=== PATIENT | female | born 1945 | race Caucasian/White ===

== ENCOUNTER 2016-11-25 19:34 | Inpatient (IN) | payer MEDICARE ==
[~2016-11-25] VITALS: Ht 157.5 cm; Wt 77.2 kg
[~2016-11-25 19:34] MED LIST changes: -ALBUTEROL SULFATE 2.5 MG/0.5 ML INH NEB SOLN NEB ONE; -IPRATROPIUM 0.5MG/ALBUTEROL 2.5MG INH SOL UD 3ML (DUONEB)(J7620) NEB ONE; +cefTRIAXone SOD 1 GM in D5W MINI-BAG PLUS 50 ML IV SCH
--- NOTE | 2016-11-25 21:50 | ECGEPIP ---
Stationary ECG Study [facility] - ED Test Date: 2016-11-25 Pat Name: CORY CAMPBELL Department: Room: - Gender: F Hvac Specialist: RiveraB: 1945 Requested By: KELIN MCKINLEY Order Number: [id number] Reading MD: Arnie Charlton Measurements Intervals [place] Rate: 93 P: 80 [place]: 145 QRS: 50 QRSD: 81 T: 56 QT: 320 QTc: 398 Interpretive Statements SINUS RHYTHM POSSIBLE LAE SIMILAR TO PRIOR ON SAME DATE Electronically Signed On 11-25-2016 21:49:42 EST by Arnie Charlton
[2016-11-25 21:51] LABS: ABG BASE EXCESS 21.4 (-2.0-2.0); ABG HCO3 53.5 MEQ/L (22.0-26.0); ABG PARTIAL PRESSURE CO2 119.1 mmHg (35.0-45.0); ABG PARTIAL PRESSURE O2 54.3 mmHg (75.0-100.0); ABG STANDARD HCO3 45.5 MEQ/L (22.0-26.0); ABG TOTAL CO2 57.1 MEQ/L (23.0-31.0)
[2016-11-25] MEDS ORDERED: dexameTHASONE 20 MG/5 ML VIAL (J1100) IV ONE (22:00)
[2016-11-25 22:33] LABS: THYROXINE (T4) 8.2 UG/DL (4.5-12.0)
[2016-11-25] MEDS: IPRATROPIUM 0.5MG/ALBUTEROL 2.5MG INH SOL UD 3ML (DUONEB)(J7620) NEB PRN ×3 (22:33→22:48)
[2016-11-26] VITALS (18 sets, daily range): BP systolic 107–180; BP diastolic 51–77; O2SAT 96
[2016-11-26] MEDS ORDERED: amLODIPine 5 MG TAB PO ONE
[2016-11-26] MEDS ORDERED: hydrALAZINE INJ 20 MG/ML VIAL IV PRN
--- NOTE | 2016-11-26 00:37 | HPE ---
DATE OF ADMISSION: 11/25/2016 HISTORY AND PHYSICAL/CRITICAL CARE NOTE Critical care time was 1 hour. This excludes all procedures. 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 She was then sent to the emergency room. She was discharged home and then came back more short of breath. She has been feeling weak for some time. On her evaluation on her second presentation, an arterial blood gas was performed showing hypercapnic respiratory failure. On my arrival to the room, the patient has already been started on bilevel noninvasive therapy, I made adjustments accordingly. She is getting a first dose of steroids. No antibiotics have been administered. She is unable to provide me much history, and there is no one in the room to help with her history. She was able to tell me that she has albuterol nebs and that she does not take her other prescribed inhalers due to the cost of medication. I am unable to get any other history from her. Based on her chart, she has a past medical history of vitamin D deficiency, back pain, hypercholesterolemia and a hysterectomy for dysfunctional uterine bleeding. I am unable to obtain social history, but I hear there is a who presented to the emergency room (ER); however, he has left and is not available by phone at this point in time. FAMILY HISTORY: Unobtainable. REVIEW OF SYSTEMS: Unobtainable. ALLERGIES: Unobtainable. PHYSICAL EXAMINATION: Temperature is 99.3, pulse is 95, respiratory rate is 20, blood pressure is 170/70, oxygen saturation is 90% on bilevel 14 over 6, with 40% FiO2. General: The patient is awake, tolerating the mask. She shakes her head yes or no to some questions, other times shrugs. HEENT: Sclerae clear and anicteric. Mucous membranes are moist without lesions. Tongue is midline. Neck is supple. No tracheal deviation or mass. No elevated jugular venous pressure (JVP). Cardiac: Distant, S1, S2 without audible murmur, rub or gallop. No elevated JVP. No peripheral edema. Pulmonary: Decreased breath sounds throughout. There is an inspiratory and expiratory wheeze. No laryngeal stridor. Poor air entry bilaterally. No rhonchi. No dullness to percussion. Abdomen is soft, nontender, nondistended with normoactive bowel sounds. No palpable mass or discernible hepatosplenomegaly. Extremities: No cyanosis, clubbing or edema. Skin: No rashes, jaundice or bruising. No unilateral weakness, no tremor. No evidence of seizure activity. Musculoskeletal: Muscle tone is well developed. No evidence of fracture or joint effusion. Laboratory evaluation shows a white count of 11.1. Initial hemoglobin of 16.3 at 10 o'clock today, now on 11.4. Hematocrit initially 48.9, now 36.8. Platelet count of 163. Sodium is 143, potassium 4.2, chloride is 96, bicarbonate is 45, BUN is 14, creatinine is 1.03, glucose is 128, calcium is 9.1, total bilirubin is 0.2, AST is 18, ALT is 15, alkaline phosphatase is 98, ammonia is 22. CK is 87, troponin is 0.02, albumin is 3.1. TSH is 1.78. Chest x-ray shows blunting of the left costophrenic angle. Reported 1 centimeter nodule in the right upper lobe on the films at 13 49 hours. This will require further radiologic workup as an outpatient. Minimal cephalization. No evidence of pneumothorax. Arterial blood gas shows a pH of 7.27, pCO2 of 119, PaO2 of 54.3. Sodium is 143, potassium 4.2, chloride 96, bicarbonate 45, BUN of 14, creatinine of 1.03. IMPRESSION: 1. Acute hypercarbic respiratory failure. Will initiate steroids and antibiotics for chronic obstructive pulmonary disease exacerbation. There is some question of a left lower lobe infiltrate, although it is better. It is not very clear on the lateral film that there is any significant infiltrate and this may be chronic abnormalities. She does have leukocytosis and respiratory failure; therefore, antibiotics were administered. Will obtain sputum culture. Will continue bilevel noninvasive therapy until the patient is able to ventilate on her own. She did state that she would want everything done, including intubation, mechanical ventilation and life support if this were needed to save her life. I have started formoterol and budesonide along with albuterol nebs. She will need long-acting inhaled therapy as an outpatient. 2. Leukocytosis. Will obtain blood cultures and sputum cultures. I have started antibiotic therapy. There is no evidence of septic shock at this point in time. Blood pressure is actually high. Will continue to monitor for signs of sepsis. 3. Hypertension. I was hopeful that initiating bilevel therapy in alleviating her respiratory distress would bring down her blood pressure; however, she remained with a systolic blood pressure greater than 170. Therefore, I started Norvasc and as needed hydralazine. Will continue to monitor blood pressure and need for additional antihypertensive therapy. I cannot clearly obtain whether she is on antihypertensive therapy at home. 4. Right upper lobe nodule. Will require outpatient workup and followup. IMPRESSION The patient remains critically ill due to the severity of her respiratory failure. The severity of the hypercarbia requires intensive care unit (ICU)admission and close clinical monitoring. She is at risk for need for intubation.
[2016-11-26 02:19] LABS: ABG HCO3 44.5 MEQ/L (22.0-26.0); ABG PARTIAL PRESSURE O2 82.8 mmHg (75.0-100.0); ABG STANDARD HCO3 39.9 MEQ/L (22.0-26.0); ABG TOTAL CO2 46.9 MEQ/L (23.0-31.0); ABG pH (ARTERIAL) 7.375 UNITS (7.350-7.450)
[2016-11-26 02:20] LABS: ABG PARTIAL PRESSURE CO2 77.8 mmHg (35.0-45.0)
[2016-11-26] MEDS: cefTRIAXone SOD 1 GM in D5W MINI-BAG PLUS 50 ML IV SCH ×2 (02:47→23:18)
[2016-11-26] MEDS: methylPREDNISolone INJ 125 MG/2 ML VIAL (J2930) IV SCH ×3 (02:47→17:15)
[2016-11-26] MEDS: AZITHROMYCIN INJ 500 MG, VIAL MATE ADAPTER 1 EACH in D5W 250 ML IV SCH (03:45)
[2016-11-26 05:19] LABS: ALBUMIN 2.9 GM/DL (3.2-5.2); ALBUMIN/GLOBULIN RATIO 0.64 (1.00-1.93); BILIRUBIN,TOTAL 0.2 MG/DL (0.2-1.0); CALCIUM LEVEL 8.8 MG/DL (8.8-10.2); CREATININE FOR GFR 1.02 MG/DL (0.55-1.02); GLOMERULAR FILTRATION RATE 56.9 (>39); MEAN CORPUSCULAR HEMOGLOBIN 29.6 pg (27.0-33.0); MEAN CORPUSCULAR HGB CONC 31.2 g/dl (32.0-36.5); POTASSIUM SERUM 4.6 MEQ/L (3.5-5.1); RED CELL DISTRIBUTION WIDTH 14.1 % (11.5-14.5); TOTAL PROTEIN 7.4 GM/DL (6.4-8.2); WHITE BLOOD COUNT 10.9 K/mm3 (4.0-10.0)
[2016-11-26 05:22] LABS: ABG BASE EXCESS 12.3 (-2.0-2.0); ABG HCO3 40.8 MEQ/L (22.0-26.0); ABG STANDARD HCO3 36.1 MEQ/L (22.0-26.0); ABG TOTAL CO2 43.2 MEQ/L (23.0-31.0); ABG pH (ARTERIAL) 7.342 UNITS (7.350-7.450)
[2016-11-26] MEDS: IPRATROPIUM 0.5MG/ALBUTEROL 2.5MG INH SOL UD 3ML (DUONEB)(J7620) NEB SCH ×4 (08:00→20:00)
[2016-11-26] MEDS: FORMOTEROL FUMARATE 20 MCG/2 ML INHALATION SOLUTION (PERFOROMIST) INH SCH ×2 (08:09→19:18)
[2016-11-26] MEDS: BUDESONIDE 0.5 MG/2 ML INHALATION SUSPENSION INH SCH ×2 (08:09→19:18)
[2016-11-26] MEDS: PANTOPRAZOLE 40MG INJ (PROTONIX) (C9113) IV SCH (08:49)
[2016-11-26] MEDS: ENOXAPARIN 40 MG/0.4 ML SYRINGE (J1650) SC SCH (08:49)
--- NOTE | 2016-11-26 09:12 | REP ---
PORTABLE CHEST: AP portable view of the chest is performed. Increased interstitial markings in each lung base are unchanged. There is no change since the prior exam of 11/25/2016. The cardiomediastinal silhouette is unchanged. IMPRESSION: Stable exam. Signed by Rolando Aguiar MD 11/26/2016 08:05 P
--- NOTE | 2016-11-26 09:14 | REP ---
SINGLE VIEW CHEST, 11/25/2016, 10:21 P.M. COMPARISON: 11/25/2016, 1:48 p.m. Single frontal portable view of the chest is performed and compared to a prior study. Increased interstitial markings in the lung bases are unchanged. No new infiltrates are seen. The cardiomediastinal silhouette is unchanged. IMPRESSION: Stable exam. Signed by Rolando Aguiar MD 11/26/2016 08:05 P
[2016-11-26] MEDS ORDERED: GLUCOSE 4 GM CHEW TABLET PO PRN (10:15)
[2016-11-26] MEDS ORDERED: GLUCAGON FOR INJ 1 MG VIAL (J1610) SC PRN (10:15)
[2016-11-26] MEDS ORDERED: DEXTROSE 50% 50 ML SYRINGE IV PRN (10:15)
[2016-11-26] MEDS: HumaLOG INSULIN (NovoLOG) PER UNIT SC SCH ×3 (11:59→20:37)
[2016-11-26] MEDS: TOBRAMYCIN 0.3% OPHTH SOLN 5 ML OU SCH ×2 (15:44→20:38)
[2016-11-27] VITALS (10 sets, daily range): BP systolic 127–143; BP diastolic 62–70; O2SAT 92–93
[2016-11-27] MEDS: AZITHROMYCIN INJ 500 MG, VIAL MATE ADAPTER 1 EACH in D5W 250 ML IV SCH (00:28)
[2016-11-27] MEDS: methylPREDNISolone INJ 125 MG/2 ML VIAL (J2930) IV SCH ×3 (01:53→17:10)
[2016-11-27 05:04] LABS: ABG BASE EXCESS 13.2 (-2.0-2.0); ABG HCO3 39.6 MEQ/L (22.0-26.0); ABG PARTIAL PRESSURE O2 80.7 mmHg (75.0-100.0); ABG STANDARD HCO3 36.9 MEQ/L (22.0-26.0); ABG TOTAL CO2 41.4 MEQ/L (23.0-31.0); ABG pH (ARTERIAL) 7.437 UNITS (7.350-7.450)
[2016-11-27 05:06] LABS: MEAN CORPUSCULAR HEMOGLOBIN 29.7 pg (27.0-33.0); RED CELL DISTRIBUTION WIDTH 13.9 % (11.5-14.5); WHITE BLOOD COUNT 11.5 K/mm3 (4.0-10.0)
[2016-11-27 05:22] LABS: ALBUMIN 2.9 GM/DL (3.2-5.2); ALBUMIN/GLOBULIN RATIO 0.66 (1.00-1.93); BILIRUBIN,TOTAL 0.2 MG/DL (0.2-1.0); CALCIUM LEVEL 8.7 MG/DL (8.8-10.2); CREATININE FOR GFR 1.09 MG/DL (0.55-1.02); GLOMERULAR FILTRATION RATE 52.7 (>39); POTASSIUM SERUM 3.9 MEQ/L (3.5-5.1); TOTAL PROTEIN 7.3 GM/DL (6.4-8.2)
[2016-11-27] MEDS: HumaLOG INSULIN (NovoLOG) PER UNIT SC SCH ×4 (07:52→21:00)
[2016-11-27] MEDS: BUDESONIDE 0.5 MG/2 ML INHALATION SUSPENSION INH SCH ×2 (07:54→20:26)
[2016-11-27] MEDS: FORMOTEROL FUMARATE 20 MCG/2 ML INHALATION SOLUTION (PERFOROMIST) INH SCH ×2 (07:54→20:26)
[2016-11-27] MEDS: IPRATROPIUM 0.5MG/ALBUTEROL 2.5MG INH SOL UD 3ML (DUONEB)(J7620) NEB SCH ×3 (07:54→14:08)
--- NOTE | 2016-11-27 08:40 | REP ---
Portable chest x-ray: Single view. History: Respiratory failure. Comparison chest x-rays from November 26, 2016. Findings: EKG monitoring electrodes overlie the chest. The heart is not enlarged. Lung hunt are clear. Pulmonary vasculature is not increased. No significant bony abnormality. Impression: No active disease. Signed by Tony Mccoy MD 11/27/2016 12:24 P
[2016-11-27] MEDS: PANTOPRAZOLE 40MG INJ (PROTONIX) (C9113) IV SCH (09:12)
[2016-11-27] MEDS: ENOXAPARIN 40 MG/0.4 ML SYRINGE (J1650) SC SCH (09:13)
[2016-11-27] MEDS: TOBRAMYCIN 0.3% OPHTH SOLN 5 ML OU SCH ×3 (09:13→21:05)
[2016-11-27 09:31] LABS: ABG BASE EXCESS 14.8 (-2.0-2.0); ABG HCO3 42.8 MEQ/L (22.0-26.0); ABG PARTIAL PRESSURE O2 64.8 mmHg (75.0-100.0); ABG STANDARD HCO3 38.6 MEQ/L (22.0-26.0); ABG pH (ARTERIAL) 7.394 UNITS (7.350-7.450)
[2016-11-27 09:35] LABS: ABG PARTIAL PRESSURE CO2 71.6 mmHg (35.0-45.0)
[2016-11-27] MEDS ORDERED: IPRATROPIUM 0.5MG/ALBUTEROL 2.5MG INH SOL UD 3ML (DUONEB)(J7620) NEB PRN (14:15)
[2016-11-27] MEDS ORDERED: LEVALBUTEROL 1.25 MG/0.5 ML CONCENTRATE NEB INH PRN (15:15)
[2016-11-27] MEDS: LEVALBUTEROL 1.25 MG/0.5 ML CONCENTRATE NEB INH SCH ×3 (15:22→23:24)
[2016-11-27] MEDS: DOCUSATE SODIUM 100 MG CAP PO SCH (21:05)
[2016-11-27] MEDS: cefTRIAXone SOD 1 GM in D5W MINI-BAG PLUS 50 ML IV SCH (23:59)
[2016-11-28] VITALS (7 sets, daily range): BP systolic 133–180; BP diastolic 59–78; O2SAT 94
[2016-11-28] MEDS: AZITHROMYCIN INJ 500 MG, VIAL MATE ADAPTER 1 EACH in D5W 250 ML IV SCH (00:28)
[2016-11-28] MEDS: methylPREDNISolone INJ 125 MG/2 ML VIAL (J2930) IV SCH ×3 (02:03→17:53)
[2016-11-28] MEDS: LEVALBUTEROL 1.25 MG/0.5 ML CONCENTRATE NEB INH SCH ×6 (04:04→23:16)
[2016-11-28 05:15] LABS: MEAN CORPUSCULAR HEMOGLOBIN 29.4 pg (27.0-33.0); MEAN CORPUSCULAR HGB CONC 32.1 g/dl (32.0-36.5); MEAN CORPUSCULAR VOLUME 91.6 fl (80.0-96.0); RED CELL DISTRIBUTION WIDTH 13.8 % (11.5-14.5); WHITE BLOOD COUNT 12.3 K/mm3 (4.0-10.0)
[2016-11-28 05:34] LABS: ALBUMIN 2.9 GM/DL (3.2-5.2); ALBUMIN/GLOBULIN RATIO 0.69 (1.00-1.93); BILIRUBIN,TOTAL 0.1 MG/DL (0.2-1.0); CALCIUM LEVEL 8.6 MG/DL (8.8-10.2); CREATININE FOR GFR 1.17 MG/DL (0.55-1.02); GLOMERULAR FILTRATION RATE 48.5 (>39); POTASSIUM SERUM 3.9 MEQ/L (3.5-5.1); TOTAL PROTEIN 7.1 GM/DL (6.4-8.2)
[2016-11-28 06:13] LABS: ABG HCO3 40.9 MEQ/L (22.0-26.0); ABG STANDARD HCO3 37.7 MEQ/L (22.0-26.0); ABG TOTAL CO2 42.8 MEQ/L (23.0-31.0); ABG pH (ARTERIAL) 7.426 UNITS (7.350-7.450)
[2016-11-28 06:14] LABS: ABG PARTIAL PRESSURE CO2 63.6 mmHg (35.0-45.0)
[2016-11-28] MEDS: BUDESONIDE 0.5 MG/2 ML INHALATION SUSPENSION INH SCH ×2 (06:56→20:04)
[2016-11-28] MEDS: FORMOTEROL FUMARATE 20 MCG/2 ML INHALATION SOLUTION (PERFOROMIST) INH SCH ×2 (06:56→20:04)
[2016-11-28] MEDS: PANTOPRAZOLE 40MG TAB (PROTONIX) PO SCH (08:24)
[2016-11-28] MEDS: DOCUSATE SODIUM 100 MG CAP PO SCH ×2 (08:25→21:14)
[2016-11-28] MEDS: ENOXAPARIN 40 MG/0.4 ML SYRINGE (J1650) SC SCH (08:25)
[2016-11-28] MEDS: HumaLOG INSULIN (NovoLOG) PER UNIT SC SCH ×4 (08:25→21:00)
[2016-11-28] MEDS: TOBRAMYCIN 0.3% OPHTH SOLN 5 ML OU SCH ×3 (08:26→21:14)
--- NOTE | 2016-11-28 09:18 | REP ---
PORTABLE CHEST: AP portable view of the chest is performed. Comparison 11/27/2016. Lungs are unchanged in appearance with no acute infiltrate. Cardiac silhouette is mildly prominent. There is mild calcification of thoracic aorta. Mediastinal silhouette is unchanged. IMPRESSION: Stable exam. Signed by Rolando Aguiar MD 11/28/2016 04:40 P
--- NOTE | 2016-11-28 23:00 | IPN ---
DATE: 11/28/2016 Yesterday, patient complained of multiple episodes of tremors witnessed by the nurse at the bedside. She was awake, alert, and oriented and was conversing with the nurse during the hand tremors which lasted for a few minutes. The patient denied any chest pain, pressure or tightness, worsening shortness of breath, palpitation, lightheadedness. She was noted to have tachycardia. Her vital signs were stable. Another episode was early this morning and she currently denies any worsening shortness of breath, chest pain, pressure or tightness, lightheadedness, or dizziness this morning. PHYSICAL EXAMINATION: VITAL SIGNS: Temperature 97.4, pulse 88, respiratory rate 24, blood pressure 141/70, 93% on five liters nasal cannula. GENERAL: Patient is awake, alert, and oriented times three, answering questions appropriately. She has pursed lips, mild respiratory distress but able to complete full sentences. No conversational dyspnea. NECK: No jugular venous distention. HEENT: Dry mucous membranes. LUNGS: Diminished with coarse rhonchi. HEART: S1, S2, sinus rhythm. ABDOMEN: Soft, nontender, nondistended. Positive bowel sounds. EXTREMITIES: No clubbing, cyanosis, or peripheral edema. LABORATORY DATA: White count 12, hemoglobin 10, hematocrit 33, platelet count 185. Sodium 143, potassium 3.9, chloride 98, bicarbonate 40, BUN 34, creatinine 1.17, glucose of 197. MICROBIOLOGY: RSV panel negative. Sputum culture pending. Two sets of blood cultures 11/26/2016, pending. ASSESSMENT AND PLAN: This is a 71-year-old female with history of known chronic obstructive pulmonary disease (COPD), was at Dr. Nash's office when she had a fall and possible syncopal episode while she was checking out making her appointment. She was sent to the emergency room and was found to have acute hypercapnic and hypercarbic respiratory failure emergently requiring bilevel noninvasive therapy and managed by Dr. Mehran Ray. Overnight, from 11/25/2016 to 11/26/2016, the patient had significant improvement and repeat arterial blood gas showed a pH change from 7.27 on admission to 7.4 currently. Her CO2 level on admission was 119.1 and current CO2 level is 63. She is currently awake, alert, and oriented with complaints of occasional tremors, thought to be secondary to hypercarbia. Since admission, the patient had been treated for COPD exacerbation with IV Solu-Medrol, nebulizer treatments, supplemental oxygen, inhaled steroids, and long-acting beta-agonists. Antibiotics, both ceftriaxone and azithromycin, had been administered. Chest x-ray on 11/27/2016 shows no active disease. The patient is medically stable to transfer to a medical/surgical floor as there have been no other acute issues on telemetry and respiratory status is stable. CURRENT ISSUES: 1. Acute hypercarbic respiratory failure, requiring bilevel noninvasive therapy. The patient's arterial blood gas is significantly improved from admission of 7.2 and CO2 level of 110 to current pH of 7.4 and CO2 level of 63 which is most likely her baseline. The patient is currently being treated for COPD exacerbation with IV Solu-Medrol, nebulizer treatment, inhaled steroids, inhaled long-acting beta-agonist, scheduled short-acting beta-agonist, and supplemental oxygen. The patient is medically stable for transfer to medical/surgical floor. 2. COPD exacerbation, currently under the care of Dr. Nash. The patient had required bilevel positive airway pressure (BiPAP) therapy for acute hypercarbia and acute respiratory acidosis due to COPD exacerbation. Currently on tapering dose of IV Solu-Medrol, antibiotics, nebulizer treatments, inhaled steroids, and supplemental oxygen. 3. Tremors, most likely secondary to hypercarbia. Per Dr. Rocha, neurologist on-call on 11/27/2016, the patient's tremors are most likely related to her hypercarbia. Therefore, he recommends outpatient followup with him in the office to determine further differential once acute respiratory status is improved. He did recommend for completeness sake an EEG to rule out seizure activity which is very unlikely as the patient was awake, alert, oriented, and speaking with the nurse during the episodes of tremors. The patient has no rigidity on examination to suspect parkinsonian tremors. It does not appear to be intentional or essential tremors. 4. Obstructive sleep apnea. The patient has had a night study at home. She may use home continuous positive airway pressure (CPAP) at bedtime. 5. Deep vein thrombosis (DVT) prophylaxis with subcutaneous Lovenox.
[2016-11-29] MEDS: cefTRIAXone SOD 1 GM in D5W MINI-BAG PLUS 50 ML IV SCH (00:14)
[2016-11-29] MEDS: methylPREDNISolone INJ 125 MG/2 ML VIAL (J2930) IV SCH ×3 (01:57→17:55)
[2016-11-29] MEDS: LEVALBUTEROL 1.25 MG/0.5 ML CONCENTRATE NEB INH SCH ×6 (03:23→23:53)
[2016-11-29 06:00] VITALS: BP 145/80
[2016-11-29 06:12] LABS: ABG HCO3 39.1 MEQ/L (22.0-26.0); ABG PARTIAL PRESSURE O2 61.2 mmHg (75.0-100.0); ABG STANDARD HCO3 35.6 MEQ/L (22.0-26.0); ABG TOTAL CO2 41.1 MEQ/L (23.0-31.0); ABG pH (ARTERIAL) 7.408 UNITS (7.350-7.450)
[2016-11-29 06:14] LABS: ABG PARTIAL PRESSURE CO2 63.4 mmHg (35.0-45.0)
[2016-11-29 06:49] LABS: MEAN CORPUSCULAR HEMOGLOBIN 29.9 pg (27.0-33.0); MEAN CORPUSCULAR HGB CONC 32.4 g/dl (32.0-36.5); MEAN CORPUSCULAR VOLUME 92.2 fl (80.0-96.0); RED CELL DISTRIBUTION WIDTH 13.9 % (11.5-14.5); WHITE BLOOD COUNT 11.2 K/mm3 (4.0-10.0)
[2016-11-29 07:20] LABS: ALBUMIN 2.9 GM/DL (3.2-5.2); ALBUMIN/GLOBULIN RATIO 0.73 (1.00-1.93); BILIRUBIN,TOTAL 0.1 MG/DL (0.2-1.0); CALCIUM LEVEL 8.9 MG/DL (8.8-10.2); CREATININE FOR GFR 1.05 MG/DL (0.55-1.02); POTASSIUM SERUM 4.1 MEQ/L (3.5-5.1); TOTAL PROTEIN 6.9 GM/DL (6.4-8.2)
[2016-11-29] MEDS: BUDESONIDE 0.5 MG/2 ML INHALATION SUSPENSION INH SCH ×2 (08:11→20:19)
[2016-11-29] MEDS: FORMOTEROL FUMARATE 20 MCG/2 ML INHALATION SOLUTION (PERFOROMIST) INH SCH ×2 (08:11→20:19)
[2016-11-29] MEDS ORDERED: AZITHROMYCIN 250 MG TAB PO SCH (09:00)
[2016-11-29] MEDS: DOCUSATE SODIUM 100 MG CAP PO SCH ×2 (09:07→21:10)
[2016-11-29] MEDS: DICLOXACILLIN 250 MG CAP PO SCH ×3 (09:08→17:54)
[2016-11-29] MEDS: ENOXAPARIN 40 MG/0.4 ML SYRINGE (J1650) SC SCH (09:08)
[2016-11-29] MEDS: PANTOPRAZOLE 40MG TAB (PROTONIX) PO SCH (09:08)
[2016-11-29] MEDS: HumaLOG INSULIN (NovoLOG) PER UNIT SC SCH ×4 (09:08→21:10)
[2016-11-29] MEDS: TOBRAMYCIN 0.3% OPHTH SOLN 5 ML OU SCH ×3 (09:09→21:10)
[2016-11-29] MEDS: MOM 30ML SUSPENSION UDC PO PRN (12:19)
[2016-11-29] MEDS: SENNA 8.6 MG TAB (SENOKOT) PO SCH ×2 (12:19→21:10)
[2016-11-29 14:00] VITALS: BP 155/80
[2016-11-29 22:00] VITALS: BP 170/80
[2016-11-30] MEDS: DICLOXACILLIN 250 MG CAP PO SCH ×5 (00:50→23:11)
[2016-11-30] MEDS: methylPREDNISolone INJ 125 MG/2 ML VIAL (J2930) IV SCH ×2 (02:36→09:34)
[2016-11-30] MEDS: LEVALBUTEROL 1.25 MG/0.5 ML CONCENTRATE NEB INH SCH ×6 (02:53→23:17)
[2016-11-30 05:53] LABS: MEAN CORPUSCULAR HEMOGLOBIN 28.9 pg (27.0-33.0); MEAN CORPUSCULAR HGB CONC 31.6 g/dl (32.0-36.5); MEAN CORPUSCULAR VOLUME 91.5 fl (80.0-96.0); RED CELL DISTRIBUTION WIDTH 13.6 % (11.5-14.5); WHITE BLOOD COUNT 11.6 K/mm3 (4.0-10.0)
[2016-11-30 06:00] VITALS: BP 164/72
[2016-11-30 06:04] LABS: ALBUMIN/GLOBULIN RATIO 0.79 (1.00-1.93); BILIRUBIN,TOTAL 0.2 MG/DL (0.2-1.0); CALCIUM LEVEL 8.7 MG/DL (8.8-10.2); CREATININE FOR GFR 1.01 MG/DL (0.55-1.02); GLOMERULAR FILTRATION RATE 57.5 (>39); POTASSIUM SERUM 4.4 MEQ/L (3.5-5.1); TOTAL PROTEIN 6.8 GM/DL (6.4-8.2)
[2016-11-30] MEDS: BUDESONIDE 0.5 MG/2 ML INHALATION SUSPENSION INH SCH ×2 (08:05→20:32)
[2016-11-30] MEDS: FORMOTEROL FUMARATE 20 MCG/2 ML INHALATION SOLUTION (PERFOROMIST) INH SCH ×2 (08:05→20:32)
--- NOTE | 2016-11-30 08:27 | IPN ---
DATE: 11/29/2016 Patient seen and examined at the bedside. Chart has been reviewed. Patient stated she was having visual hallucinations last night when she was looking at the television. It felt like it was down on the ground. When she closes her eyes she sees her checkbook and her purse from home coming at her, lasting for a few minutes and disappearing. Patient denies any diplopia, visual blurring. She denies upper and lower extremity paraesthesias or weakness. No other complaints overnight. Temperature 97.3, pulse 86, respiratory rate 20, blood pressure 145/80, 92% on 3 liters nasal cannula. Generally, patient is awake, alert, oriented to person, place and time, answering questions appropriately. No respiratory distress. No pursed lips. Patient is able to speak in full sentences. No conversational dyspnea. Neck: No jugular venous distention. Dry mucous membranes. Lungs: Diminished breath sounds, coarse rhonchi bilaterally. Heart: S1, S2, sinus rhythm. Abdomen soft, nontender, nondistended. Positive bowel sounds. No hepatosplenomegaly. Extremities: No cyanosis, clubbing or peripheral edema. Neurologically awake, alert, oriented times three, answering questions appropriately. Patient has no pronator drift. No facial asymmetry. Speaks in full sentences. No slurring of speech. Motor function is 5/5 times four extremities. Gait was not tested. LABORATORY DATA: White count 11.2, hemoglobin 11, hematocrit 34, platelet count 210. Sodium 146, potassium 4.1, chloride 100, bicarbonate 40, BUN 33, creatinine 1.05, glucose of 181. Arterial blood gas: pH of 7.4, CO2 level is 63, O2 61. Sputum culture is Staphylococcus aureus, resistant to penicillin, sensitive to oxacillin. Chest x-ray: No acute disease, 11/28/2016, stable with no acute infiltrate. ASSESSMENT AND PLAN: This is a 71-year-old female with known history of chronic obstructive pulmonary disease (COPD), follows with Dr. Nash, [facility], when she had a fall and syncopal episode while she was checking out making her appointment. Patient was sent to the emergency room, was found to have acute hypercapnic and hypercarbic respiratory failure and emergently required bilevel noninvasive therapy, managed by Dr. Mehran Ray. Patient's admission blood gas with a pH of 7.27 and CO2 of 119.1. With bilevel positive airway pressure (BiPAP) therapy, patient improved to CO2 level of 62 and pH of 7.4, was transferred to hospitalist service. During her intensive care unit (ICU) stay, she complained of occasional tremors, similar to the one that she had while she was at Dr. Nsah's office thought to be secondary to significant hypercarbia. Since admission and transferred to medical-surgical floor, she has also complained of visual hallucinations. Denies any history of alcohol abuse in the past. Ammonia level is normal and arterial blood gas remains stable. Current chest x-ray showed no active disease. Patient had been on ceftriaxone and azithromycin, which were discontinued. She was started on dicloxacillin for findings of Staphylococcus aureus in her sputum culture. CURRENT ISSUES: 1. Acute hypercarbic respiratory failure. Required bilevel noninvasive therapy, currently stabilized, pH of 7.4, CO2 is 62, which is most likely her baseline. She is currently being treated for COPD with IV Solu-Medrol, nebulizer treatments, supplemental oxygen, short and long-acting beta-agonist and is currently, medically stable to remain on medical/surgical floor, start tapering the steroids in the morning. 2. COPD exacerbation. Under the care of Dr. Nash as outpatient requiring acute exacerbation treatment with IV Solu-Medrol, short and long-acting beta-agonist inhaled steroids, supplemental oxygen and antibiotics. Continue with the same and slow tapering of steroids as the patient is severely hypoxic. 3. Tremors. Most likely secondary to hypercarbia. Electroencephalogram (EEG) was ordered to rule out seizure activity, which is unlikely as the patient was speaking with the nurse during the entire episode. 4. Visual hallucinations. Most likely acute metabolic encephalopathy secondary to hypercarbia. Continue to monitor symptoms and neuro checks every 4 hours. Ammonia level and arterial blood gas appeared to be normal.
[2016-11-30 09:00] VITALS: BP 156/82
[2016-11-30] MEDS: SENNA 8.6 MG TAB (SENOKOT) PO SCH ×2 (09:35→21:35)
[2016-11-30] MEDS: DOCUSATE SODIUM 100 MG CAP PO SCH ×2 (09:35→21:35)
[2016-11-30] MEDS: HumaLOG INSULIN (NovoLOG) PER UNIT SC SCH ×4 (09:35→21:00)
[2016-11-30] MEDS: PANTOPRAZOLE 40MG TAB (PROTONIX) PO SCH (09:35)
[2016-11-30] MEDS: ENOXAPARIN 40 MG/0.4 ML SYRINGE (J1650) SC SCH (09:36)
[2016-11-30] MEDS: TOBRAMYCIN 0.3% OPHTH SOLN 5 ML OU SCH ×3 (09:36→21:36)
[2016-11-30 15:00] VITALS: BP 162/84
[2016-11-30] MEDS ORDERED: zolPIDEM TARTRATE 5 MG TAB PO PRN (16:00)
[2016-11-30 22:00] VITALS: BP 164/68
[2016-11-30] MEDS ORDERED: methylPREDNISolone INJ 40 MG/1 ML VIAL (J2920) IV SCH (22:00)
[2016-12-01] MEDS: LEVALBUTEROL 1.25 MG/0.5 ML CONCENTRATE NEB INH SCH ×6 (03:10→23:45)
[2016-12-01] MEDS: DICLOXACILLIN 250 MG CAP PO SCH ×4 (05:23→23:18)
[2016-12-01 06:00] VITALS: BP 158/70
[2016-12-01 06:23] LABS: MEAN CORPUSCULAR HEMOGLOBIN 29.3 pg (27.0-33.0); MEAN CORPUSCULAR HGB CONC 31.2 g/dl (32.0-36.5); MEAN CORPUSCULAR VOLUME 93.9 fl (80.0-96.0); RED CELL DISTRIBUTION WIDTH 13.9 % (11.5-14.5); WHITE BLOOD COUNT 12.1 K/mm3 (4.0-10.0)
[2016-12-01 06:49] LABS: ALBUMIN 3.2 GM/DL (3.2-5.2); ALBUMIN/GLOBULIN RATIO 0.82 (1.00-1.93); BILIRUBIN,TOTAL 0.3 MG/DL (0.2-1.0); CALCIUM LEVEL 8.7 MG/DL (8.8-10.2); CREATININE FOR GFR 1.06 MG/DL (0.55-1.02); GLOMERULAR FILTRATION RATE 54.4 (>39); POTASSIUM SERUM 4.3 MEQ/L (3.5-5.1); TOTAL PROTEIN 7.1 GM/DL (6.4-8.2)
[2016-12-01] MEDS: FORMOTEROL FUMARATE 20 MCG/2 ML INHALATION SOLUTION (PERFOROMIST) INH SCH ×2 (07:44→20:12)
[2016-12-01] MEDS: BUDESONIDE 0.5 MG/2 ML INHALATION SUSPENSION INH SCH ×2 (07:44→20:12)
[2016-12-01] MEDS: PANTOPRAZOLE 40MG TAB (PROTONIX) PO SCH (08:14)
[2016-12-01] MEDS: SENNA 8.6 MG TAB (SENOKOT) PO SCH ×2 (08:14→21:00)
[2016-12-01] MEDS: DOCUSATE SODIUM 100 MG CAP PO SCH ×2 (08:14→21:00)
[2016-12-01] MEDS: ENOXAPARIN 40 MG/0.4 ML SYRINGE (J1650) SC SCH (08:14)
[2016-12-01] MEDS: HumaLOG INSULIN (NovoLOG) PER UNIT SC SCH ×4 (08:15→20:57)
[2016-12-01] MEDS: TOBRAMYCIN 0.3% OPHTH SOLN 5 ML OU SCH ×3 (08:15→21:00)
[2016-12-01] MEDS ORDERED: predniSONE 20 MG TAB PO SCH (09:00)
[2016-12-01] MEDS: predniSONE 20 MG TAB PO SCH (12:14)
--- NOTE | 2016-12-01 12:53 | IPN ---
DATE: 11/30/2016 The patient had an unsettling night last night, unable to sleep due to persistent visual hallucinations. The patient stated that she was looking through papers with her sister at a house and when she closes her eyes she imagines it happening all over again. She currently states that when she looks down she feels like the television is on the ground. She denies any diplopia or blurred vision. No changes in visual acuity. The patient denies any chest pain, pressure. Still short of breath. Cough productive of some yellow sputum but it is very scant. No nausea or vomiting, dysuria, urgency, frequency. Still slightly weak when she ambulates and becomes hypoxic with saturations dropping to 88% on 3 liters nasal cannula with ambulation. Temperature 97.8, pulse 83, respiratory rate 20, blood pressure 164/72, 92% on 3 liters nasal cannula. GENERAL: The patient appears very anxious. No respiratory distress. No cyanosis. No clubbing. No jugular venous distention (JVD). Able to speak in full sentences. No use of respiratory accessory muscles. LUNGS: Diminished. Prolonged expiration. Fine expiratory wheezing. HEART: S1, S2. Sinus rhythm. No murmurs, rubs or gallops. ABDOMEN: Obese, soft, nontender, nondistended. EXTREMITIES: No pitting edema. 11/30/2016 CBC and metabolic panel have been reviewed. ASSESSMENT AND PLAN: This is a 71-year-old female with a history of chronic obstructive pulmonary disease (COPD), follows with Dr. Nash of [facility] when she had tremors and a syncopal episode while checking out and making her appointment. She was seen at the emergency room and was found to have hypercapnic hypercarbic respiratory failure. Emergently required bilevel noninvasive therapy, managed initially by Dr. Mehran Ray. Her pH on admission was 7.27 and CO2 level 119.1 with improvement of CO2 to 62 and pH of 7.4. She was then transferred to the hospitalist service and medical/surgical floor. During this admission, the patient has complained of visual hallucinations. Her checkbook and purse appearing when she closes her eyes. She appears very anxious. The patient was on ceftriaxone and azithromycin. Chest x-ray showed no active disease. Sputum culture shows Staphylococcus aureus, methicillin sensitive Staphylococcus aureus (MSSA), and she was started on dicloxacillin. CURRENT ISSUES: 1. Acute hypercarbic respiratory failure, resolved. Requiring bilevel positive airway pressure (BIPAP) therapy. Admission arterial blood gas showed pH of 7.2 and CO2 of 119.1. The patient currently has a pH of 7.4 and CO2 of 62, which is most likely her baseline carbon dioxide level. She is being treated for chronic obstructive pulmonary disease (COPD) exacerbation with IV Solu-Medrol, nebulizers, and supplemental oxygen, short and long-acting beta agonists and medically stable to remain on medical/surgical floor with tapering steroids. 2. COPD exacerbation. Currently on IV Solu-Medrol, which we are tapering down, short and long-acting beta agonists, inhaled steroids, supplemental oxygen, and antibiotics. Continue with the same. Oxygen titration to 88 to 92% saturation. Tremors are most likely secondary to hypercarbia. EEG to rule out seizure activity. Outpatient referral to neurology if persistent. 3. Visual hallucinations, most likely acute metabolic encephalopathy from acute hypercarbia and acute hypoxic episode. Continue to monitor. No definite neurologic disorder. No further evaluation required. The patient refused MRI of the brain. CT of the head on 11/25/2016 was unremarkable. DISPOSITION: Possible discharge home on Friday or Friday.
[2016-12-01 22:00] VITALS: BP 166/68
[2016-12-01] MEDS ORDERED: ASPIRIN 325 MG TAB PO PRN (23:15)
[2016-12-01] MEDS: ACETAMINOPHEN TAB 650MG DOSE (2X325MG) PO PRN (23:18)
[2016-12-02] MEDS: LEVALBUTEROL 1.25 MG/0.5 ML CONCENTRATE NEB INH SCH ×6 (04:02→23:29)
[2016-12-02] MEDS: DICLOXACILLIN 250 MG CAP PO SCH ×3 (05:40→18:32)
[2016-12-02 05:59] LABS: MEAN CORPUSCULAR HGB CONC 31.2 g/dl (32.0-36.5); MEAN CORPUSCULAR VOLUME 92.8 fl (80.0-96.0); RED CELL DISTRIBUTION WIDTH 13.7 % (11.5-14.5); WHITE BLOOD COUNT 10.4 K/mm3 (4.0-10.0)
[2016-12-02 06:00] VITALS: BP 170/52
[2016-12-02 06:22] LABS: ALBUMIN 2.7 GM/DL (3.2-5.2); ALBUMIN/GLOBULIN RATIO 0.79 (1.00-1.93); ALKALINE PHOSPHATASE 63 U/L (45-117); ALT/SGPT 17 U/L (12-78); ANION GAP 4 MEQ/L (8-16); AST/SGOT 14 U/L (15-37); BILIRUBIN,TOTAL 0.2 MG/DL (0.2-1.0); BLOOD UREA NITROGEN 21 MG/DL (7-18); CALCIUM LEVEL 8.2 MG/DL (8.8-10.2); CARBON DIOXIDE LEVEL 37 MEQ/L (21-32); CHLORIDE LEVEL 106 MEQ/L (98-107); CREATININE FOR GFR 0.88 MG/DL (0.55-1.02); GLOMERULAR FILTRATION RATE > 60.0 (>39); GLUCOSE, FASTING 102 MG/DL (83-110); POTASSIUM SERUM 4.1 MEQ/L (3.5-5.1); SODIUM LEVEL 147 MEQ/L (136-145); TOTAL PROTEIN 6.1 GM/DL (6.4-8.2)
[2016-12-02] MEDS: FORMOTEROL FUMARATE 20 MCG/2 ML INHALATION SOLUTION (PERFOROMIST) INH SCH ×2 (07:27→20:24)
[2016-12-02] MEDS: BUDESONIDE 0.5 MG/2 ML INHALATION SUSPENSION INH SCH ×2 (07:27→20:24)
[2016-12-02] MEDS ORDERED: amLODIPine 10 MG TAB PO ONE (07:45)
[2016-12-02] MEDS ORDERED: NS 0.45% 1,000 ML IV SCH (07:45)
[2016-12-02] MEDS ORDERED: LISINOPRIL 5 MG TAB PO ONE (07:45)
[2016-12-02] MEDS: HumaLOG INSULIN (NovoLOG) PER UNIT SC SCH ×4 (08:28→21:29)
[2016-12-02] MEDS: predniSONE 20 MG TAB PO SCH (08:29)
[2016-12-02] MEDS: SENNA 8.6 MG TAB (SENOKOT) PO SCH ×2 (08:29→21:00)
[2016-12-02] MEDS: PANTOPRAZOLE 40MG TAB (PROTONIX) PO SCH (08:29)
[2016-12-02] MEDS: DOCUSATE SODIUM 100 MG CAP PO SCH ×2 (08:29→21:45)
[2016-12-02] MEDS: ENOXAPARIN 40 MG/0.4 ML SYRINGE (J1650) SC SCH (08:30)
[2016-12-02] MEDS: TOBRAMYCIN 0.3% OPHTH SOLN 5 ML OU SCH ×3 (08:31→21:46)
[2016-12-02 09:02] LABS: ABG BASE EXCESS 6.2 (-2.0-2.0); ABG HCO3 34.6 MEQ/L (22.0-26.0); ABG PARTIAL PRESSURE O2 71.1 mmHg (75.0-100.0); ABG TOTAL CO2 36.7 MEQ/L (23.0-31.0)
[2016-12-02 09:06] LABS: ABG PARTIAL PRESSURE CO2 70.2 mmHg (35.0-45.0)
--- NOTE | 2016-12-02 10:46 | IPN ---
DATE: 12/01/2016 Patient continues to have visual hallucinations. When she closes her eyes she sees her checkbook and her purse and papers from when she was reviewing them with her sister. Appears a little bit more comfortable than a few days ago. Does not have any complaints of chest pain, pressure, or tightness. Still short of breath when she ambulates and desaturates to 88% with ambulation. Temperature 97.4, pulse 84, respiratory rate 20, blood pressure 164/68, 96% on 3 liters nasal cannula. Generally, she is awake, alert, oriented to person, place, and time, answers questions appropriately. No jugular venous distention or thyromegaly. Anicteric sclerae. No jaundice. Lungs are diminished with fine wheezing bilaterally, prolonged expiration, no pursing of lips or use of respiratory accessory muscles, able to complete full sentences with no difficulty. Heart S1, S2, sinus rhythm. Abdomen is soft, nontender, nondistended, positive bowel sounds. Extremities no pitting edema. White count 12, hemoglobin 12, hematocrit 39, platelet count 243, sodium 146, potassium 4.3, chloride 101, bicarbonate 42, BUN 26, creatinine 1.06, glucose 122. Microbiology: Staphylococcus aureus in the sputum culture, methicillin-resistant Staphylococcus aureus (MRSA) is pending. Respiratory panel is negative. Two sets of blood cultures are negative. ASSESSMENT AND PLAN: This is a 71-year-old female with history of chronic obstructive pulmonary disease (COPD) who follows with Dr. Nash, [facility], when she complained of tremors and a fall, syncopal episode, while checking out and making her followup appointment at Dr. Nash's office. Patient was brought to the emergency room and was found to have acute hypercarbic respiratory failure and emergently required bilevel noninvasive therapy managed by Dr. Rya. Patient's admission arterial blood gas was pH of 7.27, CO2 of 119.1. With bilevel positive airway pressure (BiPAP) therapy patient improved to 7.4 pH and CO2 of 62, and was transferred to hospitalist service. During her intensive care unit (ICU) stay she complained of occasional tremors witnessed by the nurse, she was awake and alert during the entire episode. At that time, this was thought to be secondary to elevated CO2 level. Once on the medical/surgical floor, patient complained of visual hallucinations of past events, no changes in vision, ammonia level was normal, arterial blood gas remained stable, and chest xray showed no active disease. Patient did receive ceftriaxone and azithromycin on admission, discontinued, as her sputum culture grew out Staphylococcus aureus and chest xray had no active disease, she was kept on dicloxacillin for Staphylococcus aureus in her sputum culture. CURRENT ISSUES: 1. Acute hypercarbic respiratory failure, resolved. Patient did require bilevel noninvasive therapy with admission pH of 7.2 and CO2 level of 119.1. Patient has since been transferred from intensive care unit (ICU) to medical/surgical. She was treated with intravenous (IV) ceftriaxone and azithromycin, Solu-Medrol, nebulizer treatments, short-acting and long-acting beta-agonists and inhaled steroids. She has since been switched to dicloxacillin for methicillin-sensitive Staphylococcus aureus (MSSA) in the sputum. 2. Acute chronic obstructive pulmonary disease (COPD) exacerbation. Patient is currently being treated with tapering doses of IV Solu-Medrol, short-acting and long-acting beta-agonist, inhaled steroids, supplemental oxygen, and dicloxacillin for Staphylococcus aureus in her sputum. She continues to be severely hypoxic. We have decreased patient's steroids due to complaints of hallucinations and possible steroid-induced psychosis. 3. Tremors, most likely secondary to hypercarbia. EEG was obtained to rule out seizures, which is unlikely as the patient was awake and alert, conversing with the nurse during the episode of tremors in the intensive care unit (ICU). Still awaiting the EEG reports. 4. Visual hallucinations, most likely secondary to acute metabolic encephalopathy. Continue to monitor for now. She continues to have no complaints of visual blurring, change in visual acuity, diplopia, or scotomas. Ammonia level and arterial blood gas have normalized. 5. Hypoxia, secondary to chronic obstructive pulmonary disease (COPD) exacerbation. Currently requiring 3 liters of nasal oxygen. 6. Hypernatremia and acute kidney injury due to respiratory distress and decreased oral intake. Will continue to monitor for now. Due to respiratory distress will attempt to encourage oral intake and refrain from intravenous fluid hydration. 7. Elevated white count, most likely secondary to steroids. No active infection aside from methicillin-sensitive Staphylococcus aureus (MSSA). Was being treated with dicloxacillin.
[2016-12-02 14:00] VITALS: BP 168/75
[2016-12-02] MEDS: MOM 30ML SUSPENSION UDC PO PRN (16:01)
[2016-12-02 21:09] LABS: ABG BASE EXCESS 5.6 (-2.0-2.0); ABG HCO3 34.5 MEQ/L (22.0-26.0); ABG PARTIAL PRESSURE O2 100.7 mmHg (75.0-100.0); ABG STANDARD HCO3 29.6 MEQ/L (22.0-26.0); ABG TOTAL CO2 36.8 MEQ/L (23.0-31.0); ABG pH (ARTERIAL) 7.282 UNITS (7.350-7.450)
[2016-12-02 21:10] LABS: ABG PARTIAL PRESSURE CO2 74.7 mmHg (35.0-45.0)
[2016-12-02 22:00] VITALS: BP 186/80
[2016-12-03] VITALS (10 sets, daily range): BP systolic 121–172; BP diastolic 56–76; O2SAT 93
[2016-12-03] MEDS: DICLOXACILLIN 250 MG CAP PO SCH ×5 (00:25→23:18)
[2016-12-03 00:36] LABS: ABG BASE EXCESS 9.9 (-2.0-2.0); ABG HCO3 38.1 MEQ/L (22.0-26.0); ABG PARTIAL PRESSURE O2 59.5 mmHg (75.0-100.0); ABG STANDARD HCO3 33.5 MEQ/L (22.0-26.0); ABG TOTAL CO2 40.3 MEQ/L (23.0-31.0); ABG pH (ARTERIAL) 7.341 UNITS (7.350-7.450)
[2016-12-03] MEDS: LEVALBUTEROL 1.25 MG/0.5 ML CONCENTRATE NEB INH SCH ×6 (03:30→23:13)
[2016-12-03 07:18] LABS: ANION GAP 1 MEQ/L (8-16); BLOOD UREA NITROGEN 16 MG/DL (7-18); CALCIUM LEVEL 8.2 MG/DL (8.8-10.2); CARBON DIOXIDE LEVEL 41 MEQ/L (21-32); CHLORIDE LEVEL 106 MEQ/L (98-107); CREATININE FOR GFR 0.94 MG/DL (0.55-1.02); GLOMERULAR FILTRATION RATE > 60.0 (>39); GLUCOSE, FASTING 138 MG/DL (83-110); POTASSIUM SERUM 4.8 MEQ/L (3.5-5.1); SODIUM LEVEL 148 MEQ/L (136-145)
[2016-12-03 07:27] LABS: BASO % 0.4 % (0.0-1.0); EOS # 0.1 K/mm3 (0.0-0.50); EOS % 1.2 % (0.0-3.0); LARGE UNSTAINED CELL # 0.1 K/mm3 (0.0-0.4); LARGE UNSTAINED CELL % 1.2 % (0.0-4.0); LYMPH # 1.6 K/mm3 (1.5-4.5); LYMPH % 15.7 % (24.0-44.0); MEAN CORPUSCULAR HEMOGLOBIN 28.7 pg (27.0-33.0); MEAN CORPUSCULAR VOLUME 95.7 fl (80.0-96.0); MONO # 0.5 K/mm3 (0.0-0.8); MONO % 4.6 % (0.0-5.0); NEUTROPHILS # 7.7 K/mm3 (1.8-7.7); NEUTROPHILS % 76.8 % (36.0-66.0); PLATELET COUNT, AUTOMATED 176 k/mm3 (150-450); RED CELL DISTRIBUTION WIDTH 13.9 % (11.5-14.5)
[2016-12-03] MEDS: FORMOTEROL FUMARATE 20 MCG/2 ML INHALATION SOLUTION (PERFOROMIST) INH SCH ×2 (07:46→19:48)
[2016-12-03] MEDS: BUDESONIDE 0.5 MG/2 ML INHALATION SUSPENSION INH SCH ×2 (07:46→19:48)
[2016-12-03] MEDS: PANTOPRAZOLE 40MG TAB (PROTONIX) PO SCH (08:15)
[2016-12-03] MEDS: predniSONE 20 MG TAB PO SCH (08:15)
[2016-12-03] MEDS: ENOXAPARIN 40 MG/0.4 ML SYRINGE (J1650) SC SCH (08:16)
[2016-12-03] MEDS: SENNA 8.6 MG TAB (SENOKOT) PO SCH ×2 (08:16→20:56)
[2016-12-03] MEDS: LISINOPRIL 5 MG TAB PO SCH (08:16)
[2016-12-03] MEDS: amLODIPine 10 MG TAB PO SCH (08:16)
[2016-12-03] MEDS: HumaLOG INSULIN (NovoLOG) PER UNIT SC SCH ×4 (08:16→20:48)
[2016-12-03] MEDS: TOBRAMYCIN 0.3% OPHTH SOLN 5 ML OU SCH ×3 (08:17→20:55)
[2016-12-03] MEDS: DOCUSATE SODIUM 100 MG CAP PO SCH ×2 (08:17→20:56)
--- NOTE | 2016-12-03 14:17 | IPN ---
DATE: 12/03/2016 Patient seen and examined. No acute events overnight. Reported improved respirations. Denies any fevers, chills, chest pain, pressure or discomfort. Overnight had one episode of dyspnea and was found to be hypercarbic with respiratory acidosis. Currently a repeat ABG shows improvement. VITAL SIGNS: Temperature 96, pulse 78, respirations 18, blood pressure 143/65, pulse oximetry 95% on nasal cannula at 2 liters. LABORATORIES: WBC 10, hemoglobin and hematocrit 10.3/34.4, platelets 176. Chemistries: Sodium 148, potassium 4.8, chloride 106, bicarb 41, BUN 16, creatinine 0.94. Respiratory panel negative. PHYSICAL EXAMINATION: GENERAL: Patient awake, alert and oriented times three. Answers questions appropriately. No acute distress. HEENT: Normocephalic. No jugular venous distention (JVD). Atraumatic. PULMONARY: Diminished breath sounds bilaterally. Fine wheeze bilaterally. Prolonged expiratory phase. No rhonchi. CARDIAC: Regular rate and rhythm. S1 and S2. ABDOMEN: Soft, obese, nontender. Positive bowel sounds. EXTREMITIES: No edema bilateral lower extremities. ASSESSMENT/PLAN: This is a 71-year-old female patient with a history of chronic obstructive pulmonary disease (COPD), follows with Dr. Nash of [facility]. The patient complains of tremors and fall with syncope episode while checking out at Dr. Nash's office. The patient was brought to the emergency room, found to have acute on chronic hypercarbic respiratory failure, requiring BiPAP initially managed by Dr. Ray. The patient's ABG improved on BiPAP. Later transferred to the hospitalist service during her ICU stay. The patient complains of occasional tremors witnessed by nursing. The patient was awake and alert during the entire episodes. The patient also reported visual hallucinations on the floor. Normal ammonia level. ABG remained stable. Chest x-ray shows no active disease. The patient did receive Rocephin and azithromycin on admission. Discontinued as her sputum grew Staphylococcus Aureus and chest x-ray shows no active disease. The patient antibiotics were switched to dicloxacillin for Staphylococcus Aureus in her sputum. PROBLEM LIST: 1. Acute hypercarbic respiratory failure. Resolved. Did require BiPAP initially. ABG is appreciated. The patient initially required ICU stay and was on Rocephin, azithromycin, and Solu-Medrol. Continue nebulized steroid treatments. Antibiotics switched to dicloxacillin for methicillin-susceptible Staphylococcus aureus (MSSA) coverage. Continue Pulmicort nebulizer treatment, formoterol, and Xopenex. Taper steroids as tolerated. Oxygen supplementation. 2. Acute on chronic COPD exacerbation. Continue nebulizer treatment. Taper steroids. Continue formoterol, budesonide oxygen supplementation. Continue antibiotic dicloxacillin for MSSA in the sputum. Patient underlying hypoxic that is chronic. Continue oxygen supplement. Physical therapy ambulate as tolerated. Acapella. 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 Taper steroids. Continue to monitor. Supportive care. 4. Tremors. Possibly secondary to steroids versus hypercarbia. EEG was obtained. Will continue to follow. 5. Chronic hypoxia. Oxygen supplementation. 6. Hypernatremia and acute kidney injury. Encouraged oral hydration. Kidney function has returned to baseline. Will continue to follow. 7. Leukocytosis. Possibly steroid induced. Cultures appreciated. Continue antibiotics as ordered. White count currently returned to normal. 8. Hypertension. Continue oral medications. 9. Obesity complicating care. 10. Diabetes. Insulin as per protocol. Followup fingersticks. 11. Dyslipidemia. Continue statin. 12. Deep vein thrombosis (DVT) prophylaxis. Lovenox subcu. DISPOSITION/PLANNING: Pending physical therapy, clinical improvement, tapered steroids. Likely discharge in the next 24-48 hours.
[2016-12-03 15:38] LABS: ABG BASE EXCESS 10.5 (-2.0-2.0); ABG HCO3 40.9 MEQ/L (22.0-26.0); ABG PARTIAL PRESSURE O2 59.8 mmHg (75.0-100.0); ABG STANDARD HCO3 34.1 MEQ/L (22.0-26.0); ABG TOTAL CO2 43.7 MEQ/L (23.0-31.0); ABG pH (ARTERIAL) 7.263 UNITS (7.350-7.450)
[2016-12-03 15:42] LABS: ABG PARTIAL PRESSURE CO2 92.6 mmHg (35.0-45.0)
[2016-12-03 18:17] LABS: ABG BASE EXCESS 6.1 (-2.0-2.0); ABG DEVICE BIPAP; ABG PARTIAL PRESSURE O2 76.1 mmHg (75.0-100.0); ABG TOTAL CO2 39.9 MEQ/L (23.0-31.0)
[2016-12-03 18:21] LABS: ABG PARTIAL PRESSURE CO2 94.9 mmHg (35.0-45.0); ABG pH (ARTERIAL) 7.209 UNITS (7.350-7.450)
--- NOTE | 2016-12-03 20:20 | IPN ---
DATE OF VISIT: 12/02/2016 The patient is seen and examined at the bedside. The chart has been reviewed. The patient continues to have visual hallucinations at this time. CO2 level will be checked, as well as arterial blood gas due to concerns of hypercarbia. She continues to have hypoxic failure requiring supplemental oxygen. She denies any chest pain, pressure or tightness, cough. VITAL SIGNS: Temperature 97.2, pulse 84, respiratory rate 19, blood pressure 170/52, 92% on 3 liters nasal cannula. GENERAL: The patient is awake, alert and oriented to person and place. She is answering questions appropriately but with visual hallucinations. She states that there is paper, a checkbook and purse coming at her. LUNGS: Diminished but clear to auscultation. No wheezing or rales. HEART: S1, S2, sinus rhythm. ABDOMEN: Soft, nontender, nondistended. EXTREMITIES: No pitting edema. LABORATORY DATA: White count 10, hemoglobin 11, hematocrit 35, platelet count 189. Sodium 147, potassium 4.1, chloride 106, bicarbonate 37, BUN 21, creatinine 0.8, glucose 102. Status sputum culture with Staphylococcus aureus. ASSESSMENT AND PLAN: This is a 71-year-old female with a history of chronic pulmonary obstructive disease (COPD) follows with Dr. Nash of [facility] presented to the emergency room after a syncopal episode complaining of tremors and a fall while making an outpatient followup appointment with Dr. Nash. The patient was found to have acute hypercarbic respiratory failure, emergently required bilevel, noninvasive therapy managed by Dr. Ray. The patient's admission arterial blood gas (ABG) was 7.27, CO2 119 with bilevel positive airway pressure (BiPAP) patient normalized 7.4, CO2 60 and she was transferred to the hospital service. During her intensive care unit (ICU) stay the patient complained of tremors witnessed by the nurse, awake and alert during the entire episode. At that time they were thought to be secondary to elevated CO2 level. Once the patient was transferred to the medical-surgical floor she complained of visual hallucinations of past events, no changes in vision, ammonia level is normal. ABG returned to 7.4 and CO2 level of 63, thought to be chronic issues. The patient had worsening hallucinations, repeat blood gases were requested. CURRENT ISSUES: 1. Acute hypercarbic respiratory failure. Repeat ABG will be obtained. The patient has been having hallucinations concerning for CO2 narcosis. The patient will be transferred to the ICU in case pH is less than 7.3 with CO2 level increasing from her baseline of mid 60s. She is currently on a tapering dose of prednisone, on short and long-acting beta agonists and inhaled steroids, supplemental oxygen for saturations greater less than 88%. 2. Acute chronic pulmonary obstructive disease (COPD) exacerbation. On intravenous (IV) Solu-Medrol, short acting and long acting beta agonists and inhaled steroids, supplemental oxygen. The patient grew out Staphylococcus aureus, methicillin sensitive Staphylococcus aureus (MSSA) in her sputum. Currently on dicloxacillin. She continues to be hypoxic requiring supplemental oxygen. 3. Acute hypoxia secondary to COPD exacerbation requiring oxygen at this time. Continue with close supportive care with treatment for COPD exacerbation, nebulizer treatments, antibiotics and oxygen. 4. Visual hallucinations. Most likely secondary to acute hypercarbia. Repeat arterial blood gas, transfer to intensive care unit (ICU) for BiPAP therapy. 5. Hypernatremia. Acute kidney injury. The patient has had decreased oral intake due to respiratory distress. Will continue to monitor for now, encourage oral intake and refrain from intravenous fluid hydration due to concerns of worsening hypoxia. 6. Elevated white count. This is most likely secondary to her steroids. No active infection aside form methicillin sensitive Staphylococcus aureus (MSSA) in the sputum with chest x-ray being negative for an infiltrate. Currently on dicloxacillin. DISPOSITION: May transfer to ICU for BiPAP if worsening arterial blood gas. MTDD
[2016-12-03 23:19] LABS: ABG HCO3 33.5 MEQ/L (22.0-26.0); ABG PARTIAL PRESSURE O2 77.3 mmHg (75.0-100.0); ABG STANDARD HCO3 27.1 MEQ/L (22.0-26.0); ABG TOTAL CO2 36.2 MEQ/L (23.0-31.0)
[2016-12-03 23:21] LABS: ABG PARTIAL PRESSURE CO2 88.5 mmHg (35.0-45.0); ABG pH (ARTERIAL) 7.196 UNITS (7.350-7.450)
[2016-12-04] VITALS (21 sets, daily range): BP systolic 116–152; BP diastolic 55–66; O2SAT 94–95
[2016-12-04 00:05] LABS: ABG BASE EXCESS 6.9 (-2.0-2.0); ABG HCO3 36.6 MEQ/L (22.0-26.0); ABG PARTIAL PRESSURE CO2 83.7 mmHg (35.0-45.0); ABG PARTIAL PRESSURE O2 80.5 mmHg (75.0-100.0); ABG STANDARD HCO3 30.7 MEQ/L (22.0-26.0); ABG TOTAL CO2 39.2 MEQ/L (23.0-31.0); ABG pH (ARTERIAL) 7.259 UNITS (7.350-7.450)
[2016-12-04] MEDS: LEVALBUTEROL 1.25 MG/0.5 ML CONCENTRATE NEB INH SCH ×5 (03:43→20:00)
[2016-12-04 05:21] LABS: BASO % 0.2 % (0.0-1.0); EOS # 0.1 K/mm3 (0.0-0.50); EOS % 1.1 % (0.0-3.0); LARGE UNSTAINED CELL # 0.1 K/mm3 (0.0-0.4); LARGE UNSTAINED CELL % 1.1 % (0.0-4.0); LYMPH # 1.8 K/mm3 (1.5-4.5); LYMPH % 13.5 % (24.0-44.0); MEAN CORPUSCULAR HEMOGLOBIN 28.5 pg (27.0-33.0); MEAN CORPUSCULAR HGB CONC 29.7 g/dl (32.0-36.5); MEAN CORPUSCULAR VOLUME 96.1 fl (80.0-96.0); MONO # 0.5 K/mm3 (0.0-0.8); NEUTROPHILS # 10.1 K/mm3 (1.8-7.7); NEUTROPHILS % 80.2 % (36.0-66.0); PLATELET COUNT, AUTOMATED 179 k/mm3 (150-450); RED CELL DISTRIBUTION WIDTH 13.9 % (11.5-14.5); WHITE BLOOD COUNT 12.6 K/mm3 (4.0-10.0)
[2016-12-04] MEDS: DICLOXACILLIN 250 MG CAP PO SCH ×3 (05:28→17:10)
[2016-12-04 05:42] LABS: ABG BASE EXCESS 9.3 (-2.0-2.0); ABG HCO3 37.7 MEQ/L (22.0-26.0); ABG PARTIAL PRESSURE O2 124.6 mmHg (75.0-100.0); ABG STANDARD HCO3 33.1 MEQ/L (22.0-26.0)
[2016-12-04 05:46] LABS: ABG PARTIAL PRESSURE CO2 74.9 mmHg (35.0-45.0)
[2016-12-04 06:00] LABS: ANION GAP 2 MEQ/L (8-16); BLOOD UREA NITROGEN 15 MG/DL (7-18); CALCIUM LEVEL 8.1 MG/DL (8.8-10.2); CARBON DIOXIDE LEVEL 41 MEQ/L (21-32); CHLORIDE LEVEL 103 MEQ/L (98-107); CREATININE FOR GFR 0.92 MG/DL (0.55-1.02); GLOMERULAR FILTRATION RATE > 60.0 (>39); GLUCOSE, FASTING 94 MG/DL (83-110); POTASSIUM SERUM 4.5 MEQ/L (3.5-5.1); SODIUM LEVEL 146 MEQ/L (136-145)
[2016-12-04] MEDS: HumaLOG INSULIN (NovoLOG) PER UNIT SC SCH ×4 (07:26→20:42)
[2016-12-04] MEDS: FORMOTEROL FUMARATE 20 MCG/2 ML INHALATION SOLUTION (PERFOROMIST) INH SCH ×2 (07:40→20:15)
[2016-12-04] MEDS: BUDESONIDE 0.5 MG/2 ML INHALATION SUSPENSION INH SCH ×2 (07:40→20:15)
[2016-12-04] MEDS: ENOXAPARIN 40 MG/0.4 ML SYRINGE (J1650) SC SCH (09:20)
[2016-12-04] MEDS: predniSONE 20 MG TAB PO SCH (09:21)
[2016-12-04] MEDS: PANTOPRAZOLE 40MG TAB (PROTONIX) PO SCH (09:21)
[2016-12-04] MEDS: amLODIPine 10 MG TAB PO SCH (09:21)
[2016-12-04] MEDS: SENNA 8.6 MG TAB (SENOKOT) PO SCH ×2 (09:21→21:00)
[2016-12-04] MEDS: LISINOPRIL 5 MG TAB PO SCH (09:21)
[2016-12-04] MEDS: DOCUSATE SODIUM 100 MG CAP PO SCH ×2 (09:21→21:00)
[2016-12-04] MEDS: TOBRAMYCIN 0.3% OPHTH SOLN 5 ML OU SCH ×3 (09:22→21:00)
--- NOTE | 2016-12-04 15:15 | CR ---
DATE OF CONSULTATION: 12/04/2016 CONSULTATION REQUESTED BY: Dr. Galvan REASON FOR CONSULTATION: Hypercarbic respiratory failure. HISTORY OF PRESENT ILLNESS: Ms. Bush is a 71-year-old female with multiple past medical history, including chronic obstructive pulmonary disease (COPD) who is following Dr. Nash of [facility], presented to emergency room (ER) on 11/25/2016 after a syncopal episode complaining of tremors and fall while followup with Dr. Nash as an outpatient. The patient was found to have hypercarbic respiratory failure, which required bilevel noninvasive therapy, which was managed by Dr. Ray. After the patient stabilized, she was transferred to medical-surgical floor. Yesterday, the patient started being lethargic and was reported to have visual hallucination of past events. However, no vision changes were noticed, and ammonia level was in normal range. Arterial blood gas (ABG) was performed, which indicated respiratory acidosis. Due to worsening of hallucinations and lethargy , repeated ABG was performed. The patient was transferred to intensive care unit (ICU) by the hospitalist team due to decreased pH and elevation of CO2 from her baseline. The patient continued on prednisone, as well as breathing treatment. Today, the patient was seen at the ICU. The patient is current smoker however she has cut down on the number of cigarettes that she smokes. The patient expressed that she is compliant with her medications. However, she does not take Advair because she cannot afford paying for this medication. The patient expressed that she is on 3 liter oxygen at home 24 hours a day. However, the patient is not on continuous positive airway pressure (CPAP) or bilevel at home. The patient had the sleep study done at [facility]. The patient expressed that she feels better today. However, she complained about being fatigued. PAST MEDICAL HISTORY: 1. Obstructive lung disease. 2. History of a bout of respiratory failure. 3. Emphysema. 4. Previous carpal tunnel. PAST SURGICAL HISTORY: Hysterectomy. CURRENT MEDICATIONS: - Norvasc 10 mg daily by mouth - lisinopril 5 mg by mouth daily - prednisone 40 mg daily by mouth - aspirin 325 mg every 6 hours as needed by mouth pain - acetaminophen 650 mg every 6 hours as needed by mouth pain and fever - milk of magnesia 30 mL daily as needed by mouth constipation - senna one tablet twice a day by mouth - dynapen 500 mg every 6 hours by mouth - Protonix 40 mg by mouth daily - Colace 100 mg by mouth twice a day - Xopenex 1.25 mg every 4 hours inhaled - Xopenex 1.25 mg every 2 hours as needed inhaled shortness of breath/wheezing - sliding scale - Lovenox 40 mg daily SC - formoterol fumarate 20 mcg twice a day inhaled - Pulmicort 0.5 mg twice a day inhaled ALLERGIES: HEPARIN. SOCIAL HISTORY: The patient lives with her partner. The patient expressed that she started smoking at age 16. The patient expressed that she smoked about one pack a day. However, the patient expressed that she has decreased number of smoking. The patient expressed that she had a history of alcoholism. However, she has not drank for the past 18 years. The patient denies illicit drug use. The patient has not traveled outside of [facility]. However, the patient has traveled to [place] and [place] many years ago. The patient has one son and one daughter, who are healthy. FAMILY HISTORY: The patient had four sisters and one brother; and one of her sisters has due to cancer. REVIEW OF SYSTEMS: GENERAL: The patient denies fever, chills, night sweats, weight loss, weight gain. HEENT: The patient denies acute vision or hearing changes. The patient denies headache, lightheadedness, or dizziness. The patient also denies sinusitis. NECK: The patient denies lumps, bumps, reduced range of motion of her neck. HEART: The patient denies palpitations, racing or skipping heartbeat. LUNGS: The patient denies dyspnea, coughing. ABDOMEN: The patient denies abdominal pain, nausea, vomiting, diarrhea, constipation, melena, hematochezia, hemoptysis. NEUROLOGIC: The patient denies history of transient ischemic attack (TIA), cerebrovascular accident (CVA), or seizure-type activities. PHYSICAL EXAMINATION: VITAL SIGNS: Temperature 98.6, pulse 82, respiratory rate 20, blood pressure 152/62, pulse oximetry 97% on 4 liter nasal cannula. GENERAL APPEARANCE: The patient was lying in bed in no acute distress. The patient was awake, alert, and oriented to time, place, and person. The patient is on bilevel at this time. HEENT: Normocephalic, atraumatic. Oral mucosa is moist. Airway is class 3. NECK: Soft, supple. No lymphadenopathy. No thyromegaly. CHEST: The patient has kyphosis with hyperresonance to percussion. LUNGS: Decreased breath sounds at the base of the lung. The patient has mild exhaled wheezing, and there is a borderline prolongation at the expiratory phase. HEART: Descended heart sound. Regular rate and rhythm. ABDOMEN: Obese. Positive bowel sounds in all quadrants. No organomegaly or mass was noticed. EXTREMITIES: The patient has trace of edema in both lower extremities. However , no cyanosis or clubbing was noticed. +2 pulses in both lower extremities. NEUROLOGICAL: Cranial nerves II-XII intact. No focal deficiencies. LABORATORY DATA: White blood cells 12.6, red blood cells 3.70, hemoglobin 10.5, hematocrit 35.5, MCV 96.1, MCH 28.5, MCHC 29.7, RDW 13.9, platelet count 179, neutrophil percentage 80.2, lymphocyte percentage 13.5, monocyte percentage 4, eosinophil percentage 1.1, basophil percentage 0.2, leukocyte percentage 1.1. Sodium 146, potassium 4.5, chloride 103, carbon dioxide 41, anion gap 2, BUN 15, creatinine 0.92, glomerular filtration rate more than 60, fasting glucose 94, calcium 8.1. Bicarbonate standard 86.6. ABG pH 7.394, ABG PCO2 71.6, ABG pO2 64.8, ABG HCO3 42.8, ABG total CO2 45, ABG O2 saturation 92.4, ABG base excess 14.8. ASSESSMENT AND PLAN: Acute on chronic hypercapnic respiratory failure: The patient has done a sleep study at [facility]. We have requested the result sent to us for more evaluation. If the sleep study is negative, the patient needs to have a sleep study at the day of discharge. The patient might need to have a split sleep study if apnea-hypopnea index (AHI) 5 or higher. At this point, we will continue the patient on the current medication, as well as noninvasive bilevel. My preceptor for this patient encounter was Dr. García. The preceptor was physically present in the building during the encounter and was fully available. As needed, all aspects of the patient interview, examination, medical decision making process, and medical care plan development were reviewed and approved by the preceptor. The preceptor is aware and concurs with the plan as stated in the body of this note and will attest to such by his/her cosignature. VERÓNICA
--- NOTE | 2016-12-04 18:19 | IPN ---
DATE: 12/04/2016 SUBJECTIVE: Patient seen and examined. Reported improved respiration. Denies any fevers or chills. Patient was on bilevel positive airway pressure (BiPAP) overnight. Denies any chest pain, pressure, or discomfort. The patient also reported mild lightheadedness. VITAL SIGNS: Temperature 97.8, pulse 77, respirations 23, blood pressure 133/59, pulse oximetry 93% on three liters nasal cannula. LABORATORY DATA: WBC 12.6, hemoglobin and hematocrit 10.5 over 35.5, platelets 179. ABG 7.32, 74.9, 124.6. Chemistry: Sodium 146, potassium 4.5, chloride 103, bicarbonate 41, BUN 15, creatinine 0.92. PHYSICAL EXAMINATION: GENERAL: Patient obese, alert and oriented times three, in no acute distress. HEENT: Normocephalic, atraumatic. PULMONARY: Diminished breath sounds bilaterally. Fine wheeze bilaterally. Prolonged expiratory phase. CARDIAC: Regular rate and rhythm. Normal S1, S2. ABDOMEN: Soft, obese, nontender. Positive bowel sounds. EXTREMITIES: No edema bilateral lower extremities. ASSESSMENT AND PLAN: This is a 71-year-old female patient with underlying medical history of chronic obstructive pulmonary disease (COPD), follows with Dr. Nash for pulmonology. The patient complains of tremors and fall with syncopal episode at Dr. Nash's office. The patient was brought to the emergency room and found to have acute on chronic hypercarbic respiratory failure requiring BiPAP initially managed by Dr. Ray. The patient's arterial blood gas (ABG) improved on BiPAP, later transferred to hospitalist service. During the intensive care unit (ICU) stay, the patient complains of occasional tremor witnessed by nursing staff. The patient was awake and alert during the entire episode. The patient also reported visual hallucinations on the floor that have resolved. Normal ammonia level. ABG has improved. Chest x-ray appreciated with no active disease. Received Rocephin and azithromycin on admission, later discontinued. Given sputum showed Staphylococcus aureus, and chest x-ray shows no active disease, the patient's antibiotics were switched to dicloxacillin for Staphylococcus aureus coverage in her sputum. PROBLEMS: 1. Acute hypercarbic respiratory failure. The patient's condition worsened yesterday requiring transfer to ICU for subsequent BiPAP. Pulmonology consulted. ABG repeat shows improvement. Continue Pulmicort, dicloxacillin, formoterol, prednisone, and Xopenex; taper as tolerated. Followup pulmonology recommendation. The patient might need outpatient BiPAP. 2. Antibiotics: Patient currently on dicloxacillin for methicillin-sensitive Staphylococcus aureus (MSSA) coverage, oxygen supplementation. 3. Acute on chronic obstructive pulmonary disease (COPD) exacerbation. Continue nebulizer treatment, prednisone. Continue budesonide formoterol, Xopenex, oxygen supplementation. Pulmonology consulted. Continue antibiotics as mentioned above, physical therapy, BiPAP as needed. 4. Psychosis, possibly due to steroid. Taper steroid. Continue to monitor. 5. Tremor possibly secondary to steroid versus hypercarbia. Electroencephalogram (EEG) was obtained. Will continue to follow. 6. Chronic hypoxia. Oxygen supplementation. 7. Hypernatremia in acute kidney injury (CHRIS). Continue oral hydration as tolerated. Monitor kidney function. Continue to follow. 8. Leukocytosis in the setting of patient on steroids. Continue antibiotics as ordered. Followup C-reactive protein. 9. Hypertension. Continue oral medications. 10. Obesity complicating care. 11. Diabetes. Insulin as per protocol. Followup fingersticks. 12. Dyslipidemia. Continue statin. 13. Deep venous thrombosis (DVT) prophylaxis. Lovenox subcutaneous. DISPOSITION PLANNING: Pending clinical improvement, physical therapy, final pulmonary recommendation. Possibly will need BiPAP as outpatient.
[2016-12-05] VITALS (16 sets, daily range): BP systolic 123–166; BP diastolic 60–72; O2SAT 94–96
[2016-12-05] MEDS: DICLOXACILLIN 250 MG CAP PO SCH ×4 (00:09→17:27)
[2016-12-05] MEDS: LEVALBUTEROL 1.25 MG/0.5 ML CONCENTRATE NEB INH SCH ×7 (00:18→23:17)
[2016-12-05 05:34] LABS: ANION GAP 3 MEQ/L (8-16); BLOOD UREA NITROGEN 12 MG/DL (7-18); CARBON DIOXIDE LEVEL 38 MEQ/L (21-32); CHLORIDE LEVEL 102 MEQ/L (98-107); CREATININE FOR GFR 0.76 MG/DL (0.55-1.02); GLOMERULAR FILTRATION RATE > 60.0 (>39); GLUCOSE, FASTING 92 MG/DL (83-110); SODIUM LEVEL 143 MEQ/L (136-145)
[2016-12-05 05:40] LABS: BASO % 0.3 % (0.0-1.0); EOS # 0.1 K/mm3 (0.0-0.50); EOS % 1.1 % (0.0-3.0); LARGE UNSTAINED CELL # 0.1 K/mm3 (0.0-0.4); LYMPH # 1.5 K/mm3 (1.5-4.5); LYMPH % 16.2 % (24.0-44.0); MEAN CORPUSCULAR HEMOGLOBIN 28.7 pg (27.0-33.0); MEAN CORPUSCULAR HGB CONC 30.7 g/dl (32.0-36.5); MEAN CORPUSCULAR VOLUME 93.5 fl (80.0-96.0); MONO # 0.5 K/mm3 (0.0-0.8); MONO % 4.8 % (0.0-5.0); NEUTROPHILS # 7.2 K/mm3 (1.8-7.7); NEUTROPHILS % 76.7 % (36.0-66.0); PLATELET COUNT, AUTOMATED 160 k/mm3 (150-450); WHITE BLOOD COUNT 9.4 K/mm3 (4.0-10.0)
[2016-12-05] MEDS: HumaLOG INSULIN (NovoLOG) PER UNIT SC SCH ×4 (07:30→20:39)
[2016-12-05] MEDS: BUDESONIDE 0.5 MG/2 ML INHALATION SUSPENSION INH SCH ×2 (07:32→19:42)
[2016-12-05] MEDS: FORMOTEROL FUMARATE 20 MCG/2 ML INHALATION SOLUTION (PERFOROMIST) INH SCH ×2 (07:32→19:42)
[2016-12-05] MEDS: SENNA 8.6 MG TAB (SENOKOT) PO SCH ×3 (09:00→20:39)
[2016-12-05] MEDS: TOBRAMYCIN 0.3% OPHTH SOLN 5 ML OU SCH ×3 (09:17→20:40)
[2016-12-05] MEDS: PANTOPRAZOLE 40MG TAB (PROTONIX) PO SCH (09:17)
[2016-12-05] MEDS: ENOXAPARIN 40 MG/0.4 ML SYRINGE (J1650) SC SCH (09:17)
[2016-12-05] MEDS: predniSONE 20 MG TAB PO SCH (09:17)
[2016-12-05] MEDS: amLODIPine 10 MG TAB PO SCH (09:18)
[2016-12-05] MEDS: DOCUSATE SODIUM 100 MG CAP PO SCH ×2 (09:18→20:39)
[2016-12-05] MEDS: LISINOPRIL 5 MG TAB PO SCH (09:19)
--- NOTE | 2016-12-05 14:05 | IPN ---
DATE: 12/05/2016 NOTE: Ms. Bush is a 71-year-old white female with acute on chronic respiratory failure, who has required noninvasive mechanical ventilation while in the intensive care unit (ICU). When this was discontinued and she was moved to the floor without nocturnal support, she rapidly decompensated and was back in the intensive care unit (ICU) in three days requiring noninvasive mechanical ventilation. She has a diagnosis of obstructive sleep apnea as an outpatient with an apnea-hypopnea index (AHI) of 5.0 on polysomnogram done 10/01/2013 in [facility]. It is felt that she will not be able to effectively discharged without going home on bilevel therapy given her baseline level of CO2 retention. Ms. Bush is a loud snorer with her significant other noting long silent pauses. She does not experience paroxysmal nocturnal dyspnea. No morning headaches. She is sleepy and tired during the day. She does not fall asleep unintentionally. She usually will take a planned nap for 1 to 1-1/2 hours most afternoons. She does not describe her sleep as restless; however, she can sweat no matter what the temperature is. Sleep latency is 5 minutes. She usually sleeps on a mattress with two pillows. On both weekday and weekday nights she goes to bed between 10:00 and 11:00 p.m. and awakens spontaneously between 6:00 and 7:00 a.m. She occasionally awakens at night, but usually she does not know why she awakens. It takes her 5 to 10 minutes to fall back to sleep. She does not feel well rested following a night sleep. No signs of symptoms strongly suggestive of restless leg syndrome, PLMD, narcolepsy or significant parasomnias. She has been told that she talks in her sleep. She had a sister who had sleep apnea. In regard to caffeine intake, she drinks two cups of coffee per day and 1-1/2 cans of soda during the day. EPWORTH score is 10. Neck circumference is 43 cm and weight is 173 pounds (78.8 kg with a height of 5 feet 2 inches). IMPRESSION AND PLAN: 1. Obstructive sleep apnea, mild in 2013. She has chronic respiratory failure and would clearly benefit from bilevel therapy. In fact, she does not appear to be able to be safely discharged from the hospital without that appliance. We will proceed with arranging for polysomnogram on the day of discharge.
[2016-12-05] MEDS ORDERED: SLF 3 ML SYR IV PRN (14:15)
--- NOTE | 2016-12-05 14:27 | IPN ---
DATE: 12/06/2015 SUBJECTIVE: Patient seen and examined. Reported improved respiration, but still requires bilevel positive airway pressure (BiPAP) overnight. Denies any chest pain, pressure, or discomfort, fevers or chills. VITAL SIGNS: Temperature 99.3, pulse 86, respirations 22, blood pressure 146/63, pulse oximetry 94% on 4 liters nasal cannula. LABORATORY DATA: WBC 9.4, hemoglobin and hematocrit 9.8 over 32, platelets 160. Chemistry: Sodium 143, potassium 4, chloride 102, bicarbonate 38, BUN 12, creatinine 0.76. C-reactive protein 1.08. PHYSICAL EXAMINATION: GENERAL: Patient obese, alert and oriented times three, in no acute distress. HEENT: Normocephalic, atraumatic. PULMONARY: Diminished breath sounds bilateral. Fine wheezes bilateral. Prolonged expiratory phase. CARDIAC: Regular rate and rhythm. Normal S1, S2. ABDOMEN: Soft, obese, nontender. Positive bowel sounds. EXTREMITIES: No edema bilateral lower extremities. ASSESSMENT AND PLAN: This is a 71-year-old female patient with underlying medical history of chronic obstructive pulmonary disease (COPD) who follows with Dr. Nash for pulmonology. The patient complains of tremors and fall with a syncopal episode in Dr. Nash's office. The patient was brought to the emergency room and found to be acute on chronic hypercarbic respiratory failure requiring BiPAP initially managed by Dr. Ray. Arterial blood gas (ABG) improved on BiPAP, later transferred to the hospitalist service. During the intensive care unit (ICU) stay, the patient reported occasional tremor witnessed by the nursing staff. Awake and alert during those episodes. The patient also reported visual hallucinations on the medical-surgical floor which have resolved with normal ammonia level and ABG improved. Initially received Rocephin and azithromycin on admission, later discontinued. Sputum showed methicillin-sensitive Staphylococcus aureus (MSSA). X-ray shows no active disease. The patient's antibiotics were switched to dicloxacillin for Staphylococcus aureus coverage. During the hospital stay, the patient developed again another episode of acute hypercarbia. Subsequently transferred to the intensive care unit (ICU) for further management. PROBLEMS: 1. Acute hypercarbic respiratory failure. This is the second ICU transfer during this hospital stay. The patient's case was discussed with Dr. García, pulmology. The patient likely will need sleep studies as soon as possible and get set up for BiPAP at home. The patient is switched to table top from wall monitoring in ICU overnight to see if patient can be potentially transferred to the floor. Will arrange for the patient to be discharged from the hospital directly to the sleep lab for next Friday given this is the earliest possible day that the patient can arrange to have BiPAP. In the meantime, the patient would not be safe to go home unless the patient has a BiPAP. Continue Pulmicort. Patient will complete a course of dicloxacillin. Continue formoterol, taper prednisone, and continue Xopenex. The patient on table top BiPAP. 2. The patient will complete dicloxacillin for treatment of methicillin-sensitive Staphylococcus aureus (MSSA) in the sputum. Oxygen supplementation. 3. Acute on chronic obstructive pulmonary disease (COPD) exacerbation. Taper steroids. Nebulizer treatment, budesonide, formoterol, Xopenex, oxygen supplementation. Pulmonology consulted. Patient will need BiPAP. Discharge straight to sleep lab, tentatively planned on Friday next week to get BiPAP machine. 4. 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 Taper steroid. Continue to monitor. 5. Tremor possibly secondary to steroid versus hypercarbia. Electroencephalogram (EEG) was obtained. Will continue to follow. 6. Chronic hypoxia. Oxygen supplementation. 7. Hypernatremia with acute kidney injury (CHRIS). Oral hydration. Continue to monitor. 8. Leukocytosis in the setting of steroids, currently resolved. Followup C-reactive protein appreciated. 9. Hypertension. Continue oral medication. 10. Obesity complicating care. 11. Type 2 diabetes. Insulin as per protocol. Followup fingersticks. 12. Dyslipidemia. Continue statin. 13. Deep venous thrombosis (DVT) prophylaxis. Lovenox subcutaneous. DISPOSITION: Pending clinical improvement, physical therapy. Likely discharge straight to sleep lab from the hospital on Friday next week, to get BiPAP at home. Patient will not be safe without arrangement for home BiPAP.
[2016-12-05] MEDS: SLF 3 ML SYR IV SCH (20:40)
[2016-12-06] VITALS: BP 153/67
[2016-12-06] MEDS: DICLOXACILLIN 250 MG CAP PO SCH ×5 (01:18→23:50)
[2016-12-06 03:31] VITALS: O2SAT 96
[2016-12-06] MEDS: LEVALBUTEROL 1.25 MG/0.5 ML CONCENTRATE NEB INH SCH ×6 (03:33→23:39)
[2016-12-06 04:00] VITALS: BP 149/66
[2016-12-06 05:25] LABS: BASO % 0.1 % (0.0-1.0); EOS # 0.1 K/mm3 (0.0-0.50); EOS % 1.1 % (0.0-3.0); LARGE UNSTAINED CELL # 0.1 K/mm3 (0.0-0.4); LARGE UNSTAINED CELL % 1.5 % (0.0-4.0); LYMPH # 1.5 K/mm3 (1.5-4.5); LYMPH % 15.7 % (24.0-44.0); MEAN CORPUSCULAR HGB CONC 30.8 g/dl (32.0-36.5); MEAN CORPUSCULAR VOLUME 94.1 fl (80.0-96.0); MONO # 0.4 K/mm3 (0.0-0.8); MONO % 4.7 % (0.0-5.0); NEUTROPHILS # 7.2 K/mm3 (1.8-7.7); NEUTROPHILS % 76.9 % (36.0-66.0); PLATELET COUNT, AUTOMATED 160 k/mm3 (150-450); RED CELL DISTRIBUTION WIDTH 13.8 % (11.5-14.5); WHITE BLOOD COUNT 9.3 K/mm3 (4.0-10.0)
[2016-12-06] MEDS: SLF 3 ML SYR IV SCH ×3 (05:30→20:43)
[2016-12-06 05:41] LABS: ANION GAP 7 MEQ/L (8-16); BLOOD UREA NITROGEN 10 MG/DL (7-18); CALCIUM LEVEL 8.4 MG/DL (8.8-10.2); CARBON DIOXIDE LEVEL 37 MEQ/L (21-32); CHLORIDE LEVEL 104 MEQ/L (98-107); CREATININE FOR GFR 0.74 MG/DL (0.55-1.02); GLOMERULAR FILTRATION RATE > 60.0 (>39); GLUCOSE, FASTING 98 MG/DL (83-110); POTASSIUM SERUM 4.1 MEQ/L (3.5-5.1); SODIUM LEVEL 148 MEQ/L (136-145)
--- NOTE | 2016-12-06 07:06 | EEG ---
DATE OF PROCEDURE: 11/28/2016 REFERRING PHYSICIAN: Dr. Mehran Ray DIAGNOSIS: Tremor. EEG NUMBER: [id number]. HISTORY: The patient is a 71-year-old woman who was admitted at [facility] due to hypercapnic respiratory failure and was started on BiPAP. She has tremor. This EEG was done to rule out epileptic potential. List of her current medications was not provided. TECHNICAL DESCRIPTION: This digital EEG was recorded by 21 scalp, ear and two EKG electrodes and was reviewed in bipolar and referential montages following reformatting in 10-20 international electrode placement system. INTERPRETATION: The patient was noted to be in awake state only during this EEG. Resting awake background rhythm consisted of 9 Hz alpha activity measuring 10-20 microvolts in amplitude which was symmetric. No sleep was achieved. Hyperventilation could not be performed. Photic stimulation remained unremarkable. EKG revealed normal sinus rhythm. No focal, lateralizing or epileptiform abnormalities were seen. No clinical or electrographic seizures were recorded. CONCLUSION: This EEG in awake state is within normal limits.
[2016-12-06] MEDS: HumaLOG INSULIN (NovoLOG) PER UNIT SC SCH ×4 (07:30→20:38)
[2016-12-06] MEDS: FORMOTEROL FUMARATE 20 MCG/2 ML INHALATION SOLUTION (PERFOROMIST) INH SCH ×2 (07:44→20:35)
[2016-12-06] MEDS: BUDESONIDE 0.5 MG/2 ML INHALATION SUSPENSION INH SCH ×2 (07:44→20:35)
[2016-12-06 08:00] VITALS: BP 149/69
[2016-12-06] MEDS: SENNA 8.6 MG TAB (SENOKOT) PO SCH ×2 (09:00→19:31)
[2016-12-06] MEDS: DOCUSATE SODIUM 100 MG CAP PO SCH ×2 (09:00→19:30)
[2016-12-06] MEDS: amLODIPine 10 MG TAB PO SCH (09:06)
[2016-12-06] MEDS: LISINOPRIL 5 MG TAB PO SCH (09:06)
[2016-12-06] MEDS: PANTOPRAZOLE 40MG TAB (PROTONIX) PO SCH (09:06)
[2016-12-06] MEDS: ENOXAPARIN 40 MG/0.4 ML SYRINGE (J1650) SC SCH (09:06)
[2016-12-06] MEDS: predniSONE 10 MG TAB PO SCH (09:06)
[2016-12-06] MEDS: TOBRAMYCIN 0.3% OPHTH SOLN 5 ML OU SCH ×3 (09:07→20:43)
--- NOTE | 2016-12-06 15:03 | IPN ---
DATE: 12/06/2016 The patient is seen and examined. Reported comfortable. In no acute distress. Tolerating tabletop BiPAP. Denies any chest pain, pressure or discomfort, fevers, or chills. VITAL SIGNS: Temperature 98.4, pulse 88, respirations 18, blood pressure 149/69, pulse oximetry 96% on 4 liters nasal cannula. LABORATORY DATA: WBC 9.3, hemoglobin and hematocrit 9.8/32, platelets 160. Chemistry: Sodium 148, potassium 4.1, chloride 104, bicarbonate 37, BUN 10, creatinine 0.74. PHYSICAL EXAMINATION: GENERAL: The patient is obese, alert and oriented times three, no acute distress. HEENT: Normocephalic, atraumatic. PULMONARY: Diminished breath sounds bilaterally. Fine wheezes. Bilateral prolonged expiratory phase. CARDIAC: Regular rate and rhythm. Normal S1, S2. ABDOMEN: Soft, obese, nontender. Positive bowel sounds. EXTREMITIES: No edema in bilateral lower extremities. ASSESSMENT AND PLAN: This is a 71-year-old female patient with underlying medical history of chronic obstructive pulmonary disease (COPD), who follows with Dr. Nash from pulmonology. The patient complains of tremors and fall with a syncopal episode at Dr. Nash's office, was brought to the emergency room and found to be in acute on chronic hypercarbic respiratory failure, requiring BiPAP. Initially, managed in intensive care unit (ICU) by Dr. Ray. ABG showed improvement. Subsequently transferred to the floor under hospitalist service. During the hospital stay, the patient developed recurrent acute hypercarbic respiratory failure and was placed back on BiPAP in the intensive care unit (ICU). Currently back on tabletop during the hospital course. The patient reported occasional tremor, witnessed by nursing staff. Awake and alert during those episodes. Reported visual hallucinations, which has resolved. Normal ammonia. ABG has improved. Initially received Rocephin and azithromycin, later discontinued and sputum shows methicillin sensitive Staphylococcus aureus (MSSA). X-ray shows no active disease. The patient's antibiotics switched to dicloxacillin, which the patient completed a course. 1. Acute on chronic hypercarbic respiratory failure. The patient currently is comfortable. No symptoms of hypercarbia on tabletop BiPAP intermittently in ICU. We will be transferring to a regular floor. Pulmonology, Dr. García, consulted. Arrangement fro sleep study at the day of discharge is for Friday by Dr. García. We will monitor the patient over the weekend. In the meantime, continue Pulmicort. Completed a course of dicloxacillin for MSSA infection. Continue formoterol and taper prednisone. Continue Xopenex. Oxygen supplementation. 2. Acute on chronic COPD exacerbation. Taper steroids. Nebulizer treatment. Budesonide, formoterol, Xopenex, oxygen supplementation, pulmonary consulted, BiPAP, discharge to sleep lab on Friday for a sleep study. Monitor over the weekend on tabletop BiPAP. 3. 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 Taper steroids. Continue to monitor. 4. Tremor, possibly secondary to steroid versus hypercarbia. EEG appreciated. Currently resolved. We will continue to follow. 5. Chronic hypoxia. Oxygen supplementation. 6. Hypernatremia with acute kidney injury. Oral hydration. Continue to monitor. 7. Leukocytosis in the setting of steroid, currently resolved. Continue to follow. C-reactive protein appreciated. Complete antibiotic course, as mentioned above. 8. Hypertension. Continue home medications. 9. Obesity complicating care. 10. Type 2 diabetes. Insulin as per protocol. Followup fingersticks. 11. Dyslipidemia. Continue statin. 12. Deep vein thrombosis (DVT) prophylaxis. Lovenox subcutaneously. DISPOSITION: Pending clinical improvement. Physical therapy (PT). Likely discharge on Friday to sleep lab for the patient to get BiPAP. The patient is not safe at home without BiPAP.
[2016-12-06 16:00] VITALS: BP 160/69
[2016-12-06 22:00] VITALS: BP 164/76
[2016-12-07] MEDS: LEVALBUTEROL 1.25 MG/0.5 ML CONCENTRATE NEB INH SCH ×6 (03:42→23:29)
[2016-12-07] MEDS: SLF 3 ML SYR IV SCH ×3 (05:55→22:16)
[2016-12-07] MEDS: DICLOXACILLIN 250 MG CAP PO SCH ×3 (05:55→16:48)
[2016-12-07 06:00] VITALS: BP 134/62
[2016-12-07 06:57] LABS: BASO % 0.1 % (0.0-1.0); EOS # 0.1 K/mm3 (0.0-0.50); EOS % 0.9 % (0.0-3.0); LARGE UNSTAINED CELL # 0.1 K/mm3 (0.0-0.4); LARGE UNSTAINED CELL % 1.2 % (0.0-4.0); LYMPH # 1.4 K/mm3 (1.5-4.5); LYMPH % 17.6 % (24.0-44.0); MEAN CORPUSCULAR HGB CONC 30.7 g/dl (32.0-36.5); MEAN CORPUSCULAR VOLUME 94.7 fl (80.0-96.0); MONO # 0.4 K/mm3 (0.0-0.8); MONO % 5.4 % (0.0-5.0); NEUTROPHILS # 5.9 K/mm3 (1.8-7.7); NEUTROPHILS % 74.7 % (36.0-66.0); PLATELET COUNT, AUTOMATED 164 k/mm3 (150-450); RED CELL DISTRIBUTION WIDTH 13.8 % (11.5-14.5); WHITE BLOOD COUNT 7.9 K/mm3 (4.0-10.0)
[2016-12-07 07:11] LABS: ANION GAP 4 MEQ/L (8-16); BLOOD UREA NITROGEN 8 MG/DL (7-18); CALCIUM LEVEL 8.6 MG/DL (8.8-10.2); CARBON DIOXIDE LEVEL 39 MEQ/L (21-32); CHLORIDE LEVEL 104 MEQ/L (98-107); GLOMERULAR FILTRATION RATE > 60.0 (>39); GLUCOSE, FASTING 108 MG/DL (83-110); POTASSIUM SERUM 3.9 MEQ/L (3.5-5.1); SODIUM LEVEL 147 MEQ/L (136-145)
[2016-12-07] MEDS: BUDESONIDE 0.5 MG/2 ML INHALATION SUSPENSION INH SCH ×2 (07:42→19:46)
[2016-12-07] MEDS: FORMOTEROL FUMARATE 20 MCG/2 ML INHALATION SOLUTION (PERFOROMIST) INH SCH ×2 (07:42→19:46)
[2016-12-07] MEDS: HumaLOG INSULIN (NovoLOG) PER UNIT SC SCH ×4 (08:12→21:00)
[2016-12-07] MEDS: amLODIPine 10 MG TAB PO SCH (08:13)
[2016-12-07] MEDS: SENNA 8.6 MG TAB (SENOKOT) PO SCH ×2 (08:13→21:00)
[2016-12-07] MEDS: PANTOPRAZOLE 40MG TAB (PROTONIX) PO SCH (08:13)
[2016-12-07] MEDS: predniSONE 10 MG TAB PO SCH (08:13)
[2016-12-07] MEDS: ENOXAPARIN 40 MG/0.4 ML SYRINGE (J1650) SC SCH (08:13)
[2016-12-07] MEDS: DOCUSATE SODIUM 100 MG CAP PO SCH ×2 (08:14→21:00)
[2016-12-07] MEDS: LISINOPRIL 5 MG TAB PO SCH (08:14)
[2016-12-07] MEDS: TOBRAMYCIN 0.3% OPHTH SOLN 5 ML OU SCH ×3 (09:00→22:15)
--- NOTE | 2016-12-07 12:51 | IPN ---
DATE: 12/07/2016 The patient is seen and examined. No acute events overnight. Feeling comfortable. Tolerating table top BiPAP. VITAL SIGNS: Temperature 99.1, pulse 81, respirations 20, blood pressure 134/63, pulse oximetry 96% on 3 liters nasal cannula. LABORATORY DATA: WBC 7.8, hemoglobin and hematocrit 10.3/33.5, platelets 164. Chemistry: Sodium 147, potassium 3.9, chloride 104, bicarbonate 39, BUN 8, creatinine 0.9. PHYSICAL EXAMINATION: GENERAL: The patient is obese, alert and oriented times three, no acute distress. HEENT: Normocephalic, atraumatic. PULMONARY: Diminished breath sounds bilateral at base. Fine wheezes. CARDIAC: Regular rate and rhythm. Normal S1, S2. ABDOMEN: Obese, soft, nontender. Positive bowel sounds. EXTREMITIES: No edema in bilateral lower extremities. ASSESSMENT AND PLAN: This is a 71-year-old female patient with underlying medical history of chronic obstructive pulmonary disease (COPD) who follows with Dr. Nash from pulmonology, who was at Dr. Nash's office when the patient complained of tremors and fall with a syncopal episode. She was brought to the emergency room and found to be in acute on chronic hypercarbic respiratory failure requiring BiPAP. Initially, managed in the intensive care unit (ICU) by Dr. Ray. After showing improvement, the patient was transferred back to the hospitalist floor. While there, it was witnessed that patient had some occasional tremor reported by the nursing staff. The patient was awake during those episodes. It was thought to be contributed to steroids versus hypercarbia and later resolved. The patient was transferred to a regular floor after weaning off the BiPAP, but while on regular floor, the patient developed episodes of visual hallucinations that have also resolved, and received antibiotics of Rocephin and azithromycin. Later switched to dicloxacillin and completed a course for methicillin sensitive Staphylococcus aureus (MSSA), but on the floor the patient developed recurrent hypercarbic respiratory failure and was transferred back to the intensive care unit and placed on BiPAP. Now back to table top and transferred to the floor. PROBLEMS: 1. Acute on chronic hypercarbic respiratory failure. The patient currently is comfortable. No symptoms of hypercarbia on tabletop BiPAP. Transferred to medical-surgical floor. Pulmonology consulted. Discussed with Dr. García. Tentative plan will be discharged on Friday straight to sleep lab to get set up for BiPAP. Continue formotoril, taper steroids, continue Xopenex, continue budesonide. Oxygen supplementation. 2. Acute COPD exacerbation. Taper steroids. Nebulizer treatment. Budesonide, formoterol, Xopenex, oxygen supplementation, and pulmonary consulted. On table top BiPAP. Needs to be discharged straight to sleep lab. Monitor over the weekend on tabletop BiPAP. 3. 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 Steroid taper. Continue to monitor. 4. Tremor, possibly secondary to steroid versus hypercarbia. Electroencephalogram (EEG) appreciated. Currently resolved. Will continue to follow. 5. Chronic hypoxia. Oxygen supplementation. 6. Hypernatremia with acute kidney injury (CHRIS). Oral hydration. Currently resolved. Continue to monitor. 7. Leukocytosis secondary to steroid, currently resolved. C-reactive protein appreciated. 8. Hypertension. Continue home medications. 9. Obesity complicating care. 10. Type 2 diabetes. Insulin as per protocol. Followup fingersticks. 11. Dyslipidemia. Continue statin. 12. Deep vein thrombosis (DVT) prophylaxis. Lovenox subcutaneously. DISPOSITION: Pending clinical improvement. Physical therapy (PT). Likely discharge on Friday to sleep lab to qualify for BiPAP. The patient not to be discharged before then.
[2016-12-07 14:00] VITALS: BP 175/74
[2016-12-07] MEDS ORDERED: LISINOPRIL 5 MG TAB PO ONE (16:30)
[2016-12-07 22:00] VITALS: BP 162/83
[2016-12-08] MEDS: DICLOXACILLIN 250 MG CAP PO SCH ×2 (00:42→06:24)
[2016-12-08] MEDS: LEVALBUTEROL 1.25 MG/0.5 ML CONCENTRATE NEB INH SCH ×6 (03:13→23:06)
[2016-12-08 06:00] VITALS: BP 149/78
[2016-12-08] MEDS: SLF 3 ML SYR IV SCH ×3 (06:25→20:35)
[2016-12-08 06:34] LABS: MEAN CORPUSCULAR HEMOGLOBIN 29.7 pg (27.0-33.0); MEAN CORPUSCULAR VOLUME 95.9 fl (80.0-96.0); WHITE BLOOD COUNT 7.4 K/mm3 (4.0-10.0)
[2016-12-08 06:40] LABS: ANION GAP 2 MEQ/L (8-16); BLOOD UREA NITROGEN 7 MG/DL (7-18); CALCIUM LEVEL 8.5 MG/DL (8.8-10.2); CARBON DIOXIDE LEVEL 40 MEQ/L (21-32); CHLORIDE LEVEL 104 MEQ/L (98-107); CREATININE FOR GFR 0.84 MG/DL (0.55-1.02); GLOMERULAR FILTRATION RATE > 60.0 (>39); GLUCOSE, FASTING 102 MG/DL (83-110); MAGNESIUM LEVEL 2.1 MG/DL (1.8-2.4); POTASSIUM SERUM 4.5 MEQ/L (3.5-5.1); SODIUM LEVEL 146 MEQ/L (136-145)
[2016-12-08] MEDS: FORMOTEROL FUMARATE 20 MCG/2 ML INHALATION SOLUTION (PERFOROMIST) INH SCH ×2 (07:46→20:57)
[2016-12-08] MEDS: BUDESONIDE 0.5 MG/2 ML INHALATION SUSPENSION INH SCH ×2 (07:46→20:57)
[2016-12-08] MEDS: HumaLOG INSULIN (NovoLOG) PER UNIT SC SCH ×4 (07:57→20:36)
[2016-12-08] MEDS: SENNA 8.6 MG TAB (SENOKOT) PO SCH ×2 (07:58→20:33)
[2016-12-08] MEDS: ENOXAPARIN 40 MG/0.4 ML SYRINGE (J1650) SC SCH (07:58)
[2016-12-08] MEDS: TOBRAMYCIN 0.3% OPHTH SOLN 5 ML OU SCH ×3 (07:58→20:35)
[2016-12-08] MEDS: PANTOPRAZOLE 40MG TAB (PROTONIX) PO SCH (07:58)
[2016-12-08] MEDS: predniSONE 10 MG TAB PO SCH (07:59)
[2016-12-08] MEDS: LISINOPRIL 10 MG TAB PO SCH (07:59)
[2016-12-08] MEDS: amLODIPine 10 MG TAB PO SCH (07:59)
[2016-12-08] MEDS: DOCUSATE SODIUM 100 MG CAP PO SCH ×2 (08:00→20:33)
--- NOTE | 2016-12-08 09:53 | IPN ---
DATE: 12/08/2016 The patient is seen and examined. No acute events overnight. Reported comfortable. Did ambulate yesterday. Continues physical therapy. Denies any chest pain, pressure, or discomfort. Reported respirations back to baseline. Tolerating BiPAP at night. VITAL SIGNS: Temperature 98.4, pulse 87, respirations 20, blood pressure 149/78, pulse oximetry 91% on nasal cannula. LABORATORY DATA: WBC 7.4, hemoglobin and hematocrit 10.1/32.6, platelets 159. Chemistry: Sodium 146, potassium 4.5, chloride 104, bicarbonate 40, BUN 7, creatinine 0.84. PHYSICAL EXAMINATION: GENERAL: Obese, alert and oriented times three, no acute distress. HEENT: Normocephalic, atraumatic. PULMONARY: Diminished breath sounds bilateral bases. Fine wheezes. CARDIAC: Regular rate and rhythm. Normal S1 and S2. ABDOMEN: Obese, soft, nontender. Positive bowel sounds. EXTREMITIES: No edema in bilateral lower extremities. ASSESSMENT AND PLAN: This is a 71-year-old female patient with underlying medical history of chronic obstructive pulmonary disease (COPD) who follows with Dr. Nash from pulmonology, who was in Dr. Nash's office when the patient complained of tremors and fall with a syncopal episode. She was brought to the emergency room and found to be in acute on chronic hypercarbic respiratory failure requiring BiPAP. Initially, managed in the intensive care unit (ICU) by Dr. Ray. After showing improvement, the patient was transferred back to the medical/surgical floor under the hospitalist service. While in the ICU, the patient was witnessed to have occasional tremors reported by nursing staff. She awake during the episodes and it was thought to be contributed to steroids versus hypercarbia. Later Resolved and improved. The patient was well on the regular floor. The patient was weaned off BiPAP, transferred to regular medical/surgical floor. While there, the patient developed episodes of visual hallucinations, which have also resolved. She received antibiotics for methicillin-susceptible Staphylococcus aureus (MSSA) in the sputum. Initially on Rocephin and azithromycin, later switched, and completed a course of dicloxacillin for MSSA in the sputum, but on the floor the patient developed recurrent hypercarbia with lethargy and was transferred back to ICU on BiPAP. Currently back on tabletop BiPAP and transferred to medical/surgical floor pending arrangements for sleep study. PROBLEMS: 1. Acute on chronic hypercarbic respiratory failure. The patient currently is comfortable. No symptoms of hypercarbia on tabletop BiPAP. Transferred to medical/surgical floor. Pulmonary has been consulted. Case discussed with Dr. García. Tentative plan discharge on Friday straight to sleep lab to get set up for BiPAP. Continue formoterol, taper steroids, continue Xopenex, budesonide and oxygen supplementation. 2. Acute COPD exacerbation. Taper steroids. Nebulizer treatment, budesonide, formoterol, Xopenex, oxygen supplementation. Pulmonary consulted on tabletop BiPAP at night. Need to discharge straight to sleep lab and monitor over the weekend. Continuous pulse oximetry. 3. 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 Steroid tapered. Currently back to baseline. Continue to monitor. 4. Tremor, possibly secondary to steroid versus hypercarbia. EEG appreciated. Currently resolved. Continue to monitor. 5. Hypoxia. Oxygen supplementation. 6. Hypernatremia likely with acute kidney injury (CHRIS). Oral hydration. Currently stable. Continue to follow. 7. Leukocytosis secondary to steroids. Currently resolved. C-reactive protein appreciated. 8. Hypertension. Continue current medications. 9. Obesity complicating care. 10. Type 2 diabetes. Insulin as per protocol. Follow fingersticks. 11. Dyslipidemia. Continue statin. 12. Deep vein thrombosis (DVT) prophylaxis. Lovenox subcutaneously. DISPOSITION: Pending physical therapy (PT), likely discharge on Friday if cleared by PT, straight to sleep lab for BiPAP set up.
[2016-12-08 14:00] VITALS: BP 177/74
[2016-12-08] MEDS: ACETAMINOPHEN TAB 650MG DOSE (2X325MG) PO PRN (20:35)
[2016-12-08 22:00] VITALS: BP 166/84
[2016-12-09] MEDS: LEVALBUTEROL 1.25 MG/0.5 ML CONCENTRATE NEB INH SCH ×6 (03:07→23:40)
[2016-12-09 06:00] VITALS: BP 156/77
[2016-12-09 07:02] LABS: MEAN CORPUSCULAR HEMOGLOBIN 29.7 pg (27.0-33.0); MEAN CORPUSCULAR HGB CONC 30.7 g/dl (32.0-36.5); MEAN CORPUSCULAR VOLUME 96.9 fl (80.0-96.0); RED CELL DISTRIBUTION WIDTH 14.1 % (11.5-14.5); WHITE BLOOD COUNT 7.6 K/mm3 (4.0-10.0)
[2016-12-09] MEDS: FORMOTEROL FUMARATE 20 MCG/2 ML INHALATION SOLUTION (PERFOROMIST) INH SCH ×2 (07:10→19:43)
[2016-12-09] MEDS: BUDESONIDE 0.5 MG/2 ML INHALATION SUSPENSION INH SCH ×2 (07:10→19:43)
[2016-12-09 07:12] LABS: ANION GAP 1 MEQ/L (8-16); BLOOD UREA NITROGEN 10 MG/DL (7-18); CALCIUM LEVEL 8.8 MG/DL (8.8-10.2); CARBON DIOXIDE LEVEL 41 MEQ/L (21-32); CHLORIDE LEVEL 105 MEQ/L (98-107); CREATININE FOR GFR 0.84 MG/DL (0.55-1.02); GLOMERULAR FILTRATION RATE > 60.0 (>39); GLUCOSE, FASTING 111 MG/DL (83-110); MAGNESIUM LEVEL 2.1 MG/DL (1.8-2.4); POTASSIUM SERUM 4.4 MEQ/L (3.5-5.1); SODIUM LEVEL 147 MEQ/L (136-145)
[2016-12-09] MEDS: MOM 30ML SUSPENSION UDC PO PRN (09:22)
[2016-12-09] MEDS: HumaLOG INSULIN (NovoLOG) PER UNIT SC SCH ×4 (09:22→20:42)
[2016-12-09] MEDS: LISINOPRIL 10 MG TAB PO SCH (09:23)
[2016-12-09] MEDS: amLODIPine 10 MG TAB PO SCH (09:23)
[2016-12-09] MEDS: SENNA 8.6 MG TAB (SENOKOT) PO SCH ×2 (09:23→20:41)
[2016-12-09] MEDS: DOCUSATE SODIUM 100 MG CAP PO SCH ×2 (09:23→20:41)
[2016-12-09] MEDS: predniSONE 20 MG TAB PO SCH (09:23)
[2016-12-09] MEDS: PANTOPRAZOLE 40MG TAB (PROTONIX) PO SCH (09:23)
[2016-12-09] MEDS: ENOXAPARIN 40 MG/0.4 ML SYRINGE (J1650) SC SCH (09:23)
[2016-12-09] MEDS: TOBRAMYCIN 0.3% OPHTH SOLN 5 ML OU SCH ×3 (09:24→20:42)
--- NOTE | 2016-12-09 10:17 | IPN ---
DATE OF SERVICE: 12/09/2016 Ms. Bush is feeling well today. She has no complaints of pain, chest pain. Is not particularly short of breath. Did tolerate her bilateral positive airway pressure (BiPAP) last night. Feels obviously much better than she has previously in her hospital stay. Temperature is 97.5, pulse 86, respiratory rate 20, blood pressure 157/77, 96% on 2 liters nasal cannula. Intake and output (I and O) notable for a positive fluid balance of 1050. She is awake, appropriately interactive, pleasantly conversant. Breathing is symmetrical. I-to-E ratio is 1:3. Speaking in complete sentences. No accessory muscle use. Heart is irregular rate and rhythm. Distal pulses at the radius are 2+. Capillary refill is less than 2 seconds. Abdomen is distended, doughy. She said she would like some help with a bowel movement. White cell count is 7.6, hemoglobin 10, BUN 10, creatinine 0.84. Sodium is 147. My assessment is as follows: This is a 71-year-old with chronic obstructive pulmonary disease (COPD) who was admitted with acute on chronic hypercapnic respiratory failure requiring BiPAP and seems to require BiPAP at night based on her hospital course. The plan will be as follows: 1. The patient has acute on chronic hypercapnic respiratory failure, which is now resolved to chronic. The plan will be to discharge Friday night directly to the sleep laboratory to have the sleep study and arrange for BiPAP. Currently, tapering steroids. 2. The patient has chronic obstructive pulmonary disease. was consulted during the stay. 3. The patient had steroid psychosis during the stay. 4. The patient had tremor during the stay. It was thought to be related to steroid versus hypercapnia. 5. The patient has continue hypernatremia. Encouraging oral hydration. 6. The patient has ongoing leukocytosis, though to be related to steroids.
[2016-12-09 14:00] VITALS: BP 134/82
[2016-12-09] MEDS ORDERED: SENN1TAB4 PO (17:35)
[2016-12-09] MEDS ORDERED: AMLO10TA2 PO (17:35)
[2016-12-09] MEDS ORDERED: PERF20NE2 INH (17:35)
[2016-12-09] MEDS ORDERED: COLA100C PO (17:35)
[2016-12-09] MEDS ORDERED: BUDE0.5S6 INH (17:35)
[2016-12-09] MEDS ORDERED: LISI10TA4 PO (17:35)
[2016-12-09] MEDS ORDERED: PRED10TA PO (17:35)
[2016-12-09] MEDS ORDERED: ASPI325T PO (17:35)
--- NOTE | 2016-12-09 18:30 | DSES ---
DATE OF ADMISSION: 11/25/2016 DATE OF DISCHARGE: Presumably 12/10/2016 Specialists involved in her care included Dr. Ray and Dr. García. There were no procedures performed during her stay. No complications during her stay. DISCHARGE DIAGNOSES: 1. Chronic obstructive pulmonary disease (COPD) exacerbation. 2. Acute hypercapnic respiratory failure. 3. Methicillin-sensitive Staphylococcus aureus (MSSA) bronchitis. 4. Steroid psychosis. 5. Tremor. 6. Chronic hypoxia. 7. Hypernatremia with acute kidney injury. 8. Leukocytosis. 9. Hypertension. 10. Obesity. 11. Type 2 diabetes. 12. Dyslipidemia. The following is a summary of her hospitalization: This is a 71-year-old who presented with fall and a syncopal event at the mental health tech's office. She was brought to the emergency department where she was found to have hypercapnic respiratory failure. She was admitted to the critical care service and was started on bilevel positive airway pressure (BiPAP). She had improvement and was transferred to the hospitalist service. She developed findings of steroid psychosis and went on again to develop hypercapnic respiratory failure. She was transferred back to the intensive care unit and was thought to have obstructive sleep apnea. She was thought to be in need of BiPAP upon discharge. She was transferred back to the medical floor with BiPAP and has been doing well since that point. We have been weaning steroids. She is off antibiotics and the plan is to discharge home with direct admission to the sleep lab to establish the need for BiPAP. Please see Dr. Sorto's note for condition at discharge. DISCHARGE INSTRUCTIONS: Followup with Dr. García at discharge. Followup with her primary care provider (PCP) which will need to be determined tomorrow within one week. Diet and activity as tolerated. MEDICATIONS AT THE TIME OF DISCHARGE: Include the following: - Norvasc 10 mg by mouth daily - aspirin 325 mg by mouth every six hours as needed for pain - budesonide 0.5 mg inhaled twice a day - Colace 100 mg by mouth twice a day - formoterol 20 mg inhaled twice a day - lisinopril 10 mg by mouth daily - prednisone tapering dose starting at 20 mg daily for four days, 10 mg daily for four days, and then 10 mg every other day for four doses - Senokot 8.6 mg by mouth twice a day - continue albuterol two puffs inhaled four times daily - continue atorvastatin 40 mg by mouth at bedtime - tobramycin eye drops as previously directed Recommending discontinue baclofen, discontinue quinapril, and discontinue torsemide.
[2016-12-09 20:00] VITALS: BP 190/76
[2016-12-09] MEDS: ACETAMINOPHEN TAB 650MG DOSE (2X325MG) PO PRN (20:41)
[2016-12-09 22:00] VITALS: BP 170/70
[2016-12-10 03:47] VITALS: O2SAT 93
[2016-12-10] MEDS: LEVALBUTEROL 1.25 MG/0.5 ML CONCENTRATE NEB INH SCH ×4 (03:47→15:41)
[2016-12-10 06:00] VITALS: BP 160/72
[2016-12-10 07:06] LABS: MEAN CORPUSCULAR HEMOGLOBIN 29.5 pg (27.0-33.0); MEAN CORPUSCULAR VOLUME 94.9 fl (80.0-96.0); RED CELL DISTRIBUTION WIDTH 14.3 % (11.5-14.5); WHITE BLOOD COUNT 7.4 K/mm3 (4.0-10.0)
[2016-12-10 07:18] LABS: ANION GAP 3 MEQ/L (8-16); BLOOD UREA NITROGEN 10 MG/DL (7-18); CALCIUM LEVEL 8.4 MG/DL (8.8-10.2); CARBON DIOXIDE LEVEL 41 MEQ/L (21-32); CHLORIDE LEVEL 101 MEQ/L (98-107); CREATININE FOR GFR 0.77 MG/DL (0.55-1.02); GLOMERULAR FILTRATION RATE > 60.0 (>39); GLUCOSE, FASTING 99 MG/DL (83-110); MAGNESIUM LEVEL 2.3 MG/DL (1.8-2.4); POTASSIUM SERUM 4.7 MEQ/L (3.5-5.1); SODIUM LEVEL 145 MEQ/L (136-145)
[2016-12-10] MEDS: HumaLOG INSULIN (NovoLOG) PER UNIT SC SCH ×3 (07:30→16:57)
[2016-12-10] MEDS: FORMOTEROL FUMARATE 20 MCG/2 ML INHALATION SOLUTION (PERFOROMIST) INH SCH ×2 (07:50→19:45)
[2016-12-10] MEDS: BUDESONIDE 0.5 MG/2 ML INHALATION SUSPENSION INH SCH ×2 (07:50→19:45)
[2016-12-10] MEDS: DOCUSATE SODIUM 100 MG CAP PO SCH (09:00)
[2016-12-10] MEDS: SENNA 8.6 MG TAB (SENOKOT) PO SCH (09:00)
[2016-12-10 09:16] VITALS: BP 160/72
[2016-12-10] MEDS: LISINOPRIL 10 MG TAB PO SCH (09:16)
[2016-12-10] MEDS: predniSONE 20 MG TAB PO SCH (09:16)
[2016-12-10] MEDS: PANTOPRAZOLE 40MG TAB (PROTONIX) PO SCH (09:16)
[2016-12-10] MEDS: amLODIPine 10 MG TAB PO SCH (09:16)
[2016-12-10] MEDS: TOBRAMYCIN 0.3% OPHTH SOLN 5 ML OU SCH ×2 (09:17→16:57)
[2016-12-10] MEDS: ENOXAPARIN 40 MG/0.4 ML SYRINGE (J1650) SC SCH (09:17)
--- NOTE | 2016-12-10 11:30 | IPNPDOC ---
Text Note Date of Service The patient was seen on 12/10/16. NOTE DISCHARGE ADDENDUM: Patient seen and examined at bedside. No acute overnight events reported. Patient has no new medical complaints today. General: NAD, lying comfortably in bed, elderly HEENT: NC/AT, EOMI, PERRL Lungs: CTA B/L Heart: +S1S2, RRR Abd: soft, NT, +BS Ext: no edema Disp: Discharge to sleep lab at 07:30PM today. No changes to discharge instructions or medications. For full details please refer to discharge summary 12/09/16. VS,Fishbone, I+O VS, Fishbone, I+O Laboratory Tests 12/10/16 06:34 Calcium Level 8.4 L, Red Blood Count 3.27 L, Mean Corpuscular Volume 94.9, Mean Corpuscular Hemoglobin 29.5, Mean Corpuscular Hemoglobin Concent 31.0 L, Red Cell Distribution Width 14.3 Vital Signs Date Time Temp Pulse Resp B/P Pulse Ox O2 Delivery O2 Flow Rate FiO2 12/10/16 09:16 160/72 12/10/16 09:16 82 12/10/16 06:00 98.1 24 90 High Flow Cannula 2.0 12/05/16 08:00 30 I&O- Last 24 Hours up to 6 AM 12/10/16 05:59 Intake Total 1920 ml Output Total 1550 ml Balance 370 ml EUGENIO BEDOYA MD Dec 10, 2016 11:30
[2016-12-10 14:00] VITALS: BP 161/73
== END 2016-12-10 20:20 | disposition home or self-care (01) | DRG 189 ==
LOC: EDBD 19:34 → M ED 21:01 → M ED INP 23:40 → M ICU 11-26 02:06 → M MSPAV 11-28 09:26 → M ICU 12-03 16:05 → M MS5PR 12-06 18:19
PROVIDERS: ADMIT Internal Medicine Pulmonary Disease; ATTEND Internal Medicine
DX: J96.02 Acute respiratory failure with hypercapnia (principal); G93.41 Metabolic encephalopathy; J44.1 Chronic obstructive pulmonary disease with (acute) exacerbation; E87.0 Hyperosmolality and hypernatremia; N17.9 Acute kidney failure, unspecified; R44.1 Visual hallucinations; E78.5 Hyperlipidemia, unspecified; E11.65 Type 2 diabetes mellitus with hyperglycemia; E66.9 Obesity, unspecified; I10 Essential (primary) hypertension; F29 Unspecified psychosis not due to a substance or known physiological condition; Z79.899 Other long term (current) drug therapy; Z79.82 Long term (current) use of aspirin; R91.8 Other nonspecific abnormal finding of lung field; G47.33 Obstructive sleep apnea (adult) (pediatric); R25.1 Tremor, unspecified; D72.829 Elevated white blood cell count, unspecified; J20.9 Acute bronchitis, unspecified; B95.61 Methicillin susceptible Staphylococcus aureus infection as the cause of diseases classified elsewhere

== ENCOUNTER → 2016-11-25 | Emergency (ER) | payer MEDICARE, OTHER ==
[~2016-11-25] VITALS: Ht 157.5 cm; Wt 74.8 kg
[~2016-11-25] MED LIST: ALBU17IN INH; ALBUTEROL SULFATE 2.5 MG/0.5 ML INH NEB SOLN NEB ONE; ATOR40TA PO; BACL-67 PO; IPRAT-ALBUT; IPRATROPIUM 0.5MG/ALBUTEROL 2.5MG INH SOL UD 3ML (DUONEB)(J7620) NEB ONE; QUIN20TA7 PO; TOBR3OPD OU; TORS20TA2 PO; VITA50003
[2016-11-25] MEDS: NS 1,000 ML IV SCH ×2 (13:22→13:25)
[2016-11-25 13:45] LABS: BASO % 0.1 % (0.0-1.0); EOS # 0.2 K/mm3 (0.0-0.50); EOS % 1.6 % (0.0-3.0); LARGE UNSTAINED CELL # 0.1 K/mm3 (0.0-0.4); LARGE UNSTAINED CELL % 1.2 % (0.0-4.0); LYMPH # 0.9 K/mm3 (1.5-4.5); LYMPH % 7.1 % (24.0-44.0); MEAN CORPUSCULAR HEMOGLOBIN 29.7 pg (27.0-33.0); MEAN CORPUSCULAR HGB CONC 31.1 g/dl (32.0-36.5); MEAN CORPUSCULAR VOLUME 95.6 fl (80.0-96.0); MONO # 0.5 K/mm3 (0.0-0.8); MONO % 4.7 % (0.0-5.0); NEUTROPHILS # 9.5 K/mm3 (1.8-7.7); NEUTROPHILS % 85.3 % (36.0-66.0); PLATELET COUNT, AUTOMATED 163 k/mm3 (150-450); WHITE BLOOD COUNT 11.1 K/mm3 (4.0-10.0)
--- NOTE | 2016-11-25 13:46 | REP ---
CT Head without contrast HISTORY: Altered mental status COMPARISON: None There is no intraparenchymal hemorrhage, acute infarct, mass or midline shift. The ventricular system is normal in appearance. There is no extra cerebral collection. There is no fracture. The visualized sinuses are clear. Soft tissue swelling is present over the right parietal bone. IMPRESSION: There is no intracranial lesion. Signed by Dionicio Zapien MD 11/25/2016 01:38 P
[2016-11-25 13:55] LABS: ALBUMIN 3.1 GM/DL (3.2-5.2); ALBUMIN/GLOBULIN RATIO 0.66 (1.00-1.93); ALKALINE PHOSPHATASE 98 U/L (45-117); ALT/SGPT 15 U/L (12-78); ANION GAP 2 MEQ/L (8-16); AST/SGOT 18 U/L (15-37); BILIRUBIN,DIRECT < 0.1 MG/DL (0.0-0.2); BILIRUBIN,TOTAL 0.2 MG/DL (0.2-1.0); BLOOD UREA NITROGEN 14 MG/DL (7-18); CALCIUM LEVEL 9.1 MG/DL (8.8-10.2); CARBON DIOXIDE LEVEL 45 MEQ/L (21-32); CHLORIDE LEVEL 96 MEQ/L (98-107); CREATININE FOR GFR 1.03 MG/DL (0.55-1.02); GLOMERULAR FILTRATION RATE 56.2 (>39); GLUCOSE, FASTING 128 MG/DL (83-110); POTASSIUM SERUM 4.2 MEQ/L (3.5-5.1); SODIUM LEVEL 143 MEQ/L (136-145); TOTAL PROTEIN 7.8 GM/DL (6.4-8.2)
--- NOTE | 2016-11-25 14:13 | REP ---
CHEST, TWO VIEWS: No comparison. Two views of the chest are performed. 1 cm nodular opacity is seen in the right upper lobe peripherally. There are acute or chronic interstitial densities in each lower lobe. No consolidation is seen. Heart is normal in size. There is mild calcification of thoracic aorta. There are mild degenerative changes of the spine. Compression deformity of T12 is unchanged since prior MRI in 2004. IMPRESSION: Acute versus chronic interstitial densities in the lower lobes. 1 cm nodular density in the right upper lobe. Recommend followup CT of the chest to evaluate. Signed by Rolando Aguiar MD 11/25/2016 04:18 P
[2016-11-25 15:01] LABS: METHADONE URINE NEGATIVE (NEGATIVE)
[2016-11-25 16:00] VITALS: BP 128/56
--- NOTE | 2016-11-25 20:54 | ECGEPIP ---
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
== END | disposition other institution (70) ==
LOC: M ED 13:26
DX: R55 Syncope and collapse (principal); I51.9 Heart disease, unspecified; J44.9 Chronic obstructive pulmonary disease, unspecified; E78.5 Hyperlipidemia, unspecified; G89.29 Other chronic pain; F17.200 Nicotine dependence, unspecified, uncomplicated; Z79.899 Other long term (current) drug therapy

== ENCOUNTER → 2016-12-10 | Outpatient (CLI) | payer MEDICARE ==
[~2016-12-10] MED LIST changes: +AMLO10TA2 PO; +ASPI325T PO; +BUDE0.5S6 INH; +COLA100C PO; +LISI10TA4 PO; +PERF20NE2 INH; +PRED10TA PO; +SENN1TAB4 PO; -cefTRIAXone SOD 1 GM in D5W MINI-BAG PLUS 50 ML IV SCH
--- NOTE | 2016-12-11 19:18 | SLEEPCENT ---
DATE OF PROCEDURE: 12/10/2016 ORDERED BY: Dr. Nash Nocturnal polysomnography was performed for the titration of pressure therapy in this patient with obstructive sleep apnea syndrome. Apnea-hypopnea index of 5. For testing the patient was fit with a ResMed Quattro full mask of small size. 4 cm of water pressure were applied to the circuit and the lights were extinguished. 7 hours and 19 minutes of data were reviewed. There were 400 minutes of sleep identified. Sleep latency was normal at 13. Rapid eye movement (REM) latency was short at 14 minutes. Sleep architecture improved with optimal pressure therpay. Overall sleep efficiency was 93.7%. Patient's EKG showed a sinus rhythm with an average heart rate of 75 beats per minute. EEG showed normal wave forms for wake and sleep. Respiratory events were fully palliated with CPAP pressure of +10. Hypoventilatory desaturation prompted the addition of supplemental oxygen. Saturations remained adequate with an oxygen flow rate of 3 liters per minute. Some limb activity but arousals from limb events were few. IMPRESSION: Obstructive sleep apnea syndrome (G47.33). RECOMMENDATIONS: Nightly use of pressure therapy 10 cm of water with 3 liters of oxygen bled through the system.
== END ==
LOC: M SLEEP 13:20
PROVIDERS: ATTEND Internal Medicine Pulmonary Disease
DX: G47.33 Obstructive sleep apnea (adult) (pediatric) (principal)

== ENCOUNTER 2017-06-23 08:00 | Inpatient (IN) | payer MEDICARE ==
[~2017-06-23] VITALS: Ht 152.4 cm; Wt 83.7 kg
[~2017-06-23 08:00] MED LIST changes: -ATOR40TA PO; +ATOR40TA75 PO; -BACL-67 PO; +BACL1TAB9 PO; -COLA100C PO; +COLA100C5 PO; -PRED10TA PO; +PRED10TA2 PO; +QUIN20TA17 PO; -QUIN20TA7 PO; +SENN18TA PO; -SENN1TAB4 PO; +VITA1CAP40; -VITA50003
[2017-06-23] MEDS: FORMOTEROL FUMARATE 20 MCG/2 ML INHALATION SOLUTION (PERFOROMIST) INH SCH ×2 (08:00→20:15)
[2017-06-23] MEDS ORDERED: BACL1TAB9 PO (08:14)
[2017-06-23] MEDS ORDERED: TORS20TA2 PO (08:14)
[2017-06-23] MEDS ORDERED: QUIN20TA17 PO (08:14)
[2017-06-23] MEDS ORDERED: GABA-279 PO (08:14)
[2017-06-23] MEDS ORDERED: methylPREDNISolone INJ 125 MG/2 ML VIAL (J2930) IV ONE (08:45)
[2017-06-23 08:53] LABS: BASO % 0.2 % (0.0-1.0); EOS # 0.1 10^3/uL (0.0-0.50); EOS % 1.5 % (0.0-3.0); IMMATURE GRANULOCYTE % 0.3 % (0-0); LYMPH # 1.1 10^3/uL (1.5-4.5); MEAN CORPUSCULAR HEMOGLOBIN 27.7 pg (27.0-33.0); MEAN CORPUSCULAR HGB CONC 29.3 g/dl (32.0-36.5); MEAN CORPUSCULAR VOLUME 94.3 fl (80.0-96.0); MONO # 0.5 10^3/uL (0.0-0.8); MONO % 5.7 % (0.0-5.0); NEUTROPHILS # 7.7 10^3/uL (1.8-7.7); NEUTROPHILS % 80.3 % (36.0-66.0); PLATELET COUNT, AUTOMATED 157 10^3/uL (150-450); RED CELL DISTRIBUTION WIDTH 14.9 % (11.5-14.5); WHITE BLOOD COUNT 9.5 10^3/uL (4.0-10.0)
[2017-06-23 08:56] LABS: ADD MANUAL DIFFER NO; DIFF SLIDE NUMBER 126
[2017-06-23] MEDS ORDERED: TORSEMIDE 20 MG TAB PO SCH (09:00)
[2017-06-23] MEDS: IPRATROPIUM 0.5MG/ALBUTEROL 2.5MG INH SOL UD 3ML (DUONEB)(J7620) NEB PRN ×3 (09:09→09:32)
[2017-06-23 09:11] LABS: ABG BASE EXCESS 4.6 (-2.0-2.0); ABG HCO3 33.6 MEQ/L (22.0-26.0); ABG PARTIAL PRESSURE O2 77.5 mmHg (75.0-100.0); ABG STANDARD HCO3 28.5 MEQ/L (22.0-26.0); ABG TOTAL CO2 35.9 MEQ/L (23.0-31.0)
[2017-06-23 09:18] LABS: ABG PARTIAL PRESSURE CO2 73.2 mmHg (35.0-45.0)
--- NOTE | 2017-06-23 09:30 | REP ---
Portable chest x-ray: Sitting AP view. History: Dyspnea and cough. Comparison chest x-ray: November 28, 2016. Findings: EKG monitoring electrodes overlie the chest along with oxygen delivery tubing. The lungs are symmetrically aerated. No infiltrate is seen. Pleural angles are sharp. Cardiomediastinal silhouette is unremarkable. There is a nodular density again noted projecting in the right apex. Pleural angles are sharp. There is dystrophic calcification in the periarticular soft tissues about the left shoulder. Impression: No acute abnormality. 1 cm nodular density projects in the right apex unchanged from the November 2016 study. This is indeterminate. Recommend chest CT or comparison with remote prior chest x-rays if these exist at an outside institution. Signed by Tony Mccoy MD 06/23/2017 03:02 P
[2017-06-23 10:07] LABS: CALCIUM LEVEL 9.1 MG/DL (8.8-10.2); CREATININE FOR GFR 1.11 MG/DL (0.55-1.02); GLOMERULAR FILTRATION RATE 51.4 (>39); POTASSIUM SERUM 4.1 MEQ/L (3.5-5.1)
[2017-06-23] MEDS ORDERED: ONDANSETRON 4MG/2ML VIAL (J2405) IV PRN (10:30)
[2017-06-23] MEDS ORDERED: BUDE0.5S6 INH (10:36)
[2017-06-23] MEDS ORDERED: TYLE500T78 PO (10:36)
[2017-06-23] MEDS ORDERED: DOC-8.6T3 PO (10:37)
[2017-06-23] MEDS ORDERED: SODIUM CHLORIDE 0.9% 1000 ML IV ONE (11:45)
--- NOTE | 2017-06-23 11:46 | HPEPDOC ---
General Date of Admission Jun 23, 2017 at 10:18 Primary Care Physician: Ade Sabillon DO [facility] Other Providers Insulator Tester: Dr. Nash Attending Physician: ANNMARIE BARRIOS MD Chief Complaint The patient is a 72-year-old female admitted with a reason for visit of Copd Exacerbation. Source: Patient, Family Exam Limitations: No limitations History of Present Illness Ms. Bush is a 72-year-old female who presents to the emergency department due to 3-4 days of worsening fatigue, malaise, weakness, and she notices that she is not breathing as well, and interestingly she also notices that she will breathe out some sort of smoke/vapor on occasion, which is an indication to her that she is not breathing well. This also happened the last time she was hospitalized. She is compliant with wearing her CPAP at night, however last night she states that this was insufficient to alleviate her symptoms, therefore this morning she decided it was time to go to the emergency department. Home Medications Scheduled Acetaminophen (Tylenol Extra Strength) 500 Mg Tab, 1,000 MG PO QHS, (Reported) Atorvastatin Calcium (Atorvastatin Calcium) 40 Mg Tab, 40 MG PO QHS, (Reported) Baclofen (Baclofen) 20 Mg Tab, 20 MG PO BID, (Reported) Budesonide (Budesonide) 0.5 Mg/2 Ml Neb, 0.5 MG INH BID, (Reported) Gabapentin (Gabapentin) 100 Mg Cap, 200 MG PO QHS, (Reported) Quinapril Hcl (Quinapril HCl) 20 Mg Tab, 20 MG PO DAILY, (Reported) Torsemide (Torsemide) 20 Mg Tab, 40 MG PO DAILY, (Reported) Scheduled PRN (Doc-Q-Lax 8.6-50 mg) 1 Tab Tab, 1 TAB PO DAILY PRN for CONSTIPATION, (Reported ) Albuterol Sulfate (Ventolin Hfa) 200 Puff/8 Gm Aers, 2 PUFFS INH Q4H PRN for SHORTNESS OF BREATH, (Reported) Allergies Coded Allergies: Gabapentin (Verified Allergy, Mild, WEAKNESS, 11/26/16) Metformin (Verified Allergy, Mild, 11/26/16) Pregabalin (Verified Allergy, Mild, SHAKY, 11/26/16) Flu Virus Vaccine (Unverified Allergy, Unknown, 11/26/16) TOLERATED VACCINE IN THE FALL OF 2015. ALLERGY IS UNVERIFIED Neomycin (Unverified Allergy, Unknown, 11/26/16) Thimerosal (Unverified Allergy, Unknown, 11/26/16) Heparin (Verified Adverse Reaction, Severe, THROMBOCYTOPENIA, 11/26/16) FROM [facility] RECORDS Past Medical History Medical History COPD on 3 L oxygen nasal cannula at home Hypertension Back pain with bulging disks Surgical History Remote Complete hysterectomy with appendectomy at the same time Family History Her mother of a myocardial infarction in her 70s Father had multiple "mini strokes" Sister had asthma, now in She has a son had a myocardial infarction in his early 50s Social History * Smoker: current smoker (she admits that she will sneak a cigarette on a daily basis, with an average of 5 cigarettes a week) Alcohol: Denies (she used to be an alcoholic but has not drank for 20+ years) Drugs: denies Recent Travel/Sick Contacts: Denies: Recent travel, Recent sick contacts Psychosocial History: No pertinent psych hx She lives at home with her , they have no pets. She has never been exposed to tuberculosis or asbestos. She has no recent travel history. Review of Symptoms Constitutional: Reports: Malaise, Weakness, Fatigue, Lethargy, Denies: Chills, Fever, Night Sweats, Weight Loss Eyes: Denies: Pain, Vision change ENT: Reports: Other Symptoms (she feels thirsty and has a dry mouth), Denies: Head Aches, Ear Pain, Dysphagia Skin: Denies: Rash, Lesions, Breakdown Pulmonary: Reports: Dyspnea, Denies: Cough, Pleuritic Chest Pain Cardiovascular: Denies: Chest Pain, Palpitations, Orthopnea, Paroxysmal Noc. Dyspnea, Lt Headedness Gastrointestinal: Denies: Nausea, Vomiting, Abdominal Pain, Diarrhea Genitourinary: Denies: Dysuria, Frequency, Incontinence, Retention Hematologic: Denies: Bruising, Bleeding Excessively Musculoskeletal: Reports: Back Pain Psych: Reports: Mood Normal, Denies: Depression, Memory Issues Physical Examination General Exam: Positive: Alert, Cooperative, Mild Distress Eye Exam: Positive: Conjunctiva & lids normal, EOMI, Negative: Sclera icteric ENT Exam: Positive: Atraumatic, Pharynx Normal, Negative: Mucous membr. moist/pink Neck Exam: Positive: Supple, Negative: JVD, thyromegaly Chest Exam: Positive: Diminished (significantly diminished throughout) Heart Exam: Positive: Rate Normal, Regular Rhythm, Other (distant heart sounds) , Negative: Murmurs, Rubs Telemetry: Positive: No significant arrhythmia, Sinus Abdomen Exam: Positive: Normal bowel sounds, Soft, Negative: Tenderness, Hepatospenomegaly Extremity Exam: Positive: Normal pulses, Negative: Clubbing, Cyanosis, Edema Skin Exam: Positive: Nl turgor and temperature, Negative: Breakdown, Lesion Neuro Exam: Positive: Normal Speech, Cranial Nerves 3-12 NL Psych Exam: Positive: Mental status NL, Mood NL, Oriented x 3 Vital Signs Vital Signs Date Time Temp Pulse Resp B/P (MAP) Pulse Ox O2 Delivery O2 Flow Rate FiO2 06/23/17 10:56 97.9 16 92 Nasal Cannula 3.0 06/23/17 10:30 84 Laboratory Data Labs 24H Laboratory Tests 2 06/23/17 08:35: Immature Granulocyte % (Auto) 0.3H, White Blood Count 9.5, Red Blood Count 4.59 , Hemoglobin 12.7, Hematocrit 43.3, Mean Corpuscular Volume 94.3, Mean Corpuscular Hemoglobin 27.7, Mean Corpuscular Hemoglobin Concent 29.3L, Red Cell Distribution Width 14.9H, Platelet Count 157, Neutrophils (%) (Auto) 80.3H , Lymphocytes (%) (Auto) 12.0L, Monocytes (%) (Auto) 5.7H, Eosinophils (%) (Auto ) 1.5, Basophils (%) (Auto) 0.2, Neutrophils # (Auto) 7.7, Lymphocytes # (Auto) 1.1L, Monocytes # (Auto) 0.5, Eosinophils # (Auto) 0.1, Basophils # (Auto) 0.0, Immature Granulocyte # (Auto) 0.0, Nucleated Red Blood Cells % (auto) 0.0, Lactic Acid Level 0.9 06/23/17 08:55: Blood Gas Bicarbonate Standard 28.5H, Arterial Blood pH 7.280L, Arterial Blood Partial Pressure CO2 73.2*H, Arterial Blood Partial Pressure O2 77.5, Arterial Blood Total CO2 35.9H, Arterial Blood HCO3 33.6H, Arterial Blood Base Excess 4.6H, Arterial Blood Oxygen Saturation 94.5L 06/23/17 09:14: Anion Gap 1L, Glomerular Filtration Rate 51.4, Blood Urea Nitrogen 18, Creatinine 1.11H, Sodium Level 142, Potassium Level 4.1, Chloride Level 98, Carbon Dioxide Level 43H, Calcium Level 9.1, JS-Rmb-U-Type Natriuretic Peptide 135H CBC/BMP Laboratory Tests 06/23/17 08:35 Red Blood Count 4.59, Mean Corpuscular Volume 94.3, Mean Corpuscular Hemoglobin 27.7, Mean Corpuscular Hemoglobin Concent 29.3 L, Red Cell Distribution Width 14.9 H, Neutrophils (%) (Auto) 80.3 H, Lymphocytes (%) (Auto) 12.0 L, Monocytes (%) (Auto) 5.7 H, Eosinophils (%) (Auto) 1.5, Basophils (%) (Auto) 0.2, Neutrophils # (Auto) 7.7, Lymphocytes # (Auto) 1.1 L, Monocytes # (Auto) 0.5, Eosinophils # (Auto) 0.1, Basophils # (Auto) 0.0 06/23/17 09:14 Calcium Level 9.1 Microbiology Microbiology 06/23/17 Blood Culture, Received Pending 06/23/17 Blood Culture, Received Pending Problems (1) COPD exacerbation Status: Acute (2) Acute respiratory failure with hypercapnia Status: Acute (3) Hypercarbia Status: Acute (4) Generalized weakness Status: Acute (5) Lung nodule seen on imaging study Status: Acute (6) Chronic obstructive pulmonary disease (COPD) Status: Chronic Plan / VTE VTE Prophylaxis Ordered?: Yes (Lovenox) Plan Plan The ED physician is already spoken with the lay up operator who did not feel that BiPAP was indicated at this time. We will continue with scheduled and PRN nebulizers and steroids. We will recheck another ABG in a few hours. As she does not have a leukocytosis or fever, I do not feel that antibiotics have a role at this point. We will titrate her oxygen to 88-92%, she is usually on 3 L nasal cannula at home, therefore we will maintain this at a minimum as her baseline. Otherwise, we will continue with her usual home dose of baclofen and gabapentin for her chronic low back pain. We will continue her quinapril for hypertension, as well as torsemide, however we will hold her daily dose of torsemide for today as she does appear to be slightly dehydrated. We will give one bolus of 500 mL normal saline, and then most likely resume torsemide tomorrow. GABRIELLA MENDOZA DO Jun 23, 2017 11:46
[2017-06-23 12:29] LABS: ABG BASE EXCESS 13.2 (-2.0-2.0); ABG HCO3 43.5 MEQ/L (22.0-26.0); ABG PARTIAL PRESSURE O2 55.6 mmHg (75.0-100.0); ABG STANDARD HCO3 36.8 MEQ/L (22.0-26.0); ABG TOTAL CO2 46.2 MEQ/L (23.0-31.0); ABG pH (ARTERIAL) 7.307 UNITS (7.350-7.450)
[2017-06-23] MEDS: BUDESONIDE 0.5 MG/2 ML INHALATION SUSPENSION INH SCH ×2 (12:56→20:15)
[2017-06-23 13:10] VITALS: BP 162/78
[2017-06-23] MEDS: BACLOFEN 10 MG TAB PO SCH ×2 (13:49→20:22)
[2017-06-23] MEDS: QUINAPRIL 20 MG TAB PO SCH (13:50)
[2017-06-23] MEDS: ENOXAPARIN 40 MG/0.4 ML SYRINGE (J1650) SC SCH (13:51)
[2017-06-23] MEDS: SENOKOT S TAB PO SCH ×2 (13:51→20:21)
[2017-06-23 14:00] VITALS: BP 172/73
[2017-06-23] MEDS: IPRATROPIUM 0.5MG/ALBUTEROL 2.5MG INH SOL UD 3ML (DUONEB)(J7620) NEB SCH ×2 (14:10→20:00)
[2017-06-23] MEDS: methylPREDNISolone INJ 40 MG/1 ML VIAL (J2920) IV SCH ×2 (16:00→20:21)
[2017-06-23 18:19] LABS: ABG BASE EXCESS 11.4 (-2.0-2.0); ABG HCO3 41.4 MEQ/L (22.0-26.0); ABG PARTIAL PRESSURE CO2 87.1 mmHg (35.0-45.0); ABG PARTIAL PRESSURE O2 71.6 mmHg (75.0-100.0); ABG TOTAL CO2 44.1 MEQ/L (23.0-31.0); ABG pH (ARTERIAL) 7.295 UNITS (7.350-7.450)
[2017-06-23] MEDS: ACETAMINOPHEN 500 MG TAB PO SCH (20:22)
[2017-06-23] MEDS: ATORVASTATIN 20 MG TAB PO SCH (20:22)
[2017-06-23] MEDS: GABAPENTIN 100 MG CAP PO SCH (20:22)
[2017-06-23 22:00] VITALS: BP 150/67
[2017-06-24] MEDS: IPRATROPIUM 0.5MG/ALBUTEROL 2.5MG INH SOL UD 3ML (DUONEB)(J7620) NEB SCH ×4 (01:06→19:10)
[2017-06-24] MEDS: methylPREDNISolone INJ 40 MG/1 ML VIAL (J2920) IV SCH ×4 (02:43→20:09)
[2017-06-24 06:00] VITALS: BP 159/71
[2017-06-24 06:34] LABS: ABG BASE EXCESS 10.6 (-2.0-2.0); ABG HCO3 40.6 MEQ/L (22.0-26.0); ABG STANDARD HCO3 34.2 MEQ/L (22.0-26.0); ABG TOTAL CO2 43.3 MEQ/L (23.0-31.0); ABG pH (ARTERIAL) 7.288 UNITS (7.350-7.450)
[2017-06-24 06:36] LABS: ABG PARTIAL PRESSURE CO2 86.8 mmHg (35.0-45.0)
[2017-06-24 06:58] LABS: BASO % 0.1 % (0.0-1.0); IMMATURE GRANULOCYTE % 0.9 % (0-0); LYMPH # 0.4 10^3/uL (1.5-4.5); LYMPH % 3.4 % (24.0-44.0); MEAN CORPUSCULAR HEMOGLOBIN 27.1 pg (27.0-33.0); MEAN CORPUSCULAR HGB CONC 28.8 g/dl (32.0-36.5); MONO # 0.2 10^3/uL (0.0-0.8); MONO % 1.5 % (0.0-5.0); NEUTROPHILS # 10.9 10^3/uL (1.8-7.7); NEUTROPHILS % 94.1 % (36.0-66.0); PLATELET COUNT, AUTOMATED 155 10^3/uL (150-450); RED CELL DISTRIBUTION WIDTH 14.2 % (11.5-14.5); WHITE BLOOD COUNT 11.6 10^3/uL (4.0-10.0)
[2017-06-24 07:17] LABS: CREATININE FOR GFR 1.14 MG/DL (0.55-1.02); GLOMERULAR FILTRATION RATE 49.9 (>39); POTASSIUM SERUM 4.4 MEQ/L (3.5-5.1)
[2017-06-24] MEDS: BUDESONIDE 0.5 MG/2 ML INHALATION SUSPENSION INH SCH ×2 (07:31→19:10)
[2017-06-24] MEDS: FORMOTEROL FUMARATE 20 MCG/2 ML INHALATION SOLUTION (PERFOROMIST) INH SCH ×2 (07:31→19:10)
[2017-06-24] MEDS ORDERED: NS 1,000 ML IV SCH (08:45)
--- NOTE | 2017-06-24 09:15 | ECGEPIP ---
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
[2017-06-24] MEDS: ENOXAPARIN 40 MG/0.4 ML SYRINGE (J1650) SC SCH (09:58)
[2017-06-24] MEDS: PANTOPRAZOLE 40MG TAB (PROTONIX) PO SCH (09:58)
[2017-06-24] MEDS: SENOKOT S TAB PO SCH ×2 (09:58→20:10)
[2017-06-24] MEDS: BACLOFEN 10 MG TAB PO SCH ×2 (09:58→20:10)
[2017-06-24] MEDS: QUINAPRIL 20 MG TAB PO SCH (10:01)
--- NOTE | 2017-06-24 10:11 | IPNPDOC ---
Subjective Date Seen The patient was seen on 06/24/17. Subjective Chief Complaint/HPI The patient is a 72-year-old female admitted with a reason for visit of Copd Exacerbation. Events since last encounter Mrs. Bush was resting comfortably in bed at the time of assessment. She reports feeling improved since the time of initial presentation. notes that she is still feeling slightly SOB and somewhat "unsteady/weak" due to the SOB, but that this has also gradually improved since admission. She notes that she has been up and walked to the bathroom without difficulty. She notes that the duo nebs have been helping her. She notes having some coughing episodes, however, notes that these only occur shortly after the duo nebs and no other time during the day.States she has the same cough at home with her breathing txs. Notes this is non productive and self limiting. She does mention feeling dehydrated, and she was drinking as much as she could yesterday without alleviation of her dry mouth and throat. She is currently on her home O2 regimen of 3L and states she is comfortable with this. Pt also reports she has not had a BM in 2-3 days, normally has one daily. notes she had been taking stool softeners at home prior to arrival to the ED. Denies CP, LE swelling, palpitations, fever or chills. Constitutional: Reports: Weakness (unsteadiness), Denies: Chills, Fever, Malaise ENT: Denies: Head Aches, Sinus Congestion, Post Nasal Drip, Sore Throat Pulmonary: Reports: Dyspnea (mild, improving), Cough (after duo neb, non productive) Cardiovascular: Denies: Chest Pain, Palpitations, Paroxysmal Noc. Dyspnea, Edema, Lt Headedness Gastrointestinal: Reports: Constipation (no BM in 2-3 days), Denies: Nausea, Vomiting, Abdominal Pain, Diarrhea Genitourinary: Denies: Dysuria Psych: Reports: Mood Normal Objective Physical Examination General Exam: Positive: Alert, Cooperative, No Acute Distress, Other (sitting up in bed comfortably, NC in place, no SOB with speech, O2 sat 88-89% during exam with speech, and back up to 90-92% at rest.) Eye Exam: Positive: Conjunctiva & lids normal, EOMI, Negative: Sclera icteric ENT Exam: Positive: Atraumatic, Mucous membr. moist/pink, Pharynx Normal Neck Exam: Positive: Supple, Negative: JVD Chest Exam: Positive: Diminished (significantly diminished throughout) Heart Exam: Positive: Rate Normal, Regular Rhythm, Normal S1, Normal S2, Negative: Gallops, Murmurs, Rubs Telemetry: Positive: No significant arrhythmia, Sinus Abdomen Exam: Positive: Normal bowel sounds, Soft, Negative: Tenderness, Hepatospenomegaly Extremity Exam: Positive: Normal pulses, Negative: Clubbing, Cyanosis, Edema Skin Exam: Positive: Nl turgor and temperature Neuro Exam: Positive: Normal Speech Psych Exam: Positive: Mental status NL, Mood NL, Oriented x 3 Assessment /Plan Problems (1) COPD exacerbation Status: Acute Problem Text: Patient clinically improving. On 3L NC which is her baseline at home. Repeat ABG with pH of 7.22 and elevated PCO2, which is unchanged from prior,and patient's ABG's from previous admissions have been consistent with this presentation. We will continue with scheduled and PRN nebulizers as well as Solumedrol 40mg IV q6 and continue to monitor her progress. She has remained afebrile and no leukocytosis at the time of admission prior to steroids, so will hold off on abx's at this point. (2) Acute respiratory failure with hypercapnia Status: Acute (3) Prerenal azotemia Status: Acute Problem Text: She is clinically and subjectively dry, and we will start her on gentle fluid rehydration with normal saline. (4) Generalized weakness Status: Acute Response to Treatment: Improving Problem Text: Improving per patient. Pt able to ambulate on her own, states that this is mainly due to the SOB, however, improving along with the respiratory status. (5) Hypercarbia Status: Chronic (6) Hypertension Status: Chronic Response to Treatment: Stable Problem Text: Will continue patient's Quinipril and hold Torsemide as patient is currently receiving fluids. (7) Chronic low back pain Status: Chronic Problem Text: Continue Gabapentin and Baclofen. (8) Constipation Status: Acute Response to Treatment: Stable, Improving Problem Text: Pt currently on Senna, will continue. (9) Lung nodule seen on imaging study Status: Acute Problem Text: plan for OP follow up of findings. (10) Chronic obstructive pulmonary disease (COPD) Status: Chronic Plan/VTE VTE Prophylaxis Ordered?: Yes (Lovenox) Plan IVF: Continue Diet: Continue Current Activity: Continue Current VS, I&O, 24H, Fishbone Vital Signs/I&O Vital Signs Date Time Temp Pulse Resp B/P (MAP) Pulse Ox O2 Delivery O2 Flow Rate FiO2 06/24/17 06:00 97.2 83 20 159/71 (100) 90 Nasal Cannula 3.0 Laboratory Data 24H LABS Laboratory Tests 2 06/23/17 08:55: Blood Gas Bicarbonate Standard 28.5H, Arterial Blood pH 7.280L, Arterial Blood Partial Pressure CO2 73.2*H, Arterial Blood Partial Pressure O2 77.5, Arterial Blood Total CO2 35.9H, Arterial Blood HCO3 33.6H, Arterial Blood Base Excess 4.6H, Arterial Blood Oxygen Saturation 94.5L 06/23/17 09:14: Anion Gap 1L, Glomerular Filtration Rate 51.4, Blood Urea Nitrogen 18, Creatinine 1.11H, Sodium Level 142, Potassium Level 4.1, Chloride Level 98, Carbon Dioxide Level 43H, Calcium Level 9.1, NZ-Btg-T-Type Natriuretic Peptide 135H 06/23/17 12:17: Blood Gas Bicarbonate Standard 36.8H, Arterial Blood pH 7.307L, Arterial Blood Partial Pressure CO2 89.0*H, Arterial Blood Partial Pressure O2 55.6L, Arterial Blood Total CO2 46.2H, Arterial Blood HCO3 43.5H, Arterial Blood Base Excess 13.2H, Arterial Blood Oxygen Saturation 89.2L 06/23/17 18:07: Blood Gas Bicarbonate Standard 35.0H, Arterial Blood pH 7.295L, Arterial Blood Partial Pressure CO2 87.1*H, Arterial Blood Partial Pressure O2 71.6L, Arterial Blood Total CO2 44.1H, Arterial Blood HCO3 41.4H, Arterial Blood Base Excess 11.4H, Arterial Blood Oxygen Saturation 94.0L 06/24/17 06:26: Blood Gas Bicarbonate Standard 34.2H, Arterial Blood pH 7.288L, Arterial Blood Partial Pressure CO2 86.8*H, Arterial Blood Partial Pressure O2 64.0L, Arterial Blood Total CO2 43.3H, Arterial Blood HCO3 40.6H, Arterial Blood Base Excess 10.6H, Arterial Blood Oxygen Saturation 91.7L 06/24/17 06:37: Immature Granulocyte % (Auto) 0.9H, White Blood Count 11.6H, Red Blood Count 4.32, Hemoglobin 11.7L, Hematocrit 40.6, Mean Corpuscular Volume 94.0, Mean Corpuscular Hemoglobin 27.1, Mean Corpuscular Hemoglobin Concent 28.8L, Red Cell Distribution Width 14.2, Platelet Count 155, Neutrophils (%) (Auto) 94.1H, Lymphocytes (%) (Auto) 3.4L, Monocytes (%) (Auto) 1.5, Eosinophils (%) (Auto) 0.0, Basophils (%) (Auto) 0.1, Neutrophils # (Auto) 10.9H, Lymphocytes # (Auto) 0.4L, Monocytes # (Auto) 0.2, Eosinophils # (Auto) 0.0, Basophils # (Auto) 0.0, Immature Granulocyte # (Auto) 0.1H, Nucleated Red Blood Cells % (auto) 0.0, Anion Gap 0L, Glomerular Filtration Rate 49.9, Blood Urea Nitrogen 23H, Creatinine 1.14H, Sodium Level 142, Potassium Level 4.4, Chloride Level 101, Carbon Dioxide Level 41H, Calcium Level 9.0 CBC/BMP Laboratory Tests 06/23/17 09:14 Calcium Level 9.1 06/24/17 06:37 Calcium Level 9.0, Red Blood Count 4.32, Mean Corpuscular Volume 94.0, Mean Corpuscular Hemoglobin 27.1, Mean Corpuscular Hemoglobin Concent 28.8 L, Red Cell Distribution Width 14.2, Neutrophils (%) (Auto) 94.1 H, Lymphocytes (%) ( Auto) 3.4 L, Monocytes (%) (Auto) 1.5, Eosinophils (%) (Auto) 0.0, Basophils (% ) (Auto) 0.1, Neutrophils # (Auto) 10.9 H, Lymphocytes # (Auto) 0.4 L, Monocytes # (Auto) 0.2, Eosinophils # (Auto) 0.0, Basophils # (Auto) 0.0 Microbiology Microbiology 06/23/17 Blood Culture, Received Pending 06/23/17 Blood Culture, Received Pending GABRIELLA MENDOZA DO Jun 24, 2017 08:59
[2017-06-24] MEDS: POLYVINYL ALCOHOL OPHTH SOLN 15 ML(LIQUITEARS) OU PRN (13:17)
[2017-06-24 14:00] VITALS: BP 136/56
[2017-06-24] MEDS: ATORVASTATIN 20 MG TAB PO SCH (20:09)
[2017-06-24] MEDS: GABAPENTIN 100 MG CAP PO SCH (20:10)
[2017-06-24] MEDS: ACETAMINOPHEN 500 MG TAB PO SCH (20:11)
[2017-06-24 22:00] VITALS: BP 131/61
[2017-06-25] MEDS: IPRATROPIUM 0.5MG/ALBUTEROL 2.5MG INH SOL UD 3ML (DUONEB)(J7620) NEB SCH ×4 (01:20→19:38)
[2017-06-25] MEDS: methylPREDNISolone INJ 40 MG/1 ML VIAL (J2920) IV SCH ×4 (02:57→20:32)
[2017-06-25 05:55] LABS: ABG BASE EXCESS 10.2 (-2.0-2.0); ABG HCO3 40.2 MEQ/L (22.0-26.0); ABG PARTIAL PRESSURE CO2 86.4 mmHg (35.0-45.0); ABG PARTIAL PRESSURE O2 60.6 mmHg (75.0-100.0); ABG STANDARD HCO3 33.8 MEQ/L (22.0-26.0); ABG TOTAL CO2 42.9 MEQ/L (23.0-31.0); ABG pH (ARTERIAL) 7.286 UNITS (7.350-7.450)
[2017-06-25 06:00] VITALS: BP 144/65
[2017-06-25 07:03] LABS: BASO % 0.1 % (0.0-1.0); LYMPH # 0.5 10^3/uL (1.5-4.5); LYMPH % 2.8 % (24.0-44.0); MEAN CORPUSCULAR HEMOGLOBIN 27.3 pg (27.0-33.0); MEAN CORPUSCULAR VOLUME 94.3 fl (80.0-96.0); MONO # 0.3 10^3/uL (0.0-0.8); MONO % 1.4 % (0.0-5.0); NEUTROPHILS # 16.5 10^3/uL (1.8-7.7); NEUTROPHILS % 94.7 % (36.0-66.0); PLATELET COUNT, AUTOMATED 152 10^3/uL (150-450); RED CELL DISTRIBUTION WIDTH 14.5 % (11.5-14.5); WHITE BLOOD COUNT 17.4 10^3/uL (4.0-10.0)
[2017-06-25 07:26] LABS: CALCIUM LEVEL 8.9 MG/DL (8.8-10.2); CREATININE FOR GFR 1.05 MG/DL (0.55-1.02); GLOMERULAR FILTRATION RATE 54.8 (>39); POTASSIUM SERUM 4.7 MEQ/L (3.5-5.1)
[2017-06-25] MEDS ORDERED: MIRALAX *UNIT DOSE* 17GM PACKET PO PRN (08:00)
[2017-06-25] MEDS: BUDESONIDE 0.5 MG/2 ML INHALATION SUSPENSION INH SCH ×2 (08:39→19:38)
[2017-06-25] MEDS: FORMOTEROL FUMARATE 20 MCG/2 ML INHALATION SOLUTION (PERFOROMIST) INH SCH ×2 (08:40→19:38)
[2017-06-25] MEDS: ENOXAPARIN 40 MG/0.4 ML SYRINGE (J1650) SC SCH (09:01)
[2017-06-25] MEDS: SENOKOT S TAB PO SCH ×2 (09:01→20:30)
[2017-06-25] MEDS: BACLOFEN 10 MG TAB PO SCH ×2 (09:01→20:31)
[2017-06-25] MEDS: PANTOPRAZOLE 40MG TAB (PROTONIX) PO SCH (09:02)
[2017-06-25] MEDS: QUINAPRIL 20 MG TAB PO SCH (09:02)
--- NOTE | 2017-06-25 11:37 | IPNPDOC ---
Subjective Date Seen The patient was seen on 06/25/17. Subjective Chief Complaint/HPI The patient is a 72-year-old female admitted with a reason for visit of Copd Exacerbation. Events since last encounter Pt reports feeling improved. States that she slept well last night and feels well rested. states that she is still feeling somewhat SOB and weak, but that this is gradually improving. She notes feeling comfortable on 3L O2 NC which is her baseline. of note, patient was bumped up to 6L O2 connected to her home CPAP machine after she was noted to desat at points throughout the night. Pt notes she did not have any increased SOB or cough overnight and she did not feel as though she needed more oxygen or further intervention, but did note her O2 sat was lower. Pt also notes she has not had a BM in 3-4 days and c/o feeling bloated. Reports she is passing gas. Denies nausea, vomiting, CP, abdominal pain and cough. Overall though, she is feeling much better and is hoping that she go home either later today or tomorrow. General: Denies: Chills, Night Sweats, Fatigue Constitutional: Reports: Weakness (mild, improving), Denies: Chills, Fever, Night Sweats ENT: Denies: Head Aches, Sinus Congestion, Post Nasal Drip Skin: Denies: Rash Pulmonary: Reports: Dyspnea (mild, improving), Denies: Cough, Pleuritic Chest Pain Cardiovascular: Denies: Chest Pain, Palpitations, Orthopnea, Paroxysmal Noc. Dyspnea, Edema, Lt Headedness Gastrointestinal: Reports: Constipation (no BM in 3-4 days), Denies: Nausea, Vomiting, Abdominal Pain Genitourinary: Denies: Dysuria, Frequency Neurological: Denies: Incoordination Psych: Reports: Mood Normal Objective Physical Examination General Exam: Positive: Alert, Cooperative, No Acute Distress, Other ( maintaining O2 sat at 94% during exam on 3L which is her baseline) Eye Exam: Positive: Conjunctiva & lids normal, Negative: Sclera icteric ENT Exam: Positive: Atraumatic, Mucous membr. moist/pink, Pharynx Normal Neck Exam: Positive: Supple, Negative: JVD Chest Exam: Positive: Diminished (diminished throughout, worse at the bases), Negative: Rales, Rhonchi, Wheezing Heart Exam: Positive: Rate Normal, Regular Rhythm, Normal S1, Normal S2, Negative: Gallops, Murmurs, Rubs Telemetry: Positive: No significant arrhythmia, Sinus Abdomen Exam: Positive: Normal bowel sounds, Soft, Other (non distended), Negative: Tenderness, Hepatospenomegaly Extremity Exam: Positive: Normal pulses, Negative: Clubbing, Cyanosis, Edema Skin Exam: Positive: Nl turgor and temperature Neuro Exam: Positive: Normal Speech Psych Exam: Positive: Mental status NL, Mood NL, Oriented x 3 Assessment /Plan Problems (1) COPD exacerbation Status: Acute Problem Text: Patient clinically improving. On 3L NC which is her baseline at home. Pt required 6L of O2 with her CPAP machine overnight after she was noted to desat. She denies change in sxs. Repeat ABG this AM unchanged from prior with hypercarbia and pH in 7.2 range. Patient's ABG's from previous admissions have been consistent with this presentation. We will continue with scheduled and PRN nebulizers as well as Solumedrol 40mg IV q6 and continue to monitor her progress. She has remained afebrile and no leukocytosis at the time of admission prior to steroids, so will hold off on abx's at this point. (2) Acute respiratory failure with hypercapnia Status: Acute (3) Prerenal azotemia Status: Acute Response to Treatment: Improving Problem Text: Pt now with moist mucous membranes and taking PO. Gentle fluid resuscitation given yesterday. Creatinine improved. Will continue to encourage PO intake. (4) Generalized weakness Status: Acute Response to Treatment: Improving Problem Text: Improving per patient. Pt able to ambulate on her own, states that this is mainly due to the SOB, however, improving along with the respiratory status. (5) Hypercarbia Status: Chronic (6) Hypertension Status: Chronic Response to Treatment: Stable Problem Text: Will continue patient's Quinipril and hold Torsemide as patient was fluid resuscitated and was initially dehydrated with pre-renal azotemia per labs. BP stable. (7) Chronic low back pain Status: Chronic Problem Text: Continue Gabapentin and Baclofen. (8) Constipation Status: Acute Response to Treatment: Stable, Improving Problem Text: Pt has had Senna with no BMs, will add Miralax. (9) Lung nodule seen on imaging study Status: Acute Problem Text: plan for OP follow up of findings. (10) Chronic obstructive pulmonary disease (COPD) Status: Chronic Plan/VTE VTE Prophylaxis Ordered?: Yes (Lovenox) Plan IVF: Continue Diet: Continue Current Activity: Continue Current VS, I&O, 24H, Fishbone Vital Signs/I&O Vital Signs Date Time Temp Pulse Resp B/P (MAP) Pulse Ox O2 Delivery O2 Flow Rate FiO2 06/25/17 06:00 96.6 72 20 144/65 (91) 91 Nasal Cannula 3.0 Laboratory Data 24H LABS Laboratory Tests 2 06/25/17 05:36: Blood Gas Bicarbonate Standard 33.8H, Arterial Blood pH 7.286L, Arterial Blood Partial Pressure CO2 86.4*H, Arterial Blood Partial Pressure O2 60.6L, Arterial Blood Total CO2 42.9H, Arterial Blood HCO3 40.2H, Arterial Blood Base Excess 10.2H, Arterial Blood Oxygen Saturation 90.7L 06/25/17 06:30: Immature Granulocyte % (Auto) 1.0H, White Blood Count 17.4H, Red Blood Count 4.39, Hemoglobin 12.0, Hematocrit 41.4, Mean Corpuscular Volume 94.3, Mean Corpuscular Hemoglobin 27.3, Mean Corpuscular Hemoglobin Concent 29.0L, Red Cell Distribution Width 14.5, Platelet Count 152, Neutrophils (%) (Auto) 94.7H, Lymphocytes (%) (Auto) 2.8L, Monocytes (%) (Auto) 1.4, Eosinophils (%) (Auto) 0.0, Basophils (%) (Auto) 0.1, Neutrophils # (Auto) 16.5H, Lymphocytes # (Auto) 0.5L, Monocytes # (Auto) 0.3, Eosinophils # (Auto) 0.0, Basophils # (Auto) 0.0, Immature Granulocyte # (Auto) 0.2H, Nucleated Red Blood Cells % (auto) 0.0, Anion Gap 3L, Glomerular Filtration Rate 54.8, Blood Urea Nitrogen 27H, Creatinine 1.05H, Sodium Level 142, Potassium Level 4.7, Chloride Level 102, Carbon Dioxide Level 37H, Calcium Level 8.9 CBC/BMP Laboratory Tests 06/25/17 06:30 Red Blood Count 4.39, Mean Corpuscular Volume 94.3, Mean Corpuscular Hemoglobin 27.3, Mean Corpuscular Hemoglobin Concent 29.0 L, Red Cell Distribution Width 14.5, Neutrophils (%) (Auto) 94.7 H, Lymphocytes (%) (Auto) 2.8 L, Monocytes (% ) (Auto) 1.4, Eosinophils (%) (Auto) 0.0, Basophils (%) (Auto) 0.1, Neutrophils # (Auto) 16.5 H, Lymphocytes # (Auto) 0.5 L, Monocytes # (Auto) 0.3, Eosinophils # (Auto) 0.0, Basophils # (Auto) 0.0, Calcium Level 8.9 Microbiology Microbiology 06/23/17 Blood Culture - Preliminary, Resulted No growth after 24 hours . All specim... 06/23/17 Blood Culture - Preliminary, Resulted No growth after 24 hours . All specim... GABRIELLA MENDOZA DO Jun 25, 2017 08:16
[2017-06-25 14:00] VITALS: BP 165/71
[2017-06-25] MEDS: ATORVASTATIN 20 MG TAB PO SCH (20:30)
[2017-06-25] MEDS: GABAPENTIN 100 MG CAP PO SCH (20:31)
[2017-06-25] MEDS: ACETAMINOPHEN 500 MG TAB PO SCH (20:32)
[2017-06-25] MEDS ORDERED: QUINAPRIL 20 MG TAB PO ONE (21:15)
[2017-06-25 21:26] VITALS: BP 175/72
[2017-06-25 22:00] VITALS: BP 167/75
[2017-06-25] MEDS: POLYVINYL ALCOHOL OPHTH SOLN 15 ML(LIQUITEARS) OU PRN (22:24)
[2017-06-25 23:05] VITALS: BP 154/78
[2017-06-26] MEDS: IPRATROPIUM 0.5MG/ALBUTEROL 2.5MG INH SOL UD 3ML (DUONEB)(J7620) NEB SCH ×2 (00:55→07:52)
[2017-06-26] MEDS: methylPREDNISolone INJ 40 MG/1 ML VIAL (J2920) IV SCH (03:01)
[2017-06-26 06:00] VITALS: BP 144/70
[2017-06-26] MEDS: BUDESONIDE 0.5 MG/2 ML INHALATION SUSPENSION INH SCH (06:31)
[2017-06-26] MEDS: FORMOTEROL FUMARATE 20 MCG/2 ML INHALATION SOLUTION (PERFOROMIST) INH SCH (06:31)
[2017-06-26 06:33] VITALS: O2SAT 92
[2017-06-26 07:13] LABS: BASO % 0.1 % (0.0-1.0); IMMATURE GRANULOCYTE % 1.1 % (0-0); LYMPH # 0.4 10^3/uL (1.5-4.5); LYMPH % 2.8 % (24.0-44.0); MEAN CORPUSCULAR HEMOGLOBIN 27.4 pg (27.0-33.0); MEAN CORPUSCULAR VOLUME 94.3 fl (80.0-96.0); MONO # 0.2 10^3/uL (0.0-0.8); MONO % 1.6 % (0.0-5.0); NEUTROPHILS # 13.3 10^3/uL (1.8-7.7); NEUTROPHILS % 94.4 % (36.0-66.0); PLATELET COUNT, AUTOMATED 147 10^3/uL (150-450); RED CELL DISTRIBUTION WIDTH 14.4 % (11.5-14.5)
[2017-06-26 07:19] LABS: ANION GAP 4 MEQ/L (8-16); BLOOD UREA NITROGEN 32 MG/DL (7-18); CALCIUM LEVEL 8.3 MG/DL (8.8-10.2); CARBON DIOXIDE LEVEL 35 MEQ/L (21-32); CHLORIDE LEVEL 105 MEQ/L (98-107); CREATININE FOR GFR 0.91 MG/DL (0.55-1.02); GLOMERULAR FILTRATION RATE > 60.0 (>39); GLUCOSE, FASTING 181 MG/DL (83-110); POTASSIUM SERUM 4.8 MEQ/L (3.5-5.1); SODIUM LEVEL 144 MEQ/L (136-145)
[2017-06-26 08:20] LABS: ABG BASE EXCESS 9.3 (-2.0-2.0); ABG HCO3 37.8 MEQ/L (22.0-26.0); ABG TOTAL CO2 39.9 MEQ/L (23.0-31.0); ABG pH (ARTERIAL) 7.343 UNITS (7.350-7.450)
[2017-06-26 08:37] LABS: ABG PARTIAL PRESSURE CO2 71.1 mmHg (35.0-45.0)
[2017-06-26 08:58] VITALS: BP 167/64
[2017-06-26] MEDS ORDERED: predniSONE 50 MG TAB PO SCH (09:00)
[2017-06-26] MEDS: ENOXAPARIN 40 MG/0.4 ML SYRINGE (J1650) SC SCH (09:16)
[2017-06-26] MEDS: PANTOPRAZOLE 40MG TAB (PROTONIX) PO SCH (09:17)
[2017-06-26] MEDS: BACLOFEN 10 MG TAB PO SCH (09:18)
[2017-06-26] MEDS: QUINAPRIL 20 MG TAB PO SCH (09:23)
[2017-06-26] MEDS: SENOKOT S TAB PO SCH (09:23)
[2017-06-26] MEDS ORDERED: PRED50TA PO ×2 (10:41→11:51)
[2017-06-26] MEDS ORDERED: PRED10TA2 PO (11:51)
--- NOTE | 2017-06-26 11:58 | DS.PDOC ---
Discharge Summary General Date of Admission Jun 23, 2017 at 10:18 Date of Discharge 06/26/2017 Discharge Summary PRIMARY CARE PHYSICIAN: Dr. Sabillon ATTENDING AT TIME OF DISCHARGE: Dr. Kymberly Villarreal DISCHARGE DIAGNOS(E)S: 1. Acute exacerbation of COPD 2. Acute respiratory failure with hypoxia and hypercarbia 3. Shortness of breath with generalized weakness 4. Incidental lung nodule, chronic 5. Hypertension 6. Prerenal azotemia 7. Chronic low back pain 8. Constipation HPI & HOSPITAL COURSE: Mr. Laura is a 72-year-old female who presented to the emergency department with worsening shortness of breath that was not improved when using her inhalers. She was determined to have an acute exacerbation of COPD for which she was treated with steroids and nebulizers. She was also found to have a small degree of prerenal azotemia, therefore gentle fluid rehydration was administered and her torsemide was held. This is now resolved, her breathing has improved. She did have an ABG almost every day of her inpatient stay and she consistently remained with a pH of approximately 7.3 and a and PCO2 of the mid 80s, which is her baseline, she was never treated with noninvasive positive pressure ventilation during this hospitalization. She did however bring in her own CPAP to be used at night, and she desaturated on a few occasions during the night, therefore it is likely that she will need to have her CPAP readjusted, she will need to follow up with her artillery or naval gunfire observer as an outpatient for this. Otherwise, her breathing has improved, she has been able to walk on the floor adequately, and she does appear to be stable for discharge at this time. PHYSICAL EXAMINATION ON DISCHARGE: GENERAL: Awake, alert, oriented 3. She is in no acute distress at this time. CARDIOVASCULAR EXAMINATION: Heart sounds are distant although it appears that she has regular rate and rhythm, with no rubs, gallops, or murmur. RESPIRATORY EXAMINATION: Diminished breath sounds throughout, although she does have some air movement in the superior lung hunt, some wheezing in the mid lung hunt which is improved from prior, and that she continues to have diminished lung sounds at the bases. Prolonged expiratory phase. ABDOMINAL EXAMINATION: Soft, nontender, nondistended. Bowel sounds present. EXTREMITIES: No clubbing or edema noted. 2+ pulses in the radial bilaterally. DISPOSITION: Home DISCHARGE INSTRUCTIONS: Follow-up with her primary care provider Dr. Sabillon within 7-10 days. Also recommend that she follow-up with her artillery or naval gunfire observer Dr. Nash within 3 weeks for reevaluation, and possible adjustment of her CPAP.. If symptoms return, or if you experience worsening of your symptoms, please call your doctor or return to the emergency department. DISCHARGE MEDICATIONS: No changes on her home medications, she'll be sent home on a tapering dose of steroids. 50 mg for 2 days, 40 mg for 3 days, 30 mg for 3 days, 20 mg for 3 days , 10 mg for 3 days, and then by this time she will have seen her primary care physician and/or artillery or naval gunfire observer to determine if continuing steroids for longer is necessary. ITEMS THAT NEED OUTPATIENT FOLLOWUP: Perhaps a repeat evaluation of CPAP settings, as she did have some desaturations at night even with appropriate use. My preceptor for this patient encounter was physically present in the building during the encounter and was fully available. As needed, all aspects of the patient interview, examination, medical decision making process, and medical care plan development were reviewed and approved by the preceptor. Preceptor is aware and concurs with the plan as stated in the body of this note and will attest to such by his/her cosignature. Vital Signs/I&Os Vital Signs Date Time Temp Pulse Resp B/P (MAP) Pulse Ox O2 Delivery O2 Flow Rate FiO2 06/26/17 09:35 Nasal Cannula 4.0 06/26/17 09:00 80 20 93 06/26/17 08:58 96.6 167/64 (98) I&O- Last 24 Hours up to 6 AM 06/27/17 06:00 Intake Total 680 ml Output Total 0 ml Balance 680 ml Laboratory Data Labs 24H Laboratory Tests 2 06/26/17 06:17: Anion Gap 4L, Glomerular Filtration Rate > 60.0, Blood Urea Nitrogen 32H, Creatinine 0.91, Sodium Level 144, Potassium Level 4.8, Chloride Level 105, Carbon Dioxide Level 35H, Calcium Level 8.3L 06/26/17 06:24: Immature Granulocyte % (Auto) 1.1H, White Blood Count 14.0H, Red Blood Count 4.42, Hemoglobin 12.1, Hematocrit 41.7, Mean Corpuscular Volume 94.3, Mean Corpuscular Hemoglobin 27.4, Mean Corpuscular Hemoglobin Concent 29.0L, Red Cell Distribution Width 14.4, Platelet Count 147L, Neutrophils (%) (Auto) 94.4H , Lymphocytes (%) (Auto) 2.8L, Monocytes (%) (Auto) 1.6, Eosinophils (%) (Auto) 0.0, Basophils (%) (Auto) 0.1, Neutrophils # (Auto) 13.3H, Lymphocytes # (Auto) 0.4L, Monocytes # (Auto) 0.2, Eosinophils # (Auto) 0.0, Basophils # (Auto) 0.0, Immature Granulocyte # (Auto) 0.2H, Nucleated Red Blood Cells % (auto) 0.0 06/26/17 07:54: Blood Gas Bicarbonate Standard 33.0H, Arterial Blood pH 7.343L, Arterial Blood Partial Pressure CO2 71.1*H, Arterial Blood Partial Pressure O2 66.0L, Arterial Blood Total CO2 39.9H, Arterial Blood HCO3 37.8H, Arterial Blood Base Excess 9.3H, Arterial Blood Oxygen Saturation 93.3L CBC/BMP Laboratory Tests 06/26/17 06:17 Calcium Level 8.3 L 06/26/17 06:24 Red Blood Count 4.42, Mean Corpuscular Volume 94.3, Mean Corpuscular Hemoglobin 27.4, Mean Corpuscular Hemoglobin Concent 29.0 L, Red Cell Distribution Width 14.4, Neutrophils (%) (Auto) 94.4 H, Lymphocytes (%) (Auto) 2.8 L, Monocytes (% ) (Auto) 1.6, Eosinophils (%) (Auto) 0.0, Basophils (%) (Auto) 0.1, Neutrophils # (Auto) 13.3 H, Lymphocytes # (Auto) 0.4 L, Monocytes # (Auto) 0.2, Eosinophils # (Auto) 0.0, Basophils # (Auto) 0.0 Microbiology Microbiology 06/23/17 Blood Culture - Preliminary, Resulted No Growth after 72 hours. All specime... 06/23/17 Blood Culture - Preliminary, Resulted No Growth after 72 hours. All specime... Discharge Medications Scheduled Acetaminophen (Tylenol Extra Strength) 500 Mg Tab, 1,000 MG PO QHS, (Reported) Atorvastatin Calcium (Atorvastatin Calcium) 40 Mg Tab, 40 MG PO QHS, (Reported) Baclofen (Baclofen) 20 Mg Tab, 20 MG PO BID, (Reported) Budesonide (Budesonide) 0.5 Mg/2 Ml Neb, 0.5 MG INH BID, (Reported) Gabapentin (Gabapentin) 100 Mg Cap, 200 MG PO QHS, (Reported) Prednisone (Prednisone) 50 Mg Tab, 50 MG PO DAILY Prednisone (Prednisone) 10 Mg Tab, 10 MG PO TAPER Take 4 tabs daily x 3 days, then 3 tabs daily x 3 days, then 2 tabs daily x 3 days, then 1 tab daily x 3 days and stop Quinapril Hcl (Quinapril HCl) 20 Mg Tab, 20 MG PO DAILY, (Reported) Torsemide (Torsemide) 20 Mg Tab, 40 MG PO DAILY, (Reported) Scheduled PRN (Doc-Q-Lax 8.6-50 mg) 1 Tab Tab, 1 TAB PO DAILY PRN for CONSTIPATION, (Reported ) Albuterol Sulfate (Ventolin Hfa) 200 Puff/8 Gm Aers, 2 PUFFS INH Q4H PRN for SHORTNESS OF BREATH, (Reported) Allergies Coded Allergies: Gabapentin (Verified Allergy, Mild, WEAKNESS, 11/26/16) Metformin (Verified Allergy, Mild, 11/26/16) Pregabalin (Verified Allergy, Mild, SHAKY, 11/26/16) Flu Virus Vaccine (Unverified Allergy, Unknown, 11/26/16) TOLERATED VACCINE IN THE FALL OF 2015. ALLERGY IS UNVERIFIED Neomycin (Unverified Allergy, Unknown, 11/26/16) Thimerosal (Unverified Allergy, Unknown, 11/26/16) Heparin (Verified Adverse Reaction, Severe, THROMBOCYTOPENIA, 11/26/16) FROM [facility] GABRIELLA MENDOZA DO Jun 26, 2017 11:58
[2017-07-23] MEDS ORDERED: GABA-279 PO (06:49)
== END 2017-06-26 11:25 | disposition home or self-care (01) | DRG 189 ==
LOC: M ED 08:00 → M ED INP 10:18 → M MSPAV 13:04
PROVIDERS: ADMIT Internal Medicine Nephrology; ATTEND Internal Medicine Nephrology
DX: J96.02 Acute respiratory failure with hypercapnia (principal); J44.1 Chronic obstructive pulmonary disease with (acute) exacerbation; J96.01 Acute respiratory failure with hypoxia; I10 Essential (primary) hypertension; K59.00 Constipation, unspecified; M54.5 Low back pain; R91.1 Solitary pulmonary nodule; Z79.899 Other long term (current) drug therapy; Z88.8 Allergy status to other drugs, medicaments and biological substances; Z88.7 Allergy status to serum and vaccine; F17.210 Nicotine dependence, cigarettes, uncomplicated

== ENCOUNTER → 2017-10-12 | Outpatient (CLI) | payer MEDICARE | LOC: M SLEEP 20:00 | DX: G47.33 Obstructive sleep apnea (adult) (pediatric) (principal) | CPT/HCPCS: 95811 ==

== ENCOUNTER 2018-01-10 08:51 | Inpatient (IN) | payer OTHER, MEDICARE ==
[2018-01-10 10:21] LABS: ABG BASE EXCESS 9.6 (-2.0-2.0); ABG HCO3 35.8 MEQ/L (22.0-26.0); ABG O2 SATURATION 98.8 % (95.0-99.0); ABG PARTIAL PRESSURE CO2 56.2 mmHg (35.0-45.0); ABG PARTIAL PRESSURE O2 130.6 mmHg (75.0-100.0); ABG STANDARD HCO3 33.4 MEQ/L (22.0-26.0); ABG TOTAL CO2 37.5 MEQ/L (23.0-31.0); ABG pH (ARTERIAL) 7.422 UNITS (7.350-7.450)
[2018-01-10 10:32] LABS: BASO % 0.3 % (0.0-1.0); EOS % 0.1 % (0.0-3.0); HEMATOCRIT 37.3 % (36.0-47.0); HEMOGLOBIN 11.8 g/dl (12.0-15.5); IMMATURE GRANULOCYTE % 2.9 % (0-3.0); LYMPH # 1.8 10^3/uL (1.5-4.5); LYMPH % 14.3 % (24.0-44.0); MEAN CORPUSCULAR HEMOGLOBIN 28.4 pg (27.0-33.0); MEAN CORPUSCULAR HGB CONC 31.6 g/dl (32.0-36.5); MEAN CORPUSCULAR VOLUME 89.9 fl (80.0-96.0); MONO # 0.7 10^3/uL (0.0-0.8); MONO % 5.5 % (0.0-5.0); NEUTROPHILS # 9.8 10^3/uL (1.8-7.7); NEUTROPHILS % 76.9 % (36.0-66.0); PLATELET COUNT, AUTOMATED 227 10^3/uL (150-450); RED BLOOD COUNT 4.15 10^6/uL (4.00-5.40); RED CELL DISTRIBUTION WIDTH 15.8 % (11.5-14.5); WHITE BLOOD COUNT 12.7 10^3/uL (4.0-10.0)
[2018-01-10 10:34] LABS: BEDSIDE GLUCOSE 302 MG/DL (83-110)
[2018-01-10 10:53] LABS: AMMONIA 32 uMOL/L (<32)
[2018-01-10 10:59] LABS: ALBUMIN 3.6 GM/DL (3.2-5.2); ALBUMIN/GLOBULIN RATIO 1.06 (1.00-1.93); ALKALINE PHOSPHATASE 165 U/L (45-117); ALT/SGPT 54 U/L (12-78); ANION GAP 8 MEQ/L (8-16); AST/SGOT 16 U/L (7-37); BILIRUBIN,DIRECT 0.1 MG/DL (0.0-0.2); BILIRUBIN,TOTAL 0.3 MG/DL (0.2-1.0); BLOOD UREA NITROGEN 26 MG/DL (7-18); CALCIUM LEVEL 9.8 MG/DL (8.8-10.2); CARBON DIOXIDE LEVEL 36 MEQ/L (21-32); CHLORIDE LEVEL 98 MEQ/L (98-107); CPK CREATINE PHOSPHOKINASE 123 U/L (26-192); CREATININE FOR GFR 1.28 MG/DL (0.55-1.30); GLOMERULAR FILTRATION RATE 43.6 (>39); GLUCOSE, FASTING 315 MG/DL (70-100); POTASSIUM SERUM 3.6 MEQ/L (3.5-5.1); SODIUM LEVEL 142 MEQ/L (136-145); TROPONIN I < 0.02 NG/ML (< 0.10)
[2018-01-10 11:05] LABS: CK-MB VALUE MASS 4.5 NG/ML (<3.6); MB/CK RELATIVE INDEX 3.65 (< OR =4)
[2018-01-10 11:20] LABS: LACTIC ACID SEPSIS PROTOCOL 2.5 MMOL/L (0.4-2.0)
[2018-01-10] MEDS: NS 1,000 ML IV ×2 (11:29→14:00)
[2018-01-10 11:35] LABS: KETONE, URINE AUTO RFX NEGATIVE (NEGATIVE); LEUKOCYTE ESTERASE UR AUTO RFX NEGATIVE (NEGATIVE); NITRITE, URINE AUTO RFX NEGATIVE (NEGATIVE); RBC, URINE AUTO RFX 4 /HPF (0-3); SPECIFIC GRAVITY UR AUTO RFX 1.003 (1.002-1.035); SQUAM EPITHELIAL CELL UR AURFX 1 /HPF (0-6); WBC, URINE AUTO RFX 7 /HPF (0-3)
[2018-01-10] MEDS ORDERED: GLUCAGON FOR INJ 1 MG VIAL (J1610) SC (12:00)
[2018-01-10] MEDS ORDERED: GLUCOSE 4 GM CHEW TABLET PO (12:00)
[2018-01-10] MEDS ORDERED: DOCUSATE SODIUM 100 MG CAP PO (12:00)
[2018-01-10] MEDS ORDERED: ONDANSETRON 4 MG TAB (S0181) PO (12:00)
[2018-01-10] MEDS ORDERED: DEXTROSE 50% 50 ML SYRINGE IV (12:00)
[2018-01-10] MEDS: HumaLOG INSULIN (NovoLOG) PER UNIT SC ×3 (12:00→20:01)
[2018-01-10] MEDS: IPRATROPIUM 0.5MG/ALBUTEROL 2.5MG INH SOL UD 3ML (DUONEB)(J7620) NEB ×2 (14:00→19:58)
[2018-01-10 14:28] LABS: ESTIMATED AVERAGE GLUCOSE 280 MG/DL (60-110); HEMOGLOBIN A1c 11.4 %
[2018-01-10 16:44] LABS: AMPHETAMINES LEVEL URINE NEGATIVE (NEGATIVE); BARBITURATES URINE NEGATIVE (NEGATIVE); BENZODIAZEPINES URINE NEGATIVE (NEGATIVE); CANNABINOIDS URINE NEGATIVE (NEGATIVE); COCAINE METABOLITE URINE NEGATIVE (NEGATIVE); METHADONE URINE NEGATIVE (NEGATIVE); OPIATES URINE NEGATIVE (NEGATIVE); PHENCYCLIDINE URINE NEGATIVE (NEGATIVE)
[2018-01-10] MEDS: BUDESONIDE 0.5 MG/2 ML INHALATION SUSPENSION INH (19:58)
[2018-01-10] MEDS: ATORVASTATIN 20 MG TAB PO (20:01)
[2018-01-10] MEDS: ACETAMINOPHEN 500 MG TAB PO (20:04)
[2018-01-10 20:19] LABS: BEDSIDE GLUCOSE 352 MG/DL (83-110)
[2018-01-10] MEDS ORDERED: CALCIUM GLUCONATE 1,000 MG in NS 100 ML IV (21:15)
[2018-01-10 22:02] LABS: BEDSIDE GLUCOSE 206 MG/DL (83-110)
[2018-01-11] MEDS: IPRATROPIUM 0.5MG/ALBUTEROL 2.5MG INH SOL UD 3ML (DUONEB)(J7620) NEB ×4 (01:42→20:03)
[2018-01-11] MEDS: NS 1,000 ML IV (06:27)
[2018-01-11] MEDS: HumaLOG INSULIN (NovoLOG) PER UNIT SC ×4 (07:30→20:28)
[2018-01-11 08:07] LABS: BEDSIDE GLUCOSE 183 MG/DL (83-110)
[2018-01-11] MEDS: predniSONE 20 MG TAB PO (08:24)
[2018-01-11] MEDS: LISINOPRIL 10 MG TAB PO (08:24)
[2018-01-11] MEDS: LEVEMIR (INSULIN DETEMIR) 1 UNITS/0.01ML SC (08:25)
[2018-01-11] MEDS: BUDESONIDE 0.5 MG/2 ML INHALATION SUSPENSION INH ×2 (08:30→20:03)
[2018-01-11 08:40] LABS: BASO % 0.3 % (0.0-1.0); EOS # 0.1 10^3/uL (0.0-0.50); EOS % 0.5 % (0.0-3.0); HEMATOCRIT 36.2 % (36.0-47.0); HEMOGLOBIN 11.1 g/dl (12.0-15.5); IMMATURE GRANULOCYTE % 2.1 % (0-3.0); LYMPH # 2.4 10^3/uL (1.5-4.5); LYMPH % 24.3 % (24.0-44.0); MEAN CORPUSCULAR HEMOGLOBIN 28.9 pg (27.0-33.0); MEAN CORPUSCULAR HGB CONC 30.7 g/dl (32.0-36.5); MEAN CORPUSCULAR VOLUME 94.3 fl (80.0-96.0); MONO # 0.4 10^3/uL (0.0-0.8); MONO % 4.4 % (0.0-5.0); NEUTROPHILS # 6.6 10^3/uL (1.8-7.7); NEUTROPHILS % 68.4 % (36.0-66.0); PLATELET COUNT, AUTOMATED 171 10^3/uL (150-450); RED BLOOD COUNT 3.84 10^6/uL (4.00-5.40); RED CELL DISTRIBUTION WIDTH 16.1 % (11.5-14.5); WHITE BLOOD COUNT 9.7 10^3/uL (4.0-10.0)
[2018-01-11 09:32] LABS: ALT/SGPT 48 U/L (12-78); ANION GAP 5 MEQ/L (8-16); AST/SGOT 30 U/L (7-37); BLOOD UREA NITROGEN 20 MG/DL (7-18); CALCIUM LEVEL 8.5 MG/DL (8.8-10.2); CARBON DIOXIDE LEVEL 35 MEQ/L (21-32); CHLORIDE LEVEL 105 MEQ/L (98-107); CREATININE FOR GFR 1.09 MG/DL (0.55-1.30); GLOMERULAR FILTRATION RATE 52.5 (>39); GLUCOSE, FASTING 202 MG/DL (70-100); POTASSIUM SERUM 3.6 MEQ/L (3.5-5.1); SODIUM LEVEL 145 MEQ/L (136-145)
[2018-01-11 09:33] LABS: ALBUMIN 3.1 GM/DL (3.2-5.2); ALBUMIN/GLOBULIN RATIO 0.94 (1.00-1.93); ALKALINE PHOSPHATASE 88 U/L (45-117); BILIRUBIN,TOTAL 0.4 MG/DL (0.2-1.0); TOTAL PROTEIN 6.4 GM/DL (6.4-8.2)
[2018-01-11 09:36] LABS: MAGNESIUM LEVEL 2.2 MG/DL (1.8-2.4)
[2018-01-11 12:14] LABS: BEDSIDE GLUCOSE 277 MG/DL (83-110)
[2018-01-11] MEDS: ALPRAZolam 0.5 MG TAB PO (13:00)
[2018-01-11 17:27] LABS: BEDSIDE GLUCOSE 265 MG/DL (83-110)
[2018-01-11 20:32] LABS: BEDSIDE GLUCOSE 178 MG/DL (83-110)
[2018-01-11] MEDS: ATORVASTATIN 20 MG TAB PO (20:49)
[2018-01-11] MEDS: ACETAMINOPHEN 500 MG TAB PO (20:50)
[2018-01-12] MEDS: IPRATROPIUM 0.5MG/ALBUTEROL 2.5MG INH SOL UD 3ML (DUONEB)(J7620) NEB ×4 (02:00→20:00)
[2018-01-12] MEDS: predniSONE 10 MG TAB PO (07:53)
[2018-01-12] MEDS: LISINOPRIL 10 MG TAB PO (07:53)
[2018-01-12] MEDS: HumaLOG INSULIN (NovoLOG) PER UNIT SC ×4 (07:57→21:00)
[2018-01-12] MEDS: LEVEMIR (INSULIN DETEMIR) 1 UNITS/0.01ML SC ×2 (07:57→09:23)
[2018-01-12 08:06] LABS: BEDSIDE GLUCOSE 162 MG/DL (83-110)
[2018-01-12] MEDS: BUDESONIDE 0.5 MG/2 ML INHALATION SUSPENSION INH ×2 (08:30→20:00)
[2018-01-12 08:48] LABS: BASO # 0.1 10^3/uL (0.0-0.2); BASO % 0.4 % (0.0-1.0); EOS # 0.1 10^3/uL (0.0-0.50); EOS % 0.5 % (0.0-3.0); HEMATOCRIT 35.2 % (36.0-47.0); HEMOGLOBIN 10.8 g/dl (12.0-15.5); IMMATURE GRANULOCYTE % 3.9 % (0-3.0); LYMPH # 2.5 10^3/uL (1.5-4.5); LYMPH % 21.5 % (24.0-44.0); MEAN CORPUSCULAR HEMOGLOBIN 29.2 pg (27.0-33.0); MEAN CORPUSCULAR HGB CONC 30.7 g/dl (32.0-36.5); MEAN CORPUSCULAR VOLUME 95.1 fl (80.0-96.0); MONO # 0.5 10^3/uL (0.0-0.8); MONO % 4.7 % (0.0-5.0); NEUTROPHILS # 7.9 10^3/uL (1.8-7.7); PLATELET COUNT, AUTOMATED 170 10^3/uL (150-450); WHITE BLOOD COUNT 11.4 10^3/uL (4.0-10.0)
[2018-01-12 09:19] LABS: ALBUMIN/GLOBULIN RATIO 1.03 (1.00-1.93); ALKALINE PHOSPHATASE 90 U/L (45-117); ALT/SGPT 55 U/L (12-78); ANION GAP 5 MEQ/L (8-16); AST/SGOT 35 U/L (7-37); BILIRUBIN,TOTAL 0.4 MG/DL (0.2-1.0); BLOOD UREA NITROGEN 15 MG/DL (7-18); CARBON DIOXIDE LEVEL 35 MEQ/L (21-32); CHLORIDE LEVEL 106 MEQ/L (98-107); CREATININE FOR GFR 0.86 MG/DL (0.55-1.30); GLOMERULAR FILTRATION RATE > 60.0 (>39); GLUCOSE, FASTING 196 MG/DL (70-100); MAGNESIUM LEVEL 2.2 MG/DL (1.8-2.4); POTASSIUM SERUM 3.5 MEQ/L (3.5-5.1); SODIUM LEVEL 146 MEQ/L (136-145); TOTAL PROTEIN 5.9 GM/DL (6.4-8.2)
[2018-01-12 13:43] LABS: BEDSIDE GLUCOSE 270 MG/DL (83-110)
[2018-01-12 17:33] LABS: BEDSIDE GLUCOSE 188 MG/DL (83-110)
[2018-01-12] MEDS: TORSEMIDE 20 MG TAB PO (17:33)
[2018-01-12] MEDS: ACETAMINOPHEN 500 MG TAB PO (17:42)
[2018-01-12] MEDS ORDERED: SLF 3 ML SYR IV (19:00)
[2018-01-12] MEDS: SLF 3 ML SYR IV (21:44)
[2018-01-12] MEDS: ATORVASTATIN 20 MG TAB PO (21:44)
[2018-01-12 22:05] LABS: BEDSIDE GLUCOSE 122 MG/DL (83-110)
[2018-01-13] MEDS: IPRATROPIUM 0.5MG/ALBUTEROL 2.5MG INH SOL UD 3ML (DUONEB)(J7620) NEB ×3 (02:00→07:27)
[2018-01-13] MEDS: SLF 3 ML SYR IV (04:06)
[2018-01-13 05:37] LABS: BASO % 0.4 % (0.0-1.0); EOS # 0.1 10^3/uL (0.0-0.50); EOS % 0.5 % (0.0-3.0); HEMATOCRIT 34.7 % (36.0-47.0); HEMOGLOBIN 10.8 g/dl (12.0-15.5); LYMPH # 2.2 10^3/uL (1.5-4.5); LYMPH % 23.7 % (24.0-44.0); MEAN CORPUSCULAR HGB CONC 31.1 g/dl (32.0-36.5); MONO # 0.5 10^3/uL (0.0-0.8); MONO % 5.2 % (0.0-5.0); NEUTROPHILS # 6.3 10^3/uL (1.8-7.7); NEUTROPHILS % 67.2 % (36.0-66.0); PLATELET COUNT, AUTOMATED 162 10^3/uL (150-450); RED BLOOD COUNT 3.73 10^6/uL (4.00-5.40); RED CELL DISTRIBUTION WIDTH 15.9 % (11.5-14.5); WHITE BLOOD COUNT 9.4 10^3/uL (4.0-10.0)
[2018-01-13 05:51] LABS: ALBUMIN 2.8 GM/DL (3.2-5.2); ALKALINE PHOSPHATASE 77 U/L (45-117); ALT/SGPT 49 U/L (12-78); ANION GAP 6 MEQ/L (8-16); AST/SGOT 27 U/L (7-37); BILIRUBIN,TOTAL 0.5 MG/DL (0.2-1.0); BLOOD UREA NITROGEN 15 MG/DL (7-18); CALCIUM LEVEL 9.2 MG/DL (8.8-10.2); CARBON DIOXIDE LEVEL 38 MEQ/L (21-32); CHLORIDE LEVEL 104 MEQ/L (98-107); CREATININE FOR GFR 0.85 MG/DL (0.55-1.30); GLOMERULAR FILTRATION RATE > 60.0 (>39); GLUCOSE, FASTING 116 MG/DL (70-100); MAGNESIUM LEVEL 1.9 MG/DL (1.8-2.4); POTASSIUM SERUM 3.3 MEQ/L (3.5-5.1); SODIUM LEVEL 148 MEQ/L (136-145); TOTAL PROTEIN 5.9 GM/DL (6.4-8.2)
[2018-01-13] MEDS: BUDESONIDE 0.5 MG/2 ML INHALATION SUSPENSION INH (07:27)
[2018-01-13] MEDS: HumaLOG INSULIN (NovoLOG) PER UNIT SC (08:04)
[2018-01-13] MEDS: predniSONE 10 MG TAB PO (09:15)
[2018-01-13] MEDS: TORSEMIDE 20 MG TAB PO (09:15)
[2018-01-13] MEDS: POTASSIUM CHLORIDE 10 MEQ SR TABLET PO (09:16)
[2018-01-13] MEDS: LISINOPRIL 10 MG TAB PO (09:17)
[2018-01-13] MEDS: LEVEMIR (INSULIN DETEMIR) 1 UNITS/0.01ML SC (09:18)
== END 2018-01-13 12:40 | disposition home or self-care (01) | DRG 948 ==
LOC: M PCU 01-11 06:15 → M ED 08:51 → M ED INP 11:53 → M ICU 16:37
DX: R53.1 Weakness (principal); I13.0 Hypertensive heart and chronic kidney disease with heart failure and stage 1 through stage 4 chronic kidney disease, or unspecified chronic kidney disease; R44.0 Auditory hallucinations; I50.32 Chronic diastolic (congestive) heart failure; B97.81 Human metapneumovirus as the cause of diseases classified elsewhere; J44.9 Chronic obstructive pulmonary disease, unspecified; G47.33 Obstructive sleep apnea (adult) (pediatric); E78.5 Hyperlipidemia, unspecified; Z79.899 Other long term (current) drug therapy; Z88.8 Allergy status to other drugs, medicaments and biological substances; E11.9 Type 2 diabetes mellitus without complications; N18.3 Chronic kidney disease, stage 3 (moderate); D72.829 Elevated white blood cell count, unspecified; R40.0 Somnolence; M43.02 Spondylolysis, cervical region; R26.89 Other abnormalities of gait and mobility

== ENCOUNTER 2018-02-05 00:18 | Inpatient (IN) | payer OTHER ==
[2018-02-05] MEDS: IPRATROPIUM 0.5MG/ALBUTEROL 2.5MG INH SOL UD 3ML (DUONEB)(J7620) NEB ×7 (01:10→20:22)
[2018-02-05 01:12] LABS: BASO % 0.3 % (0.0-1.0); EOS # 0.1 10^3/uL (0.0-0.50); HEMATOCRIT 30.8 % (36.0-47.0); HEMOGLOBIN 9.4 g/dl (12.0-15.5); IMMATURE GRANULOCYTE % 2.9 % (0-3.0); LYMPH # 1.4 10^3/uL (1.5-4.5); LYMPH % 14.6 % (24.0-44.0); MEAN CORPUSCULAR HEMOGLOBIN 29.9 pg (27.0-33.0); MEAN CORPUSCULAR HGB CONC 30.5 g/dl (32.0-36.5); MEAN CORPUSCULAR VOLUME 98.1 fl (80.0-96.0); MONO # 0.7 10^3/uL (0.0-0.8); MONO % 7.1 % (0.0-5.0); NEUTROPHILS # 7.1 10^3/uL (1.8-7.7); NEUTROPHILS % 74.1 % (36.0-66.0); PLATELET COUNT, AUTOMATED 203 10^3/uL (150-450); RED BLOOD COUNT 3.14 10^6/uL (4.00-5.40); RED CELL DISTRIBUTION WIDTH 18.6 % (11.5-14.5); WHITE BLOOD COUNT 9.6 10^3/uL (4.0-10.0)
[2018-02-05] MEDS: methylPREDNISolone INJ 125 MG/2 ML VIAL (J2930) IV ×3 (01:14→17:46)
[2018-02-05 01:15] LABS: ABG BASE EXCESS 13.4 (-2.0-2.0); ABG HCO3 42.2 MEQ/L (22.0-26.0); ABG O2 SATURATION 97.7 % (95.0-99.0); ABG PARTIAL PRESSURE O2 111.8 mmHg (75.0-100.0); ABG STANDARD HCO3 37.1 MEQ/L (22.0-26.0); ABG TOTAL CO2 44.8 MEQ/L (23.0-31.0); ABG pH (ARTERIAL) 7.322 UNITS (7.350-7.450)
[2018-02-05 01:18] LABS: ABG PARTIAL PRESSURE CO2 83.5 mmHg (35.0-45.0)
[2018-02-05 01:38] LABS: LACTIC ACID SEPSIS PROTOCOL 1.3 MMOL/L (0.4-2.0)
[2018-02-05 01:38] LABS: ANION GAP 3 MEQ/L (8-16); BLOOD UREA NITROGEN 32 MG/DL (7-18); CALCIUM LEVEL 9.3 MG/DL (8.8-10.2); CARBON DIOXIDE LEVEL 40 MEQ/L (21-32); CHLORIDE LEVEL 100 MEQ/L (98-107); CK-MB VALUE MASS 1.4 NG/ML (<3.6); CPK CREATINE PHOSPHOKINASE 36 U/L (26-192); CREATININE FOR GFR 1.53 MG/DL (0.55-1.30); GLOMERULAR FILTRATION RATE 35.5 (>39); GLUCOSE, FASTING 129 MG/DL (70-100); MB/CK RELATIVE INDEX 3.88 (< OR =4); NT-PRO BNP 414 PG/ML (<125); POTASSIUM SERUM 3.3 MEQ/L (3.5-5.1); SODIUM LEVEL 143 MEQ/L (136-145); THYROXINE (T4) 8.6 UG/DL (4.5-12.0); TROPONIN I < 0.02 NG/ML (< 0.10)
[2018-02-05 03:10] LABS: ABG BASE EXCESS 10.3 (-2.0-2.0); ABG HCO3 39.3 MEQ/L (22.0-26.0); ABG O2 SATURATION 94.4 % (95.0-99.0); ABG PARTIAL PRESSURE O2 84.2 mmHg (75.0-100.0); ABG STANDARD HCO3 33.9 MEQ/L (22.0-26.0); ABG TOTAL CO2 41.8 MEQ/L (23.0-31.0); ABG pH (ARTERIAL) 7.289 UNITS (7.350-7.450)
[2018-02-05 03:11] LABS: ABG PARTIAL PRESSURE CO2 83.7 mmHg (35.0-45.0)
[2018-02-05 04:08] LABS: ABG BASE EXCESS 11.1 (-2.0-2.0); ABG HCO3 40.7 MEQ/L (22.0-26.0); ABG O2 SATURATION 94.4 % (95.0-99.0); ABG PARTIAL PRESSURE O2 83.5 mmHg (75.0-100.0); ABG STANDARD HCO3 34.7 MEQ/L (22.0-26.0); ABG TOTAL CO2 43.4 MEQ/L (23.0-31.0); ABG pH (ARTERIAL) 7.272 UNITS (7.350-7.450)
[2018-02-05 04:11] LABS: ABG PARTIAL PRESSURE CO2 90.2 mmHg (35.0-45.0)
[2018-02-05 04:21] LABS: MAGNESIUM LEVEL 1.9 MG/DL (1.8-2.4)
[2018-02-05 04:21] LABS: FERRITIN 186 NG/ML (8-252); IRON (FE) 60 UG/DL (50-170); PERCENT SATURATION 17.8 % (13.2-45.0); TOTAL IRON BINDING CAPACITY 337 UG/DL (250-450)
[2018-02-05] MEDS ORDERED: GLUCOSE 4 GM CHEW TABLET PO (04:30)
[2018-02-05] MEDS ORDERED: GLUCAGON FOR INJ 1 MG VIAL (J1610) SC (04:30)
[2018-02-05] MEDS ORDERED: DEXTROSE 50% 50 ML SYRINGE IV (04:30)
[2018-02-05] MEDS ORDERED: ONDANSETRON 4MG/2ML VIAL (J2405) IV (04:45)
[2018-02-05] MEDS ORDERED: BISACODYL 5 MG TAB PO (04:45)
[2018-02-05] MEDS ORDERED: BISACODYL 10 MG SUPP PR (04:45)
[2018-02-05] MEDS: hydrALAZINE INJ 20 MG/ML VIAL IV ×3 (06:00→21:28)
[2018-02-05] MEDS: NS 500 ML IV (06:12)
[2018-02-05] MEDS: KCL 40MEQ in NS 1000ML 1,000 ML IV (06:14)
[2018-02-05] MEDS: POTASSIUM CHLORIDE 10 MEQ SR TABLET PO (06:15)
[2018-02-05] MEDS: BISACODYL 5 MG TAB PO (06:16)
[2018-02-05] MEDS: SIMETHICONE 80 MG CHEW TAB PO ×4 (06:16→21:26)
[2018-02-05] MEDS: HumaLOG INSULIN (NovoLOG) PER UNIT SC ×4 (06:40→23:42)
[2018-02-05 07:00] LABS: BEDSIDE GLUCOSE 324 MG/DL (83-110)
[2018-02-05 07:54] LABS: ABG BASE EXCESS 7.3 (-2.0-2.0); ABG HCO3 33.1 MEQ/L (22.0-26.0); ABG O2 SATURATION 97.1 % (95.0-99.0); ABG PARTIAL PRESSURE CO2 53.2 mmHg (35.0-45.0); ABG PARTIAL PRESSURE O2 92.6 mmHg (75.0-100.0); ABG STANDARD HCO3 31.2 MEQ/L (22.0-26.0); ABG TOTAL CO2 34.8 MEQ/L (23.0-31.0); ABG pH (ARTERIAL) 7.412 UNITS (7.350-7.450)
[2018-02-05 08:46] LABS: OSMOLALITY SERUM 307 MOSM/KG (280-301)
[2018-02-05 09:08] LABS: BASO % 0.3 % (0.0-1.0); EOS % 0.2 % (0.0-3.0); HEMATOCRIT 30.5 % (36.0-47.0); HEMOGLOBIN 9.2 g/dl (12.0-15.5); IMMATURE GRANULOCYTE % 4.5 % (0-3.0); LYMPH # 0.6 10^3/uL (1.5-4.5); LYMPH % 6.4 % (24.0-44.0); MEAN CORPUSCULAR HEMOGLOBIN 29.8 pg (27.0-33.0); MEAN CORPUSCULAR HGB CONC 30.2 g/dl (32.0-36.5); MEAN CORPUSCULAR VOLUME 98.7 fl (80.0-96.0); MONO # 0.2 10^3/uL (0.0-0.8); MONO % 1.7 % (0.0-5.0); NEUTROPHILS % 86.9 % (36.0-66.0); PLATELET COUNT, AUTOMATED 191 10^3/uL (150-450); RED BLOOD COUNT 3.09 10^6/uL (4.00-5.40); RED CELL DISTRIBUTION WIDTH 18.6 % (11.5-14.5); WHITE BLOOD COUNT 9.3 10^3/uL (4.0-10.0)
[2018-02-05] MEDS: ENOXAPARIN 40 MG/0.4 ML SYRINGE (J1650) SC (09:27)
[2018-02-05] MEDS: SENOKOT S TAB PO ×2 (09:28→21:26)
[2018-02-05] MEDS: PANTOPRAZOLE 40MG INJ (PROTONIX) (C9113) IV (09:28)
[2018-02-05 09:39] LABS: ALBUMIN 2.7 GM/DL (3.2-5.2); ALBUMIN/GLOBULIN RATIO 0.77 (1.00-1.93); ALKALINE PHOSPHATASE 109 U/L (45-117); ALT/SGPT 30 U/L (12-78); ANION GAP 6 MEQ/L (8-16); AST/SGOT 14 U/L (7-37); BILIRUBIN,DIRECT < 0.1 MG/DL (0.0-0.2); BILIRUBIN,TOTAL 0.3 MG/DL (0.2-1.0); BLOOD UREA NITROGEN 33 MG/DL (7-18); CALCIUM LEVEL 8.5 MG/DL (8.8-10.2); CARBON DIOXIDE LEVEL 35 MEQ/L (21-32); CHLORIDE LEVEL 102 MEQ/L (98-107); CPK CREATINE PHOSPHOKINASE 30 U/L (26-192); CREATININE FOR GFR 1.53 MG/DL (0.55-1.30); GLOMERULAR FILTRATION RATE 35.5 (>39); GLUCOSE, FASTING 303 MG/DL (70-100); POTASSIUM SERUM 4.5 MEQ/L (3.5-5.1); SODIUM LEVEL 143 MEQ/L (136-145); TOTAL PROTEIN 6.2 GM/DL (6.4-8.2); TROPONIN I < 0.02 NG/ML (< 0.10)
[2018-02-05 09:40] LABS: CK-MB VALUE MASS 1.4 NG/ML (<3.6); MB/CK RELATIVE INDEX 4.66 (< OR =4)
[2018-02-05 09:49] LABS: FOLATE 9.4 NG/ML (>5.4); VITAMIN B12 LEVEL 252 PG/ML (247-911)
[2018-02-05 12:06] LABS: BEDSIDE GLUCOSE 259 MG/DL (83-110)
[2018-02-05 17:42] LABS: BEDSIDE GLUCOSE 221 MG/DL (83-110)
[2018-02-05] MEDS: ATORVASTATIN 20 MG TAB PO (21:26)
[2018-02-05] MEDS: ACETAMINOPHEN TAB 650MG DOSE (2X325MG) PO (21:28)
[2018-02-05 23:52] LABS: BEDSIDE GLUCOSE 181 MG/DL (83-110)
[2018-02-06] MEDS: methylPREDNISolone INJ 125 MG/2 ML VIAL (J2930) IV ×2 (00:55→08:29)
[2018-02-06] MEDS: IPRATROPIUM 0.5MG/ALBUTEROL 2.5MG INH SOL UD 3ML (DUONEB)(J7620) NEB ×4 (02:30→19:03)
[2018-02-06 04:59] LABS: BASO % 0.3 % (0.0-1.0); HEMATOCRIT 33.2 % (36.0-47.0); HEMOGLOBIN 9.8 g/dl (12.0-15.5); IMMATURE GRANULOCYTE % 2.4 % (0-3.0); LYMPH # 0.5 10^3/uL (1.5-4.5); LYMPH % 4.6 % (24.0-44.0); MEAN CORPUSCULAR HEMOGLOBIN 29.7 pg (27.0-33.0); MEAN CORPUSCULAR HGB CONC 29.5 g/dl (32.0-36.5); MEAN CORPUSCULAR VOLUME 100.6 fl (80.0-96.0); MONO # 0.3 10^3/uL (0.0-0.8); MONO % 2.6 % (0.0-5.0); NEUTROPHILS # 10.6 10^3/uL (1.8-7.7); NEUTROPHILS % 90.1 % (36.0-66.0); PLATELET COUNT, AUTOMATED 251 10^3/uL (150-450); RED CELL DISTRIBUTION WIDTH 18.8 % (11.5-14.5); WHITE BLOOD COUNT 11.7 10^3/uL (4.0-10.0)
[2018-02-06 05:28] LABS: ANION GAP 3 MEQ/L (8-16); BLOOD UREA NITROGEN 30 MG/DL (7-18); CALCIUM LEVEL 9.1 MG/DL (8.8-10.2); CARBON DIOXIDE LEVEL 35 MEQ/L (21-32); CHLORIDE LEVEL 105 MEQ/L (98-107); CREATININE FOR GFR 1.18 MG/DL (0.55-1.30); GLOMERULAR FILTRATION RATE 47.9 (>39); GLUCOSE, FASTING 176 MG/DL (70-100); MAGNESIUM LEVEL 2.4 MG/DL (1.8-2.4); SODIUM LEVEL 143 MEQ/L (136-145)
[2018-02-06 05:30] LABS: POTASSIUM SERUM 5.5 MEQ/L (3.5-5.1)
[2018-02-06] MEDS: HumaLOG INSULIN (NovoLOG) PER UNIT SC ×4 (05:54→20:40)
[2018-02-06] MEDS: hydrALAZINE INJ 20 MG/ML VIAL IV (05:58)
[2018-02-06] MEDS: PANTOPRAZOLE 40MG INJ (PROTONIX) (C9113) IV (08:29)
[2018-02-06] MEDS: SENOKOT S TAB PO ×2 (08:30→20:22)
[2018-02-06] MEDS: SIMETHICONE 80 MG CHEW TAB PO ×3 (08:30→20:22)
[2018-02-06] MEDS: ENOXAPARIN 40 MG/0.4 ML SYRINGE (J1650) SC (08:30)
[2018-02-06] MEDS: ACETAMINOPHEN TAB 650MG DOSE (2X325MG) PO ×2 (12:19→20:22)
[2018-02-06] MEDS: predniSONE 20 MG TAB PO ×2 (12:19→20:21)
[2018-02-06 12:22] LABS: BEDSIDE GLUCOSE 291 MG/DL (83-110)
[2018-02-06 14:27] LABS: POTASSIUM SERUM 4.9 MEQ/L (3.5-5.1)
[2018-02-06 16:41] LABS: BEDSIDE GLUCOSE 278 MG/DL (83-110)
[2018-02-06] MEDS: ATORVASTATIN 20 MG TAB PO (20:22)
[2018-02-06] MEDS: ALPRAZolam 0.25 MG TAB PO (20:22)
[2018-02-06 20:48] LABS: BEDSIDE GLUCOSE 236 MG/DL (83-110)
[2018-02-07] MEDS: IPRATROPIUM 0.5MG/ALBUTEROL 2.5MG INH SOL UD 3ML (DUONEB)(J7620) NEB ×4 (01:47→19:38)
[2018-02-07 04:18] LABS: BASO % 0.2 % (0.0-1.0); HEMATOCRIT 29.5 % (36.0-47.0); HEMOGLOBIN 8.8 g/dl (12.0-15.5); IMMATURE GRANULOCYTE % 2.9 % (0-3.0); LYMPH # 0.4 10^3/uL (1.5-4.5); LYMPH % 4.7 % (24.0-44.0); MEAN CORPUSCULAR HEMOGLOBIN 29.5 pg (27.0-33.0); MEAN CORPUSCULAR HGB CONC 29.8 g/dl (32.0-36.5); MONO # 0.4 10^3/uL (0.0-0.8); MONO % 4.2 % (0.0-5.0); PLATELET COUNT, AUTOMATED 226 10^3/uL (150-450); RED BLOOD COUNT 2.98 10^6/uL (4.00-5.40); RED CELL DISTRIBUTION WIDTH 18.9 % (11.5-14.5); WHITE BLOOD COUNT 9.1 10^3/uL (4.0-10.0)
[2018-02-07 04:39] LABS: ANION GAP 3 MEQ/L (8-16); BLOOD UREA NITROGEN 30 MG/DL (7-18); CALCIUM LEVEL 8.5 MG/DL (8.8-10.2); CARBON DIOXIDE LEVEL 35 MEQ/L (21-32); CHLORIDE LEVEL 106 MEQ/L (98-107); CREATININE FOR GFR 1.09 MG/DL (0.55-1.30); GLOMERULAR FILTRATION RATE 52.5 (>39); GLUCOSE, FASTING 250 MG/DL (70-100); MAGNESIUM LEVEL 2.6 MG/DL (1.8-2.4); NT-PRO BNP 1547 PG/ML (<125); POTASSIUM SERUM 4.8 MEQ/L (3.5-5.1); SODIUM LEVEL 144 MEQ/L (136-145)
[2018-02-07] MEDS: BUDESONIDE 0.5 MG/2 ML INHALATION SUSPENSION INH ×2 (08:00→19:37)
[2018-02-07] MEDS: FORMOTEROL FUMARATE 20 MCG/2 ML INHALATION SOLUTION (PERFOROMIST) INH ×2 (08:00→19:37)
[2018-02-07] MEDS: SENOKOT S TAB PO ×2 (08:47→20:01)
[2018-02-07] MEDS: PANTOPRAZOLE 40MG INJ (PROTONIX) (C9113) IV (08:47)
[2018-02-07] MEDS: HumaLOG INSULIN (NovoLOG) PER UNIT SC ×4 (08:48→20:26)
[2018-02-07] MEDS: ENOXAPARIN 40 MG/0.4 ML SYRINGE (J1650) SC (08:48)
[2018-02-07] MEDS: predniSONE 20 MG TAB PO ×2 (08:48→20:26)
[2018-02-07] MEDS: SIMETHICONE 80 MG CHEW TAB PO ×3 (08:48→20:27)
[2018-02-07] MEDS: TORSEMIDE 20 MG TAB PO ×2 (08:48→20:27)
[2018-02-07 12:03] LABS: BEDSIDE GLUCOSE 220 MG/DL (83-110)
[2018-02-07 16:59] LABS: BEDSIDE GLUCOSE 167 MG/DL (83-110)
[2018-02-07] MEDS: ALPRAZolam 0.25 MG TAB PO (18:57)
[2018-02-07] MEDS: ATORVASTATIN 20 MG TAB PO (20:26)
[2018-02-07] MEDS: ACETAMINOPHEN TAB 650MG DOSE (2X325MG) PO (20:29)
[2018-02-07 20:35] LABS: BEDSIDE GLUCOSE 199 MG/DL (83-110)
[2018-02-08] MEDS: IPRATROPIUM 0.5MG/ALBUTEROL 2.5MG INH SOL UD 3ML (DUONEB)(J7620) NEB ×4 (04:58→20:00)
[2018-02-08 06:07] LABS: BASO % 0.4 % (0.0-1.0); HEMATOCRIT 31.7 % (36.0-47.0); HEMOGLOBIN 9.4 g/dl (12.0-15.5); IMMATURE GRANULOCYTE % 3.2 % (0-3.0); LYMPH # 0.9 10^3/uL (1.5-4.5); LYMPH % 10.6 % (24.0-44.0); MEAN CORPUSCULAR HEMOGLOBIN 29.3 pg (27.0-33.0); MEAN CORPUSCULAR HGB CONC 29.7 g/dl (32.0-36.5); MEAN CORPUSCULAR VOLUME 98.8 fl (80.0-96.0); MONO # 0.4 10^3/uL (0.0-0.8); MONO % 5.4 % (0.0-5.0); NEUTROPHILS # 6.6 10^3/uL (1.8-7.7); NEUTROPHILS % 80.4 % (36.0-66.0); PLATELET COUNT, AUTOMATED 255 10^3/uL (150-450); RED BLOOD COUNT 3.21 10^6/uL (4.00-5.40); RED CELL DISTRIBUTION WIDTH 18.4 % (11.5-14.5); WHITE BLOOD COUNT 8.2 10^3/uL (4.0-10.0)
[2018-02-08 06:24] LABS: ANION GAP 3 MEQ/L (8-16); BLOOD UREA NITROGEN 25 MG/DL (7-18); CALCIUM LEVEL 8.7 MG/DL (8.8-10.2); CARBON DIOXIDE LEVEL 40 MEQ/L (21-32); CHLORIDE LEVEL 102 MEQ/L (98-107); CREATININE FOR GFR 1.13 MG/DL (0.55-1.30); GLOMERULAR FILTRATION RATE 50.4 (>39); GLUCOSE, FASTING 174 MG/DL (70-100); MAGNESIUM LEVEL 2.6 MG/DL (1.8-2.4); POTASSIUM SERUM 4.5 MEQ/L (3.5-5.1); SODIUM LEVEL 145 MEQ/L (136-145)
[2018-02-08] MEDS: FORMOTEROL FUMARATE 20 MCG/2 ML INHALATION SOLUTION (PERFOROMIST) INH ×2 (07:39→21:24)
[2018-02-08] MEDS: BUDESONIDE 0.5 MG/2 ML INHALATION SUSPENSION INH ×2 (07:39→21:24)
[2018-02-08] MEDS: ALPRAZolam 0.25 MG TAB PO (08:20)
[2018-02-08] MEDS: predniSONE 20 MG TAB PO ×2 (08:20→21:56)
[2018-02-08] MEDS: TORSEMIDE 20 MG TAB PO ×2 (08:20→21:56)
[2018-02-08] MEDS: ENOXAPARIN 40 MG/0.4 ML SYRINGE (J1650) SC (08:21)
[2018-02-08] MEDS: SIMETHICONE 80 MG CHEW TAB PO ×3 (08:21→21:56)
[2018-02-08] MEDS: SENOKOT S TAB PO ×2 (08:21→21:56)
[2018-02-08] MEDS: HumaLOG INSULIN (NovoLOG) PER UNIT SC ×4 (08:22→21:00)
[2018-02-08 21:18] LABS: BEDSIDE GLUCOSE 119 MG/DL (83-110)
[2018-02-08] MEDS: ACETAMINOPHEN TAB 650MG DOSE (2X325MG) PO (21:55)
[2018-02-08] MEDS: ATORVASTATIN 20 MG TAB PO (21:56)
[2018-02-09] MEDS: IPRATROPIUM 0.5MG/ALBUTEROL 2.5MG INH SOL UD 3ML (DUONEB)(J7620) NEB ×4 (01:51→20:00)
[2018-02-09 06:14] LABS: BASO % 0.4 % (0.0-1.0); EOS % 0.1 % (0.0-3.0); HEMATOCRIT 34.1 % (36.0-47.0); HEMOGLOBIN 10.3 g/dl (12.0-15.5); IMMATURE GRANULOCYTE % 4.2 % (0-3.0); LYMPH # 0.7 10^3/uL (1.5-4.5); LYMPH % 8.7 % (24.0-44.0); MEAN CORPUSCULAR HEMOGLOBIN 29.5 pg (27.0-33.0); MEAN CORPUSCULAR HGB CONC 30.2 g/dl (32.0-36.5); MEAN CORPUSCULAR VOLUME 97.7 fl (80.0-96.0); MONO # 0.3 10^3/uL (0.0-0.8); MONO % 4.3 % (0.0-5.0); NEUTROPHILS # 6.5 10^3/uL (1.8-7.7); NEUTROPHILS % 82.3 % (36.0-66.0); PLATELET COUNT, AUTOMATED 250 10^3/uL (150-450); RED BLOOD COUNT 3.49 10^6/uL (4.00-5.40); RED CELL DISTRIBUTION WIDTH 18.3 % (11.5-14.5); WHITE BLOOD COUNT 7.9 10^3/uL (4.0-10.0)
[2018-02-09 06:29] LABS: ANION GAP 4 MEQ/L (8-16); BLOOD UREA NITROGEN 25 MG/DL (7-18); CALCIUM LEVEL 9.1 MG/DL (8.8-10.2); CARBON DIOXIDE LEVEL 40 MEQ/L (21-32); CHLORIDE LEVEL 98 MEQ/L (98-107); GLUCOSE, FASTING 191 MG/DL (70-100); MAGNESIUM LEVEL 2.6 MG/DL (1.8-2.4); NT-PRO BNP 908 PG/ML (<125); POTASSIUM SERUM 4.4 MEQ/L (3.5-5.1); SODIUM LEVEL 142 MEQ/L (136-145)
[2018-02-09 07:05] LABS: BEDSIDE GLUCOSE 143 MG/DL (83-110)
[2018-02-09 07:05] LABS: BEDSIDE GLUCOSE 148 MG/DL (83-110)
[2018-02-09] MEDS: FORMOTEROL FUMARATE 20 MCG/2 ML INHALATION SOLUTION (PERFOROMIST) INH ×2 (07:18→20:44)
[2018-02-09] MEDS: BUDESONIDE 0.5 MG/2 ML INHALATION SUSPENSION INH ×2 (07:18→20:44)
[2018-02-09] MEDS: HumaLOG INSULIN (NovoLOG) PER UNIT SC ×4 (08:41→22:13)
[2018-02-09] MEDS: ENOXAPARIN 40 MG/0.4 ML SYRINGE (J1650) SC (08:42)
[2018-02-09] MEDS: SIMETHICONE 80 MG CHEW TAB PO ×3 (08:43→21:33)
[2018-02-09] MEDS: SENOKOT S TAB PO ×2 (08:43→21:34)
[2018-02-09] MEDS: predniSONE 20 MG TAB PO ×2 (08:43→21:33)
[2018-02-09] MEDS: TORSEMIDE 20 MG TAB PO ×2 (08:43→21:33)
[2018-02-09 12:07] LABS: BEDSIDE GLUCOSE 166 MG/DL (83-110)
[2018-02-09 17:31] LABS: BEDSIDE GLUCOSE 211 MG/DL (83-110)
[2018-02-09] MEDS: ATORVASTATIN 20 MG TAB PO (21:33)
[2018-02-09] MEDS: ACETAMINOPHEN TAB 650MG DOSE (2X325MG) PO (21:34)
[2018-02-09 23:25] LABS: BEDSIDE GLUCOSE 105 MG/DL (83-110)
[2018-02-10] MEDS: IPRATROPIUM 0.5MG/ALBUTEROL 2.5MG INH SOL UD 3ML (DUONEB)(J7620) NEB ×2 (01:55→08:00)
[2018-02-10 06:26] LABS: MAGNESIUM LEVEL 2.3 MG/DL (1.8-2.4)
[2018-02-10 06:38] LABS: BEDSIDE GLUCOSE 171 MG/DL (83-110)
[2018-02-10] MEDS: FORMOTEROL FUMARATE 20 MCG/2 ML INHALATION SOLUTION (PERFOROMIST) INH (07:38)
[2018-02-10] MEDS: BUDESONIDE 0.5 MG/2 ML INHALATION SUSPENSION INH (07:38)
[2018-02-10] MEDS: TORSEMIDE 20 MG TAB PO (08:19)
[2018-02-10] MEDS: ALPRAZolam 0.25 MG TAB PO (08:19)
[2018-02-10] MEDS: predniSONE 20 MG TAB PO (08:19)
[2018-02-10] MEDS: SIMETHICONE 80 MG CHEW TAB PO (08:20)
[2018-02-10] MEDS: ENOXAPARIN 40 MG/0.4 ML SYRINGE (J1650) SC (08:21)
[2018-02-10] MEDS: HumaLOG INSULIN (NovoLOG) PER UNIT SC (08:21)
[2018-02-10] MEDS: SENOKOT S TAB PO (08:21)
[2018-02-10 08:52] LABS: HEMATOCRIT 35.9 % (36.0-47.0); HEMOGLOBIN 11.1 g/dl (12.0-15.5); MEAN CORPUSCULAR HEMOGLOBIN 29.8 pg (27.0-33.0); MEAN CORPUSCULAR HGB CONC 30.9 g/dl (32.0-36.5); MEAN CORPUSCULAR VOLUME 96.5 fl (80.0-96.0); PLATELET COUNT, AUTOMATED 291 10^3/uL (150-450); RED BLOOD COUNT 3.72 10^6/uL (4.00-5.40); WHITE BLOOD COUNT 8.9 10^3/uL (4.0-10.0)
[2018-02-10 09:08] LABS: ANION GAP 7 MEQ/L (8-16); BLOOD UREA NITROGEN 21 MG/DL (7-18); CALCIUM LEVEL 8.9 MG/DL (8.8-10.2); CARBON DIOXIDE LEVEL 40 MEQ/L (21-32); CHLORIDE LEVEL 97 MEQ/L (98-107); CREATININE FOR GFR 1.06 MG/DL (0.55-1.30); GLOMERULAR FILTRATION RATE 54.2 (>39); GLUCOSE, FASTING 141 MG/DL (70-100); POTASSIUM SERUM 3.9 MEQ/L (3.5-5.1); SODIUM LEVEL 144 MEQ/L (136-145)
== END 2018-02-10 11:59 | disposition home or self-care (01) | DRG 189 ==
LOC: M MSPAV 02-07 21:52 → M ED 00:18 → M ED INP 04:57 → M ICU 05:37
DX: J96.21 Acute and chronic respiratory failure with hypoxia (principal); I50.32 Chronic diastolic (congestive) heart failure; J44.1 Chronic obstructive pulmonary disease with (acute) exacerbation; N17.9 Acute kidney failure, unspecified; I13.0 Hypertensive heart and chronic kidney disease with heart failure and stage 1 through stage 4 chronic kidney disease, or unspecified chronic kidney disease; J96.22 Acute and chronic respiratory failure with hypercapnia; E11.9 Type 2 diabetes mellitus without complications; G47.33 Obstructive sleep apnea (adult) (pediatric); M54.30 Sciatica, unspecified side; E78.5 Hyperlipidemia, unspecified; Z79.899 Other long term (current) drug therapy; Z88.8 Allergy status to other drugs, medicaments and biological substances; E66.01 Morbid (severe) obesity due to excess calories; Z87.891 Personal history of nicotine dependence; E87.6 Hypokalemia; I27.81 Cor pulmonale (chronic); N18.9 Chronic kidney disease, unspecified

== ENCOUNTER 2018-03-12 02:11 | Inpatient (IN) | payer OTHER ==
[2018-03-12 02:59] LABS: BASO % 0.3 % (0.0-1.0); EOS # 0.1 10^3/uL (0.0-0.50); EOS % 1.2 % (0.0-3.0); HEMATOCRIT 35.9 % (36.0-47.0); HEMOGLOBIN 10.7 g/dl (12.0-15.5); IMMATURE GRANULOCYTE % 1.7 % (0-3.0); LYMPH # 1.1 10^3/uL (1.5-4.5); LYMPH % 16.6 % (24.0-44.0); MEAN CORPUSCULAR HEMOGLOBIN 29.8 pg (27.0-33.0); MEAN CORPUSCULAR HGB CONC 29.8 g/dl (32.0-36.5); MONO # 0.5 10^3/uL (0.0-0.8); MONO % 7.2 % (0.0-5.0); NEUTROPHILS # 4.7 10^3/uL (1.8-7.7); PLATELET COUNT, AUTOMATED 207 10^3/uL (150-450); RED BLOOD COUNT 3.59 10^6/uL (4.00-5.40); RED CELL DISTRIBUTION WIDTH 16.3 % (11.5-14.5); WHITE BLOOD COUNT 6.4 10^3/uL (4.0-10.0)
[2018-03-12] MEDS: dexameTHASONE 20 MG/5 ML VIAL (J1100) IV (03:01)
[2018-03-12] MEDS: ALBUTEROL SULFATE 2.5 MG/0.5 ML INH NEB SOLN NEB (03:12)
[2018-03-12 03:41] LABS: ANION GAP 7 MEQ/L (8-16); BLOOD UREA NITROGEN 13 MG/DL (7-18); CARBON DIOXIDE LEVEL 39 MEQ/L (21-32); CHLORIDE LEVEL 102 MEQ/L (98-107); CREATININE FOR GFR 1.09 MG/DL (0.55-1.30); GLOMERULAR FILTRATION RATE 52.4 (>39); GLUCOSE, FASTING 155 MG/DL (70-100); NT-PRO BNP 299 PG/ML (<125); POTASSIUM SERUM 3.5 MEQ/L (3.5-5.1); SODIUM LEVEL 148 MEQ/L (136-145)
[2018-03-12 04:17] LABS: ABG BASE EXCESS 10.2 (-2.0-2.0); ABG HCO3 40.4 MEQ/L (22.0-26.0); ABG PARTIAL PRESSURE O2 88.4 mmHg (75.0-100.0); ABG TOTAL CO2 43.3 MEQ/L (23.0-31.0)
[2018-03-12 04:19] LABS: ABG PARTIAL PRESSURE CO2 94.3 mmHg (35.0-45.0)
[2018-03-12] MEDS ORDERED: ISOVUE-370 76% 100ML VIAL (Q9967) As Ordered (04:31)
[2018-03-12] MEDS ORDERED: ALPRAZolam 0.25 MG TAB PO (06:00)
[2018-03-12] MEDS ORDERED: BACLOFEN 10 MG TAB PO (06:00)
[2018-03-12] MEDS ORDERED: DOCUSATE SODIUM 100 MG CAP PO (06:00)
[2018-03-12] MEDS ORDERED: ALBUTEROL 90 MCG/ACT 8GM HFA INHALER INH (06:00)
[2018-03-12 06:14] LABS: ABG BASE EXCESS 9.7 (-2.0-2.0); ABG HCO3 39.1 MEQ/L (22.0-26.0); ABG O2 SATURATION 96.2 % (95.0-99.0); ABG PARTIAL PRESSURE O2 83.9 mmHg (75.0-100.0); ABG STANDARD HCO3 33.4 MEQ/L (22.0-26.0); ABG TOTAL CO2 41.8 MEQ/L (23.0-31.0); ABG pH (ARTERIAL) 7.273 UNITS (7.350-7.450)
[2018-03-12 06:17] LABS: ABG PARTIAL PRESSURE CO2 86.5 mmHg (35.0-45.0)
[2018-03-12] MEDS: IPRATROPIUM 0.02% SOLN 0.5MG/2.5 ML NEB NEB (08:00)
[2018-03-12] MEDS: FORMOTEROL FUMARATE 20 MCG/2 ML INHALATION SOLUTION (PERFOROMIST) INH ×2 (08:00→19:35)
[2018-03-12] MEDS: methylPREDNISolone INJ 125 MG/2 ML VIAL (J2930) IV ×3 (08:01→23:28)
[2018-03-12] MEDS: GLIMEPIRIDE 1 MG TABLET PO (08:13)
[2018-03-12] MEDS: IPRATROPIUM 0.5MG/ALBUTEROL 2.5MG INH SOL UD 3ML (DUONEB)(J7620) NEB ×5 (08:37→23:08)
[2018-03-12] MEDS: BUDESONIDE 0.5 MG/2 ML INHALATION SUSPENSION INH ×2 (08:37→19:35)
[2018-03-12] MEDS: FUROSEMIDE 40 MG/4 ML VIAL (J1940) IV (08:52)
[2018-03-12] MEDS ORDERED: GLIMEPIRIDE 1 MG TABLET PO (09:00)
[2018-03-12 10:15] LABS: ABG BASE EXCESS 10.8 (-2.0-2.0); ABG HCO3 39.2 MEQ/L (22.0-26.0); ABG O2 SATURATION 98.7 % (95.0-99.0); ABG PARTIAL PRESSURE O2 119.9 mmHg (75.0-100.0); ABG STANDARD HCO3 34.6 MEQ/L (22.0-26.0); ABG TOTAL CO2 41.5 MEQ/L (23.0-31.0); ABG pH (ARTERIAL) 7.335 UNITS (7.350-7.450)
[2018-03-12] MEDS ORDERED: DEXTROSE 50% 50 ML SYRINGE IV (10:15)
[2018-03-12] MEDS ORDERED: GLUCOSE 4 GM CHEW TABLET PO (10:15)
[2018-03-12] MEDS ORDERED: GLUCAGON FOR INJ 1 MG VIAL (J1610) SC (10:15)
[2018-03-12 10:19] LABS: ABG PARTIAL PRESSURE CO2 75.1 mmHg (35.0-45.0)
[2018-03-12 12:08] LABS: BEDSIDE GLUCOSE 301 MG/DL (83-110)
[2018-03-12] MEDS: HumaLOG INSULIN (NovoLOG) PER UNIT SC ×3 (12:09→23:28)
[2018-03-12] MEDS: PANTOPRAZOLE 40MG TAB (PROTONIX) PO (12:09)
[2018-03-12] MEDS: ENOXAPARIN 40 MG/0.4 ML SYRINGE (J1650) SC (12:09)
[2018-03-12 17:20] LABS: BEDSIDE GLUCOSE 297 MG/DL (83-110)
[2018-03-12 17:49] LABS: ABG BASE EXCESS 9.2 (-2.0-2.0); ABG HCO3 35.7 MEQ/L (22.0-26.0); ABG O2 SATURATION 96.1 % (95.0-99.0); ABG PARTIAL PRESSURE CO2 59.3 mmHg (35.0-45.0); ABG PARTIAL PRESSURE O2 78.8 mmHg (75.0-100.0); ABG TOTAL CO2 37.6 MEQ/L (23.0-31.0); ABG pH (ARTERIAL) 7.398 UNITS (7.350-7.450)
[2018-03-12] MEDS: GABAPENTIN 300 MG CAP PO (20:01)
[2018-03-12] MEDS: ACETAMINOPHEN 500 MG TAB PO (21:08)
[2018-03-12 23:24] LABS: BEDSIDE GLUCOSE 272 MG/DL (83-110)
[2018-03-13] MEDS: IPRATROPIUM 0.5MG/ALBUTEROL 2.5MG INH SOL UD 3ML (DUONEB)(J7620) NEB ×6 (03:16→23:30)
[2018-03-13 05:11] LABS: HEMATOCRIT 32.9 % (36.0-47.0); MEAN CORPUSCULAR HEMOGLOBIN 29.7 pg (27.0-33.0); MEAN CORPUSCULAR HGB CONC 30.4 g/dl (32.0-36.5); MEAN CORPUSCULAR VOLUME 97.6 fl (80.0-96.0); PLATELET COUNT, AUTOMATED 221 10^3/uL (150-450); RED BLOOD COUNT 3.37 10^6/uL (4.00-5.40); RED CELL DISTRIBUTION WIDTH 15.9 % (11.5-14.5); WHITE BLOOD COUNT 7.7 10^3/uL (4.0-10.0)
[2018-03-13 05:31] LABS: ANION GAP 6 MEQ/L (8-16); BLOOD UREA NITROGEN 21 MG/DL (7-18); CALCIUM LEVEL 8.5 MG/DL (8.8-10.2); CARBON DIOXIDE LEVEL 37 MEQ/L (21-32); CHLORIDE LEVEL 98 MEQ/L (98-107); CREATININE FOR GFR 1.06 MG/DL (0.55-1.30); GLOMERULAR FILTRATION RATE 54.1 (>39); GLUCOSE, FASTING 249 MG/DL (70-100); POTASSIUM SERUM 4.3 MEQ/L (3.5-5.1); SODIUM LEVEL 141 MEQ/L (136-145)
[2018-03-13 06:06] LABS: ABG BASE EXCESS 7.5 (-2.0-2.0); ABG HCO3 35.4 MEQ/L (22.0-26.0); ABG PARTIAL PRESSURE O2 90.1 mmHg (75.0-100.0); ABG STANDARD HCO3 31.3 MEQ/L (22.0-26.0); ABG TOTAL CO2 37.6 MEQ/L (23.0-31.0); ABG pH (ARTERIAL) 7.326 UNITS (7.350-7.450)
[2018-03-13 06:08] LABS: ABG PARTIAL PRESSURE CO2 69.4 mmHg (35.0-45.0)
[2018-03-13] MEDS: BUDESONIDE 0.5 MG/2 ML INHALATION SUSPENSION INH ×2 (07:09→19:40)
[2018-03-13] MEDS: FORMOTEROL FUMARATE 20 MCG/2 ML INHALATION SOLUTION (PERFOROMIST) INH ×2 (07:09→19:40)
[2018-03-13 07:35] LABS: BEDSIDE GLUCOSE 258 MG/DL (83-110)
[2018-03-13] MEDS: HumaLOG INSULIN (NovoLOG) PER UNIT SC ×4 (07:40→21:00)
[2018-03-13] MEDS: ENOXAPARIN 40 MG/0.4 ML SYRINGE (J1650) SC (08:31)
[2018-03-13] MEDS: PANTOPRAZOLE 40MG TAB (PROTONIX) PO (08:31)
[2018-03-13] MEDS: methylPREDNISolone INJ 125 MG/2 ML VIAL (J2930) IV ×2 (08:32→15:54)
[2018-03-13] MEDS: LEVEMIR (INSULIN DETEMIR) 1 UNITS/0.01ML SC (08:32)
[2018-03-13] MEDS: FUROSEMIDE 40 MG/4 ML VIAL (J1940) IV (09:28)
[2018-03-13] MEDS ORDERED: amLODIPine 5 MG TAB PO (09:30)
[2018-03-13 12:11] LABS: BEDSIDE GLUCOSE 330 MG/DL (83-110)
[2018-03-13] MEDS: OFLOXACIN 0.3 % (OCUFLOX) OPTH SOL 5ML OU ×2 (16:52→21:04)
[2018-03-13 17:11] LABS: BEDSIDE GLUCOSE 210 MG/DL (83-110)
[2018-03-13 21:01] LABS: BEDSIDE GLUCOSE 180 MG/DL (83-110)
[2018-03-13] MEDS: GABAPENTIN 300 MG CAP PO (21:04)
[2018-03-14] MEDS: methylPREDNISolone INJ 125 MG/2 ML VIAL (J2930) IV ×2 (00:32→08:14)
[2018-03-14] MEDS: IPRATROPIUM 0.5MG/ALBUTEROL 2.5MG INH SOL UD 3ML (DUONEB)(J7620) NEB ×6 (03:45→23:32)
[2018-03-14 04:28] LABS: ANION GAP 5 MEQ/L (8-16); BLOOD UREA NITROGEN 27 MG/DL (7-18); CALCIUM LEVEL 8.5 MG/DL (8.8-10.2); CARBON DIOXIDE LEVEL 39 MEQ/L (21-32); CHLORIDE LEVEL 97 MEQ/L (98-107); GLOMERULAR FILTRATION RATE 57.9 (>39); GLUCOSE, FASTING 229 MG/DL (70-100); POTASSIUM SERUM 4.8 MEQ/L (3.5-5.1); SODIUM LEVEL 141 MEQ/L (136-145)
[2018-03-14 05:49] LABS: ABG BASE EXCESS 10.1 (-2.0-2.0); ABG HCO3 36.2 MEQ/L (22.0-26.0); ABG O2 SATURATION 95.7 % (95.0-99.0); ABG PARTIAL PRESSURE CO2 56.9 mmHg (35.0-45.0); ABG PARTIAL PRESSURE O2 75.8 mmHg (75.0-100.0); ABG STANDARD HCO3 33.8 MEQ/L (22.0-26.0); ABG pH (ARTERIAL) 7.422 UNITS (7.350-7.450)
[2018-03-14] MEDS: BUDESONIDE 0.5 MG/2 ML INHALATION SUSPENSION INH ×2 (07:09→19:37)
[2018-03-14] MEDS: FORMOTEROL FUMARATE 20 MCG/2 ML INHALATION SOLUTION (PERFOROMIST) INH ×2 (07:09→19:37)
[2018-03-14] MEDS: FUROSEMIDE 40 MG/4 ML VIAL (J1940) IV (08:14)
[2018-03-14] MEDS: HumaLOG INSULIN (NovoLOG) PER UNIT SC ×4 (08:14→20:21)
[2018-03-14] MEDS: ENOXAPARIN 40 MG/0.4 ML SYRINGE (J1650) SC (08:15)
[2018-03-14] MEDS: PANTOPRAZOLE 40MG TAB (PROTONIX) PO (08:15)
[2018-03-14] MEDS: OFLOXACIN 0.3 % (OCUFLOX) OPTH SOL 5ML OU ×4 (08:15→20:20)
[2018-03-14] MEDS: LEVEMIR (INSULIN DETEMIR) 1 UNITS/0.01ML SC (08:15)
[2018-03-14 11:55] LABS: BEDSIDE GLUCOSE 268 MG/DL (83-110)
[2018-03-14] MEDS: methylPREDNISolone INJ 40 MG/1 ML VIAL (J2920) IV ×2 (17:08→23:02)
[2018-03-14 17:18] LABS: BEDSIDE GLUCOSE 257 MG/DL (83-110)
[2018-03-14] MEDS: ACETAMINOPHEN 500 MG TAB PO (17:28)
[2018-03-14] MEDS: GABAPENTIN 300 MG CAP PO (20:20)
[2018-03-14 20:22] LABS: BEDSIDE GLUCOSE 263 MG/DL (83-110)
[2018-03-15] MEDS: IPRATROPIUM 0.5MG/ALBUTEROL 2.5MG INH SOL UD 3ML (DUONEB)(J7620) NEB ×2 (04:17→07:17)
[2018-03-15 04:57] LABS: BASO % 0.1 % (0.0-1.0); HEMATOCRIT 32.9 % (36.0-47.0); HEMOGLOBIN 10.1 g/dl (12.0-15.5); LYMPH # 0.4 10^3/uL (1.5-4.5); LYMPH % 5.1 % (24.0-44.0); MEAN CORPUSCULAR HEMOGLOBIN 28.8 pg (27.0-33.0); MEAN CORPUSCULAR HGB CONC 30.7 g/dl (32.0-36.5); MEAN CORPUSCULAR VOLUME 93.7 fl (80.0-96.0); MONO # 0.2 10^3/uL (0.0-0.8); MONO % 2.1 % (0.0-5.0); NEUTROPHILS # 7.6 10^3/uL (1.8-7.7); NEUTROPHILS % 90.7 % (36.0-66.0); PLATELET COUNT, AUTOMATED 224 10^3/uL (150-450); RED BLOOD COUNT 3.51 10^6/uL (4.00-5.40); RED CELL DISTRIBUTION WIDTH 15.7 % (11.5-14.5); WHITE BLOOD COUNT 8.4 10^3/uL (4.0-10.0)
[2018-03-15 05:15] LABS: ANION GAP 5 MEQ/L (8-16); BLOOD UREA NITROGEN 32 MG/DL (7-18); CALCIUM LEVEL 8.6 MG/DL (8.8-10.2); CARBON DIOXIDE LEVEL 38 MEQ/L (21-32); CHLORIDE LEVEL 96 MEQ/L (98-107); CREATININE FOR GFR 1.08 MG/DL (0.55-1.30); GLOMERULAR FILTRATION RATE 52.9 (>39); GLUCOSE, FASTING 238 MG/DL (70-100); POTASSIUM SERUM 3.9 MEQ/L (3.5-5.1); SODIUM LEVEL 139 MEQ/L (136-145)
[2018-03-15 06:07] LABS: ABG BASE EXCESS 5.5 (-2.0-2.0); ABG HCO3 31.2 MEQ/L (22.0-26.0); ABG O2 SATURATION 96.3 % (95.0-99.0); ABG PARTIAL PRESSURE CO2 50.8 mmHg (35.0-45.0); ABG PARTIAL PRESSURE O2 79.8 mmHg (75.0-100.0); ABG STANDARD HCO3 29.4 MEQ/L (22.0-26.0); ABG TOTAL CO2 32.7 MEQ/L (23.0-31.0); ABG pH (ARTERIAL) 7.406 UNITS (7.350-7.450)
[2018-03-15] MEDS: FORMOTEROL FUMARATE 20 MCG/2 ML INHALATION SOLUTION (PERFOROMIST) INH ×2 (07:16→19:40)
[2018-03-15] MEDS: BUDESONIDE 0.5 MG/2 ML INHALATION SUSPENSION INH ×2 (07:17→19:40)
[2018-03-15] MEDS: HumaLOG INSULIN (NovoLOG) PER UNIT SC ×4 (07:59→20:52)
[2018-03-15] MEDS: methylPREDNISolone INJ 40 MG/1 ML VIAL (J2920) IV ×2 (07:59→20:19)
[2018-03-15] MEDS: PANTOPRAZOLE 40MG TAB (PROTONIX) PO (07:59)
[2018-03-15] MEDS: FUROSEMIDE 40 MG/4 ML VIAL (J1940) IV (08:01)
[2018-03-15] MEDS: OFLOXACIN 0.3 % (OCUFLOX) OPTH SOL 5ML OU ×4 (08:03→20:18)
[2018-03-15] MEDS: ENOXAPARIN 40 MG/0.4 ML SYRINGE (J1650) SC (08:03)
[2018-03-15] MEDS: LEVEMIR (INSULIN DETEMIR) 1 UNITS/0.01ML SC (08:03)
[2018-03-15 11:31] LABS: BEDSIDE GLUCOSE 229 MG/DL (83-110)
[2018-03-15] MEDS: ALBUTEROL SULFATE 2.5 MG/0.5 ML INH NEB SOLN NEB ×2 (13:09→22:42)
[2018-03-15 17:05] LABS: BEDSIDE GLUCOSE 203 MG/DL (83-110)
[2018-03-15] MEDS: GABAPENTIN 300 MG CAP PO (20:19)
[2018-03-15 20:54] LABS: BEDSIDE GLUCOSE 160 MG/DL (83-110)
[2018-03-15] MEDS: ACETAMINOPHEN 500 MG TAB PO (22:59)
[2018-03-16 04:28] LABS: BASO % 0.2 % (0.0-1.0); HEMATOCRIT 34.6 % (36.0-47.0); HEMOGLOBIN 10.8 g/dl (12.0-15.5); IMMATURE GRANULOCYTE % 2.3 % (0-3.0); LYMPH # 0.4 10^3/uL (1.5-4.5); LYMPH % 4.2 % (24.0-44.0); MEAN CORPUSCULAR HEMOGLOBIN 29.1 pg (27.0-33.0); MEAN CORPUSCULAR HGB CONC 31.2 g/dl (32.0-36.5); MEAN CORPUSCULAR VOLUME 93.3 fl (80.0-96.0); MONO # 0.3 10^3/uL (0.0-0.8); NEUTROPHILS # 8.2 10^3/uL (1.8-7.7); NEUTROPHILS % 90.3 % (36.0-66.0); PLATELET COUNT, AUTOMATED 230 10^3/uL (150-450); RED BLOOD COUNT 3.71 10^6/uL (4.00-5.40); RED CELL DISTRIBUTION WIDTH 15.3 % (11.5-14.5); WHITE BLOOD COUNT 9.1 10^3/uL (4.0-10.0)
[2018-03-16 04:53] LABS: ANION GAP 6 MEQ/L (8-16); BLOOD UREA NITROGEN 36 MG/DL (7-18); CALCIUM LEVEL 8.4 MG/DL (8.8-10.2); CARBON DIOXIDE LEVEL 38 MEQ/L (21-32); CHLORIDE LEVEL 97 MEQ/L (98-107); CREATININE FOR GFR 1.05 MG/DL (0.55-1.30); GLOMERULAR FILTRATION RATE 54.7 (>39); GLUCOSE, FASTING 219 MG/DL (70-100); POTASSIUM SERUM 3.7 MEQ/L (3.5-5.1); SODIUM LEVEL 141 MEQ/L (136-145)
[2018-03-16] MEDS: BUDESONIDE 0.5 MG/2 ML INHALATION SUSPENSION INH ×2 (08:00→19:47)
[2018-03-16] MEDS: FORMOTEROL FUMARATE 20 MCG/2 ML INHALATION SOLUTION (PERFOROMIST) INH ×2 (08:00→19:47)
[2018-03-16] MEDS: methylPREDNISolone INJ 40 MG/1 ML VIAL (J2920) IV (08:00)
[2018-03-16] MEDS: HumaLOG INSULIN (NovoLOG) PER UNIT SC ×4 (08:15→20:08)
[2018-03-16] MEDS: FUROSEMIDE 40 MG/4 ML VIAL (J1940) IV (08:30)
[2018-03-16] MEDS: LEVEMIR (INSULIN DETEMIR) 1 UNITS/0.01ML SC (08:30)
[2018-03-16] MEDS: PANTOPRAZOLE 40MG TAB (PROTONIX) PO (08:30)
[2018-03-16] MEDS: ENOXAPARIN 40 MG/0.4 ML SYRINGE (J1650) SC (08:30)
[2018-03-16] MEDS: OFLOXACIN 0.3 % (OCUFLOX) OPTH SOL 5ML OU ×5 (09:00→22:00)
[2018-03-16 12:03] LABS: BEDSIDE GLUCOSE 173 MG/DL (83-110)
[2018-03-16] MEDS: predniSONE 20 MG TAB PO (16:00)
[2018-03-16 17:31] LABS: BEDSIDE GLUCOSE 168 MG/DL (83-110)
[2018-03-16] MEDS ORDERED: MOM 30ML SUSPENSION UDC PO (18:30)
[2018-03-16] MEDS ORDERED: SLF 3 ML SYR IV (19:15)
[2018-03-16] MEDS: DOCUSATE SODIUM 100 MG CAP PO (20:03)
[2018-03-16] MEDS: GABAPENTIN 300 MG CAP PO (20:03)
[2018-03-16] MEDS: ACETAMINOPHEN 500 MG TAB PO (20:04)
[2018-03-16 20:44] LABS: BEDSIDE GLUCOSE 175 MG/DL (83-110)
[2018-03-16] MEDS: SLF 3 ML SYR IV (22:00)
[2018-03-17 04:40] LABS: BASO % 0.3 % (0.0-1.0); EOS % 0.1 % (0.0-3.0); HEMATOCRIT 37.8 % (36.0-47.0); HEMOGLOBIN 11.8 g/dl (12.0-15.5); IMMATURE GRANULOCYTE % 3.5 % (0-3.0); LYMPH # 1.1 10^3/uL (1.5-4.5); LYMPH % 9.1 % (24.0-44.0); MEAN CORPUSCULAR HEMOGLOBIN 29.4 pg (27.0-33.0); MEAN CORPUSCULAR HGB CONC 31.2 g/dl (32.0-36.5); MONO # 0.7 10^3/uL (0.0-0.8); NEUTROPHILS # 9.7 10^3/uL (1.8-7.7); PLATELET COUNT, AUTOMATED 275 10^3/uL (150-450); RED BLOOD COUNT 4.02 10^6/uL (4.00-5.40); RED CELL DISTRIBUTION WIDTH 14.7 % (11.5-14.5)
[2018-03-17 04:59] LABS: ANION GAP 7 MEQ/L (8-16); BLOOD UREA NITROGEN 35 MG/DL (7-18); CALCIUM LEVEL 8.6 MG/DL (8.8-10.2); CARBON DIOXIDE LEVEL 39 MEQ/L (21-32); CHLORIDE LEVEL 96 MEQ/L (98-107); CREATININE FOR GFR 1.13 MG/DL (0.55-1.30); GLOMERULAR FILTRATION RATE 50.2 (>39); GLUCOSE, FASTING 125 MG/DL (70-100); POTASSIUM SERUM 3.4 MEQ/L (3.5-5.1); SODIUM LEVEL 142 MEQ/L (136-145)
[2018-03-17] MEDS: SLF 3 ML SYR IV ×3 (06:00→20:15)
[2018-03-17] MEDS: LEVEMIR (INSULIN DETEMIR) 1 UNITS/0.01ML SC (07:49)
[2018-03-17] MEDS: HumaLOG INSULIN (NovoLOG) PER UNIT SC ×4 (07:49→20:14)
[2018-03-17] MEDS: PANTOPRAZOLE 40MG TAB (PROTONIX) PO (07:50)
[2018-03-17] MEDS: DOCUSATE SODIUM 100 MG CAP PO ×2 (07:51→19:55)
[2018-03-17] MEDS: predniSONE 20 MG TAB PO (07:51)
[2018-03-17] MEDS: ENOXAPARIN 40 MG/0.4 ML SYRINGE (J1650) SC (07:52)
[2018-03-17] MEDS: OFLOXACIN 0.3 % (OCUFLOX) OPTH SOL 5ML OU ×4 (07:52→20:14)
[2018-03-17] MEDS: FUROSEMIDE 40 MG/4 ML VIAL (J1940) IV (07:52)
[2018-03-17] MEDS: BUDESONIDE 0.5 MG/2 ML INHALATION SUSPENSION INH ×2 (08:01→19:27)
[2018-03-17] MEDS: FORMOTEROL FUMARATE 20 MCG/2 ML INHALATION SOLUTION (PERFOROMIST) INH ×2 (08:01→19:27)
[2018-03-17] MEDS: POTASSIUM CHLORIDE 10 MEQ SR TABLET PO (09:22)
[2018-03-17] MEDS: ISOSORBIDE MON. (IMDUR) 30 MG XR TAB PO (10:16)
[2018-03-17 11:23] LABS: BEDSIDE GLUCOSE 110 MG/DL (83-110)
[2018-03-17 17:05] LABS: BEDSIDE GLUCOSE 127 MG/DL (83-110)
[2018-03-17 20:09] LABS: BEDSIDE GLUCOSE 84 MG/DL (83-110)
[2018-03-17] MEDS: ACETAMINOPHEN 500 MG TAB PO (20:14)
[2018-03-17] MEDS: GABAPENTIN 300 MG CAP PO (20:14)
[2018-03-18] MEDS: SLF 3 ML SYR IV (05:16)
[2018-03-18 06:39] LABS: BASO # 0.1 10^3/uL (0.0-0.2); BASO % 0.9 % (0.0-1.0); EOS % 0.5 % (0.0-3.0); HEMATOCRIT 35.9 % (36.0-47.0); HEMOGLOBIN 11.1 g/dl (12.0-15.5); IMMATURE GRANULOCYTE % 3.9 % (0-3.0); LYMPH # 1.5 10^3/uL (1.5-4.5); LYMPH % 19.3 % (24.0-44.0); MEAN CORPUSCULAR HEMOGLOBIN 29.1 pg (27.0-33.0); MEAN CORPUSCULAR HGB CONC 30.9 g/dl (32.0-36.5); MEAN CORPUSCULAR VOLUME 94.2 fl (80.0-96.0); MONO # 0.6 10^3/uL (0.0-0.8); MONO % 6.9 % (0.0-5.0); NEUTROPHILS # 5.4 10^3/uL (1.8-7.7); NEUTROPHILS % 68.5 % (36.0-66.0); PLATELET COUNT, AUTOMATED 202 10^3/uL (150-450); RED BLOOD COUNT 3.81 10^6/uL (4.00-5.40); WHITE BLOOD COUNT 7.9 10^3/uL (4.0-10.0)
[2018-03-18 07:01] LABS: ANION GAP 5 MEQ/L (8-16); BLOOD UREA NITROGEN 28 MG/DL (7-18); CALCIUM LEVEL 8.5 MG/DL (8.8-10.2); CARBON DIOXIDE LEVEL 39 MEQ/L (21-32); CHLORIDE LEVEL 99 MEQ/L (98-107); CREATININE FOR GFR 0.97 MG/DL (0.55-1.30); GLOMERULAR FILTRATION RATE 59.9 (>39); GLUCOSE, FASTING 81 MG/DL (70-100); POTASSIUM SERUM 3.3 MEQ/L (3.5-5.1); SODIUM LEVEL 143 MEQ/L (136-145)
[2018-03-18] MEDS: HumaLOG INSULIN (NovoLOG) PER UNIT SC ×2 (07:30→12:00)
[2018-03-18] MEDS: LEVEMIR (INSULIN DETEMIR) 1 UNITS/0.01ML SC (08:19)
[2018-03-18] MEDS: predniSONE 20 MG TAB PO (08:20)
[2018-03-18] MEDS: DOCUSATE SODIUM 100 MG CAP PO (08:20)
[2018-03-18] MEDS: ISOSORBIDE MON. (IMDUR) 60 MG XR TAB PO (08:20)
[2018-03-18] MEDS: ENOXAPARIN 40 MG/0.4 ML SYRINGE (J1650) SC (08:20)
[2018-03-18] MEDS: PANTOPRAZOLE 40MG TAB (PROTONIX) PO (08:20)
[2018-03-18] MEDS: FUROSEMIDE 40 MG/4 ML VIAL (J1940) IV (08:21)
[2018-03-18] MEDS: POTASSIUM CHLORIDE 10 MEQ SR TABLET PO (08:21)
[2018-03-18] MEDS: OFLOXACIN 0.3 % (OCUFLOX) OPTH SOL 5ML OU (08:23)
[2018-03-18 12:07] LABS: BEDSIDE GLUCOSE 159 MG/DL (83-110)
[2018-03-18] MEDS: FORMOTEROL FUMARATE 20 MCG/2 ML INHALATION SOLUTION (PERFOROMIST) INH (13:13)
[2018-03-18] MEDS: BUDESONIDE 0.5 MG/2 ML INHALATION SUSPENSION INH (13:13)
[2018-03-19] MEDS ORDERED: ISOSORBIDE MON. (IMDUR) 60 MG XR TAB PO (09:00)
== END 2018-03-18 13:30 | disposition home health service (06) | DRG 189 ==
LOC: M MS5PR 03-17 20:49 → M ED 02:11 → M ED INP 06:00 → M ICU 09:47
DX: J96.21 Acute and chronic respiratory failure with hypoxia (principal); I50.31 Acute diastolic (congestive) heart failure; J44.1 Chronic obstructive pulmonary disease with (acute) exacerbation; E87.0 Hyperosmolality and hypernatremia; I13.0 Hypertensive heart and chronic kidney disease with heart failure and stage 1 through stage 4 chronic kidney disease, or unspecified chronic kidney disease; G47.33 Obstructive sleep apnea (adult) (pediatric); E78.5 Hyperlipidemia, unspecified; Z79.899 Other long term (current) drug therapy; Z79.01 Long term (current) use of anticoagulants; E66.01 Morbid (severe) obesity due to excess calories; E11.9 Type 2 diabetes mellitus without complications; N18.3 Chronic kidney disease, stage 3 (moderate)

== ENCOUNTER 2018-04-03 16:33 | Inpatient (IN) | payer OTHER ==
[2018-04-03] MEDS: IPRATROPIUM 0.5MG/ALBUTEROL 2.5MG INH SOL UD 3ML (DUONEB)(J7620) NEB ×4 (17:37→23:19)
[2018-04-03] MEDS: ALBUTEROL SULFATE 2.5 MG/0.5 ML INH NEB SOLN INH ×2 (17:37→18:41)
[2018-04-03 17:38] LABS: ABG BASE EXCESS 7.1 (-2.0-2.0); ABG HCO3 35.1 MEQ/L (22.0-26.0); ABG O2 SATURATION 96.7 % (95.0-99.0); ABG PARTIAL PRESSURE CO2 68.8 mmHg (35.0-45.0); ABG PARTIAL PRESSURE O2 91.6 mmHg (75.0-100.0); ABG STANDARD HCO3 30.9 MEQ/L (22.0-26.0); ABG TOTAL CO2 37.2 MEQ/L (23.0-31.0); ABG pH (ARTERIAL) 7.326 UNITS (7.350-7.450)
[2018-04-03 18:02] LABS: BASO % 0.4 % (0.0-1.0); EOS % 0.1 % (0.0-3.0); HEMOGLOBIN 11.2 g/dl (12.0-15.5); IMMATURE GRANULOCYTE % 3.3 % (0-3.0); LYMPH # 0.5 10^3/uL (1.5-4.5); LYMPH % 4.4 % (24.0-44.0); MEAN CORPUSCULAR HEMOGLOBIN 29.3 pg (27.0-33.0); MEAN CORPUSCULAR HGB CONC 29.5 g/dl (32.0-36.5); MEAN CORPUSCULAR VOLUME 99.5 fl (80.0-96.0); MONO # 0.2 10^3/uL (0.0-0.8); MONO % 1.7 % (0.0-5.0); NEUTROPHILS # 9.4 10^3/uL (1.8-7.7); NEUTROPHILS % 90.1 % (36.0-66.0); PLATELET COUNT, AUTOMATED 189 10^3/uL (150-450); RED BLOOD COUNT 3.82 10^6/uL (4.00-5.40); RED CELL DISTRIBUTION WIDTH 15.4 % (11.5-14.5); WHITE BLOOD COUNT 10.5 10^3/uL (4.0-10.0)
[2018-04-03] MEDS: methylPREDNISolone INJ 125 MG/2 ML VIAL (J2930) IV (18:07)
[2018-04-03 18:29] LABS: ALBUMIN 3.1 GM/DL (3.2-5.2); ALBUMIN/GLOBULIN RATIO 0.78 (1.00-1.93); ALKALINE PHOSPHATASE 114 U/L (45-117); ALT/SGPT 37 U/L (12-78); ANION GAP 5 MEQ/L (8-16); AST/SGOT 13 U/L (7-37); BILIRUBIN,DIRECT < 0.1 MG/DL (0.0-0.2); BILIRUBIN,TOTAL 0.1 MG/DL (0.2-1.0); BLOOD UREA NITROGEN 22 MG/DL (7-18); CALCIUM LEVEL 8.8 MG/DL (8.8-10.2); CARBON DIOXIDE LEVEL 38 MEQ/L (21-32); CHLORIDE LEVEL 104 MEQ/L (98-107); CPK CREATINE PHOSPHOKINASE 40 U/L (26-192); CREATININE FOR GFR 1.24 MG/DL (0.55-1.30); GLOMERULAR FILTRATION RATE 45.1 (>39); GLUCOSE, FASTING 281 MG/DL (70-100); POTASSIUM SERUM 3.8 MEQ/L (3.5-5.1); SODIUM LEVEL 147 MEQ/L (136-145); THYROXINE (T4) 8.5 UG/DL (4.5-12.0); TOTAL PROTEIN 7.1 GM/DL (6.4-8.2); TROPONIN I < 0.02 NG/ML (< 0.10)
[2018-04-03 18:33] LABS: PROTHROMBIN TIME 12.2 SECONDS (12.1-14.4)
[2018-04-03 18:36] LABS: CK-MB VALUE MASS 2.3 NG/ML (<3.6); MB/CK RELATIVE INDEX 5.75 (< OR =4); NT-PRO BNP 170 PG/ML (<125); THYROID STIMULATING HORMONE 0.357 uIU/ML (0.358-3.740)
[2018-04-03] MEDS: NS 500 ML IV (18:50)
[2018-04-03] MEDS ORDERED: GLUCAGON FOR INJ 1 MG VIAL (J1610) SC (19:45)
[2018-04-03] MEDS ORDERED: DEXTROSE 50% 50 ML SYRINGE IV (19:45)
[2018-04-03] MEDS ORDERED: GLUCOSE 4 GM CHEW TABLET PO (19:45)
[2018-04-03] MEDS ORDERED: NS 0.45% 250 ML IV (20:00)
[2018-04-03] MEDS: SYMBICORT 80/4.5MCG INHALER 6GM INH (22:56)
[2018-04-03] MEDS: DOCUSATE SODIUM 100 MG CAP PO (23:23)
[2018-04-03] MEDS: ALPRAZolam 0.25 MG TAB PO (23:24)
[2018-04-03] MEDS: BACLOFEN 10 MG TAB PO (23:24)
[2018-04-03] MEDS: ACETAMINOPHEN TAB 650MG DOSE (2X325MG) PO (23:24)
[2018-04-03] MEDS: GABAPENTIN 300 MG CAP PO (23:24)
[2018-04-03] MEDS: AZITHROMYCIN 250 MG TAB PO (23:24)
[2018-04-03] MEDS: NS 0.45% 500 ML IV (23:25)
[2018-04-04] MEDS ORDERED: IPRATROPIUM 0.5MG/ALBUTEROL 2.5MG INH SOL UD 3ML (DUONEB)(J7620) NEB (01:00)
[2018-04-04] MEDS: methylPREDNISolone INJ 40 MG/1 ML VIAL (J2920) IV (05:23)
[2018-04-04] MEDS: IPRATROPIUM 0.5MG/ALBUTEROL 2.5MG INH SOL UD 3ML (DUONEB)(J7620) NEB ×2 (05:49→07:29)
[2018-04-04 06:44] LABS: HEMATOCRIT 36.6 % (36.0-47.0); HEMOGLOBIN 10.7 g/dl (12.0-15.5); MEAN CORPUSCULAR HEMOGLOBIN 28.8 pg (27.0-33.0); MEAN CORPUSCULAR HGB CONC 29.2 g/dl (32.0-36.5); MEAN CORPUSCULAR VOLUME 98.7 fl (80.0-96.0); PLATELET COUNT, AUTOMATED 196 10^3/uL (150-450); RED BLOOD COUNT 3.71 10^6/uL (4.00-5.40); RED CELL DISTRIBUTION WIDTH 15.5 % (11.5-14.5); WHITE BLOOD COUNT 12.4 10^3/uL (4.0-10.0)
[2018-04-04 07:05] LABS: ANION GAP 5 MEQ/L (8-16); BLOOD UREA NITROGEN 17 MG/DL (7-18); CALCIUM LEVEL 8.5 MG/DL (8.8-10.2); CARBON DIOXIDE LEVEL 35 MEQ/L (21-32); CHLORIDE LEVEL 107 MEQ/L (98-107); CREATININE FOR GFR 1.11 MG/DL (0.55-1.30); GLOMERULAR FILTRATION RATE 51.3 (>39); GLUCOSE, FASTING 278 MG/DL (70-100); POTASSIUM SERUM 4.3 MEQ/L (3.5-5.1); SODIUM LEVEL 147 MEQ/L (136-145)
[2018-04-04] MEDS: SYMBICORT 80/4.5MCG INHALER 6GM INH ×2 (07:27→21:13)
[2018-04-04] MEDS: LEVALBUTEROL 1.25 MG/0.5 ML CONCENTRATE NEB NEB (08:56)
[2018-04-04] MEDS: methylPREDNISolone INJ 125 MG/2 ML VIAL (J2930) IV ×3 (08:57→20:49)
[2018-04-04] MEDS: BACLOFEN 10 MG TAB PO ×2 (08:58→20:49)
[2018-04-04] MEDS: ENOXAPARIN 40 MG/0.4 ML SYRINGE (J1650) SC (08:58)
[2018-04-04] MEDS: HumaLOG INSULIN (NovoLOG) PER UNIT SC ×3 (08:58→17:10)
[2018-04-04] MEDS: ALPRAZolam 0.25 MG TAB PO ×2 (08:58→20:49)
[2018-04-04] MEDS: ATORVASTATIN 20 MG TAB PO (08:58)
[2018-04-04] MEDS ORDERED: TORSEMIDE 20 MG TAB PO (09:00)
[2018-04-04] MEDS: FUROSEMIDE 40 MG/4 ML VIAL (J1940) IV (09:09)
[2018-04-04] MEDS: LEVALBUTEROL 1.25 MG/0.5 ML CONCENTRATE NEB INH ×4 (11:12→21:14)
[2018-04-04 12:34] LABS: BEDSIDE GLUCOSE 314 MG/DL (83-110)
[2018-04-04 16:39] LABS: BEDSIDE GLUCOSE 340 MG/DL (83-110)
[2018-04-04] MEDS: AZITHROMYCIN 250 MG TAB PO (20:49)
[2018-04-04] MEDS: GABAPENTIN 300 MG CAP PO (20:49)
[2018-04-04] MEDS: DOCUSATE SODIUM 100 MG CAP PO (20:49)
[2018-04-05] MEDS: methylPREDNISolone INJ 125 MG/2 ML VIAL (J2930) IV ×4 (03:55→20:58)
[2018-04-05 06:49] LABS: HEMATOCRIT 38.3 % (36.0-47.0); HEMOGLOBIN 11.1 g/dl (12.0-15.5); MEAN CORPUSCULAR HEMOGLOBIN 28.8 pg (27.0-33.0); MEAN CORPUSCULAR VOLUME 99.5 fl (80.0-96.0); PLATELET COUNT, AUTOMATED 210 10^3/uL (150-450); RED BLOOD COUNT 3.85 10^6/uL (4.00-5.40); RED CELL DISTRIBUTION WIDTH 15.8 % (11.5-14.5); WHITE BLOOD COUNT 15.3 10^3/uL (4.0-10.0)
[2018-04-05 07:05] LABS: ANION GAP 5 MEQ/L (8-16); BLOOD UREA NITROGEN 29 MG/DL (7-18); CALCIUM LEVEL 9.2 MG/DL (8.8-10.2); CARBON DIOXIDE LEVEL 36 MEQ/L (21-32); CHLORIDE LEVEL 105 MEQ/L (98-107); CREATININE FOR GFR 1.22 MG/DL (0.55-1.30); GLUCOSE, FASTING 250 MG/DL (70-100); POTASSIUM SERUM 4.4 MEQ/L (3.5-5.1); SODIUM LEVEL 146 MEQ/L (136-145)
[2018-04-05] MEDS: SYMBICORT 80/4.5MCG INHALER 6GM INH ×2 (07:19→21:27)
[2018-04-05] MEDS: LEVALBUTEROL 1.25 MG/0.5 ML CONCENTRATE NEB INH ×6 (07:20→23:35)
[2018-04-05] MEDS: ATORVASTATIN 20 MG TAB PO (07:37)
[2018-04-05] MEDS: BACLOFEN 10 MG TAB PO ×2 (07:38→20:59)
[2018-04-05] MEDS: ACETAMINOPHEN TAB 650MG DOSE (2X325MG) PO ×2 (07:38→21:02)
[2018-04-05] MEDS: ALPRAZolam 0.25 MG TAB PO ×2 (07:38→21:02)
[2018-04-05] MEDS: ENOXAPARIN 40 MG/0.4 ML SYRINGE (J1650) SC (07:39)
[2018-04-05] MEDS: HumaLOG INSULIN (NovoLOG) PER UNIT SC ×3 (07:45→17:58)
[2018-04-05 11:38] LABS: BEDSIDE GLUCOSE 348 MG/DL (83-110)
[2018-04-05 17:12] LABS: BEDSIDE GLUCOSE 311 MG/DL (83-110)
[2018-04-05] MEDS ORDERED: MOM 30ML SUSPENSION UDC PO (18:00)
[2018-04-05 20:58] LABS: BEDSIDE GLUCOSE 319 MG/DL (83-110)
[2018-04-05] MEDS: GABAPENTIN 300 MG CAP PO (20:58)
[2018-04-05] MEDS: AZITHROMYCIN 250 MG TAB PO (20:59)
[2018-04-05] MEDS: SENNA 8.6 MG TAB (SENOKOT) PO (20:59)
[2018-04-05] MEDS: DOCUSATE SODIUM 100 MG CAP PO (21:00)
[2018-04-06] MEDS: methylPREDNISolone INJ 125 MG/2 ML VIAL (J2930) IV ×2 (03:37→09:19)
[2018-04-06] MEDS: LEVALBUTEROL 1.25 MG/0.5 ML CONCENTRATE NEB INH ×5 (04:09→21:30)
[2018-04-06 07:42] LABS: HEMOGLOBIN 10.9 g/dl (12.0-15.5); MEAN CORPUSCULAR HEMOGLOBIN 29.2 pg (27.0-33.0); MEAN CORPUSCULAR HGB CONC 29.5 g/dl (32.0-36.5); MEAN CORPUSCULAR VOLUME 99.2 fl (80.0-96.0); PLATELET COUNT, AUTOMATED 181 10^3/uL (150-450); RED BLOOD COUNT 3.73 10^6/uL (4.00-5.40); RED CELL DISTRIBUTION WIDTH 15.8 % (11.5-14.5); WHITE BLOOD COUNT 15.4 10^3/uL (4.0-10.0)
[2018-04-06] MEDS: SYMBICORT 80/4.5MCG INHALER 6GM INH ×3 (07:50→20:00)
[2018-04-06 08:11] LABS: ANION GAP 1 MEQ/L (8-16); BLOOD UREA NITROGEN 37 MG/DL (7-18); CALCIUM LEVEL 9.1 MG/DL (8.8-10.2); CARBON DIOXIDE LEVEL 39 MEQ/L (21-32); CHLORIDE LEVEL 106 MEQ/L (98-107); CREATININE FOR GFR 1.14 MG/DL (0.55-1.30); GLOMERULAR FILTRATION RATE 49.7 (>39); GLUCOSE, FASTING 266 MG/DL (70-100); SODIUM LEVEL 146 MEQ/L (136-145)
[2018-04-06 08:14] LABS: POTASSIUM SERUM 5.5 MEQ/L (3.5-5.1)
[2018-04-06] MEDS: HumaLOG INSULIN (NovoLOG) PER UNIT SC ×3 (09:16→17:06)
[2018-04-06] MEDS: SENNA 8.6 MG TAB (SENOKOT) PO ×2 (09:17→20:20)
[2018-04-06] MEDS: BACLOFEN 10 MG TAB PO ×2 (09:17→20:19)
[2018-04-06] MEDS: ATORVASTATIN 20 MG TAB PO (09:17)
[2018-04-06] MEDS: ENOXAPARIN 40 MG/0.4 ML SYRINGE (J1650) SC (09:18)
[2018-04-06] MEDS: ACETAMINOPHEN TAB 650MG DOSE (2X325MG) PO ×2 (10:28→20:20)
[2018-04-06 11:58] LABS: BEDSIDE GLUCOSE 294 MG/DL (83-110)
[2018-04-06] MEDS: predniSONE 20 MG TAB PO (12:16)
[2018-04-06 16:34] LABS: BEDSIDE GLUCOSE 305 MG/DL (83-110)
[2018-04-06] MEDS: SOD POLYSTYRENE SULFONATE SUSP 15 GM/60 ML UD PO (19:16)
[2018-04-06] MEDS: CALCIUM GLUCONATE 1,000 MG in D5W MINI-BAG PLUS 100 ML IV (19:16)
[2018-04-06] MEDS: DOCUSATE SODIUM 100 MG CAP PO (20:19)
[2018-04-06] MEDS: AZITHROMYCIN 250 MG TAB PO (20:20)
[2018-04-06] MEDS: ALPRAZolam 0.25 MG TAB PO (20:21)
[2018-04-06] MEDS: GABAPENTIN 300 MG CAP PO (20:21)
[2018-04-06 20:32] LABS: BEDSIDE GLUCOSE 354 MG/DL (83-110)
[2018-04-07] MEDS: LEVALBUTEROL 1.25 MG/0.5 ML CONCENTRATE NEB INH ×6 (03:53→21:28)
[2018-04-07 07:03] LABS: HEMATOCRIT 36.7 % (36.0-47.0); HEMOGLOBIN 10.9 g/dl (12.0-15.5); MEAN CORPUSCULAR HEMOGLOBIN 29.3 pg (27.0-33.0); MEAN CORPUSCULAR HGB CONC 29.7 g/dl (32.0-36.5); MEAN CORPUSCULAR VOLUME 98.7 fl (80.0-96.0); PLATELET COUNT, AUTOMATED 157 10^3/uL (150-450); RED BLOOD COUNT 3.72 10^6/uL (4.00-5.40); RED CELL DISTRIBUTION WIDTH 15.6 % (11.5-14.5); WHITE BLOOD COUNT 12.5 10^3/uL (4.0-10.0)
[2018-04-07 07:26] LABS: ANION GAP 2 MEQ/L (8-16); BLOOD UREA NITROGEN 34 MG/DL (7-18); CALCIUM LEVEL 9.4 MG/DL (8.8-10.2); CARBON DIOXIDE LEVEL 42 MEQ/L (21-32); CHLORIDE LEVEL 106 MEQ/L (98-107); CREATININE FOR GFR 0.97 MG/DL (0.55-1.30); GLOMERULAR FILTRATION RATE 59.9 (>39); GLUCOSE, FASTING 129 MG/DL (70-100); POTASSIUM SERUM 4.6 MEQ/L (3.5-5.1); SODIUM LEVEL 150 MEQ/L (136-145)
[2018-04-07] MEDS: SYMBICORT 80/4.5MCG INHALER 6GM INH ×2 (07:42→21:42)
[2018-04-07] MEDS: HumaLOG INSULIN (NovoLOG) PER UNIT SC ×4 (08:39→23:36)
[2018-04-07] MEDS: ENOXAPARIN 40 MG/0.4 ML SYRINGE (J1650) SC (08:39)
[2018-04-07] MEDS: SENNA 8.6 MG TAB (SENOKOT) PO ×2 (08:40→21:00)
[2018-04-07] MEDS: BACLOFEN 10 MG TAB PO ×2 (08:40→21:25)
[2018-04-07] MEDS: ATORVASTATIN 20 MG TAB PO (08:40)
[2018-04-07] MEDS: predniSONE 20 MG TAB PO (08:40)
[2018-04-07] MEDS: ACETAMINOPHEN TAB 650MG DOSE (2X325MG) PO (08:51)
[2018-04-07 11:34] LABS: BEDSIDE GLUCOSE 174 MG/DL (83-110)
[2018-04-07 12:04] LABS: OSMOLALITY URINE 704 MOSM/KG (500-800)
[2018-04-07 14:25] LABS: ANION GAP 3 MEQ/L (8-16); BLOOD UREA NITROGEN 31 MG/DL (7-18); CALCIUM LEVEL 8.8 MG/DL (8.8-10.2); CARBON DIOXIDE LEVEL 39 MEQ/L (21-32); CHLORIDE LEVEL 102 MEQ/L (98-107); CREATININE FOR GFR 1.16 MG/DL (0.55-1.30); GLOMERULAR FILTRATION RATE 48.8 (>39); GLUCOSE, FASTING 306 MG/DL (70-100); POTASSIUM SERUM 4.5 MEQ/L (3.5-5.1); SODIUM LEVEL 144 MEQ/L (136-145)
[2018-04-07 16:48] LABS: BEDSIDE GLUCOSE 354 MG/DL (83-110)
[2018-04-07 20:38] LABS: BEDSIDE GLUCOSE 288 MG/DL (83-110)
[2018-04-07] MEDS: DOCUSATE SODIUM 100 MG CAP PO (21:00)
[2018-04-07] MEDS: AZITHROMYCIN 250 MG TAB PO (21:24)
[2018-04-07] MEDS: GABAPENTIN 300 MG CAP PO (21:25)
[2018-04-08] MEDS: LEVALBUTEROL 1.25 MG/0.5 ML CONCENTRATE NEB INH ×6 (04:00→21:13)
[2018-04-08 07:01] LABS: HEMATOCRIT 39.5 % (36.0-47.0); HEMOGLOBIN 11.4 g/dl (12.0-15.5); MEAN CORPUSCULAR HEMOGLOBIN 28.8 pg (27.0-33.0); MEAN CORPUSCULAR HGB CONC 28.9 g/dl (32.0-36.5); MEAN CORPUSCULAR VOLUME 99.7 fl (80.0-96.0); PLATELET COUNT, AUTOMATED 155 10^3/uL (150-450); RED BLOOD COUNT 3.96 10^6/uL (4.00-5.40); RED CELL DISTRIBUTION WIDTH 15.8 % (11.5-14.5); WHITE BLOOD COUNT 11.6 10^3/uL (4.0-10.0)
[2018-04-08 07:08] LABS: ANION GAP 0 MEQ/L (8-16); BLOOD UREA NITROGEN 24 MG/DL (7-18); CALCIUM LEVEL 9.1 MG/DL (8.8-10.2); CARBON DIOXIDE LEVEL 45 MEQ/L (21-32); CHLORIDE LEVEL 105 MEQ/L (98-107); CREATININE FOR GFR 0.97 MG/DL (0.55-1.30); GLOMERULAR FILTRATION RATE 59.9 (>39); GLUCOSE, FASTING 97 MG/DL (70-100); SODIUM LEVEL 150 MEQ/L (136-145)
[2018-04-08] MEDS: HumaLOG INSULIN (NovoLOG) PER UNIT SC ×5 (07:30→21:00)
[2018-04-08] MEDS: SYMBICORT 80/4.5MCG INHALER 6GM INH ×2 (08:22→21:13)
[2018-04-08] MEDS: ENOXAPARIN 40 MG/0.4 ML SYRINGE (J1650) SC (08:37)
[2018-04-08] MEDS: D5W 1,000 ML IV ×2 (08:43→15:45)
[2018-04-08] MEDS: BACLOFEN 10 MG TAB PO ×2 (08:44→21:04)
[2018-04-08] MEDS: TORSEMIDE 20 MG TAB PO (08:44)
[2018-04-08] MEDS: SENNA 8.6 MG TAB (SENOKOT) PO ×2 (08:44→21:00)
[2018-04-08] MEDS: ATORVASTATIN 20 MG TAB PO (08:44)
[2018-04-08] MEDS: predniSONE 10 MG TAB PO (08:45)
[2018-04-08] MEDS: ACETAMINOPHEN TAB 650MG DOSE (2X325MG) PO ×2 (08:48→18:19)
[2018-04-08 12:05] LABS: BEDSIDE GLUCOSE 278 MG/DL (83-110)
[2018-04-08 14:54] LABS: ANION GAP 5 MEQ/L (8-16); BLOOD UREA NITROGEN 26 MG/DL (7-18); CALCIUM LEVEL 8.4 MG/DL (8.8-10.2); CARBON DIOXIDE LEVEL 42 MEQ/L (21-32); CHLORIDE LEVEL 95 MEQ/L (98-107); CREATININE FOR GFR 1.15 MG/DL (0.55-1.30); GLOMERULAR FILTRATION RATE 49.2 (>39); POTASSIUM SERUM 4.5 MEQ/L (3.5-5.1); SODIUM LEVEL 142 MEQ/L (136-145)
[2018-04-08 15:24] LABS: GLUCOSE, FASTING 444 MG/DL (70-100)
[2018-04-08 18:17] LABS: BEDSIDE GLUCOSE 315 MG/DL (83-110)
[2018-04-08 20:45] LABS: BEDSIDE GLUCOSE 246 MG/DL (83-110)
[2018-04-08] MEDS: DOCUSATE SODIUM 100 MG CAP PO (21:00)
[2018-04-08] MEDS: AZITHROMYCIN 250 MG TAB PO (21:03)
[2018-04-08] MEDS: GABAPENTIN 300 MG CAP PO (21:04)
[2018-04-08 23:20] LABS: BEDSIDE GLUCOSE 154 MG/DL (83-110)
[2018-04-09] MEDS: LEVALBUTEROL 1.25 MG/0.5 ML CONCENTRATE NEB INH ×3 (03:25→07:56)
[2018-04-09 06:48] LABS: HEMATOCRIT 36.2 % (36.0-47.0); HEMOGLOBIN 10.9 g/dl (12.0-15.5); MEAN CORPUSCULAR HEMOGLOBIN 29.4 pg (27.0-33.0); MEAN CORPUSCULAR HGB CONC 30.1 g/dl (32.0-36.5); MEAN CORPUSCULAR VOLUME 97.6 fl (80.0-96.0); PLATELET COUNT, AUTOMATED 129 10^3/uL (150-450); RED BLOOD COUNT 3.71 10^6/uL (4.00-5.40); RED CELL DISTRIBUTION WIDTH 15.8 % (11.5-14.5); WHITE BLOOD COUNT 9.7 10^3/uL (4.0-10.0)
[2018-04-09 07:07] LABS: BLOOD UREA NITROGEN 19 MG/DL (7-18); CALCIUM LEVEL 8.6 MG/DL (8.8-10.2); CHLORIDE LEVEL 98 MEQ/L (98-107); CREATININE FOR GFR 0.81 MG/DL (0.55-1.30); GLOMERULAR FILTRATION RATE > 60.0 (>39); GLUCOSE, FASTING 114 MG/DL (70-100); POTASSIUM SERUM 3.7 MEQ/L (3.5-5.1); SODIUM LEVEL 146 MEQ/L (136-145)
[2018-04-09 07:08] LABS: ESTIMATED AVERAGE GLUCOSE 186 MG/DL (60-110); HEMOGLOBIN A1c 8.1 %
[2018-04-09 07:23] LABS: CARBON DIOXIDE LEVEL 50 MEQ/L (21-32)
[2018-04-09] MEDS: SYMBICORT 80/4.5MCG INHALER 6GM INH (07:56)
[2018-04-09] MEDS: predniSONE 10 MG TAB PO (08:52)
[2018-04-09] MEDS: ATORVASTATIN 20 MG TAB PO (08:52)
[2018-04-09] MEDS: BACLOFEN 10 MG TAB PO (08:52)
[2018-04-09] MEDS: HumaLOG INSULIN (NovoLOG) PER UNIT SC (08:53)
[2018-04-09] MEDS: ENOXAPARIN 40 MG/0.4 ML SYRINGE (J1650) SC (08:53)
[2018-04-09] MEDS: TORSEMIDE 20 MG TAB PO (08:53)
[2018-04-09] MEDS: SENNA 8.6 MG TAB (SENOKOT) PO (08:54)
== END 2018-04-09 11:35 | disposition home or self-care (01) | DRG 190 ==
LOC: M ED 16:33 → M ED INP 19:48 → M MS5PR 22:40
DX: J44.1 Chronic obstructive pulmonary disease with (acute) exacerbation (principal); J96.22 Acute and chronic respiratory failure with hypercapnia; I50.30 Unspecified diastolic (congestive) heart failure; E87.0 Hyperosmolality and hypernatremia; I50.810 Right heart failure, unspecified; G47.33 Obstructive sleep apnea (adult) (pediatric); T38.0X5A Adverse effect of glucocorticoids and synthetic analogues, initial encounter; E11.65 Type 2 diabetes mellitus with hyperglycemia; I27.20 Pulmonary hypertension, unspecified; E78.5 Hyperlipidemia, unspecified; N18.2 Chronic kidney disease, stage 2 (mild); Z90.710 Acquired absence of both cervix and uterus; Z79.52 Long term (current) use of systemic steroids; Z79.899 Other long term (current) drug therapy; Z88.8 Allergy status to other drugs, medicaments and biological substances; Z87.891 Personal history of nicotine dependence; Z99.81 Dependence on supplemental oxygen

== ENCOUNTER 2018-04-12 08:10 | Inpatient (IN) | payer OTHER ==
[2018-04-12] MEDS: methylPREDNISolone INJ 125 MG/2 ML VIAL (J2930) IV (09:00)
[2018-04-12] MEDS ORDERED: ATORVASTATIN 20 MG TAB PO (09:00)
[2018-04-12] MEDS: IPRATROPIUM 0.5MG/ALBUTEROL 2.5MG INH SOL UD 3ML (DUONEB)(J7620) NEB ×6 (09:11→23:16)
[2018-04-12 09:15] LABS: ABG BASE EXCESS 11.3 (-2.0-2.0); ABG O2 SATURATION 95.9 % (95.0-99.0); ABG PARTIAL PRESSURE O2 86.1 mmHg (75.0-100.0); ABG TOTAL CO2 42.4 MEQ/L (23.0-31.0)
[2018-04-12 09:17] LABS: BASO # 0.1 10^3/uL (0.0-0.2); BASO % 0.6 % (0.0-1.0); EOS # 0.1 10^3/uL (0.0-0.50); EOS % 0.6 % (0.0-3.0); HEMATOCRIT 37.6 % (36.0-47.0); HEMOGLOBIN 10.9 g/dl (12.0-15.5); LYMPH # 1.9 10^3/uL (1.5-4.5); LYMPH % 15.1 % (24.0-44.0); MEAN CORPUSCULAR HEMOGLOBIN 29.1 pg (27.0-33.0); MEAN CORPUSCULAR VOLUME 100.3 fl (80.0-96.0); MONO # 0.9 10^3/uL (0.0-0.8); MONO % 7.2 % (0.0-5.0); NEUTROPHILS % 72.5 % (36.0-66.0); PLATELET COUNT, AUTOMATED 149 10^3/uL (150-450); RED BLOOD COUNT 3.75 10^6/uL (4.00-5.40); RED CELL DISTRIBUTION WIDTH 16.2 % (11.5-14.5); WHITE BLOOD COUNT 12.4 10^3/uL (4.0-10.0)
[2018-04-12 09:24] LABS: ABG PARTIAL PRESSURE CO2 77.6 mmHg (35.0-45.0)
[2018-04-12 09:27] LABS: PROTHROMBIN TIME 11.1 SECONDS (12.1-14.4)
[2018-04-12 09:28] LABS: PARTIAL THROMBOPLASTIN TIME 32.8 SECONDS (25.4-37.6)
[2018-04-12 09:40] LABS: ALBUMIN 2.9 GM/DL (3.2-5.2); ALBUMIN/GLOBULIN RATIO 0.88 (1.00-1.93); ALT/SGPT 48 U/L (12-78); ANION GAP 3 MEQ/L (8-16); AST/SGOT 13 U/L (7-37); BILIRUBIN,DIRECT < 0.1 MG/DL (0.0-0.2); BILIRUBIN,TOTAL 0.2 MG/DL (0.2-1.0); BLOOD UREA NITROGEN 18 MG/DL (7-18); CALCIUM LEVEL 8.2 MG/DL (8.8-10.2); CARBON DIOXIDE LEVEL 41 MEQ/L (21-32); CHLORIDE LEVEL 103 MEQ/L (98-107); CPK CREATINE PHOSPHOKINASE 30 U/L (26-192); CREATININE FOR GFR 0.97 MG/DL (0.55-1.30); GLOMERULAR FILTRATION RATE 59.9 (>39); GLUCOSE, FASTING 75 MG/DL (70-100); MAGNESIUM LEVEL 2.3 MG/DL (1.8-2.4); PHOSPHORUS LEVEL 2.8 MG/DL (2.5-4.9); POTASSIUM SERUM 3.7 MEQ/L (3.5-5.1); SODIUM LEVEL 147 MEQ/L (136-145); TOTAL PROTEIN 6.2 GM/DL (6.4-8.2); TROPONIN I < 0.02 NG/ML (< 0.10)
[2018-04-12 09:45] LABS: ALKALINE PHOSPHATASE 85 U/L (45-117); CK-MB VALUE MASS 2.1 NG/ML (<3.6); FREE T4 1.04 NG/DL (0.76-1.46); NT-PRO BNP 204 PG/ML (<125)
[2018-04-12] MEDS ORDERED: ONDANSETRON 4MG/2ML VIAL (J2405) IV (12:45)
[2018-04-12] MEDS ORDERED: BISACODYL 5 MG TAB PO (12:45)
[2018-04-12] MEDS ORDERED: ALBUTEROL SULFATE 2.5 MG/0.5 ML INH NEB SOLN NEB (13:00)
[2018-04-12] MEDS ORDERED: GLUCOSE 4 GM CHEW TABLET PO (13:30)
[2018-04-12] MEDS ORDERED: GLUCAGON FOR INJ 1 MG VIAL (J1610) SC (13:30)
[2018-04-12] MEDS ORDERED: DEXTROSE 50% 50 ML SYRINGE IV (13:30)
[2018-04-12] MEDS: MIRALAX *UNIT DOSE* 17GM PACKET PO (15:08)
[2018-04-12] MEDS: FUROSEMIDE 40 MG/4 ML VIAL (J1940) IV (15:08)
[2018-04-12] MEDS: SITagliptin 50 MG TAB (JANUVIA) PO (16:06)
[2018-04-12] MEDS: GABAPENTIN 300 MG CAP PO ×2 (16:06→20:22)
[2018-04-12 17:00] LABS: BEDSIDE GLUCOSE 446 MG/DL (83-110)
[2018-04-12] MEDS: PANTOPRAZOLE 40MG INJ (PROTONIX) (C9113) IV (17:25)
[2018-04-12] MEDS: HumaLOG INSULIN (NovoLOG) PER UNIT SC ×2 (17:25→20:32)
[2018-04-12] MEDS: methylPREDNISolone INJ 40 MG/1 ML VIAL (J2920) IV (17:25)
[2018-04-12 17:32] LABS: ABG BASE EXCESS 7.8 (-2.0-2.0); ABG HCO3 35.1 MEQ/L (22.0-26.0); ABG O2 SATURATION 97.6 % (95.0-99.0); ABG PARTIAL PRESSURE O2 95.9 mmHg (75.0-100.0); ABG STANDARD HCO3 31.6 MEQ/L (22.0-26.0); ABG pH (ARTERIAL) 7.365 UNITS (7.350-7.450)
[2018-04-12 17:37] LABS: ABG PARTIAL PRESSURE CO2 62.8 mmHg (35.0-45.0)
[2018-04-12] MEDS: BUDESONIDE 0.5 MG/2 ML INHALATION SUSPENSION INH (19:48)
[2018-04-12] MEDS: FORMOTEROL FUMARATE 20 MCG/2 ML INHALATION SOLUTION (PERFOROMIST) INH (19:48)
[2018-04-12 20:14] LABS: BEDSIDE GLUCOSE 313 MG/DL (83-110)
[2018-04-12] MEDS: SENOKOT S TAB PO (20:22)
[2018-04-12] MEDS: BACLOFEN 10 MG TAB PO (20:22)
[2018-04-12] MEDS: ENOXAPARIN 40 MG/0.4 ML SYRINGE (J1650) SC (20:22)
[2018-04-12] MEDS: ACETAMINOPHEN TAB 650MG DOSE (2X325MG) PO (20:23)
[2018-04-12] MEDS: LEVEMIR (INSULIN DETEMIR) 1 UNITS/0.01ML SC (20:34)
[2018-04-12] MEDS: ALPRAZolam 0.25 MG TAB PO (20:43)
[2018-04-13] MEDS: methylPREDNISolone INJ 40 MG/1 ML VIAL (J2920) IV ×2 (00:13→08:35)
[2018-04-13] MEDS: IPRATROPIUM 0.5MG/ALBUTEROL 2.5MG INH SOL UD 3ML (DUONEB)(J7620) NEB ×6 (03:43→22:37)
[2018-04-13 05:24] LABS: ABG BASE EXCESS 11.6 (-2.0-2.0); ABG HCO3 41.1 MEQ/L (22.0-26.0); ABG O2 SATURATION 90.5 % (95.0-99.0); ABG PARTIAL PRESSURE O2 59.6 mmHg (75.0-100.0); ABG STANDARD HCO3 35.2 MEQ/L (22.0-26.0); ABG TOTAL CO2 43.7 MEQ/L (23.0-31.0); ABG pH (ARTERIAL) 7.301 UNITS (7.350-7.450)
[2018-04-13 05:25] LABS: ABG PARTIAL PRESSURE CO2 85.3 mmHg (35.0-45.0)
[2018-04-13 05:55] LABS: HEMATOCRIT 34.9 % (36.0-47.0); HEMOGLOBIN 10.5 g/dl (12.0-15.5); MEAN CORPUSCULAR HEMOGLOBIN 29.3 pg (27.0-33.0); MEAN CORPUSCULAR HGB CONC 30.1 g/dl (32.0-36.5); MEAN CORPUSCULAR VOLUME 97.5 fl (80.0-96.0); PLATELET COUNT, AUTOMATED 148 10^3/uL (150-450); RED BLOOD COUNT 3.58 10^6/uL (4.00-5.40); RED CELL DISTRIBUTION WIDTH 15.9 % (11.5-14.5); WHITE BLOOD COUNT 8.6 10^3/uL (4.0-10.0)
[2018-04-13 05:56] LABS: ADD MANUAL DIFFER YES; DIFF SLIDE NUMBER 70; POS COUNT POS FLAG; POSITIVE MORPH POS FLAG
[2018-04-13 06:14] LABS: ANION GAP 3 MEQ/L (8-16); BLOOD UREA NITROGEN 16 MG/DL (7-18); CALCIUM LEVEL 8.1 MG/DL (8.8-10.2); CARBON DIOXIDE LEVEL 39 MEQ/L (21-32); CHLORIDE LEVEL 100 MEQ/L (98-107); CREATININE FOR GFR 0.87 MG/DL (0.55-1.30); GLOMERULAR FILTRATION RATE > 60.0 (>39); GLUCOSE, FASTING 199 MG/DL (70-100); POTASSIUM SERUM 4.4 MEQ/L (3.5-5.1); SODIUM LEVEL 142 MEQ/L (136-145)
[2018-04-13] MEDS: BUDESONIDE 0.5 MG/2 ML INHALATION SUSPENSION INH ×2 (07:02→19:30)
[2018-04-13 07:26] LABS: ANISOCYTOSIS 1+; BANDS 4 % (< 11); LYMPHOCYTES 4 % (16-52); MONOCYTES 3 % (0-8); MYELOCYTES 2 % (0-0); NEUTROPHILS 87 % (35-75); PLATELET ESTIMATE NORMAL (NORMAL)
[2018-04-13 08:26] LABS: BEDSIDE GLUCOSE 202 MG/DL (83-110)
[2018-04-13] MEDS: SITagliptin 50 MG TAB (JANUVIA) PO (08:33)
[2018-04-13] MEDS: GABAPENTIN 300 MG CAP PO ×3 (08:33→21:20)
[2018-04-13] MEDS: MIRALAX *UNIT DOSE* 17GM PACKET PO (08:34)
[2018-04-13] MEDS: SENOKOT S TAB PO ×2 (08:34→21:20)
[2018-04-13] MEDS: FUROSEMIDE 40 MG/4 ML VIAL (J1940) IV (08:34)
[2018-04-13] MEDS: BACLOFEN 10 MG TAB PO ×2 (08:34→21:20)
[2018-04-13] MEDS: ATORVASTATIN 20 MG TAB PO (08:34)
[2018-04-13] MEDS: PREVNAR 13 VACCINE SYRINGE (CPT CODE:90670) IM (08:35)
[2018-04-13] MEDS: HumaLOG INSULIN (NovoLOG) PER UNIT SC ×5 (08:35→21:21)
[2018-04-13 10:18] LABS: ABG BASE EXCESS 8.4 (-2.0-2.0); ABG HCO3 34.5 MEQ/L (22.0-26.0); ABG O2 SATURATION 97.4 % (95.0-99.0); ABG PARTIAL PRESSURE CO2 55.3 mmHg (35.0-45.0); ABG PARTIAL PRESSURE O2 88.6 mmHg (75.0-100.0); ABG STANDARD HCO3 32.2 MEQ/L (22.0-26.0); ABG TOTAL CO2 36.2 MEQ/L (23.0-31.0); ABG pH (ARTERIAL) 7.413 UNITS (7.350-7.450)
[2018-04-13] MEDS: FORMOTEROL FUMARATE 20 MCG/2 ML INHALATION SOLUTION (PERFOROMIST) INH ×2 (11:05→19:30)
[2018-04-13 12:21] LABS: BEDSIDE GLUCOSE 188 MG/DL (83-110)
[2018-04-13 17:39] LABS: BEDSIDE GLUCOSE 223 MG/DL (83-110)
[2018-04-13] MEDS: PANTOPRAZOLE 40MG INJ (PROTONIX) (C9113) IV (17:57)
[2018-04-13 21:15] LABS: BEDSIDE GLUCOSE 236 MG/DL (83-110)
[2018-04-13] MEDS: ENOXAPARIN 40 MG/0.4 ML SYRINGE (J1650) SC (21:20)
[2018-04-13] MEDS: LEVEMIR (INSULIN DETEMIR) 1 UNITS/0.01ML SC (21:21)
[2018-04-13] MEDS: ACETAMINOPHEN TAB 650MG DOSE (2X325MG) PO (21:22)
[2018-04-13] MEDS: ALPRAZolam 0.25 MG TAB PO (21:24)
[2018-04-14] MEDS: IPRATROPIUM 0.5MG/ALBUTEROL 2.5MG INH SOL UD 3ML (DUONEB)(J7620) NEB ×5 (03:36→23:33)
[2018-04-14 05:05] LABS: BASO % 0.2 % (0.0-1.0); HEMATOCRIT 32.4 % (36.0-47.0); HEMOGLOBIN 9.9 g/dl (12.0-15.5); IMMATURE GRANULOCYTE % 2.1 % (0-3.0); LYMPH # 1.5 10^3/uL (1.5-4.5); MEAN CORPUSCULAR HEMOGLOBIN 29.6 pg (27.0-33.0); MEAN CORPUSCULAR HGB CONC 30.6 g/dl (32.0-36.5); MEAN CORPUSCULAR VOLUME 96.7 fl (80.0-96.0); MONO # 0.7 10^3/uL (0.0-0.8); MONO % 6.8 % (0.0-5.0); NEUTROPHILS # 8.1 10^3/uL (1.8-7.7); NEUTROPHILS % 76.9 % (36.0-66.0); PLATELET COUNT, AUTOMATED 170 10^3/uL (150-450); RED BLOOD COUNT 3.35 10^6/uL (4.00-5.40); RED CELL DISTRIBUTION WIDTH 16.4 % (11.5-14.5); WHITE BLOOD COUNT 10.6 10^3/uL (4.0-10.0)
[2018-04-14 05:20] LABS: ANION GAP 2 MEQ/L (8-16); BLOOD UREA NITROGEN 22 MG/DL (7-18); CALCIUM LEVEL 8.3 MG/DL (8.8-10.2); CARBON DIOXIDE LEVEL 41 MEQ/L (21-32); CHLORIDE LEVEL 100 MEQ/L (98-107); CREATININE FOR GFR 0.96 MG/DL (0.55-1.30); GLOMERULAR FILTRATION RATE > 60.0 (>39); GLUCOSE, FASTING 178 MG/DL (70-100); POTASSIUM SERUM 4.3 MEQ/L (3.5-5.1); SODIUM LEVEL 143 MEQ/L (136-145)
[2018-04-14 06:41] LABS: ABG BASE EXCESS 12.4 (-2.0-2.0); ABG HCO3 40.5 MEQ/L (22.0-26.0); ABG O2 SATURATION 98.2 % (95.0-99.0); ABG PARTIAL PRESSURE O2 109.5 mmHg (75.0-100.0); ABG STANDARD HCO3 36.2 MEQ/L (22.0-26.0); ABG TOTAL CO2 42.7 MEQ/L (23.0-31.0)
[2018-04-14 06:43] LABS: ABG PARTIAL PRESSURE CO2 73.3 mmHg (35.0-45.0)
[2018-04-14] MEDS: BUDESONIDE 0.5 MG/2 ML INHALATION SUSPENSION INH ×2 (07:31→19:47)
[2018-04-14] MEDS: FORMOTEROL FUMARATE 20 MCG/2 ML INHALATION SOLUTION (PERFOROMIST) INH ×2 (07:31→19:47)
[2018-04-14 07:38] LABS: BEDSIDE GLUCOSE 119 MG/DL (83-110)
[2018-04-14] MEDS: HumaLOG INSULIN (NovoLOG) PER UNIT SC ×4 (07:59→21:00)
[2018-04-14] MEDS: MIRALAX *UNIT DOSE* 17GM PACKET PO (08:00)
[2018-04-14] MEDS: predniSONE 10 MG TAB PO (08:01)
[2018-04-14] MEDS: GABAPENTIN 300 MG CAP PO ×3 (08:01→22:13)
[2018-04-14] MEDS: BACLOFEN 10 MG TAB PO ×2 (08:01→22:13)
[2018-04-14] MEDS: SENOKOT S TAB PO ×2 (08:01→22:13)
[2018-04-14] MEDS: FUROSEMIDE 40 MG/4 ML VIAL (J1940) IV (08:01)
[2018-04-14] MEDS: ATORVASTATIN 20 MG TAB PO (08:02)
[2018-04-14] MEDS: SITagliptin 50 MG TAB (JANUVIA) PO (08:02)
[2018-04-14] MEDS: ACETAMINOPHEN TAB 650MG DOSE (2X325MG) PO (08:08)
[2018-04-14] MEDS ORDERED: POLYVINYL ALCOHOL OPHTH SOLN 15 ML(LIQUITEARS) OU (09:30)
[2018-04-14] MEDS: TIOTROPIUM INHALER/CAPSULE (SPIRIVA) INH (12:29)
[2018-04-14 12:31] LABS: BEDSIDE GLUCOSE 185 MG/DL (83-110)
[2018-04-14 17:31] LABS: BEDSIDE GLUCOSE 343 MG/DL (83-110)
[2018-04-14] MEDS: PANTOPRAZOLE 40MG INJ (PROTONIX) (C9113) IV (17:55)
[2018-04-14 20:37] LABS: BEDSIDE GLUCOSE 249 MG/DL (83-110)
[2018-04-14] MEDS: OFLOXACIN 0.3 % (OCUFLOX) OPTH SOL 5ML OU (21:00)
[2018-04-14] MEDS: LEVEMIR (INSULIN DETEMIR) 1 UNITS/0.01ML SC (22:14)
[2018-04-14] MEDS: ENOXAPARIN 40 MG/0.4 ML SYRINGE (J1650) SC (22:14)
[2018-04-15] MEDS: IPRATROPIUM 0.5MG/ALBUTEROL 2.5MG INH SOL UD 3ML (DUONEB)(J7620) NEB ×2 (03:43→07:03)
[2018-04-15 07:01] LABS: BASO # 0.1 10^3/uL (0.0-0.2); BASO % 0.5 % (0.0-1.0); EOS % 0.1 % (0.0-3.0); HEMATOCRIT 38.5 % (36.0-47.0); HEMOGLOBIN 11.3 g/dl (12.0-15.5); IMMATURE GRANULOCYTE % 3.6 % (0-3.0); LYMPH # 1.3 10^3/uL (1.5-4.5); LYMPH % 11.7 % (24.0-44.0); MEAN CORPUSCULAR HEMOGLOBIN 29.3 pg (27.0-33.0); MEAN CORPUSCULAR HGB CONC 29.4 g/dl (32.0-36.5); MEAN CORPUSCULAR VOLUME 99.7 fl (80.0-96.0); MONO # 0.6 10^3/uL (0.0-0.8); MONO % 5.7 % (0.0-5.0); NEUTROPHILS # 8.5 10^3/uL (1.8-7.7); NEUTROPHILS % 78.4 % (36.0-66.0); PLATELET COUNT, AUTOMATED 189 10^3/uL (150-450); RED BLOOD COUNT 3.86 10^6/uL (4.00-5.40); RED CELL DISTRIBUTION WIDTH 16.5 % (11.5-14.5); WHITE BLOOD COUNT 10.8 10^3/uL (4.0-10.0)
[2018-04-15] MEDS: FORMOTEROL FUMARATE 20 MCG/2 ML INHALATION SOLUTION (PERFOROMIST) INH (07:02)
[2018-04-15] MEDS: BUDESONIDE 0.5 MG/2 ML INHALATION SUSPENSION INH (07:02)
[2018-04-15] MEDS: TIOTROPIUM INHALER/CAPSULE (SPIRIVA) INH (07:03)
[2018-04-15 07:23] LABS: ANION GAP 2 MEQ/L (8-16); BLOOD UREA NITROGEN 22 MG/DL (7-18); CALCIUM LEVEL 8.8 MG/DL (8.8-10.2); CARBON DIOXIDE LEVEL 42 MEQ/L (21-32); CHLORIDE LEVEL 100 MEQ/L (98-107); CREATININE FOR GFR 0.91 MG/DL (0.55-1.30); GLOMERULAR FILTRATION RATE > 60.0 (>39); GLUCOSE, FASTING 94 MG/DL (70-100); POTASSIUM SERUM 4.2 MEQ/L (3.5-5.1); SODIUM LEVEL 144 MEQ/L (136-145)
[2018-04-15] MEDS: HumaLOG INSULIN (NovoLOG) PER UNIT SC (07:47)
[2018-04-15] MEDS: SENOKOT S TAB PO (09:01)
[2018-04-15] MEDS: SITagliptin 50 MG TAB (JANUVIA) PO (09:01)
[2018-04-15] MEDS: predniSONE 20 MG TAB PO (09:01)
[2018-04-15] MEDS: ATORVASTATIN 20 MG TAB PO (09:01)
[2018-04-15] MEDS: MIRALAX *UNIT DOSE* 17GM PACKET PO ×2 (09:01→09:04)
[2018-04-15] MEDS: GABAPENTIN 300 MG CAP PO (09:01)
[2018-04-15] MEDS: BACLOFEN 10 MG TAB PO (09:01)
[2018-04-15] MEDS: FUROSEMIDE 40 MG/4 ML VIAL (J1940) IV (09:02)
[2018-04-15] MEDS: OFLOXACIN 0.3 % (OCUFLOX) OPTH SOL 5ML OU (09:02)
[2018-04-15] MEDS: PREVNAR 13 VACCINE SYRINGE (CPT CODE:90670) IM (10:35)
[2018-04-19] MEDS ORDERED: predniSONE 10 MG TAB PO (09:00)
== END 2018-04-15 10:43 | disposition home health service (06) | DRG 189 ==
LOC: M ICU 04-13 06:25 → M ED 08:10 → M MSPAV 04-14 17:16 → M ED INP 12:44 → M MSPAV 14:23
DX: J96.21 Acute and chronic respiratory failure with hypoxia (principal); I50.32 Chronic diastolic (congestive) heart failure; I13.0 Hypertensive heart and chronic kidney disease with heart failure and stage 1 through stage 4 chronic kidney disease, or unspecified chronic kidney disease; R91.1 Solitary pulmonary nodule; E11.65 Type 2 diabetes mellitus with hyperglycemia; J44.9 Chronic obstructive pulmonary disease, unspecified; I27.20 Pulmonary hypertension, unspecified; F41.9 Anxiety disorder, unspecified; G47.33 Obstructive sleep apnea (adult) (pediatric); Z79.899 Other long term (current) drug therapy; I27.81 Cor pulmonale (chronic); N18.3 Chronic kidney disease, stage 3 (moderate); J96.22 Acute and chronic respiratory failure with hypercapnia; E78.5 Hyperlipidemia, unspecified; Z88.8 Allergy status to other drugs, medicaments and biological substances; Z87.891 Personal history of nicotine dependence; K59.00 Constipation, unspecified; M43.02 Spondylolysis, cervical region; E11.40 Type 2 diabetes mellitus with diabetic neuropathy, unspecified

== ENCOUNTER 2018-04-19 01:48 | Inpatient (IN) | payer OTHER ==
[2018-04-19] MEDS: FUROSEMIDE 100 MG/10 ML VIAL (J1940) IV (03:00)
[2018-04-19] MEDS: dexameTHASONE 20 MG/5 ML VIAL (J1100) IV (03:00)
[2018-04-19] MEDS: NITROGLYCERIN 2% OINT 1 GM *U/D* PKT TOP (03:00)
[2018-04-19] MEDS: IPRATROPIUM 0.5MG/ALBUTEROL 2.5MG INH SOL UD 3ML (DUONEB)(J7620) NEB ×4 (03:09→20:00)
[2018-04-19 03:20] LABS: ANION GAP 6 MEQ/L (8-16); BLOOD UREA NITROGEN 17 MG/DL (7-18); CALCIUM LEVEL 8.6 MG/DL (8.8-10.2); CARBON DIOXIDE LEVEL 42 MEQ/L (21-32); CHLORIDE LEVEL 102 MEQ/L (98-107); CREATININE FOR GFR 1.12 MG/DL (0.55-1.30); GLOMERULAR FILTRATION RATE 50.8 (>39); GLUCOSE, FASTING 134 MG/DL (70-100); NT-PRO BNP 199 PG/ML (<125); POTASSIUM SERUM 3.7 MEQ/L (3.5-5.1); SODIUM LEVEL 150 MEQ/L (136-145)
[2018-04-19 03:23] LABS: BASO % 0.2 % (0.0-1.0); EOS % 0.3 % (0.0-3.0); HEMATOCRIT 37.2 % (36.0-47.0); HEMOGLOBIN 10.9 g/dl (12.0-15.5); IMMATURE GRANULOCYTE % 2.5 % (0-3.0); LYMPH # 1.9 10^3/uL (1.5-4.5); LYMPH % 13.4 % (24.0-44.0); MEAN CORPUSCULAR HEMOGLOBIN 29.6 pg (27.0-33.0); MEAN CORPUSCULAR HGB CONC 29.3 g/dl (32.0-36.5); MEAN CORPUSCULAR VOLUME 101.1 fl (80.0-96.0); MONO # 0.8 10^3/uL (0.0-0.8); MONO % 5.5 % (0.0-5.0); NEUTROPHILS # 11.1 10^3/uL (1.8-7.7); NEUTROPHILS % 78.1 % (36.0-66.0); PLATELET COUNT, AUTOMATED 220 10^3/uL (150-450); RED BLOOD COUNT 3.68 10^6/uL (4.00-5.40); RED CELL DISTRIBUTION WIDTH 16.2 % (11.5-14.5); WHITE BLOOD COUNT 14.2 10^3/uL (4.0-10.0)
[2018-04-19 03:29] LABS: ABG BASE EXCESS 12.4 (-2.0-2.0); ABG HCO3 41.3 MEQ/L (22.0-26.0); ABG PARTIAL PRESSURE O2 108.1 mmHg (75.0-100.0); ABG STANDARD HCO3 36.2 MEQ/L (22.0-26.0); ABG TOTAL CO2 43.8 MEQ/L (23.0-31.0); ABG pH (ARTERIAL) 7.328 UNITS (7.350-7.450)
[2018-04-19 03:30] LABS: ABG PARTIAL PRESSURE CO2 80.6 mmHg (35.0-45.0)
[2018-04-19] MEDS ORDERED: DEXTROSE 50% 50 ML SYRINGE IV (05:30)
[2018-04-19] MEDS ORDERED: GLUCAGON FOR INJ 1 MG VIAL (J1610) SC (05:30)
[2018-04-19] MEDS ORDERED: GLUCOSE 4 GM CHEW TABLET PO (05:30)
[2018-04-19] MEDS: HumaLOG INSULIN (NovoLOG) PER UNIT SC ×4 (07:30→21:00)
[2018-04-19] MEDS: SITagliptin 50 MG TAB (JANUVIA) PO (08:00)
[2018-04-19] MEDS: FORMOTEROL FUMARATE 20 MCG/2 ML INHALATION SOLUTION (PERFOROMIST) INH ×2 (08:36→20:07)
[2018-04-19 08:54] LABS: BEDSIDE GLUCOSE 258 MG/DL (83-110)
[2018-04-19 12:01] LABS: ABG BASE EXCESS 15.4 (-2.0-2.0); ABG O2 SATURATION 97.6 % (95.0-99.0); ABG PARTIAL PRESSURE O2 99.7 mmHg (75.0-100.0); ABG STANDARD HCO3 39.2 MEQ/L (22.0-26.0); ABG TOTAL CO2 47.8 MEQ/L (23.0-31.0); ABG pH (ARTERIAL) 7.321 UNITS (7.350-7.450)
[2018-04-19 12:02] LABS: ABG PARTIAL PRESSURE CO2 89.2 mmHg (35.0-45.0)
[2018-04-19] MEDS: BUDESONIDE 0.5 MG/2 ML INHALATION SUSPENSION INH ×2 (13:00→20:07)
[2018-04-19] MEDS: GLYCOPYRROLATE INJ 0.2 MG/ML 2 ML VIAL NEB ×2 (13:01→20:07)
[2018-04-19 13:02] LABS: BEDSIDE GLUCOSE 314 MG/DL (83-110)
[2018-04-19] MEDS: BACLOFEN 10 MG TAB PO ×2 (13:11→21:32)
[2018-04-19] MEDS: ATORVASTATIN 20 MG TAB PO (13:11)
[2018-04-19] MEDS: SENOKOT S TAB PO (13:11)
[2018-04-19] MEDS: TORSEMIDE 20 MG TAB PO ×2 (13:12→21:31)
[2018-04-19] MEDS: ACETAMINOPHEN 500 MG TAB PO ×2 (13:12→21:32)
[2018-04-19 16:29] LABS: BEDSIDE GLUCOSE 235 MG/DL (83-110)
[2018-04-19 21:17] LABS: BEDSIDE GLUCOSE 107 MG/DL (83-110)
[2018-04-19] MEDS: DOCUSATE SODIUM 100 MG CAP PO (21:31)
[2018-04-19] MEDS: GABAPENTIN 300 MG CAP PO (21:32)
[2018-04-20] MEDS: IPRATROPIUM 0.5MG/ALBUTEROL 2.5MG INH SOL UD 3ML (DUONEB)(J7620) NEB ×4 (01:07→19:31)
[2018-04-20 04:34] LABS: HEMATOCRIT 35.5 % (36.0-47.0); HEMOGLOBIN 10.4 g/dl (12.0-15.5); MEAN CORPUSCULAR HEMOGLOBIN 29.3 pg (27.0-33.0); MEAN CORPUSCULAR HGB CONC 29.3 g/dl (32.0-36.5); PLATELET COUNT, AUTOMATED 187 10^3/uL (150-450); RED BLOOD COUNT 3.55 10^6/uL (4.00-5.40); RED CELL DISTRIBUTION WIDTH 15.9 % (11.5-14.5); WHITE BLOOD COUNT 11.5 10^3/uL (4.0-10.0)
[2018-04-20 04:49] LABS: ANION GAP 0 MEQ/L (8-16); BLOOD UREA NITROGEN 21 MG/DL (7-18); CALCIUM LEVEL 8.8 MG/DL (8.8-10.2); CARBON DIOXIDE LEVEL 45 MEQ/L (21-32); CHLORIDE LEVEL 101 MEQ/L (98-107); CREATININE FOR GFR 1.06 MG/DL (0.55-1.30); GLOMERULAR FILTRATION RATE 54.1 (>39); GLUCOSE, FASTING 123 MG/DL (70-100); SODIUM LEVEL 146 MEQ/L (136-145)
[2018-04-20 05:41] LABS: ABG BASE EXCESS 17.9 (-2.0-2.0); ABG HCO3 45.1 MEQ/L (22.0-26.0); ABG PARTIAL PRESSURE O2 86.9 mmHg (75.0-100.0); ABG STANDARD HCO3 41.9 MEQ/L (22.0-26.0); ABG TOTAL CO2 47.2 MEQ/L (23.0-31.0); ABG pH (ARTERIAL) 7.438 UNITS (7.350-7.450)
[2018-04-20 05:46] LABS: ABG PARTIAL PRESSURE CO2 68.3 mmHg (35.0-45.0)
[2018-04-20] MEDS: FORMOTEROL FUMARATE 20 MCG/2 ML INHALATION SOLUTION (PERFOROMIST) INH ×2 (08:15→19:30)
[2018-04-20] MEDS: BUDESONIDE 0.5 MG/2 ML INHALATION SUSPENSION INH ×2 (08:16→19:30)
[2018-04-20] MEDS: BACLOFEN 10 MG TAB PO ×2 (08:24→20:53)
[2018-04-20] MEDS: SITagliptin 50 MG TAB (JANUVIA) PO (08:24)
[2018-04-20] MEDS: HumaLOG INSULIN (NovoLOG) PER UNIT SC ×4 (08:24→20:54)
[2018-04-20] MEDS: ACETAMINOPHEN 500 MG TAB PO ×2 (08:26→20:54)
[2018-04-20] MEDS: TORSEMIDE 20 MG TAB PO ×2 (08:26→20:53)
[2018-04-20] MEDS: SENOKOT S TAB PO (08:27)
[2018-04-20] MEDS: ATORVASTATIN 20 MG TAB PO (08:27)
[2018-04-20] MEDS ORDERED: TORSEMIDE 20 MG TAB PO (09:00)
[2018-04-20] MEDS: GLYCOPYRROLATE INJ 0.2 MG/ML 2 ML VIAL NEB ×2 (10:39→19:31)
[2018-04-20] MEDS ORDERED: MAGNESIUM CITRATE 300 ML BTL PO (11:00)
[2018-04-20 12:28] LABS: BEDSIDE GLUCOSE 152 MG/DL (83-110)
[2018-04-20 17:03] LABS: BEDSIDE GLUCOSE 138 MG/DL (83-110)
[2018-04-20 20:49] LABS: BEDSIDE GLUCOSE 205 MG/DL (83-110)
[2018-04-20] MEDS: GABAPENTIN 300 MG CAP PO (20:53)
[2018-04-20] MEDS: ALPRAZolam 0.25 MG TAB PO (20:53)
[2018-04-20] MEDS: DOCUSATE SODIUM 100 MG CAP PO (20:54)
[2018-04-21] MEDS: IPRATROPIUM 0.5MG/ALBUTEROL 2.5MG INH SOL UD 3ML (DUONEB)(J7620) NEB ×3 (01:15→19:59)
[2018-04-21 05:05] LABS: HEMATOCRIT 32.9 % (36.0-47.0); HEMOGLOBIN 9.8 g/dl (12.0-15.5); MEAN CORPUSCULAR HEMOGLOBIN 29.2 pg (27.0-33.0); MEAN CORPUSCULAR HGB CONC 29.8 g/dl (32.0-36.5); MEAN CORPUSCULAR VOLUME 97.9 fl (80.0-96.0); PLATELET COUNT, AUTOMATED 147 10^3/uL (150-450); RED BLOOD COUNT 3.36 10^6/uL (4.00-5.40); RED CELL DISTRIBUTION WIDTH 16.7 % (11.5-14.5); WHITE BLOOD COUNT 8.9 10^3/uL (4.0-10.0)
[2018-04-21 05:19] LABS: ANION GAP 4 MEQ/L (8-16); BLOOD UREA NITROGEN 23 MG/DL (7-18); CALCIUM LEVEL 8.1 MG/DL (8.8-10.2); CARBON DIOXIDE LEVEL 44 MEQ/L (21-32); CHLORIDE LEVEL 98 MEQ/L (98-107); CREATININE FOR GFR 0.95 MG/DL (0.55-1.30); GLOMERULAR FILTRATION RATE > 60.0 (>39); GLUCOSE, FASTING 168 MG/DL (70-100); POTASSIUM SERUM 3.2 MEQ/L (3.5-5.1); SODIUM LEVEL 146 MEQ/L (136-145)
[2018-04-21] MEDS: GLYCOPYRROLATE INJ 0.2 MG/ML 2 ML VIAL NEB ×2 (07:56→20:56)
[2018-04-21] MEDS: FORMOTEROL FUMARATE 20 MCG/2 ML INHALATION SOLUTION (PERFOROMIST) INH ×2 (07:56→19:59)
[2018-04-21] MEDS: BUDESONIDE 0.5 MG/2 ML INHALATION SUSPENSION INH ×2 (07:57→19:59)
[2018-04-21 08:00] LABS: ABG BASE EXCESS 18.6 (-2.0-2.0); ABG HCO3 46.6 MEQ/L (22.0-26.0); ABG PARTIAL PRESSURE O2 81.6 mmHg (75.0-100.0); ABG STANDARD HCO3 42.6 MEQ/L (22.0-26.0); ABG TOTAL CO2 48.9 MEQ/L (23.0-31.0); ABG pH (ARTERIAL) 7.402 UNITS (7.350-7.450)
[2018-04-21 08:01] LABS: ABG PARTIAL PRESSURE CO2 76.6 mmHg (35.0-45.0)
[2018-04-21] MEDS: SITagliptin 50 MG TAB (JANUVIA) PO (08:51)
[2018-04-21] MEDS: BACLOFEN 10 MG TAB PO ×2 (08:52→20:20)
[2018-04-21] MEDS: POTASSIUM CHLORIDE 10 MEQ SR TABLET PO (08:52)
[2018-04-21] MEDS: ATORVASTATIN 20 MG TAB PO (08:52)
[2018-04-21] MEDS: SENOKOT S TAB PO (08:53)
[2018-04-21] MEDS: ACETAMINOPHEN 500 MG TAB PO ×2 (08:53→20:20)
[2018-04-21] MEDS: TORSEMIDE 20 MG TAB PO ×2 (08:54→20:21)
[2018-04-21] MEDS: HumaLOG INSULIN (NovoLOG) PER UNIT SC ×4 (08:54→20:32)
[2018-04-21 12:11] LABS: BEDSIDE GLUCOSE 174 MG/DL (83-110)
[2018-04-21 17:54] LABS: BEDSIDE GLUCOSE 233 MG/DL (83-110)
[2018-04-21] MEDS: DOCUSATE SODIUM 100 MG CAP PO (20:20)
[2018-04-21] MEDS: ALPRAZolam 0.25 MG TAB PO (20:21)
[2018-04-21] MEDS: GABAPENTIN 300 MG CAP PO (20:21)
[2018-04-21 20:25] LABS: BEDSIDE GLUCOSE 155 MG/DL (83-110)
[2018-04-22 05:00] LABS: HEMOGLOBIN 9.7 g/dl (12.0-15.5); MEAN CORPUSCULAR HEMOGLOBIN 29.2 pg (27.0-33.0); MEAN CORPUSCULAR HGB CONC 29.4 g/dl (32.0-36.5); MEAN CORPUSCULAR VOLUME 99.4 fl (80.0-96.0); PLATELET COUNT, AUTOMATED 140 10^3/uL (150-450); RED BLOOD COUNT 3.32 10^6/uL (4.00-5.40); RED CELL DISTRIBUTION WIDTH 16.8 % (11.5-14.5); WHITE BLOOD COUNT 7.9 10^3/uL (4.0-10.0)
[2018-04-22 05:16] LABS: BLOOD UREA NITROGEN 16 MG/DL (7-18); CALCIUM LEVEL 8.3 MG/DL (8.8-10.2); CHLORIDE LEVEL 97 MEQ/L (98-107); CREATININE FOR GFR 0.91 MG/DL (0.55-1.30); GLOMERULAR FILTRATION RATE > 60.0 (>39); GLUCOSE, FASTING 174 MG/DL (70-100); POTASSIUM SERUM 3.5 MEQ/L (3.5-5.1); SODIUM LEVEL 145 MEQ/L (136-145)
[2018-04-22 05:40] LABS: ANION GAP 2 MEQ/L (8-16); CARBON DIOXIDE LEVEL 46 MEQ/L (21-32)
[2018-04-22] MEDS: HumaLOG INSULIN (NovoLOG) PER UNIT SC ×4 (07:16→21:00)
[2018-04-22] MEDS: FORMOTEROL FUMARATE 20 MCG/2 ML INHALATION SOLUTION (PERFOROMIST) INH ×2 (07:41→19:43)
[2018-04-22] MEDS: BUDESONIDE 0.5 MG/2 ML INHALATION SUSPENSION INH ×2 (07:41→19:43)
[2018-04-22] MEDS: GLYCOPYRROLATE INJ 0.2 MG/ML 2 ML VIAL NEB ×2 (07:42→19:43)
[2018-04-22] MEDS: IPRATROPIUM 0.5MG/ALBUTEROL 2.5MG INH SOL UD 3ML (DUONEB)(J7620) NEB ×2 (07:45→19:44)
[2018-04-22] MEDS: SITagliptin 50 MG TAB (JANUVIA) PO (08:11)
[2018-04-22] MEDS: BACLOFEN 10 MG TAB PO ×2 (09:08→20:21)
[2018-04-22] MEDS: TORSEMIDE 20 MG TAB PO ×2 (09:08→20:21)
[2018-04-22] MEDS: ACETAMINOPHEN 500 MG TAB PO ×2 (09:09→20:21)
[2018-04-22] MEDS: ATORVASTATIN 20 MG TAB PO (09:09)
[2018-04-22] MEDS: SENOKOT S TAB PO (09:09)
[2018-04-22 11:56] LABS: BEDSIDE GLUCOSE 177 MG/DL (83-110)
[2018-04-22] MEDS ORDERED: SLF 3 ML SYR IV (16:00)
[2018-04-22 17:11] LABS: BEDSIDE GLUCOSE 175 MG/DL (83-110)
[2018-04-22 20:10] LABS: BEDSIDE GLUCOSE 202 MG/DL (83-110)
[2018-04-22] MEDS: ALPRAZolam 0.25 MG TAB PO (20:20)
[2018-04-22] MEDS: DOCUSATE SODIUM 100 MG CAP PO (20:21)
[2018-04-22] MEDS: GABAPENTIN 300 MG CAP PO (20:21)
[2018-04-22] MEDS: SLF 3 ML SYR IV (22:00)
[2018-04-23 05:10] LABS: HEMATOCRIT 34.6 % (36.0-47.0); HEMOGLOBIN 10.3 g/dl (12.0-15.5); MEAN CORPUSCULAR HEMOGLOBIN 28.9 pg (27.0-33.0); MEAN CORPUSCULAR HGB CONC 29.8 g/dl (32.0-36.5); MEAN CORPUSCULAR VOLUME 97.2 fl (80.0-96.0); PLATELET COUNT, AUTOMATED 141 10^3/uL (150-450); RED BLOOD COUNT 3.56 10^6/uL (4.00-5.40); RED CELL DISTRIBUTION WIDTH 17.1 % (11.5-14.5); WHITE BLOOD COUNT 9.7 10^3/uL (4.0-10.0)
[2018-04-23 05:27] LABS: ANION GAP 4 MEQ/L (8-16); BLOOD UREA NITROGEN 12 MG/DL (7-18); CALCIUM LEVEL 8.4 MG/DL (8.8-10.2); CARBON DIOXIDE LEVEL 42 MEQ/L (21-32); CHLORIDE LEVEL 97 MEQ/L (98-107); CREATININE FOR GFR 0.76 MG/DL (0.55-1.30); GLOMERULAR FILTRATION RATE > 60.0 (>39); GLUCOSE, FASTING 168 MG/DL (70-100); POTASSIUM SERUM 3.4 MEQ/L (3.5-5.1); SODIUM LEVEL 143 MEQ/L (136-145)
[2018-04-23] MEDS: SLF 3 ML SYR IV ×3 (05:49→21:13)
[2018-04-23] MEDS: GLYCOPYRROLATE INJ 0.2 MG/ML 2 ML VIAL NEB ×2 (07:10→19:42)
[2018-04-23] MEDS: FORMOTEROL FUMARATE 20 MCG/2 ML INHALATION SOLUTION (PERFOROMIST) INH ×2 (07:10→19:42)
[2018-04-23] MEDS: BUDESONIDE 0.5 MG/2 ML INHALATION SUSPENSION INH ×2 (07:10→19:42)
[2018-04-23] MEDS: IPRATROPIUM 0.5MG/ALBUTEROL 2.5MG INH SOL UD 3ML (DUONEB)(J7620) NEB ×3 (07:12→22:16)
[2018-04-23 08:07] LABS: ABG HCO3 43.7 MEQ/L (22.0-26.0); ABG O2 SATURATION 95.4 % (95.0-99.0); ABG STANDARD HCO3 38.9 MEQ/L (22.0-26.0); ABG TOTAL CO2 46.1 MEQ/L (23.0-31.0); ABG pH (ARTERIAL) 7.365 UNITS (7.350-7.450)
[2018-04-23 08:12] LABS: ABG PARTIAL PRESSURE CO2 78.3 mmHg (35.0-45.0)
[2018-04-23] MEDS: SENOKOT S TAB PO (08:15)
[2018-04-23] MEDS: HumaLOG INSULIN (NovoLOG) PER UNIT SC ×4 (08:15→21:00)
[2018-04-23] MEDS: BACLOFEN 10 MG TAB PO ×2 (08:16→21:13)
[2018-04-23] MEDS: SITagliptin 50 MG TAB (JANUVIA) PO (08:16)
[2018-04-23] MEDS: ATORVASTATIN 20 MG TAB PO (08:16)
[2018-04-23] MEDS: TORSEMIDE 20 MG TAB PO ×2 (08:16→21:12)
[2018-04-23] MEDS: ACETAMINOPHEN 500 MG TAB PO ×2 (08:16→21:12)
[2018-04-23] MEDS: POTASSIUM CHLORIDE 10 MEQ SR TABLET PO ×2 (08:17→21:13)
[2018-04-23 11:56] LABS: BEDSIDE GLUCOSE 208 MG/DL (83-110)
[2018-04-23 16:40] LABS: BEDSIDE GLUCOSE 178 MG/DL (83-110)
[2018-04-23 20:41] LABS: BEDSIDE GLUCOSE 168 MG/DL (83-110)
[2018-04-23] MEDS: DOCUSATE SODIUM 100 MG CAP PO (21:12)
[2018-04-23] MEDS: GABAPENTIN 300 MG CAP PO (21:13)
[2018-04-24 05:42] LABS: BEDSIDE GLUCOSE 168 MG/DL (83-110)
[2018-04-24] MEDS: SLF 3 ML SYR IV ×3 (06:00→20:14)
[2018-04-24] MEDS: GLYCOPYRROLATE INJ 0.2 MG/ML 2 ML VIAL NEB ×2 (07:08→19:53)
[2018-04-24] MEDS: FORMOTEROL FUMARATE 20 MCG/2 ML INHALATION SOLUTION (PERFOROMIST) INH ×2 (07:08→19:43)
[2018-04-24] MEDS: IPRATROPIUM 0.5MG/ALBUTEROL 2.5MG INH SOL UD 3ML (DUONEB)(J7620) NEB ×2 (07:08→19:43)
[2018-04-24] MEDS: BUDESONIDE 0.5 MG/2 ML INHALATION SUSPENSION INH ×2 (07:08→19:43)
[2018-04-24 07:13] LABS: HEMATOCRIT 33.7 % (36.0-47.0); HEMOGLOBIN 10.1 g/dl (12.0-15.5); MEAN CORPUSCULAR HEMOGLOBIN 29.4 pg (27.0-33.0); MEAN CORPUSCULAR VOLUME 98.3 fl (80.0-96.0); PLATELET COUNT, AUTOMATED 160 10^3/uL (150-450); RED BLOOD COUNT 3.43 10^6/uL (4.00-5.40); WHITE BLOOD COUNT 10.1 10^3/uL (4.0-10.0)
[2018-04-24 07:26] LABS: ANION GAP 2 MEQ/L (8-16); BLOOD UREA NITROGEN 14 MG/DL (7-18); CALCIUM LEVEL 9.3 MG/DL (8.8-10.2); CARBON DIOXIDE LEVEL 43 MEQ/L (21-32); CHLORIDE LEVEL 98 MEQ/L (98-107); CREATININE FOR GFR 0.91 MG/DL (0.55-1.30); GLOMERULAR FILTRATION RATE > 60.0 (>39); GLUCOSE, FASTING 183 MG/DL (70-100); POTASSIUM SERUM 4.2 MEQ/L (3.5-5.1); SODIUM LEVEL 143 MEQ/L (136-145)
[2018-04-24] MEDS: HumaLOG INSULIN (NovoLOG) PER UNIT SC ×4 (08:10→21:00)
[2018-04-24] MEDS: POTASSIUM CHLORIDE 10 MEQ SR TABLET PO ×2 (08:10→20:15)
[2018-04-24] MEDS: ATORVASTATIN 20 MG TAB PO (08:10)
[2018-04-24] MEDS: BACLOFEN 10 MG TAB PO ×2 (08:10→20:15)
[2018-04-24] MEDS: ACETAMINOPHEN 500 MG TAB PO ×2 (08:11→20:16)
[2018-04-24] MEDS: SENOKOT S TAB PO (08:12)
[2018-04-24] MEDS: SITagliptin 50 MG TAB (JANUVIA) PO (08:12)
[2018-04-24] MEDS: TORSEMIDE 20 MG TAB PO ×2 (08:12→20:16)
[2018-04-24 11:44] LABS: BEDSIDE GLUCOSE 203 MG/DL (83-110)
[2018-04-24 17:12] LABS: BEDSIDE GLUCOSE 192 MG/DL (83-110)
[2018-04-24] MEDS: DOCUSATE SODIUM 100 MG CAP PO (20:15)
[2018-04-24] MEDS: GABAPENTIN 300 MG CAP PO (20:15)
[2018-04-24 20:24] LABS: BEDSIDE GLUCOSE 239 MG/DL (83-110)
[2018-04-25] MEDS: SLF 3 ML SYR IV ×3 (04:40→21:23)
[2018-04-25 06:36] LABS: HEMATOCRIT 31.5 % (36.0-47.0); HEMOGLOBIN 9.5 g/dl (12.0-15.5); MEAN CORPUSCULAR HGB CONC 30.2 g/dl (32.0-36.5); PLATELET COUNT, AUTOMATED 167 10^3/uL (150-450); RED BLOOD COUNT 3.28 10^6/uL (4.00-5.40); RED CELL DISTRIBUTION WIDTH 16.6 % (11.5-14.5); WHITE BLOOD COUNT 8.2 10^3/uL (4.0-10.0)
[2018-04-25 06:56] LABS: ANION GAP 3 MEQ/L (8-16); BLOOD UREA NITROGEN 20 MG/DL (7-18); CARBON DIOXIDE LEVEL 39 MEQ/L (21-32); CHLORIDE LEVEL 100 MEQ/L (98-107); CREATININE FOR GFR 0.92 MG/DL (0.55-1.30); GLOMERULAR FILTRATION RATE > 60.0 (>39); GLUCOSE, FASTING 205 MG/DL (70-100); POTASSIUM SERUM 4.2 MEQ/L (3.5-5.1); SODIUM LEVEL 142 MEQ/L (136-145)
[2018-04-25] MEDS: GLYCOPYRROLATE INJ 0.2 MG/ML 2 ML VIAL NEB ×2 (07:08→19:46)
[2018-04-25] MEDS: IPRATROPIUM 0.5MG/ALBUTEROL 2.5MG INH SOL UD 3ML (DUONEB)(J7620) NEB ×2 (07:08→19:49)
[2018-04-25] MEDS: BUDESONIDE 0.5 MG/2 ML INHALATION SUSPENSION INH ×2 (07:08→19:46)
[2018-04-25] MEDS: FORMOTEROL FUMARATE 20 MCG/2 ML INHALATION SOLUTION (PERFOROMIST) INH ×2 (07:08→19:46)
[2018-04-25] MEDS: HumaLOG INSULIN (NovoLOG) PER UNIT SC ×4 (07:58→21:25)
[2018-04-25] MEDS: SITagliptin 50 MG TAB (JANUVIA) PO (07:58)
[2018-04-25] MEDS: TORSEMIDE 20 MG TAB PO ×2 (07:59→21:23)
[2018-04-25] MEDS: SENOKOT S TAB PO (07:59)
[2018-04-25] MEDS: BACLOFEN 10 MG TAB PO ×2 (07:59→21:23)
[2018-04-25] MEDS: ATORVASTATIN 20 MG TAB PO (08:00)
[2018-04-25] MEDS: POTASSIUM CHLORIDE 10 MEQ SR TABLET PO ×2 (08:00→21:24)
[2018-04-25] MEDS: ACETAMINOPHEN 500 MG TAB PO ×2 (08:01→21:24)
[2018-04-25 11:34] LABS: BEDSIDE GLUCOSE 185 MG/DL (83-110)
[2018-04-25 20:31] LABS: BEDSIDE GLUCOSE 204 MG/DL (83-110)
[2018-04-25 20:55] LABS: BEDSIDE GLUCOSE 266 MG/DL (83-110)
[2018-04-25] MEDS: DOCUSATE SODIUM 100 MG CAP PO (21:00)
[2018-04-25] MEDS: GABAPENTIN 300 MG CAP PO (21:23)
[2018-04-26] MEDS: SLF 3 ML SYR IV ×3 (05:43→22:06)
[2018-04-26 07:00] LABS: HEMATOCRIT 34.3 % (36.0-47.0); HEMOGLOBIN 10.1 g/dl (12.0-15.5); MEAN CORPUSCULAR HGB CONC 29.4 g/dl (32.0-36.5); MEAN CORPUSCULAR VOLUME 98.6 fl (80.0-96.0); PLATELET COUNT, AUTOMATED 187 10^3/uL (150-450); RED BLOOD COUNT 3.48 10^6/uL (4.00-5.40); RED CELL DISTRIBUTION WIDTH 16.8 % (11.5-14.5); WHITE BLOOD COUNT 7.4 10^3/uL (4.0-10.0)
[2018-04-26 07:19] LABS: ANION GAP 2 MEQ/L (8-16); BLOOD UREA NITROGEN 18 MG/DL (7-18); CALCIUM LEVEL 9.1 MG/DL (8.8-10.2); CARBON DIOXIDE LEVEL 43 MEQ/L (21-32); CHLORIDE LEVEL 98 MEQ/L (98-107); CREATININE FOR GFR 0.91 MG/DL (0.55-1.30); GLOMERULAR FILTRATION RATE > 60.0 (>39); GLUCOSE, FASTING 185 MG/DL (70-100); POTASSIUM SERUM 4.3 MEQ/L (3.5-5.1); SODIUM LEVEL 143 MEQ/L (136-145)
[2018-04-26] MEDS: BUDESONIDE 0.5 MG/2 ML INHALATION SUSPENSION INH ×2 (07:28→21:02)
[2018-04-26] MEDS: FORMOTEROL FUMARATE 20 MCG/2 ML INHALATION SOLUTION (PERFOROMIST) INH ×2 (07:28→21:02)
[2018-04-26] MEDS: GLYCOPYRROLATE INJ 0.2 MG/ML 2 ML VIAL NEB ×2 (07:46→21:03)
[2018-04-26] MEDS: IPRATROPIUM 0.5MG/ALBUTEROL 2.5MG INH SOL UD 3ML (DUONEB)(J7620) NEB ×2 (07:46→21:02)
[2018-04-26] MEDS: ACETAMINOPHEN 500 MG TAB PO ×2 (07:57→22:09)
[2018-04-26] MEDS: SENOKOT S TAB PO (07:58)
[2018-04-26] MEDS: ATORVASTATIN 20 MG TAB PO (07:58)
[2018-04-26] MEDS: SITagliptin 50 MG TAB (JANUVIA) PO (07:59)
[2018-04-26] MEDS: POTASSIUM CHLORIDE 10 MEQ SR TABLET PO ×2 (07:59→22:07)
[2018-04-26] MEDS: TORSEMIDE 20 MG TAB PO ×2 (08:00→22:06)
[2018-04-26] MEDS: BACLOFEN 10 MG TAB PO ×2 (08:00→22:07)
[2018-04-26] MEDS: HumaLOG INSULIN (NovoLOG) PER UNIT SC ×4 (08:01→22:09)
[2018-04-26 11:39] LABS: BEDSIDE GLUCOSE 260 MG/DL (83-110)
[2018-04-26 17:01] LABS: BEDSIDE GLUCOSE 208 MG/DL (83-110)
[2018-04-26 20:34] LABS: BEDSIDE GLUCOSE 177 MG/DL (83-110)
[2018-04-26] MEDS: DOCUSATE SODIUM 100 MG CAP PO (22:06)
[2018-04-26] MEDS: GABAPENTIN 300 MG CAP PO (22:07)
[2018-04-27] MEDS: SLF 3 ML SYR IV ×3 (06:00→20:57)
[2018-04-27] MEDS: BUDESONIDE 0.5 MG/2 ML INHALATION SUSPENSION INH ×2 (07:20→19:55)
[2018-04-27] MEDS: FORMOTEROL FUMARATE 20 MCG/2 ML INHALATION SOLUTION (PERFOROMIST) INH ×2 (07:20→19:55)
[2018-04-27] MEDS: GLYCOPYRROLATE INJ 0.2 MG/ML 2 ML VIAL NEB ×2 (07:21→19:55)
[2018-04-27] MEDS: IPRATROPIUM 0.5MG/ALBUTEROL 2.5MG INH SOL UD 3ML (DUONEB)(J7620) NEB ×2 (07:22→20:00)
[2018-04-27 08:54] LABS: BEDSIDE GLUCOSE 226 MG/DL (83-110)
[2018-04-27] MEDS: ACETAMINOPHEN 500 MG TAB PO ×2 (09:51→20:54)
[2018-04-27] MEDS: POTASSIUM CHLORIDE 10 MEQ SR TABLET PO ×2 (09:52→20:55)
[2018-04-27] MEDS: SENOKOT S TAB PO (09:52)
[2018-04-27] MEDS: BACLOFEN 10 MG TAB PO ×2 (09:52→20:52)
[2018-04-27] MEDS: ATORVASTATIN 20 MG TAB PO (09:52)
[2018-04-27] MEDS: SITagliptin 50 MG TAB (JANUVIA) PO (09:53)
[2018-04-27] MEDS: BISACODYL 5 MG TAB PO (09:53)
[2018-04-27] MEDS: TORSEMIDE 20 MG TAB PO ×2 (09:53→20:55)
[2018-04-27] MEDS: HumaLOG INSULIN (NovoLOG) PER UNIT SC ×4 (09:54→20:56)
[2018-04-27 11:52] LABS: BEDSIDE GLUCOSE 308 MG/DL (83-110)
[2018-04-27 16:36] LABS: BEDSIDE GLUCOSE 199 MG/DL (83-110)
[2018-04-27] MEDS: DOCUSATE SODIUM 100 MG CAP PO (20:52)
[2018-04-27] MEDS: GABAPENTIN 300 MG CAP PO (20:55)
[2018-04-27] MEDS: LEVEMIR (INSULIN DETEMIR) 1 UNITS/0.01ML SC (20:57)
[2018-04-27 22:22] LABS: BEDSIDE GLUCOSE 227 MG/DL (83-110)
[2018-04-28] MEDS: BUDESONIDE 0.5 MG/2 ML INHALATION SUSPENSION INH (07:30)
[2018-04-28] MEDS: GLYCOPYRROLATE INJ 0.2 MG/ML 2 ML VIAL NEB (07:30)
[2018-04-28] MEDS: FORMOTEROL FUMARATE 20 MCG/2 ML INHALATION SOLUTION (PERFOROMIST) INH (07:30)
[2018-04-28] MEDS: IPRATROPIUM 0.5MG/ALBUTEROL 2.5MG INH SOL UD 3ML (DUONEB)(J7620) NEB (08:00)
[2018-04-28 08:03] LABS: BEDSIDE GLUCOSE 171 MG/DL (83-110)
[2018-04-28] MEDS: TORSEMIDE 20 MG TAB PO (08:25)
[2018-04-28] MEDS: BISACODYL 5 MG TAB PO (08:26)
[2018-04-28] MEDS: ACETAMINOPHEN 500 MG TAB PO (08:26)
[2018-04-28] MEDS: ATORVASTATIN 20 MG TAB PO (08:27)
[2018-04-28] MEDS: SENOKOT S TAB PO (08:27)
[2018-04-28] MEDS: SITagliptin 50 MG TAB (JANUVIA) PO (08:27)
[2018-04-28] MEDS: POTASSIUM CHLORIDE 10 MEQ SR TABLET PO (08:27)
[2018-04-28] MEDS: BACLOFEN 10 MG TAB PO (08:27)
[2018-04-28] MEDS: HumaLOG INSULIN (NovoLOG) PER UNIT SC (08:28)
== END 2018-04-28 11:30 | disposition home or self-care (01) | DRG 189 ==
LOC: M MS5PR 04-23 16:10 → M ED 01:48 → M ED INP 04:23 → M ICU 09:23
DX: J96.22 Acute and chronic respiratory failure with hypercapnia (principal); I50.33 Acute on chronic diastolic (congestive) heart failure; J96.21 Acute and chronic respiratory failure with hypoxia; J44.9 Chronic obstructive pulmonary disease, unspecified; N18.3 Chronic kidney disease, stage 3 (moderate); K59.00 Constipation, unspecified; R91.1 Solitary pulmonary nodule; I27.20 Pulmonary hypertension, unspecified; G47.33 Obstructive sleep apnea (adult) (pediatric); F41.9 Anxiety disorder, unspecified; E78.5 Hyperlipidemia, unspecified; E11.40 Type 2 diabetes mellitus with diabetic neuropathy, unspecified; M54.2 Cervicalgia; M54.5 Low back pain; M71.22 Synovial cyst of popliteal space [Baker], left knee; Z79.899 Other long term (current) drug therapy; K64.8 Other hemorrhoids; Z79.52 Long term (current) use of systemic steroids; Z88.8 Allergy status to other drugs, medicaments and biological substances; E66.01 Morbid (severe) obesity due to excess calories

== ENCOUNTER 2018-04-29 16:38 | Inpatient (IN) | payer OTHER ==
[2018-04-29] MEDS: ALBUTEROL SULFATE 2.5 MG/0.5 ML INH NEB SOLN INH (18:07)
[2018-04-29] MEDS: IPRATROPIUM 0.5MG/ALBUTEROL 2.5MG INH SOL UD 3ML (DUONEB)(J7620) NEB ×2 (18:08→23:56)
[2018-04-29 18:15] LABS: ABG BASE EXCESS 5.1 (-2.0-2.0); ABG TOTAL CO2 35.1 MEQ/L (23.0-31.0); ABG pH (ARTERIAL) 7.299 UNITS (7.350-7.450)
[2018-04-29 18:21] LABS: ABG PARTIAL PRESSURE CO2 68.8 mmHg (35.0-45.0)
[2018-04-29 18:47] LABS: BASO % 0.3 % (0.0-1.0); EOS % 0.1 % (0.0-3.0); HEMATOCRIT 32.6 % (36.0-47.0); HEMOGLOBIN 9.7 g/dl (12.0-15.5); IMMATURE GRANULOCYTE % 1.5 % (0-3.0); LYMPH # 0.4 10^3/uL (1.5-4.5); LYMPH % 4.2 % (24.0-44.0); MEAN CORPUSCULAR HGB CONC 29.8 g/dl (32.0-36.5); MEAN CORPUSCULAR VOLUME 97.3 fl (80.0-96.0); MONO # 0.2 10^3/uL (0.0-0.8); MONO % 1.5 % (0.0-5.0); NEUTROPHILS # 9.3 10^3/uL (1.8-7.7); NEUTROPHILS % 92.4 % (36.0-66.0); PLATELET COUNT, AUTOMATED 211 10^3/uL (150-450); RED BLOOD COUNT 3.35 10^6/uL (4.00-5.40); RED CELL DISTRIBUTION WIDTH 16.9 % (11.5-14.5); WHITE BLOOD COUNT 10.1 10^3/uL (4.0-10.0)
[2018-04-29 18:52] LABS: ALBUMIN 2.9 GM/DL (3.2-5.2); ALBUMIN/GLOBULIN RATIO 0.76 (1.00-1.93); ALKALINE PHOSPHATASE 136 U/L (45-117); ALT/SGPT 32 U/L (12-78); ANION GAP 7 MEQ/L (8-16); AST/SGOT 15 U/L (7-37); BILIRUBIN,DIRECT < 0.1 MG/DL (0.0-0.2); BILIRUBIN,TOTAL 0.2 MG/DL (0.2-1.0); BLOOD UREA NITROGEN 20 MG/DL (7-18); CALCIUM LEVEL 8.5 MG/DL (8.8-10.2); CARBON DIOXIDE LEVEL 35 MEQ/L (21-32); CHLORIDE LEVEL 99 MEQ/L (98-107); CPK CREATINE PHOSPHOKINASE 162 U/L (26-192); CREATININE FOR GFR 1.21 MG/DL (0.55-1.30); GLOMERULAR FILTRATION RATE 46.4 (>39); GLUCOSE, FASTING 384 MG/DL (70-100); POTASSIUM SERUM 4.2 MEQ/L (3.5-5.1); SODIUM LEVEL 141 MEQ/L (136-145); TOTAL PROTEIN 6.7 GM/DL (6.4-8.2); TROPONIN I < 0.02 NG/ML (< 0.10)
[2018-04-29 18:57] LABS: CK-MB VALUE MASS 5.2 NG/ML (<3.6); NT-PRO BNP 193 PG/ML (<125); THYROID STIMULATING HORMONE 0.607 uIU/ML (0.358-3.740)
[2018-04-29] MEDS ORDERED: methylPREDNISolone INJ 40 MG/1 ML VIAL (J2920) IV (19:00)
[2018-04-29] MEDS: methylPREDNISolone INJ 125 MG/2 ML VIAL (J2930) IV (19:19)
[2018-04-29 19:23] LABS: LACTIC ACID SEPSIS PROTOCOL 2.7 MMOL/L (0.4-2.0)
[2018-04-29] MEDS: FORMOTEROL FUMARATE 20 MCG/2 ML INHALATION SOLUTION (PERFOROMIST) INH (20:00)
[2018-04-29] MEDS ORDERED: GLUCAGON FOR INJ 1 MG VIAL (J1610) SC (20:30)
[2018-04-29] MEDS ORDERED: GLUCOSE 4 GM CHEW TABLET PO (20:30)
[2018-04-29] MEDS ORDERED: DEXTROSE 50% 50 ML SYRINGE IV (20:30)
[2018-04-29] MEDS ORDERED: IPRATROPIUM 0.5MG/ALBUTEROL 2.5MG INH SOL UD 3ML (DUONEB)(J7620) NEB (20:30)
[2018-04-29] MEDS: NYSTATIN 500,000 U/5 ML SUSP UDC SS (21:03)
[2018-04-29] MEDS: GABAPENTIN 300 MG CAP PO (21:04)
[2018-04-29] MEDS: TORSEMIDE 20 MG TAB PO (21:04)
[2018-04-29] MEDS: DOCUSATE SODIUM 100 MG CAP PO (21:04)
[2018-04-29] MEDS: BACLOFEN 10 MG TAB PO (21:05)
[2018-04-29] MEDS: ACETAMINOPHEN TAB 650MG DOSE (2X325MG) PO (21:06)
[2018-04-29 21:14] LABS: BEDSIDE GLUCOSE 311 MG/DL (83-110)
[2018-04-29] MEDS: HumaLOG INSULIN (NovoLOG) PER UNIT SC (21:16)
[2018-04-29 22:12] LABS: ABG BASE EXCESS 3.5 (-2.0-2.0); ABG HCO3 29.8 MEQ/L (22.0-26.0); ABG O2 SATURATION 93.9 % (95.0-99.0); ABG PARTIAL PRESSURE CO2 53.4 mmHg (35.0-45.0); ABG PARTIAL PRESSURE O2 68.6 mmHg (75.0-100.0); ABG STANDARD HCO3 27.6 MEQ/L (22.0-26.0); ABG TOTAL CO2 31.4 MEQ/L (23.0-31.0); ABG pH (ARTERIAL) 7.364 UNITS (7.350-7.450)
[2018-04-30 00:31] LABS: LACTIC ACID SEPSIS PROTOCOL 3.9 MMOL/L (0.4-2.0)
[2018-04-30] MEDS: NS 250 ML IV ×2 (01:30→01:45)
[2018-04-30 01:56] LABS: PHOSPHORUS LEVEL 2.8 MG/DL (2.5-4.9)
[2018-04-30] MEDS: methylPREDNISolone INJ 40 MG/1 ML VIAL (J2920) IV ×3 (03:18→18:01)
[2018-04-30] MEDS: NS 1,000 ML IV (03:19)
[2018-04-30] MEDS: IPRATROPIUM 0.5MG/ALBUTEROL 2.5MG INH SOL UD 3ML (DUONEB)(J7620) NEB ×5 (04:26→21:27)
[2018-04-30 04:58] LABS: HEMATOCRIT 29.5 % (36.0-47.0); HEMOGLOBIN 8.8 g/dl (12.0-15.5); MEAN CORPUSCULAR HEMOGLOBIN 28.4 pg (27.0-33.0); MEAN CORPUSCULAR HGB CONC 29.8 g/dl (32.0-36.5); MEAN CORPUSCULAR VOLUME 95.2 fl (80.0-96.0); PLATELET COUNT, AUTOMATED 203 10^3/uL (150-450); RED CELL DISTRIBUTION WIDTH 16.6 % (11.5-14.5); WHITE BLOOD COUNT 8.1 10^3/uL (4.0-10.0)
[2018-04-30 05:27] LABS: ANION GAP 6 MEQ/L (8-16); BLOOD UREA NITROGEN 22 MG/DL (7-18); CARBON DIOXIDE LEVEL 35 MEQ/L (21-32); CHLORIDE LEVEL 100 MEQ/L (98-107); CREATININE FOR GFR 1.22 MG/DL (0.55-1.30); POTASSIUM SERUM 4.6 MEQ/L (3.5-5.1); SODIUM LEVEL 141 MEQ/L (136-145)
[2018-04-30 05:33] LABS: GLUCOSE, FASTING 453 MG/DL (70-100)
[2018-04-30] MEDS: FORMOTEROL FUMARATE 20 MCG/2 ML INHALATION SOLUTION (PERFOROMIST) INH ×2 (08:00→21:27)
[2018-04-30 08:28] LABS: BEDSIDE GLUCOSE 398 MG/DL (83-110)
[2018-04-30] MEDS: BACLOFEN 10 MG TAB PO ×2 (08:45→20:55)
[2018-04-30] MEDS: ATORVASTATIN 20 MG TAB PO (08:45)
[2018-04-30] MEDS: SITagliptin 50 MG TAB (JANUVIA) PO (08:45)
[2018-04-30] MEDS: HumaLOG INSULIN (NovoLOG) PER UNIT SC ×4 (08:45→20:56)
[2018-04-30] MEDS: NYSTATIN 500,000 U/5 ML SUSP UDC SS ×3 (08:45→20:56)
[2018-04-30] MEDS: LEVEMIR (INSULIN DETEMIR) 1 UNITS/0.01ML SC ×2 (08:46→12:16)
[2018-04-30] MEDS ORDERED: predniSONE 20 MG TAB PO (09:00)
[2018-04-30 11:24] LABS: BEDSIDE GLUCOSE 420 MG/DL (83-110)
[2018-04-30 17:04] LABS: BEDSIDE GLUCOSE 319 MG/DL (83-110)
[2018-04-30 20:36] LABS: BEDSIDE GLUCOSE 285 MG/DL (83-110)
[2018-04-30] MEDS: DOCUSATE SODIUM 100 MG CAP PO (20:55)
[2018-04-30] MEDS: GABAPENTIN 300 MG CAP PO (20:56)
[2018-04-30] MEDS: ACETAMINOPHEN TAB 650MG DOSE (2X325MG) PO (21:01)
[2018-05-01] MEDS: IPRATROPIUM 0.5MG/ALBUTEROL 2.5MG INH SOL UD 3ML (DUONEB)(J7620) NEB ×6 (01:39→19:11)
[2018-05-01] MEDS: methylPREDNISolone INJ 40 MG/1 ML VIAL (J2920) IV (03:14)
[2018-05-01 06:29] LABS: BASO % 0.1 % (0.0-1.0); HEMATOCRIT 30.7 % (36.0-47.0); HEMOGLOBIN 9.2 g/dl (12.0-15.5); IMMATURE GRANULOCYTE % 1.5 % (0-3.0); LYMPH # 0.5 10^3/uL (1.5-4.5); LYMPH % 3.5 % (24.0-44.0); MEAN CORPUSCULAR HEMOGLOBIN 28.7 pg (27.0-33.0); MEAN CORPUSCULAR VOLUME 95.6 fl (80.0-96.0); MONO # 0.3 10^3/uL (0.0-0.8); MONO % 2.5 % (0.0-5.0); NEUTROPHILS % 92.4 % (36.0-66.0); PLATELET COUNT, AUTOMATED 215 10^3/uL (150-450); RED BLOOD COUNT 3.21 10^6/uL (4.00-5.40); RED CELL DISTRIBUTION WIDTH 16.5 % (11.5-14.5)
[2018-05-01 06:49] LABS: ANION GAP 4 MEQ/L (8-16); BLOOD UREA NITROGEN 23 MG/DL (7-18); CALCIUM LEVEL 8.3 MG/DL (8.8-10.2); CARBON DIOXIDE LEVEL 35 MEQ/L (21-32); CHLORIDE LEVEL 103 MEQ/L (98-107); CREATININE FOR GFR 0.93 MG/DL (0.55-1.30); GLOMERULAR FILTRATION RATE > 60.0 (>39); GLUCOSE, FASTING 311 MG/DL (70-100); POTASSIUM SERUM 4.9 MEQ/L (3.5-5.1); SODIUM LEVEL 142 MEQ/L (136-145)
[2018-05-01] MEDS: FORMOTEROL FUMARATE 20 MCG/2 ML INHALATION SOLUTION (PERFOROMIST) INH ×2 (07:15→19:11)
[2018-05-01] MEDS: NYSTATIN 500,000 U/5 ML SUSP UDC SS ×3 (08:19→20:31)
[2018-05-01] MEDS: LEVEMIR (INSULIN DETEMIR) 1 UNITS/0.01ML SC (08:19)
[2018-05-01] MEDS: HumaLOG INSULIN (NovoLOG) PER UNIT SC ×4 (08:19→20:32)
[2018-05-01] MEDS: BACLOFEN 10 MG TAB PO ×2 (08:20→20:32)
[2018-05-01] MEDS: predniSONE 10 MG TAB PO (08:20)
[2018-05-01] MEDS: SITagliptin 50 MG TAB (JANUVIA) PO (08:20)
[2018-05-01] MEDS: ATORVASTATIN 20 MG TAB PO (08:20)
[2018-05-01] MEDS: ACETAMINOPHEN TAB 650MG DOSE (2X325MG) PO ×2 (08:27→23:07)
[2018-05-01 11:41] LABS: BEDSIDE GLUCOSE 337 MG/DL (83-110)
[2018-05-01 16:30] LABS: BEDSIDE GLUCOSE 306 MG/DL (83-110)
[2018-05-01] MEDS ORDERED: SLF 3 ML SYR IV (17:00)
[2018-05-01 20:16] LABS: BEDSIDE GLUCOSE 308 MG/DL (83-110)
[2018-05-01] MEDS: GABAPENTIN 300 MG CAP PO (20:31)
[2018-05-01] MEDS: ALPRAZolam 0.25 MG TAB PO (20:31)
[2018-05-01] MEDS: DOCUSATE SODIUM 100 MG CAP PO (20:32)
[2018-05-01] MEDS: SLF 3 ML SYR IV (22:00)
[2018-05-02] MEDS: IPRATROPIUM 0.5MG/ALBUTEROL 2.5MG INH SOL UD 3ML (DUONEB)(J7620) NEB ×4 (00:41→11:10)
[2018-05-02] MEDS: SLF 3 ML SYR IV ×2 (05:44→14:00)
[2018-05-02 06:32] LABS: BEDSIDE GLUCOSE 147 MG/DL (83-110)
[2018-05-02] MEDS: FORMOTEROL FUMARATE 20 MCG/2 ML INHALATION SOLUTION (PERFOROMIST) INH (08:00)
[2018-05-02 08:21] LABS: HEMATOCRIT 34.1 % (36.0-47.0); HEMOGLOBIN 10.2 g/dl (12.0-15.5); MEAN CORPUSCULAR HEMOGLOBIN 29.2 pg (27.0-33.0); MEAN CORPUSCULAR HGB CONC 29.9 g/dl (32.0-36.5); MEAN CORPUSCULAR VOLUME 97.7 fl (80.0-96.0); PLATELET COUNT, AUTOMATED 231 10^3/uL (150-450); RED BLOOD COUNT 3.49 10^6/uL (4.00-5.40); WHITE BLOOD COUNT 12.9 10^3/uL (4.0-10.0)
[2018-05-02] MEDS: NYSTATIN 500,000 U/5 ML SUSP UDC SS (08:49)
[2018-05-02 08:50] LABS: ANION GAP 3 MEQ/L (8-16); BLOOD UREA NITROGEN 23 MG/DL (7-18); CALCIUM LEVEL 8.4 MG/DL (8.8-10.2); CARBON DIOXIDE LEVEL 38 MEQ/L (21-32); CHLORIDE LEVEL 104 MEQ/L (98-107); CREATININE FOR GFR 0.92 MG/DL (0.55-1.30); GLOMERULAR FILTRATION RATE > 60.0 (>39); GLUCOSE, FASTING 120 MG/DL (70-100); POTASSIUM SERUM 4.1 MEQ/L (3.5-5.1); SODIUM LEVEL 145 MEQ/L (136-145)
[2018-05-02] MEDS: BACLOFEN 10 MG TAB PO (08:50)
[2018-05-02] MEDS: predniSONE 10 MG TAB PO (08:50)
[2018-05-02] MEDS: ATORVASTATIN 20 MG TAB PO (08:50)
[2018-05-02] MEDS: SITagliptin 50 MG TAB (JANUVIA) PO (08:50)
[2018-05-02] MEDS: HumaLOG INSULIN (NovoLOG) PER UNIT SC ×2 (08:51→12:25)
[2018-05-02] MEDS: LEVEMIR (INSULIN DETEMIR) 1 UNITS/0.01ML SC (08:52)
[2018-05-02 11:18] LABS: BEDSIDE GLUCOSE 169 MG/DL (83-110)
== END 2018-05-02 14:50 | disposition home health service (06) | DRG 189 ==
LOC: M MS5PR 05-01 23:40 → M PCU 04-30 17:12 → M ED 16:38 → M ED INP 20:26
DX: J96.22 Acute and chronic respiratory failure with hypercapnia (principal); I50.33 Acute on chronic diastolic (congestive) heart failure; J44.1 Chronic obstructive pulmonary disease with (acute) exacerbation; I13.0 Hypertensive heart and chronic kidney disease with heart failure and stage 1 through stage 4 chronic kidney disease, or unspecified chronic kidney disease; G47.33 Obstructive sleep apnea (adult) (pediatric); E78.5 Hyperlipidemia, unspecified; E11.40 Type 2 diabetes mellitus with diabetic neuropathy, unspecified; I27.20 Pulmonary hypertension, unspecified; F41.9 Anxiety disorder, unspecified; Z79.899 Other long term (current) drug therapy; Z88.8 Allergy status to other drugs, medicaments and biological substances; Z87.891 Personal history of nicotine dependence

== ENCOUNTER 2018-05-05 02:34 | Inpatient (IN) | payer OTHER ==
[2018-05-05] MEDS ORDERED: IPRATROPIUM 0.5MG/ALBUTEROL 2.5MG INH SOL UD 3ML (DUONEB)(J7620) As Ordered (03:39)
[2018-05-05] MEDS: dexameTHASONE 20 MG/5 ML VIAL (J1100) IV (04:13)
[2018-05-05 04:14] LABS: HEMOGLOBIN 10.2 g/dl (12.0-15.5); MEAN CORPUSCULAR HEMOGLOBIN 28.8 pg (27.0-33.0); PLATELET COUNT, AUTOMATED 208 10^3/uL (150-450); RED BLOOD COUNT 3.54 10^6/uL (4.00-5.40); WHITE BLOOD COUNT 11.2 10^3/uL (4.0-10.0)
[2018-05-05] MEDS: IPRATROPIUM 0.5MG/ALBUTEROL 2.5MG INH SOL UD 3ML (DUONEB)(J7620) NEB ×5 (04:14→20:02)
[2018-05-05 04:15] LABS: ADD MANUAL DIFFER YES; DIFF SLIDE NUMBER 93; POS COUNT POS FLAG; POSITIVE MORPH POS FLAG
[2018-05-05 04:16] LABS: ABG BASE EXCESS 7.4 (-2.0-2.0); ABG HCO3 36.8 MEQ/L (22.0-26.0); ABG O2 SATURATION 98.5 % (95.0-99.0); ABG PARTIAL PRESSURE O2 135.7 mmHg (75.0-100.0); ABG STANDARD HCO3 31.2 MEQ/L (22.0-26.0); ABG TOTAL CO2 39.3 MEQ/L (23.0-31.0)
[2018-05-05 04:19] LABS: ABG PARTIAL PRESSURE CO2 83.8 mmHg (35.0-45.0)
[2018-05-05 04:29] LABS: ANION GAP 2 MEQ/L (8-16); BLOOD UREA NITROGEN 20 MG/DL (7-18); CALCIUM LEVEL 8.3 MG/DL (8.8-10.2); CARBON DIOXIDE LEVEL 37 MEQ/L (21-32); CHLORIDE LEVEL 107 MEQ/L (98-107); CREATININE FOR GFR 1.04 MG/DL (0.55-1.30); GLOMERULAR FILTRATION RATE 55.3 (>39); GLUCOSE, FASTING 127 MG/DL (70-100); LYMPHOCYTES 20 % (16-52); MONOCYTES 2 % (0-8); NEUTROPHILS 78 % (35-75); POTASSIUM SERUM 4.1 MEQ/L (3.5-5.1); SODIUM LEVEL 146 MEQ/L (136-145)
[2018-05-05 04:30] LABS: PLATELET ESTIMATE NORMAL (NORMAL); POLYCHROMASIA 1+
[2018-05-05 07:43] LABS: ABG HCO3 33.3 MEQ/L (22.0-26.0); ABG O2 SATURATION 92.3 % (95.0-99.0); ABG PARTIAL PRESSURE O2 65.4 mmHg (75.0-100.0); ABG STANDARD HCO3 28.8 MEQ/L (22.0-26.0); ABG TOTAL CO2 35.4 MEQ/L (23.0-31.0); ABG pH (ARTERIAL) 7.294 UNITS (7.350-7.450)
[2018-05-05 07:50] LABS: ABG PARTIAL PRESSURE CO2 70.1 mmHg (35.0-45.0)
[2018-05-05 09:02] LABS: ALBUMIN 3.1 GM/DL (3.2-5.2); ALKALINE PHOSPHATASE 103 U/L (45-117); ALT/SGPT 34 U/L (12-78); CPK CREATINE PHOSPHOKINASE 31 U/L (26-192); TROPONIN I < 0.02 NG/ML (< 0.10)
[2018-05-05 09:19] LABS: AST/SGOT 12 U/L (7-37); BILIRUBIN,DIRECT < 0.1 MG/DL (0.0-0.2); BILIRUBIN,TOTAL 0.2 MG/DL (0.2-1.0); CK-MB VALUE MASS 1.8 NG/ML (<3.6); TOTAL PROTEIN 6.2 GM/DL (6.4-8.2)
[2018-05-05] MEDS: BUDESONIDE 0.25 MG/2 ML INHALATION SUSPENSION INH ×2 (12:43→20:02)
[2018-05-05 12:47] LABS: ABG BASE EXCESS 9.2 (-2.0-2.0); ABG HCO3 36.6 MEQ/L (22.0-26.0); ABG O2 SATURATION 95.5 % (95.0-99.0); ABG PARTIAL PRESSURE O2 77.5 mmHg (75.0-100.0); ABG STANDARD HCO3 32.9 MEQ/L (22.0-26.0); ABG TOTAL CO2 38.6 MEQ/L (23.0-31.0); ABG pH (ARTERIAL) 7.358 UNITS (7.350-7.450)
[2018-05-05 12:51] LABS: ABG PARTIAL PRESSURE CO2 66.5 mmHg (35.0-45.0)
[2018-05-05] MEDS: MIRALAX *UNIT DOSE* 17GM PACKET PO (13:09)
[2018-05-05] MEDS: BACLOFEN 10 MG TAB PO ×2 (13:10→20:33)
[2018-05-05] MEDS: ATORVASTATIN 20 MG TAB PO (13:10)
[2018-05-05] MEDS: FUROSEMIDE 100 MG/10 ML VIAL (J1940) IV ×3 (13:10→23:32)
[2018-05-05] MEDS: SENOKOT S TAB PO (13:11)
[2018-05-05] MEDS: GABAPENTIN 300 MG CAP PO (20:33)
[2018-05-05] MEDS: DOCUSATE SODIUM 100 MG CAP PO (20:34)
[2018-05-05] MEDS: ACETAMINOPHEN TAB 650MG DOSE (2X325MG) PO (20:34)
[2018-05-06] MEDS: IPRATROPIUM 0.5MG/ALBUTEROL 2.5MG INH SOL UD 3ML (DUONEB)(J7620) NEB ×2 (05:00→20:43)
[2018-05-06 05:16] LABS: HEMATOCRIT 33.7 % (36.0-47.0); HEMOGLOBIN 9.9 g/dl (12.0-15.5); MEAN CORPUSCULAR HEMOGLOBIN 28.3 pg (27.0-33.0); MEAN CORPUSCULAR HGB CONC 29.4 g/dl (32.0-36.5); MEAN CORPUSCULAR VOLUME 96.3 fl (80.0-96.0); PLATELET COUNT, AUTOMATED 210 10^3/uL (150-450); RED CELL DISTRIBUTION WIDTH 16.3 % (11.5-14.5); WHITE BLOOD COUNT 11.1 10^3/uL (4.0-10.0)
[2018-05-06 05:31] LABS: ANION GAP 4 MEQ/L (8-16); BLOOD UREA NITROGEN 25 MG/DL (7-18); CALCIUM LEVEL 8.5 MG/DL (8.8-10.2); CARBON DIOXIDE LEVEL 42 MEQ/L (21-32); CHLORIDE LEVEL 98 MEQ/L (98-107); CREATININE FOR GFR 0.98 MG/DL (0.55-1.30); GLOMERULAR FILTRATION RATE 59.2 (>39); GLUCOSE, FASTING 177 MG/DL (70-100); POTASSIUM SERUM 3.7 MEQ/L (3.5-5.1); SODIUM LEVEL 144 MEQ/L (136-145)
[2018-05-06] MEDS: FUROSEMIDE 100 MG/10 ML VIAL (J1940) IV ×3 (06:37→17:59)
[2018-05-06 07:12] LABS: MAGNESIUM LEVEL 2.3 MG/DL (1.8-2.4)
[2018-05-06] MEDS: ATORVASTATIN 20 MG TAB PO (08:21)
[2018-05-06] MEDS: BACLOFEN 10 MG TAB PO ×2 (08:21→20:57)
[2018-05-06] MEDS: POTASSIUM CHLORIDE 10 MEQ SR TABLET PO (08:22)
[2018-05-06] MEDS: BUDESONIDE 0.25 MG/2 ML INHALATION SUSPENSION INH ×2 (12:12→20:43)
[2018-05-06] MEDS ORDERED: SLF 3 ML SYR IV (17:00)
[2018-05-06] MEDS ORDERED: DEXTROSE 50% 50 ML SYRINGE IV (17:15)
[2018-05-06] MEDS ORDERED: GLUCAGON FOR INJ 1 MG VIAL (J1610) SC (17:15)
[2018-05-06] MEDS ORDERED: GLUCOSE 4 GM CHEW TABLET PO (17:15)
[2018-05-06 17:27] LABS: BEDSIDE GLUCOSE 202 MG/DL (83-110)
[2018-05-06] MEDS: HumaLOG INSULIN (NovoLOG) PER UNIT SC ×2 (17:58→20:57)
[2018-05-06 19:47] LABS: BEDSIDE GLUCOSE 126 MG/DL (83-110)
[2018-05-06] MEDS: DOCUSATE SODIUM 100 MG CAP PO (20:56)
[2018-05-06] MEDS: GABAPENTIN 300 MG CAP PO (20:57)
[2018-05-06] MEDS: SLF 3 ML SYR IV (20:58)
[2018-05-06] MEDS: ACETAMINOPHEN TAB 650MG DOSE (2X325MG) PO (21:03)
[2018-05-07 00:35] LABS: ANION GAP 6 MEQ/L (8-16); BLOOD UREA NITROGEN 26 MG/DL (7-18); CALCIUM LEVEL 8.6 MG/DL (8.8-10.2); CARBON DIOXIDE LEVEL 43 MEQ/L (21-32); CHLORIDE LEVEL 94 MEQ/L (98-107); CREATININE FOR GFR 1.33 MG/DL (0.55-1.30); GLOMERULAR FILTRATION RATE 41.6 (>39); GLUCOSE, FASTING 241 MG/DL (70-100); MAGNESIUM LEVEL 1.8 MG/DL (1.8-2.4); PHOSPHORUS LEVEL 3.5 MG/DL (2.5-4.9); POTASSIUM SERUM 3.4 MEQ/L (3.5-5.1); SODIUM LEVEL 143 MEQ/L (136-145)
[2018-05-07] MEDS: METOPROLOL 5 MG/5 ML VIAL IV (00:47)
[2018-05-07] MEDS: POTASSIUM CHLORIDE 10 MEQ SR TABLET PO ×2 (03:23→08:22)
[2018-05-07] MEDS: MAG SULF 1GM/100ML (MAG RUN) 1 GM in APPROPRIATE DILUENT 1 EA IV (03:23)
[2018-05-07] MEDS: FUROSEMIDE 100 MG/10 ML VIAL (J1940) IV ×3 (06:19→12:18)
[2018-05-07] MEDS: SLF 3 ML SYR IV ×3 (06:19→20:21)
[2018-05-07 06:32] LABS: HEMATOCRIT 34.4 % (36.0-47.0); HEMOGLOBIN 10.2 g/dl (12.0-15.5); MEAN CORPUSCULAR HEMOGLOBIN 28.2 pg (27.0-33.0); MEAN CORPUSCULAR HGB CONC 29.7 g/dl (32.0-36.5); PLATELET COUNT, AUTOMATED 217 10^3/uL (150-450); RED BLOOD COUNT 3.62 10^6/uL (4.00-5.40); RED CELL DISTRIBUTION WIDTH 16.7 % (11.5-14.5); WHITE BLOOD COUNT 12.6 10^3/uL (4.0-10.0)
[2018-05-07 06:44] LABS: ESTIMATED AVERAGE GLUCOSE 169 MG/DL (60-110); HEMOGLOBIN A1c 7.5 %
[2018-05-07 06:58] LABS: ANION GAP 4 MEQ/L (8-16); BLOOD UREA NITROGEN 22 MG/DL (7-18); CALCIUM LEVEL 8.6 MG/DL (8.8-10.2); CARBON DIOXIDE LEVEL 44 MEQ/L (21-32); CHLORIDE LEVEL 96 MEQ/L (98-107); CREATININE FOR GFR 1.09 MG/DL (0.55-1.30); GLOMERULAR FILTRATION RATE 52.4 (>39); GLUCOSE, FASTING 157 MG/DL (70-100); MAGNESIUM LEVEL 2.6 MG/DL (1.8-2.4); POTASSIUM SERUM 3.8 MEQ/L (3.5-5.1); SODIUM LEVEL 144 MEQ/L (136-145)
[2018-05-07] MEDS: IPRATROPIUM 0.5MG/ALBUTEROL 2.5MG INH SOL UD 3ML (DUONEB)(J7620) NEB ×2 (07:45→16:18)
[2018-05-07] MEDS: BUDESONIDE 0.25 MG/2 ML INHALATION SUSPENSION INH ×2 (07:46→20:41)
[2018-05-07] MEDS: HumaLOG INSULIN (NovoLOG) PER UNIT SC ×4 (08:21→20:20)
[2018-05-07] MEDS: ATORVASTATIN 20 MG TAB PO (08:22)
[2018-05-07] MEDS: BACLOFEN 10 MG TAB PO ×2 (08:22→20:20)
[2018-05-07] MEDS: ACETAMINOPHEN TAB 650MG DOSE (2X325MG) PO ×2 (09:39→20:20)
[2018-05-07 11:42] LABS: BEDSIDE GLUCOSE 197 MG/DL (83-110)
[2018-05-07 16:33] LABS: BEDSIDE GLUCOSE 244 MG/DL (83-110)
[2018-05-07] MEDS: TORSEMIDE 20 MG TAB PO (18:14)
[2018-05-07 20:19] LABS: BEDSIDE GLUCOSE 205 MG/DL (83-110)
[2018-05-07] MEDS: GABAPENTIN 300 MG CAP PO (20:20)
[2018-05-07] MEDS: DOCUSATE SODIUM 100 MG CAP PO (20:20)
[2018-05-08] MEDS: SLF 3 ML SYR IV ×3 (05:15→21:43)
[2018-05-08 06:08] LABS: HEMATOCRIT 36.1 % (36.0-47.0); HEMOGLOBIN 10.7 g/dl (12.0-15.5); MEAN CORPUSCULAR HEMOGLOBIN 28.5 pg (27.0-33.0); MEAN CORPUSCULAR HGB CONC 29.6 g/dl (32.0-36.5); MEAN CORPUSCULAR VOLUME 96.3 fl (80.0-96.0); PLATELET COUNT, AUTOMATED 195 10^3/uL (150-450); RED BLOOD COUNT 3.75 10^6/uL (4.00-5.40); RED CELL DISTRIBUTION WIDTH 16.7 % (11.5-14.5); WHITE BLOOD COUNT 9.6 10^3/uL (4.0-10.0)
[2018-05-08 06:19] LABS: ANION GAP 3 MEQ/L (8-16); BLOOD UREA NITROGEN 21 MG/DL (7-18); CALCIUM LEVEL 9.2 MG/DL (8.8-10.2); CARBON DIOXIDE LEVEL 44 MEQ/L (21-32); CHLORIDE LEVEL 95 MEQ/L (98-107); CREATININE FOR GFR 0.99 MG/DL (0.55-1.30); GLOMERULAR FILTRATION RATE 58.5 (>39); GLUCOSE, FASTING 176 MG/DL (70-100); MAGNESIUM LEVEL 2.1 MG/DL (1.8-2.4); POTASSIUM SERUM 3.6 MEQ/L (3.5-5.1); SODIUM LEVEL 142 MEQ/L (136-145)
[2018-05-08] MEDS: BUDESONIDE 0.25 MG/2 ML INHALATION SUSPENSION INH ×2 (07:47→20:24)
[2018-05-08] MEDS: POTASSIUM CHLORIDE 10 MEQ SR TABLET PO (08:14)
[2018-05-08] MEDS: TORSEMIDE 20 MG TAB PO ×2 (08:15→16:51)
[2018-05-08] MEDS: ATORVASTATIN 20 MG TAB PO (08:15)
[2018-05-08] MEDS: BACLOFEN 10 MG TAB PO ×2 (08:15→20:17)
[2018-05-08] MEDS: HumaLOG INSULIN (NovoLOG) PER UNIT SC ×4 (08:16→20:18)
[2018-05-08 11:45] LABS: BEDSIDE GLUCOSE 219 MG/DL (83-110)
[2018-05-08] MEDS: IPRATROPIUM 0.5MG/ALBUTEROL 2.5MG INH SOL UD 3ML (DUONEB)(J7620) NEB (16:12)
[2018-05-08 16:41] LABS: BEDSIDE GLUCOSE 182 MG/DL (83-110)
[2018-05-08 19:38] LABS: BEDSIDE GLUCOSE 204 MG/DL (83-110)
[2018-05-08] MEDS: ACETAMINOPHEN TAB 650MG DOSE (2X325MG) PO (20:17)
[2018-05-08] MEDS: GABAPENTIN 300 MG CAP PO (20:17)
[2018-05-08] MEDS: DOCUSATE SODIUM 100 MG CAP PO (20:18)
[2018-05-09] MEDS: SLF 3 ML SYR IV (05:20)
[2018-05-09 06:21] LABS: HEMATOCRIT 33.3 % (36.0-47.0); HEMOGLOBIN 10.1 g/dl (12.0-15.5); MEAN CORPUSCULAR HEMOGLOBIN 28.6 pg (27.0-33.0); MEAN CORPUSCULAR HGB CONC 30.3 g/dl (32.0-36.5); MEAN CORPUSCULAR VOLUME 94.3 fl (80.0-96.0); PLATELET COUNT, AUTOMATED 178 10^3/uL (150-450); RED BLOOD COUNT 3.53 10^6/uL (4.00-5.40); RED CELL DISTRIBUTION WIDTH 16.9 % (11.5-14.5); WHITE BLOOD COUNT 8.7 10^3/uL (4.0-10.0)
[2018-05-09 06:36] LABS: ANION GAP 5 MEQ/L (8-16); BLOOD UREA NITROGEN 22 MG/DL (7-18); CALCIUM LEVEL 9.2 MG/DL (8.8-10.2); CARBON DIOXIDE LEVEL 41 MEQ/L (21-32); CHLORIDE LEVEL 97 MEQ/L (98-107); CREATININE FOR GFR 0.98 MG/DL (0.55-1.30); GLOMERULAR FILTRATION RATE 59.2 (>39); GLUCOSE, FASTING 186 MG/DL (70-100); MAGNESIUM LEVEL 2.1 MG/DL (1.8-2.4); POTASSIUM SERUM 3.4 MEQ/L (3.5-5.1); SODIUM LEVEL 143 MEQ/L (136-145)
[2018-05-09] MEDS: TORSEMIDE 20 MG TAB PO (08:07)
[2018-05-09] MEDS: HumaLOG INSULIN (NovoLOG) PER UNIT SC ×2 (08:07→12:00)
[2018-05-09] MEDS: ATORVASTATIN 20 MG TAB PO (08:07)
[2018-05-09] MEDS: POTASSIUM CHLORIDE 10 MEQ SR TABLET PO ×2 (08:07→09:32)
[2018-05-09] MEDS: BACLOFEN 10 MG TAB PO (08:08)
[2018-05-09] MEDS: IPRATROPIUM 0.5MG/ALBUTEROL 2.5MG INH SOL UD 3ML (DUONEB)(J7620) NEB (08:15)
[2018-05-09] MEDS: BUDESONIDE 0.25 MG/2 ML INHALATION SUSPENSION INH (08:15)
[2018-05-09 11:25] LABS: BEDSIDE GLUCOSE 198 MG/DL (83-110)
== END 2018-05-09 13:33 | disposition home health service (06) | DRG 291 ==
LOC: M PCU 05-06 16:30 → M MSPAV 05-08 14:22 → M ED 02:34 → M ED INP 10:14 → M ICU 11:25
DX: I13.0 Hypertensive heart and chronic kidney disease with heart failure and stage 1 through stage 4 chronic kidney disease, or unspecified chronic kidney disease (principal); I50.33 Acute on chronic diastolic (congestive) heart failure; J96.22 Acute and chronic respiratory failure with hypercapnia; J44.9 Chronic obstructive pulmonary disease, unspecified; I27.20 Pulmonary hypertension, unspecified; R91.1 Solitary pulmonary nodule; E78.5 Hyperlipidemia, unspecified; G47.33 Obstructive sleep apnea (adult) (pediatric); N18.3 Chronic kidney disease, stage 3 (moderate); E11.40 Type 2 diabetes mellitus with diabetic neuropathy, unspecified; M48.061 Spinal stenosis, lumbar region without neurogenic claudication; Z88.8 Allergy status to other drugs, medicaments and biological substances; M43.12 Spondylolisthesis, cervical region; K59.00 Constipation, unspecified; F41.9 Anxiety disorder, unspecified; Z91.19 Patient's noncompliance with other medical treatment and regimen

== ENCOUNTER 2018-05-16 17:23 | Inpatient (IN) | payer OTHER ==
[~2018-05-16 17:23] MED LIST changes: -ALBU17IN INH; -AMLO10TA2 PO; -ASPI325T PO; -ATOR40TA75 PO; -BACL1TAB9 PO; -BUDE0.5S6 INH; -COLA100C5 PO; -IPRAT-ALBUT; -LISI10TA4 PO; -PERF20NE2 INH; -PRED10TA2 PO; -QUIN20TA17 PO; -SENN18TA PO; -TOBR3OPD OU; -TORS20TA2 PO; -VITA1CAP40; +methylPREDNISolone INJ 40 MG/1 ML VIAL (J2920) IV
[2018-05-16 18:22] LABS: BASO % 0.1 % (0.0-1.0); HEMATOCRIT 37.3 % (36.0-47.0); HEMOGLOBIN 10.9 g/dl (12.0-15.5); IMMATURE GRANULOCYTE % 1.5 % (0-3.0); LYMPH # 0.3 10^3/uL (1.5-4.5); MEAN CORPUSCULAR HEMOGLOBIN 28.5 pg (27.0-33.0); MEAN CORPUSCULAR HGB CONC 29.2 g/dl (32.0-36.5); MEAN CORPUSCULAR VOLUME 97.6 fl (80.0-96.0); MONO # 0.3 10^3/uL (0.0-0.8); MONO % 1.6 % (0.0-5.0); NEUTROPHILS # 16.4 10^3/uL (1.8-7.7); NEUTROPHILS % 95.3 % (36.0-66.0); PLATELET COUNT, AUTOMATED 278 10^3/uL (150-450); RED BLOOD COUNT 3.82 10^6/uL (4.00-5.40); RED CELL DISTRIBUTION WIDTH 17.1 % (11.5-14.5); WHITE BLOOD COUNT 17.2 10^3/uL (4.0-10.0)
[2018-05-16 18:30] LABS: D-DIMER QUANT 513.1 ng/ml (<500)
[2018-05-16] MEDS: methylPREDNISolone INJ 125 MG/2 ML VIAL (J2930) IV (18:33)
[2018-05-16 18:34] LABS: ALBUMIN 3.5 GM/DL (3.2-5.2); ALKALINE PHOSPHATASE 90 U/L (45-117); ALT/SGPT 35 U/L (12-78); ANION GAP 8 MEQ/L (8-16); AST/SGOT 12 U/L (7-37); BILIRUBIN,DIRECT 0.1 MG/DL (0.0-0.2); BILIRUBIN,TOTAL 0.4 MG/DL (0.2-1.0); BLOOD UREA NITROGEN 42 MG/DL (7-18); CALCIUM LEVEL 9.3 MG/DL (8.8-10.2); CARBON DIOXIDE LEVEL 35 MEQ/L (21-32); CHLORIDE LEVEL 101 MEQ/L (98-107); CPK CREATINE PHOSPHOKINASE 36 U/L (26-192); CREATININE FOR GFR 1.53 MG/DL (0.55-1.30); GLOMERULAR FILTRATION RATE 35.4 (>39); GLUCOSE, FASTING 365 MG/DL (70-100); MB/CK RELATIVE INDEX 2.77 (< OR =4); NT-PRO BNP 915 PG/ML (<125); POTASSIUM SERUM 4.7 MEQ/L (3.5-5.1); SODIUM LEVEL 144 MEQ/L (136-145); TROPONIN I < 0.02 NG/ML (< 0.10)
[2018-05-16 18:41] LABS: ABG BASE EXCESS 7.3 (-2.0-2.0); ABG HCO3 33.7 MEQ/L (22.0-26.0); ABG O2 SATURATION 98.5 % (95.0-99.0); ABG PARTIAL PRESSURE CO2 56.9 mmHg (35.0-45.0); ABG PARTIAL PRESSURE O2 114.9 mmHg (75.0-100.0); ABG STANDARD HCO3 31.1 MEQ/L (22.0-26.0); ABG TOTAL CO2 35.4 MEQ/L (23.0-31.0)
[2018-05-16 18:44] LABS: LYMPH % 1.5 % (24.0-44.0); POSITIVE DIFF POS FLAG
[2018-05-16] MEDS ORDERED: methylPREDNISolone INJ 125 MG/2 ML VIAL (J2930) IV (19:00)
[2018-05-16] MEDS: IPRATROPIUM 0.5MG/ALBUTEROL 2.5MG INH SOL UD 3ML (DUONEB)(J7620) NEB ×3 (19:32→23:23)
[2018-05-16] MEDS: NS 1,000 ML IV (20:39)
[2018-05-16] MEDS ORDERED: ONDANSETRON 4MG/2ML VIAL (J2405) IV (22:15)
[2018-05-16] MEDS ORDERED: HEPARIN SOD (PORCINE) 5000 UNITS/ML VIAL SC (22:15)
[2018-05-16] MEDS ORDERED: methylPREDNISolone INJ 40 MG/1 ML VIAL (J2920) IV (23:00)
[2018-05-16] MEDS: ATORVASTATIN 20 MG TAB PO (23:01)
[2018-05-16] MEDS: AZITHROMYCIN INJ 500 MG, VIAL MATE ADAPTER 1 EACH in D5W 250 ML IV (23:07)
[2018-05-16] MEDS ORDERED: DEXTROSE 50% 50 ML SYRINGE IV (23:45)
[2018-05-16] MEDS ORDERED: GLUCAGON FOR INJ 1 MG VIAL (J1610) SC (23:45)
[2018-05-16] MEDS ORDERED: GLUCOSE 4 GM CHEW TABLET PO (23:45)
[2018-05-17 00:36] LABS: BEDSIDE GLUCOSE 388 MG/DL (83-110)
[2018-05-17] MEDS: ALPRAZolam 0.25 MG TAB PO ×2 (00:43→09:11)
[2018-05-17] MEDS: HumaLOG INSULIN (NovoLOG) PER UNIT SC ×5 (00:43→21:07)
[2018-05-17] MEDS: IPRATROPIUM 0.5MG/ALBUTEROL 2.5MG INH SOL UD 3ML (DUONEB)(J7620) NEB ×3 (02:00→07:36)
[2018-05-17] MEDS: methylPREDNISolone INJ 40 MG/1 ML VIAL (J2920) IV (02:45)
[2018-05-17 04:55] LABS: HEMATOCRIT 33.8 % (36.0-47.0); MEAN CORPUSCULAR HEMOGLOBIN 28.8 pg (27.0-33.0); MEAN CORPUSCULAR HGB CONC 29.6 g/dl (32.0-36.5); MEAN CORPUSCULAR VOLUME 97.4 fl (80.0-96.0); PLATELET COUNT, AUTOMATED 257 10^3/uL (150-450); RED BLOOD COUNT 3.47 10^6/uL (4.00-5.40); RED CELL DISTRIBUTION WIDTH 17.2 % (11.5-14.5); WHITE BLOOD COUNT 15.8 10^3/uL (4.0-10.0)
[2018-05-17 05:14] LABS: ANION GAP 5 MEQ/L (8-16); BLOOD UREA NITROGEN 38 MG/DL (7-18); CALCIUM LEVEL 8.8 MG/DL (8.8-10.2); CARBON DIOXIDE LEVEL 36 MEQ/L (21-32); CHLORIDE LEVEL 105 MEQ/L (98-107); CREATININE FOR GFR 1.36 MG/DL (0.55-1.30); GLOMERULAR FILTRATION RATE 40.6 (>39); GLUCOSE, FASTING 269 MG/DL (70-100); POTASSIUM SERUM 4.7 MEQ/L (3.5-5.1); SODIUM LEVEL 146 MEQ/L (136-145)
[2018-05-17 08:26] LABS: NT-PRO BNP 1313 PG/ML (<125)
[2018-05-17] MEDS ORDERED: LEVALBUTEROL 1.25 MG/0.5 ML CONCENTRATE NEB INH (08:30)
[2018-05-17] MEDS: MIRALAX *UNIT DOSE* 17GM PACKET PO (08:53)
[2018-05-17] MEDS: ENOXAPARIN 40 MG/0.4 ML SYRINGE (J1650) SC (08:54)
[2018-05-17] MEDS: POTASSIUM CHLORIDE 10 MEQ SR TABLET PO (08:55)
[2018-05-17] MEDS: BISACODYL 5 MG TAB PO (08:55)
[2018-05-17] MEDS: methylPREDNISolone INJ 125 MG/2 ML VIAL (J2930) IV ×3 (08:55→20:49)
[2018-05-17] MEDS: DOCUSATE SODIUM 100 MG CAP PO ×2 (08:56→20:51)
[2018-05-17] MEDS: BACLOFEN 10 MG TAB PO ×3 (08:56→20:50)
[2018-05-17] MEDS ORDERED: TORSEMIDE 20 MG TAB PO (09:00)
[2018-05-17] MEDS: FUROSEMIDE 40 MG/4 ML VIAL (J1940) IV ×3 (09:10→20:51)
[2018-05-17] MEDS: ACETAMINOPHEN 500 MG TAB PO ×2 (09:11→20:58)
[2018-05-17] MEDS: LEVALBUTEROL 1.25 MG/0.5 ML CONCENTRATE NEB INH ×4 (11:26→23:32)
[2018-05-17 11:50] LABS: BEDSIDE GLUCOSE 217 MG/DL (83-110)
[2018-05-17 17:06] LABS: BEDSIDE GLUCOSE 166 MG/DL (83-110)
[2018-05-17 18:31] LABS: ANION GAP 6 MEQ/L (8-16); BLOOD UREA NITROGEN 36 MG/DL (7-18); CALCIUM LEVEL 8.4 MG/DL (8.8-10.2); CARBON DIOXIDE LEVEL 36 MEQ/L (21-32); CHLORIDE LEVEL 102 MEQ/L (98-107); CREATININE FOR GFR 1.18 MG/DL (0.55-1.30); GLOMERULAR FILTRATION RATE 47.8 (>39); GLUCOSE, FASTING 260 MG/DL (70-100); MAGNESIUM LEVEL 2.5 MG/DL (1.8-2.4); POTASSIUM SERUM 4.5 MEQ/L (3.5-5.1); SODIUM LEVEL 144 MEQ/L (136-145)
[2018-05-17] MEDS: GABAPENTIN 300 MG CAP PO (20:50)
[2018-05-17] MEDS: ATORVASTATIN 20 MG TAB PO (20:50)
[2018-05-17 21:07] LABS: BEDSIDE GLUCOSE 270 MG/DL (83-110)
[2018-05-18] MEDS: AZITHROMYCIN INJ 500 MG, VIAL MATE ADAPTER 1 EACH in D5W 250 ML IV (00:25)
[2018-05-18] MEDS: FUROSEMIDE 40 MG/4 ML VIAL (J1940) IV ×4 (03:45→20:05)
[2018-05-18] MEDS: methylPREDNISolone INJ 125 MG/2 ML VIAL (J2930) IV ×4 (03:45→20:03)
[2018-05-18] MEDS: LEVALBUTEROL 1.25 MG/0.5 ML CONCENTRATE NEB INH ×7 (03:50→23:37)
[2018-05-18 05:14] LABS: HEMATOCRIT 33.5 % (36.0-47.0); HEMOGLOBIN 10.1 g/dl (12.0-15.5); MEAN CORPUSCULAR HEMOGLOBIN 28.8 pg (27.0-33.0); MEAN CORPUSCULAR HGB CONC 30.1 g/dl (32.0-36.5); MEAN CORPUSCULAR VOLUME 95.4 fl (80.0-96.0); PLATELET COUNT, AUTOMATED 233 10^3/uL (150-450); RED BLOOD COUNT 3.51 10^6/uL (4.00-5.40); RED CELL DISTRIBUTION WIDTH 16.7 % (11.5-14.5); WHITE BLOOD COUNT 10.7 10^3/uL (4.0-10.0)
[2018-05-18 05:28] LABS: ANION GAP 5 MEQ/L (8-16); BLOOD UREA NITROGEN 35 MG/DL (7-18); CALCIUM LEVEL 8.4 MG/DL (8.8-10.2); CARBON DIOXIDE LEVEL 37 MEQ/L (21-32); CHLORIDE LEVEL 100 MEQ/L (98-107); CREATININE FOR GFR 1.16 MG/DL (0.55-1.30); GLOMERULAR FILTRATION RATE 48.8 (>39); GLUCOSE, FASTING 258 MG/DL (70-100); MAGNESIUM LEVEL 2.5 MG/DL (1.8-2.4); POTASSIUM SERUM 4.1 MEQ/L (3.5-5.1); SODIUM LEVEL 142 MEQ/L (136-145)
[2018-05-18] MEDS: HumaLOG INSULIN (NovoLOG) PER UNIT SC ×4 (08:48→20:24)
[2018-05-18] MEDS: DOCUSATE SODIUM 100 MG CAP PO ×2 (08:49→20:04)
[2018-05-18] MEDS: BACLOFEN 10 MG TAB PO ×3 (08:49→20:04)
[2018-05-18] MEDS: POTASSIUM CHLORIDE 10 MEQ SR TABLET PO (08:50)
[2018-05-18] MEDS: ENOXAPARIN 40 MG/0.4 ML SYRINGE (J1650) SC (08:51)
[2018-05-18] MEDS: BISACODYL 5 MG TAB PO (08:51)
[2018-05-18] MEDS: MIRALAX *UNIT DOSE* 17GM PACKET PO (08:51)
[2018-05-18 12:20] LABS: BEDSIDE GLUCOSE 309 MG/DL (83-110)
[2018-05-18 17:44] LABS: BEDSIDE GLUCOSE 298 MG/DL (83-110)
[2018-05-18 18:20] LABS: MAGNESIUM LEVEL 2.3 MG/DL (1.8-2.4)
[2018-05-18] MEDS: GABAPENTIN 300 MG CAP PO (20:03)
[2018-05-18] MEDS: ATORVASTATIN 20 MG TAB PO (20:04)
[2018-05-18] MEDS: ACETAMINOPHEN 500 MG TAB PO (20:04)
[2018-05-18] MEDS: AZITHROMYCIN 250 MG TAB PO (20:04)
[2018-05-18 20:18] LABS: BEDSIDE GLUCOSE 376 MG/DL (83-110)
[2018-05-19] MEDS: methylPREDNISolone INJ 125 MG/2 ML VIAL (J2930) IV ×3 (02:47→16:34)
[2018-05-19] MEDS: FUROSEMIDE 40 MG/4 ML VIAL (J1940) IV ×3 (02:48→16:35)
[2018-05-19] MEDS: LEVALBUTEROL 1.25 MG/0.5 ML CONCENTRATE NEB INH ×6 (03:52→23:38)
[2018-05-19] MEDS: ACETAMINOPHEN 500 MG TAB PO ×2 (04:53→21:16)
[2018-05-19 05:36] LABS: HEMOGLOBIN 10.2 g/dl (12.0-15.5); MEAN CORPUSCULAR HEMOGLOBIN 28.3 pg (27.0-33.0); MEAN CORPUSCULAR VOLUME 94.2 fl (80.0-96.0); PLATELET COUNT, AUTOMATED 217 10^3/uL (150-450); RED BLOOD COUNT 3.61 10^6/uL (4.00-5.40); RED CELL DISTRIBUTION WIDTH 16.2 % (11.5-14.5); WHITE BLOOD COUNT 10.1 10^3/uL (4.0-10.0)
[2018-05-19 05:47] LABS: ANION GAP 8 MEQ/L (8-16); BLOOD UREA NITROGEN 38 MG/DL (7-18); CALCIUM LEVEL 8.3 MG/DL (8.8-10.2); CARBON DIOXIDE LEVEL 36 MEQ/L (21-32); CHLORIDE LEVEL 99 MEQ/L (98-107); CREATININE FOR GFR 1.25 MG/DL (0.55-1.30); GLOMERULAR FILTRATION RATE 44.7 (>39); GLUCOSE, FASTING 260 MG/DL (70-100); MAGNESIUM LEVEL 2.3 MG/DL (1.8-2.4); SODIUM LEVEL 143 MEQ/L (136-145)
[2018-05-19] MEDS: amLODIPine 10 MG TAB PO (05:51)
[2018-05-19] MEDS: HumaLOG INSULIN (NovoLOG) PER UNIT SC ×4 (07:54→21:00)
[2018-05-19] MEDS: MIRALAX *UNIT DOSE* 17GM PACKET PO (09:00)
[2018-05-19] MEDS: DOCUSATE SODIUM 100 MG CAP PO ×2 (09:08→21:13)
[2018-05-19] MEDS: ENOXAPARIN 40 MG/0.4 ML SYRINGE (J1650) SC (09:08)
[2018-05-19] MEDS: BACLOFEN 10 MG TAB PO ×3 (09:08→21:13)
[2018-05-19] MEDS: POTASSIUM CHLORIDE 10 MEQ SR TABLET PO (09:09)
[2018-05-19] MEDS: BISACODYL 5 MG TAB PO (09:09)
[2018-05-19 11:57] LABS: BEDSIDE GLUCOSE 254 MG/DL (83-110)
[2018-05-19 16:56] LABS: BEDSIDE GLUCOSE 332 MG/DL (83-110)
[2018-05-19 18:36] LABS: MAGNESIUM LEVEL 2.4 MG/DL (1.8-2.4)
[2018-05-19 20:44] LABS: BEDSIDE GLUCOSE 350 MG/DL (83-110)
[2018-05-19] MEDS: GABAPENTIN 300 MG CAP PO (21:13)
[2018-05-19] MEDS: AZITHROMYCIN 250 MG TAB PO (21:13)
[2018-05-19] MEDS: ATORVASTATIN 20 MG TAB PO (21:13)
[2018-05-20] MEDS: NYSTATIN 500,000 U/5 ML SUSP UDC PO ×5 (00:53→20:50)
[2018-05-20] MEDS: methylPREDNISolone INJ 125 MG/2 ML VIAL (J2930) IV ×3 (00:54→16:46)
[2018-05-20] MEDS: FUROSEMIDE 40 MG/4 ML VIAL (J1940) IV ×3 (00:54→16:46)
[2018-05-20] MEDS: LEVALBUTEROL 1.25 MG/0.5 ML CONCENTRATE NEB INH ×6 (03:48→23:23)
[2018-05-20 05:39] LABS: HEMATOCRIT 33.3 % (36.0-47.0); HEMOGLOBIN 10.2 g/dl (12.0-15.5); MEAN CORPUSCULAR HEMOGLOBIN 28.8 pg (27.0-33.0); MEAN CORPUSCULAR HGB CONC 30.6 g/dl (32.0-36.5); MEAN CORPUSCULAR VOLUME 94.1 fl (80.0-96.0); PLATELET COUNT, AUTOMATED 189 10^3/uL (150-450); RED BLOOD COUNT 3.54 10^6/uL (4.00-5.40); RED CELL DISTRIBUTION WIDTH 16.1 % (11.5-14.5); WHITE BLOOD COUNT 10.2 10^3/uL (4.0-10.0)
[2018-05-20 06:05] LABS: ANION GAP 8 MEQ/L (8-16); BLOOD UREA NITROGEN 36 MG/DL (7-18); CALCIUM LEVEL 7.9 MG/DL (8.8-10.2); CARBON DIOXIDE LEVEL 37 MEQ/L (21-32); CHLORIDE LEVEL 97 MEQ/L (98-107); CREATININE FOR GFR 1.24 MG/DL (0.55-1.30); GLOMERULAR FILTRATION RATE 45.1 (>39); GLUCOSE, FASTING 320 MG/DL (70-100); MAGNESIUM LEVEL 2.4 MG/DL (1.8-2.4); POTASSIUM SERUM 4.3 MEQ/L (3.5-5.1); SODIUM LEVEL 142 MEQ/L (136-145)
[2018-05-20] MEDS: BISACODYL 5 MG TAB PO (07:50)
[2018-05-20] MEDS: ALPRAZolam 0.25 MG TAB PO (07:50)
[2018-05-20] MEDS: DOCUSATE SODIUM 100 MG CAP PO ×2 (07:50→20:50)
[2018-05-20] MEDS: POTASSIUM CHLORIDE 10 MEQ SR TABLET PO (07:51)
[2018-05-20] MEDS: amLODIPine 10 MG TAB PO (07:51)
[2018-05-20] MEDS: BACLOFEN 10 MG TAB PO ×3 (07:51→20:51)
[2018-05-20] MEDS: ENOXAPARIN 40 MG/0.4 ML SYRINGE (J1650) SC (07:52)
[2018-05-20] MEDS: MIRALAX *UNIT DOSE* 17GM PACKET PO ×2 (07:53→16:47)
[2018-05-20] MEDS: HumaLOG INSULIN (NovoLOG) PER UNIT SC ×4 (07:54→20:51)
[2018-05-20] MEDS: ACETAMINOPHEN 500 MG TAB PO ×2 (07:57→20:55)
[2018-05-20] MEDS ORDERED: amLODIPine 10 MG TAB PO ×2 (09:00)
[2018-05-20 12:07] LABS: BEDSIDE GLUCOSE 316 MG/DL (83-110)
[2018-05-20 17:22] LABS: BEDSIDE GLUCOSE 406 MG/DL (83-110)
[2018-05-20 18:37] LABS: MAGNESIUM LEVEL 2.3 MG/DL (1.8-2.4)
[2018-05-20 20:45] LABS: BEDSIDE GLUCOSE 328 MG/DL (83-110)
[2018-05-20] MEDS: ATORVASTATIN 20 MG TAB PO (20:50)
[2018-05-20] MEDS: GABAPENTIN 300 MG CAP PO (20:50)
[2018-05-20] MEDS: AZITHROMYCIN 250 MG TAB PO (20:51)
[2018-05-21] MEDS: FUROSEMIDE 40 MG/4 ML VIAL (J1940) IV ×3 (01:35→17:15)
[2018-05-21] MEDS: methylPREDNISolone INJ 125 MG/2 ML VIAL (J2930) IV ×2 (01:35→12:23)
[2018-05-21] MEDS: LEVALBUTEROL 1.25 MG/0.5 ML CONCENTRATE NEB INH ×6 (03:07→23:21)
[2018-05-21 05:08] LABS: HEMATOCRIT 34.9 % (36.0-47.0); HEMOGLOBIN 10.6 g/dl (12.0-15.5); MEAN CORPUSCULAR HEMOGLOBIN 28.2 pg (27.0-33.0); MEAN CORPUSCULAR HGB CONC 30.4 g/dl (32.0-36.5); MEAN CORPUSCULAR VOLUME 92.8 fl (80.0-96.0); PLATELET COUNT, AUTOMATED 206 10^3/uL (150-450); RED BLOOD COUNT 3.76 10^6/uL (4.00-5.40); RED CELL DISTRIBUTION WIDTH 15.9 % (11.5-14.5); WHITE BLOOD COUNT 10.8 10^3/uL (4.0-10.0)
[2018-05-21 05:33] LABS: ANION GAP 6 MEQ/L (8-16); BLOOD UREA NITROGEN 32 MG/DL (7-18); CALCIUM LEVEL 7.9 MG/DL (8.8-10.2); CARBON DIOXIDE LEVEL 38 MEQ/L (21-32); CHLORIDE LEVEL 98 MEQ/L (98-107); CREATININE FOR GFR 1.17 MG/DL (0.55-1.30); GLOMERULAR FILTRATION RATE 48.3 (>39); GLUCOSE, FASTING 351 MG/DL (70-100); MAGNESIUM LEVEL 2.3 MG/DL (1.8-2.4); POTASSIUM SERUM 4.4 MEQ/L (3.5-5.1); SODIUM LEVEL 142 MEQ/L (136-145)
[2018-05-21] MEDS: MIRALAX *UNIT DOSE* 17GM PACKET PO (08:14)
[2018-05-21] MEDS: HumaLOG INSULIN (NovoLOG) PER UNIT SC ×4 (08:14→21:08)
[2018-05-21] MEDS: ENOXAPARIN 40 MG/0.4 ML SYRINGE (J1650) SC (08:15)
[2018-05-21] MEDS: NYSTATIN 500,000 U/5 ML SUSP UDC PO ×4 (08:15→21:08)
[2018-05-21] MEDS: DOCUSATE SODIUM 100 MG CAP PO ×2 (08:16→21:08)
[2018-05-21] MEDS: POTASSIUM CHLORIDE 10 MEQ SR TABLET PO (08:16)
[2018-05-21] MEDS: BACLOFEN 10 MG TAB PO ×3 (08:16→21:07)
[2018-05-21] MEDS: amLODIPine 10 MG TAB PO (08:16)
[2018-05-21] MEDS: BISACODYL 5 MG TAB PO (08:16)
[2018-05-21 12:07] LABS: BEDSIDE GLUCOSE 275 MG/DL (83-110)
[2018-05-21] MEDS: MOM 30ML SUSPENSION UDC PO (12:24)
[2018-05-21] MEDS: ACETAMINOPHEN 500 MG TAB PO ×2 (14:12→21:07)
[2018-05-21 17:10] LABS: BEDSIDE GLUCOSE 323 MG/DL (83-110)
[2018-05-21 18:33] LABS: MAGNESIUM LEVEL 2.9 MG/DL (1.8-2.4)
[2018-05-21 20:13] LABS: BEDSIDE GLUCOSE 402 MG/DL (83-110)
[2018-05-21] MEDS: GABAPENTIN 300 MG CAP PO (21:07)
[2018-05-21] MEDS: ATORVASTATIN 20 MG TAB PO (21:08)
[2018-05-21] MEDS: AZITHROMYCIN 250 MG TAB PO (21:08)
[2018-05-21] MEDS: ALPRAZolam 0.25 MG TAB PO (21:14)
[2018-05-22] MEDS: FUROSEMIDE 40 MG/4 ML VIAL (J1940) IV ×3 (00:56→16:00)
[2018-05-22] MEDS: methylPREDNISolone INJ 125 MG/2 ML VIAL (J2930) IV (00:57)
[2018-05-22] MEDS: LEVALBUTEROL 1.25 MG/0.5 ML CONCENTRATE NEB INH ×5 (03:54→19:49)
[2018-05-22 07:10] LABS: BEDSIDE GLUCOSE 291 MG/DL (83-110)
[2018-05-22 07:23] LABS: HEMATOCRIT 36.9 % (36.0-47.0); HEMOGLOBIN 11.2 g/dl (12.0-15.5); MEAN CORPUSCULAR HEMOGLOBIN 28.8 pg (27.0-33.0); MEAN CORPUSCULAR HGB CONC 30.4 g/dl (32.0-36.5); MEAN CORPUSCULAR VOLUME 94.9 fl (80.0-96.0); PLATELET COUNT, AUTOMATED 201 10^3/uL (150-450); RED BLOOD COUNT 3.89 10^6/uL (4.00-5.40); RED CELL DISTRIBUTION WIDTH 15.9 % (11.5-14.5); WHITE BLOOD COUNT 11.5 10^3/uL (4.0-10.0)
[2018-05-22 07:29] LABS: ANION GAP 4 MEQ/L (8-16); BLOOD UREA NITROGEN 32 MG/DL (7-18); CALCIUM LEVEL 8.5 MG/DL (8.8-10.2); CARBON DIOXIDE LEVEL 40 MEQ/L (21-32); CHLORIDE LEVEL 97 MEQ/L (98-107); CREATININE FOR GFR 1.07 MG/DL (0.55-1.30); GLOMERULAR FILTRATION RATE 53.5 (>39); GLUCOSE, FASTING 291 MG/DL (70-100); MAGNESIUM LEVEL 2.8 MG/DL (1.8-2.4); POTASSIUM SERUM 4.7 MEQ/L (3.5-5.1); SODIUM LEVEL 141 MEQ/L (136-145)
[2018-05-22] MEDS: DOCUSATE SODIUM 100 MG CAP PO ×2 (08:09→21:07)
[2018-05-22] MEDS: POTASSIUM CHLORIDE 10 MEQ SR TABLET PO (08:10)
[2018-05-22] MEDS: BISACODYL 5 MG TAB PO (08:10)
[2018-05-22] MEDS: BACLOFEN 10 MG TAB PO ×3 (08:10→21:07)
[2018-05-22] MEDS: amLODIPine 10 MG TAB PO (08:10)
[2018-05-22] MEDS: HumaLOG INSULIN (NovoLOG) PER UNIT SC ×4 (08:12→21:07)
[2018-05-22] MEDS: MIRALAX *UNIT DOSE* 17GM PACKET PO (08:13)
[2018-05-22] MEDS: ENOXAPARIN 40 MG/0.4 ML SYRINGE (J1650) SC (08:13)
[2018-05-22] MEDS: NYSTATIN 500,000 U/5 ML SUSP UDC PO ×4 (08:13→21:10)
[2018-05-22] MEDS: ACETAMINOPHEN 500 MG TAB PO ×2 (08:19→21:09)
[2018-05-22] MEDS: predniSONE 20 MG TAB PO ×2 (09:06→21:10)
[2018-05-22 11:32] LABS: BEDSIDE GLUCOSE 347 MG/DL (83-110)
[2018-05-22 16:34] LABS: BEDSIDE GLUCOSE 324 MG/DL (83-110)
[2018-05-22 19:33] LABS: BEDSIDE GLUCOSE 470 MG/DL (83-110)
[2018-05-22] MEDS: ATORVASTATIN 20 MG TAB PO (21:07)
[2018-05-22] MEDS: GABAPENTIN 300 MG CAP PO (21:07)
[2018-05-22] MEDS: AZITHROMYCIN 250 MG TAB PO (21:10)
[2018-05-23] MEDS: FUROSEMIDE 40 MG/4 ML VIAL (J1940) IV ×4 (00:20→17:38)
[2018-05-23] MEDS: LEVALBUTEROL 1.25 MG/0.5 ML CONCENTRATE NEB INH ×7 (00:41→23:34)
[2018-05-23 06:23] LABS: HEMATOCRIT 34.5 % (36.0-47.0); HEMOGLOBIN 10.4 g/dl (12.0-15.5); MEAN CORPUSCULAR HEMOGLOBIN 28.3 pg (27.0-33.0); MEAN CORPUSCULAR HGB CONC 30.1 g/dl (32.0-36.5); MEAN CORPUSCULAR VOLUME 93.8 fl (80.0-96.0); PLATELET COUNT, AUTOMATED 195 10^3/uL (150-450); RED BLOOD COUNT 3.68 10^6/uL (4.00-5.40); RED CELL DISTRIBUTION WIDTH 15.9 % (11.5-14.5); WHITE BLOOD COUNT 11.9 10^3/uL (4.0-10.0)
[2018-05-23 06:38] LABS: ANION GAP 4 MEQ/L (8-16); BLOOD UREA NITROGEN 33 MG/DL (7-18); CALCIUM LEVEL 8.6 MG/DL (8.8-10.2); CARBON DIOXIDE LEVEL 40 MEQ/L (21-32); CHLORIDE LEVEL 96 MEQ/L (98-107); CREATININE FOR GFR 1.03 MG/DL (0.55-1.30); GLOMERULAR FILTRATION RATE 55.9 (>39); GLUCOSE, FASTING 339 MG/DL (70-100); POTASSIUM SERUM 4.7 MEQ/L (3.5-5.1); SODIUM LEVEL 140 MEQ/L (136-145)
[2018-05-23] MEDS: predniSONE 20 MG TAB PO (07:51)
[2018-05-23] MEDS: POTASSIUM CHLORIDE 10 MEQ SR TABLET PO (07:51)
[2018-05-23] MEDS: NYSTATIN 500,000 U/5 ML SUSP UDC PO ×4 (07:51→21:18)
[2018-05-23] MEDS: MIRALAX *UNIT DOSE* 17GM PACKET PO (07:52)
[2018-05-23] MEDS: BISACODYL 5 MG TAB PO (07:52)
[2018-05-23] MEDS: amLODIPine 10 MG TAB PO (07:52)
[2018-05-23] MEDS: DOCUSATE SODIUM 100 MG CAP PO ×2 (07:52→21:19)
[2018-05-23] MEDS: BACLOFEN 10 MG TAB PO ×3 (07:52→21:19)
[2018-05-23] MEDS: ENOXAPARIN 40 MG/0.4 ML SYRINGE (J1650) SC (07:53)
[2018-05-23] MEDS: HumaLOG INSULIN (NovoLOG) PER UNIT SC ×4 (07:54→21:20)
[2018-05-23 11:36] LABS: BEDSIDE GLUCOSE 436 MG/DL (83-110)
[2018-05-23 16:58] LABS: BEDSIDE GLUCOSE 414 MG/DL (83-110)
[2018-05-23 19:50] LABS: BEDSIDE GLUCOSE 448 MG/DL (83-110)
[2018-05-23] MEDS: AZITHROMYCIN 250 MG TAB PO (21:19)
[2018-05-23] MEDS: ALPRAZolam 0.25 MG TAB PO (21:19)
[2018-05-23] MEDS: GABAPENTIN 300 MG CAP PO (21:19)
[2018-05-23] MEDS: ATORVASTATIN 20 MG TAB PO (21:19)
[2018-05-23] MEDS: ACETAMINOPHEN 500 MG TAB PO (21:19)
[2018-05-24] MEDS: FUROSEMIDE 40 MG/4 ML VIAL (J1940) IV ×5 (01:07→23:40)
[2018-05-24] MEDS: LEVALBUTEROL 1.25 MG/0.5 ML CONCENTRATE NEB INH ×6 (03:02→23:22)
[2018-05-24 06:00] LABS: BEDSIDE GLUCOSE 184 MG/DL (83-110)
[2018-05-24] MEDS: HumaLOG INSULIN (NovoLOG) PER UNIT SC ×4 (07:07→21:39)
[2018-05-24] MEDS: DOCUSATE SODIUM 100 MG CAP PO ×2 (08:06→20:01)
[2018-05-24] MEDS: amLODIPine 10 MG TAB PO (08:07)
[2018-05-24] MEDS: NYSTATIN 500,000 U/5 ML SUSP UDC PO ×4 (08:07→20:00)
[2018-05-24] MEDS: BACLOFEN 10 MG TAB PO ×3 (08:07→20:00)
[2018-05-24] MEDS: BISACODYL 5 MG TAB PO (08:07)
[2018-05-24] MEDS: ENOXAPARIN 40 MG/0.4 ML SYRINGE (J1650) SC (08:07)
[2018-05-24] MEDS: predniSONE 20 MG TAB PO (08:07)
[2018-05-24] MEDS: POTASSIUM CHLORIDE 10 MEQ SR TABLET PO (08:08)
[2018-05-24] MEDS: MIRALAX *UNIT DOSE* 17GM PACKET PO (08:08)
[2018-05-24 08:09] LABS: BASO # 0.1 10^3/uL (0.0-0.2); BASO % 0.7 % (0.0-1.0); EOS # 0.1 10^3/uL (0.0-0.50); EOS % 0.3 % (0.0-3.0); HEMATOCRIT 39.8 % (36.0-47.0); HEMOGLOBIN 11.7 g/dl (12.0-15.5); IMMATURE GRANULOCYTE % 4.1 % (0-3.0); LYMPH # 3.1 10^3/uL (1.5-4.5); MEAN CORPUSCULAR HEMOGLOBIN 28.3 pg (27.0-33.0); MEAN CORPUSCULAR HGB CONC 29.4 g/dl (32.0-36.5); MEAN CORPUSCULAR VOLUME 96.1 fl (80.0-96.0); MONO # 0.9 10^3/uL (0.0-0.8); MONO % 5.7 % (0.0-5.0); NEUTROPHILS # 11.3 10^3/uL (1.8-7.7); NEUTROPHILS % 70.2 % (36.0-66.0); PLATELET COUNT, AUTOMATED 237 10^3/uL (150-450); RED BLOOD COUNT 4.14 10^6/uL (4.00-5.40); RED CELL DISTRIBUTION WIDTH 15.9 % (11.5-14.5); WHITE BLOOD COUNT 16.1 10^3/uL (4.0-10.0)
[2018-05-24 08:31] LABS: ANION GAP 8 MEQ/L (8-16); BLOOD UREA NITROGEN 31 MG/DL (7-18); CALCIUM LEVEL 8.8 MG/DL (8.8-10.2); CARBON DIOXIDE LEVEL 42 MEQ/L (21-32); CHLORIDE LEVEL 92 MEQ/L (98-107); CREATININE FOR GFR 1.12 MG/DL (0.55-1.30); GLOMERULAR FILTRATION RATE 50.8 (>39); GLUCOSE, FASTING 227 MG/DL (70-100); MAGNESIUM LEVEL 2.4 MG/DL (1.8-2.4); SODIUM LEVEL 142 MEQ/L (136-145)
[2018-05-24 12:09] LABS: BEDSIDE GLUCOSE 299 MG/DL (83-110)
[2018-05-24 16:54] LABS: BEDSIDE GLUCOSE 335 MG/DL (83-110)
[2018-05-24] MEDS: ATORVASTATIN 20 MG TAB PO (20:00)
[2018-05-24] MEDS: GABAPENTIN 300 MG CAP PO (20:00)
[2018-05-24] MEDS: AZITHROMYCIN 250 MG TAB PO (20:01)
[2018-05-24] MEDS: ACETAMINOPHEN 500 MG TAB PO (20:06)
[2018-05-24 20:38] LABS: BEDSIDE GLUCOSE 512 MG/DL (83-110)
[2018-05-24 21:24] LABS: BEDSIDE GLUCOSE CONFIRMATION 481 MG/DL (LESS THAN 200)
[2018-05-25] MEDS: LEVALBUTEROL 1.25 MG/0.5 ML CONCENTRATE NEB INH ×3 (03:32→11:16)
[2018-05-25 06:20] LABS: HEMATOCRIT 35.9 % (36.0-47.0); HEMOGLOBIN 10.9 g/dl (12.0-15.5); MEAN CORPUSCULAR HEMOGLOBIN 28.6 pg (27.0-33.0); MEAN CORPUSCULAR HGB CONC 30.4 g/dl (32.0-36.5); MEAN CORPUSCULAR VOLUME 94.2 fl (80.0-96.0); PLATELET COUNT, AUTOMATED 208 10^3/uL (150-450); RED BLOOD COUNT 3.81 10^6/uL (4.00-5.40); RED CELL DISTRIBUTION WIDTH 15.9 % (11.5-14.5); WHITE BLOOD COUNT 12.9 10^3/uL (4.0-10.0)
[2018-05-25] MEDS: FUROSEMIDE 40 MG/4 ML VIAL (J1940) IV (06:24)
[2018-05-25 06:32] LABS: ADD MANUAL DIFFER YES; DIFF SLIDE NUMBER 48; POS COUNT POS FLAG; POSITIVE MORPH POS FLAG
[2018-05-25 06:49] LABS: ANION GAP 2 MEQ/L (8-16); BLOOD UREA NITROGEN 32 MG/DL (7-18); CARBON DIOXIDE LEVEL 45 MEQ/L (21-32); CHLORIDE LEVEL 95 MEQ/L (98-107); CREATININE FOR GFR 1.08 MG/DL (0.55-1.30); GLOMERULAR FILTRATION RATE 52.9 (>39); GLUCOSE, FASTING 124 MG/DL (70-100); MAGNESIUM LEVEL 2.3 MG/DL (1.8-2.4); POTASSIUM SERUM 3.9 MEQ/L (3.5-5.1); SODIUM LEVEL 142 MEQ/L (136-145)
[2018-05-25] MEDS: HumaLOG INSULIN (NovoLOG) PER UNIT SC ×2 (07:41→11:58)
[2018-05-25] MEDS: predniSONE 10 MG TAB PO (07:42)
[2018-05-25] MEDS: ENOXAPARIN 40 MG/0.4 ML SYRINGE (J1650) SC (07:42)
[2018-05-25] MEDS: NYSTATIN 500,000 U/5 ML SUSP UDC PO (07:42)
[2018-05-25] MEDS: amLODIPine 10 MG TAB PO (07:43)
[2018-05-25] MEDS: BISACODYL 5 MG TAB PO (07:43)
[2018-05-25] MEDS: POTASSIUM CHLORIDE 10 MEQ SR TABLET PO (07:43)
[2018-05-25] MEDS: MIRALAX *UNIT DOSE* 17GM PACKET PO (07:44)
[2018-05-25] MEDS: BACLOFEN 10 MG TAB PO (07:44)
[2018-05-25] MEDS: DOCUSATE SODIUM 100 MG CAP PO (07:44)
[2018-05-25 07:52] LABS: LYMPHOCYTES 21 % (16-52); MONOCYTES 2 % (0-8); MYELOCYTES 4 % (0-0); NEUTROPHILS 73 % (35-75); PLATELET ESTIMATE NORMAL (NORMAL)
[2018-05-25 07:53] LABS: ANISOCYTOSIS 1+
[2018-05-25] MEDS: ACETAMINOPHEN 500 MG TAB PO (08:10)
[2018-05-25] MEDS: ALPRAZolam 0.25 MG TAB PO (08:10)
[2018-05-25 11:39] LABS: BEDSIDE GLUCOSE 391 MG/DL (83-110)
[2018-05-25] MEDS ORDERED: FUROSEMIDE 20 MG TAB PO (17:00)
== END 2018-05-25 13:00 | disposition home health service (06) | DRG 291 ==
LOC: M PCU 05-17 00:01 → M MSPAV 05-21 18:08 → M ED 17:23 → M ED INP 22:06
DX: I13.0 Hypertensive heart and chronic kidney disease with heart failure and stage 1 through stage 4 chronic kidney disease, or unspecified chronic kidney disease (principal); I50.33 Acute on chronic diastolic (congestive) heart failure; J44.1 Chronic obstructive pulmonary disease with (acute) exacerbation; J96.11 Chronic respiratory failure with hypoxia; G47.33 Obstructive sleep apnea (adult) (pediatric); E11.40 Type 2 diabetes mellitus with diabetic neuropathy, unspecified; I27.20 Pulmonary hypertension, unspecified; E78.5 Hyperlipidemia, unspecified; F41.9 Anxiety disorder, unspecified; N18.3 Chronic kidney disease, stage 3 (moderate); Z79.899 Other long term (current) drug therapy; Z88.8 Allergy status to other drugs, medicaments and biological substances; K59.00 Constipation, unspecified; E66.9 Obesity, unspecified

== ENCOUNTER 2018-06-20 02:47 | Inpatient (IN) | payer OTHER ==
[2018-06-20 04:13] LABS: BASO % 0.5 % (0.0-1.0); EOS % 0.3 % (0.0-3.0); HEMOGLOBIN 9.8 g/dl (12.0-15.5); IMMATURE GRANULOCYTE % 2.2 % (0-3.0); LYMPH # 1.2 10^3/uL (1.5-4.5); LYMPH % 19.5 % (24.0-44.0); MEAN CORPUSCULAR HEMOGLOBIN 28.8 pg (27.0-33.0); MEAN CORPUSCULAR HGB CONC 28.8 g/dl (32.0-36.5); MONO # 0.5 10^3/uL (0.0-0.8); MONO % 7.9 % (0.0-5.0); NEUTROPHILS # 4.2 10^3/uL (1.8-7.7); NEUTROPHILS % 69.6 % (36.0-66.0); PLATELET COUNT, AUTOMATED 203 10^3/uL (150-450); RED CELL DISTRIBUTION WIDTH 18.6 % (11.5-14.5)
[2018-06-20] MEDS: NITROGLYCERIN 2% OINT 1 GM *U/D* PKT TOP (04:15)
[2018-06-20 04:16] LABS: ABG BASE EXCESS 10.7 (-2.0-2.0); ABG HCO3 40.9 MEQ/L (22.0-26.0); ABG O2 SATURATION 93.1 % (95.0-99.0); ABG PARTIAL PRESSURE O2 74.7 mmHg (75.0-100.0); ABG STANDARD HCO3 34.3 MEQ/L (22.0-26.0); ABG TOTAL CO2 43.9 MEQ/L (23.0-31.0)
[2018-06-20 04:17] LABS: ABG PARTIAL PRESSURE CO2 97.6 mmHg (35.0-45.0)
[2018-06-20 04:26] LABS: ANION GAP 5 MEQ/L (8-16); BLOOD UREA NITROGEN 16 MG/DL (7-18); CALCIUM LEVEL 8.3 MG/DL (8.8-10.2); CARBON DIOXIDE LEVEL 40 MEQ/L (21-32); CHLORIDE LEVEL 103 MEQ/L (98-107); CREATININE FOR GFR 0.97 MG/DL (0.55-1.30); GLOMERULAR FILTRATION RATE 59.9 (>39); GLUCOSE, FASTING 218 MG/DL (70-100); NT-PRO BNP 158 PG/ML (<125); POTASSIUM SERUM 3.6 MEQ/L (3.5-5.1); SODIUM LEVEL 148 MEQ/L (136-145)
[2018-06-20] MEDS: FUROSEMIDE 40 MG/4 ML VIAL (J1940) IV ×2 (04:27→16:26)
[2018-06-20] MEDS ORDERED: hydrALAZINE INJ 20 MG/ML VIAL IV (04:36)
[2018-06-20] MEDS: IPRATROPIUM 0.5MG/ALBUTEROL 2.5MG INH SOL UD 3ML (DUONEB)(J7620) NEB (04:45)
[2018-06-20] MEDS: NITROGLYCERIN/D5W 100MCG/ML 25 MG in APPROPRIATE DILUENT 1 EA IV (04:57)
[2018-06-20] MEDS: dexameTHASONE 20 MG/5 ML VIAL (J1100) IV (05:31)
[2018-06-20 06:49] LABS: CPK CREATINE PHOSPHOKINASE 94 U/L (26-192); MB/CK RELATIVE INDEX 2.45 (< OR =4); TROPONIN I < 0.02 NG/ML (< 0.10)
[2018-06-20 07:03] LABS: ABG BASE EXCESS 12.5 (-2.0-2.0); ABG HCO3 40.7 MEQ/L (22.0-26.0); ABG O2 SATURATION 95.2 % (95.0-99.0); ABG PARTIAL PRESSURE O2 75.6 mmHg (75.0-100.0); ABG STANDARD HCO3 36.2 MEQ/L (22.0-26.0); ABG TOTAL CO2 43.1 MEQ/L (23.0-31.0); ABG pH (ARTERIAL) 7.333 UNITS (7.350-7.450)
[2018-06-20 07:07] LABS: ABG PARTIAL PRESSURE CO2 78.4 mmHg (35.0-45.0)
[2018-06-20] MEDS ORDERED: ISOVUE-370 76% 100ML VIAL (Q9967) As Ordered (08:43)
[2018-06-20] MEDS ORDERED: GLUCAGON FOR INJ 1 MG VIAL (J1610) SC (08:45)
[2018-06-20] MEDS ORDERED: GLUCOSE 4 GM CHEW TABLET PO (08:45)
[2018-06-20] MEDS ORDERED: DEXTROSE 50% 50 ML SYRINGE IV (08:45)
[2018-06-20 09:20] LABS: CPK CREATINE PHOSPHOKINASE 64 U/L (26-192); MAGNESIUM LEVEL 2.1 MG/DL (1.8-2.4); MB/CK RELATIVE INDEX 3.12 (< OR =4); TROPONIN I < 0.02 NG/ML (< 0.10)
[2018-06-20] MEDS: DOCUSATE SODIUM 100 MG CAP PO ×2 (10:12→20:14)
[2018-06-20] MEDS: BACLOFEN 10 MG TAB PO ×3 (10:13→20:14)
[2018-06-20] MEDS: ASPIRIN 81 MG ENTERIC TAB PO (10:13)
[2018-06-20] MEDS: FONDAPARINUX SODIUM 2.5 MG/0.5 ML SYR (J1652 PER 0.5MG) SC (10:14)
[2018-06-20] MEDS: OFLOXACIN 0.3 % (OCUFLOX) OPTH SOL 5ML OU (10:14)
[2018-06-20] MEDS: FORMOTEROL FUMARATE 20 MCG/2 ML INHALATION SOLUTION (PERFOROMIST) INH ×2 (11:29→20:30)
[2018-06-20 12:24] LABS: BEDSIDE GLUCOSE 445 MG/DL (83-110)
[2018-06-20] MEDS: TOBRAMYCIN 0.3% OPHTH SOLN 5 ML OU ×4 (12:26→20:14)
[2018-06-20] MEDS: HumaLOG INSULIN (NovoLOG) PER UNIT SC ×3 (12:27→20:13)
[2018-06-20 16:52] LABS: BEDSIDE GLUCOSE 367 MG/DL (83-110)
[2018-06-20 17:03] LABS: CPK CREATINE PHOSPHOKINASE 54 U/L (26-192); MB/CK RELATIVE INDEX 2.59 (< OR =4); TROPONIN I < 0.02 NG/ML (< 0.10)
[2018-06-20 19:50] LABS: BEDSIDE GLUCOSE 266 MG/DL (83-110)
[2018-06-20] MEDS: methylPREDNISolone INJ 125 MG/2 ML VIAL (J2930) IV (20:13)
[2018-06-20] MEDS: BISACODYL 5 MG TAB PO (20:14)
[2018-06-20] MEDS: SENOKOT S TAB PO (20:14)
[2018-06-20] MEDS: ACETAMINOPHEN 500 MG TAB PO (20:14)
[2018-06-20] MEDS: ATORVASTATIN 20 MG TAB PO (20:14)
[2018-06-21] MEDS: FUROSEMIDE 40 MG/4 ML VIAL (J1940) IV ×3 (00:23→17:15)
[2018-06-21 00:35] LABS: CPK CREATINE PHOSPHOKINASE 45 U/L (26-192); MB/CK RELATIVE INDEX 2.89 (< OR =4); TROPONIN I < 0.02 NG/ML (< 0.10)
[2018-06-21] MEDS: TOBRAMYCIN 0.3% OPHTH SOLN 5 ML OU ×6 (01:32→20:46)
[2018-06-21 04:37] LABS: HEMATOCRIT 30.2 % (36.0-47.0); HEMOGLOBIN 8.8 g/dl (12.0-15.5); MEAN CORPUSCULAR HEMOGLOBIN 28.2 pg (27.0-33.0); MEAN CORPUSCULAR HGB CONC 29.1 g/dl (32.0-36.5); MEAN CORPUSCULAR VOLUME 96.8 fl (80.0-96.0); PLATELET COUNT, AUTOMATED 215 10^3/uL (150-450); RED BLOOD COUNT 3.12 10^6/uL (4.00-5.40); RED CELL DISTRIBUTION WIDTH 17.8 % (11.5-14.5); WHITE BLOOD COUNT 6.7 10^3/uL (4.0-10.0)
[2018-06-21 04:53] LABS: ANION GAP 7 MEQ/L (8-16); BLOOD UREA NITROGEN 22 MG/DL (7-18); CALCIUM LEVEL 8.5 MG/DL (8.8-10.2); CARBON DIOXIDE LEVEL 37 MEQ/L (21-32); CHLORIDE LEVEL 102 MEQ/L (98-107); CREATININE FOR GFR 1.02 MG/DL (0.55-1.30); GLOMERULAR FILTRATION RATE 56.6 (>39); GLUCOSE, FASTING 297 MG/DL (70-100); POTASSIUM SERUM 4.1 MEQ/L (3.5-5.1); SODIUM LEVEL 146 MEQ/L (136-145)
[2018-06-21] MEDS: HumaLOG INSULIN (NovoLOG) PER UNIT SC ×4 (07:47→20:50)
[2018-06-21] MEDS: FORMOTEROL FUMARATE 20 MCG/2 ML INHALATION SOLUTION (PERFOROMIST) INH ×2 (08:40→20:07)
[2018-06-21] MEDS: DOCUSATE SODIUM 100 MG CAP PO ×2 (09:05→20:42)
[2018-06-21] MEDS: ASPIRIN 81 MG ENTERIC TAB PO (09:05)
[2018-06-21] MEDS: BACLOFEN 10 MG TAB PO ×3 (09:06→20:43)
[2018-06-21] MEDS: FONDAPARINUX SODIUM 2.5 MG/0.5 ML SYR (J1652 PER 0.5MG) SC (09:06)
[2018-06-21] MEDS: methylPREDNISolone INJ 125 MG/2 ML VIAL (J2930) IV (09:06)
[2018-06-21] MEDS: ACETAMINOPHEN 500 MG TAB PO ×2 (09:07→20:45)
[2018-06-21] MEDS: OFLOXACIN 0.3 % (OCUFLOX) OPTH SOL 5ML OU (09:07)
[2018-06-21 11:20] LABS: BEDSIDE GLUCOSE 312 MG/DL (83-110)
[2018-06-21] MEDS: IPRATROPIUM 0.5MG/ALBUTEROL 2.5MG INH SOL UD 3ML (DUONEB)(J7620) INH ×2 (14:12→22:38)
[2018-06-21 17:00] LABS: BEDSIDE GLUCOSE 363 MG/DL (83-110)
[2018-06-21] MEDS: SENOKOT S TAB PO (20:42)
[2018-06-21] MEDS: BISACODYL 5 MG TAB PO (20:43)
[2018-06-21] MEDS: ATORVASTATIN 20 MG TAB PO (20:43)
[2018-06-21 22:35] LABS: BEDSIDE GLUCOSE 375 MG/DL (83-110)
[2018-06-22] MEDS: FUROSEMIDE 40 MG/4 ML VIAL (J1940) IV ×3 (00:18→17:38)
[2018-06-22] MEDS: TOBRAMYCIN 0.3% OPHTH SOLN 5 ML OU ×6 (00:19→21:35)
[2018-06-22 07:17] LABS: HEMATOCRIT 30.1 % (36.0-47.0); HEMOGLOBIN 9.1 g/dl (12.0-15.5); MEAN CORPUSCULAR HEMOGLOBIN 28.8 pg (27.0-33.0); MEAN CORPUSCULAR HGB CONC 30.2 g/dl (32.0-36.5); MEAN CORPUSCULAR VOLUME 95.3 fl (80.0-96.0); PLATELET COUNT, AUTOMATED 182 10^3/uL (150-450); RED BLOOD COUNT 3.16 10^6/uL (4.00-5.40); RED CELL DISTRIBUTION WIDTH 18.3 % (11.5-14.5); WHITE BLOOD COUNT 6.9 10^3/uL (4.0-10.0)
[2018-06-22] MEDS: FORMOTEROL FUMARATE 20 MCG/2 ML INHALATION SOLUTION (PERFOROMIST) INH ×2 (07:34→19:56)
[2018-06-22 07:43] LABS: ANION GAP 6 MEQ/L (8-16); BLOOD UREA NITROGEN 23 MG/DL (7-18); CALCIUM LEVEL 8.6 MG/DL (8.8-10.2); CARBON DIOXIDE LEVEL 37 MEQ/L (21-32); CHLORIDE LEVEL 100 MEQ/L (98-107); CREATININE FOR GFR 0.98 MG/DL (0.55-1.30); GLOMERULAR FILTRATION RATE 59.2 (>39); GLUCOSE, FASTING 213 MG/DL (70-100); POTASSIUM SERUM 3.2 MEQ/L (3.5-5.1); SODIUM LEVEL 143 MEQ/L (136-145)
[2018-06-22] MEDS: predniSONE 10 MG TAB PO (08:24)
[2018-06-22] MEDS: ASPIRIN 81 MG ENTERIC TAB PO (08:24)
[2018-06-22] MEDS: BACLOFEN 10 MG TAB PO ×3 (08:24→21:34)
[2018-06-22] MEDS: DOCUSATE SODIUM 100 MG CAP PO ×2 (08:24→21:34)
[2018-06-22] MEDS: HumaLOG INSULIN (NovoLOG) PER UNIT SC ×4 (08:24→21:35)
[2018-06-22] MEDS: FONDAPARINUX SODIUM 2.5 MG/0.5 ML SYR (J1652 PER 0.5MG) SC (08:25)
[2018-06-22] MEDS: OFLOXACIN 0.3 % (OCUFLOX) OPTH SOL 5ML OU (08:26)
[2018-06-22] MEDS: IPRATROPIUM 0.5MG/ALBUTEROL 2.5MG INH SOL UD 3ML (DUONEB)(J7620) INH ×3 (09:09→19:56)
[2018-06-22 09:36] LABS: ABG BASE EXCESS 14.1 (-2.0-2.0); ABG HCO3 39.6 MEQ/L (22.0-26.0); ABG O2 SATURATION 93.2 % (95.0-99.0); ABG PARTIAL PRESSURE CO2 55.6 mmHg (35.0-45.0); ABG STANDARD HCO3 37.7 MEQ/L (22.0-26.0); ABG TOTAL CO2 41.4 MEQ/L (23.0-31.0); ABG pH (ARTERIAL) 7.471 UNITS (7.350-7.450)
[2018-06-22] MEDS: FUROSEMIDE 80 MG TAB PO (09:36)
[2018-06-22 12:03] LABS: BEDSIDE GLUCOSE 284 MG/DL (83-110)
[2018-06-22 16:44] LABS: BEDSIDE GLUCOSE 277 MG/DL (83-110)
[2018-06-22 21:01] LABS: BEDSIDE GLUCOSE 308 MG/DL (83-110)
[2018-06-22] MEDS: BISACODYL 5 MG TAB PO (21:34)
[2018-06-22] MEDS: SENOKOT S TAB PO (21:34)
[2018-06-22] MEDS: ATORVASTATIN 20 MG TAB PO (21:34)
[2018-06-22] MEDS: ACETAMINOPHEN 500 MG TAB PO (21:36)
[2018-06-23] MEDS: TOBRAMYCIN 0.3% OPHTH SOLN 5 ML OU ×6 (00:29→20:55)
[2018-06-23] MEDS: FUROSEMIDE 40 MG/4 ML VIAL (J1940) IV ×3 (00:29→17:25)
[2018-06-23 06:09] LABS: HEMATOCRIT 30.8 % (36.0-47.0); HEMOGLOBIN 9.2 g/dl (12.0-15.5); MEAN CORPUSCULAR HGB CONC 29.9 g/dl (32.0-36.5); MEAN CORPUSCULAR VOLUME 93.9 fl (80.0-96.0); PLATELET COUNT, AUTOMATED 175 10^3/uL (150-450); RED BLOOD COUNT 3.28 10^6/uL (4.00-5.40); RED CELL DISTRIBUTION WIDTH 18.3 % (11.5-14.5); WHITE BLOOD COUNT 7.5 10^3/uL (4.0-10.0)
[2018-06-23 06:21] LABS: ANION GAP 7 MEQ/L (8-16); BLOOD UREA NITROGEN 21 MG/DL (7-18); CALCIUM LEVEL 8.6 MG/DL (8.8-10.2); CARBON DIOXIDE LEVEL 39 MEQ/L (21-32); CHLORIDE LEVEL 97 MEQ/L (98-107); CREATININE FOR GFR 0.87 MG/DL (0.55-1.30); GLOMERULAR FILTRATION RATE > 60.0 (>39); GLUCOSE, FASTING 216 MG/DL (70-100); SODIUM LEVEL 143 MEQ/L (136-145)
[2018-06-23] MEDS: ACETAMINOPHEN 500 MG TAB PO ×2 (06:42→20:55)
[2018-06-23] MEDS: FORMOTEROL FUMARATE 20 MCG/2 ML INHALATION SOLUTION (PERFOROMIST) INH ×2 (07:25→20:05)
[2018-06-23] MEDS: predniSONE 10 MG TAB PO (08:23)
[2018-06-23] MEDS: DOCUSATE SODIUM 100 MG CAP PO ×2 (08:23→20:53)
[2018-06-23] MEDS: ASPIRIN 81 MG ENTERIC TAB PO (08:23)
[2018-06-23] MEDS: BACLOFEN 10 MG TAB PO ×3 (08:23→20:54)
[2018-06-23] MEDS: HumaLOG INSULIN (NovoLOG) PER UNIT SC ×4 (08:24→20:54)
[2018-06-23] MEDS: FONDAPARINUX SODIUM 2.5 MG/0.5 ML SYR (J1652 PER 0.5MG) SC (08:24)
[2018-06-23] MEDS: OFLOXACIN 0.3 % (OCUFLOX) OPTH SOL 5ML OU (08:25)
[2018-06-23] MEDS: IPRATROPIUM 0.5MG/ALBUTEROL 2.5MG INH SOL UD 3ML (DUONEB)(J7620) INH ×4 (11:35→23:37)
[2018-06-23 11:38] LABS: BEDSIDE GLUCOSE 323 MG/DL (83-110)
[2018-06-23] MEDS: POTASSIUM CHLORIDE 10 MEQ SR TABLET PO ×2 (11:51→20:54)
[2018-06-23 16:39] LABS: BEDSIDE GLUCOSE 360 MG/DL (83-110)
[2018-06-23 20:36] LABS: BEDSIDE GLUCOSE 373 MG/DL (83-110)
[2018-06-23] MEDS: ATORVASTATIN 20 MG TAB PO (20:53)
[2018-06-23] MEDS: SENOKOT S TAB PO (20:53)
[2018-06-23] MEDS: BISACODYL 5 MG TAB PO (20:54)
[2018-06-24] MEDS: TOBRAMYCIN 0.3% OPHTH SOLN 5 ML OU ×6 (00:48→21:30)
[2018-06-24] MEDS: FUROSEMIDE 40 MG/4 ML VIAL (J1940) IV ×3 (00:48→17:47)
[2018-06-24 06:08] LABS: HEMATOCRIT 30.3 % (36.0-47.0); HEMOGLOBIN 9.1 g/dl (12.0-15.5); MEAN CORPUSCULAR HEMOGLOBIN 27.8 pg (27.0-33.0); MEAN CORPUSCULAR VOLUME 92.7 fl (80.0-96.0); PLATELET COUNT, AUTOMATED 179 10^3/uL (150-450); RED BLOOD COUNT 3.27 10^6/uL (4.00-5.40); WHITE BLOOD COUNT 8.2 10^3/uL (4.0-10.0)
[2018-06-24 06:36] LABS: ANION GAP 4 MEQ/L (8-16); BLOOD UREA NITROGEN 23 MG/DL (7-18); CALCIUM LEVEL 8.8 MG/DL (8.8-10.2); CARBON DIOXIDE LEVEL 40 MEQ/L (21-32); CHLORIDE LEVEL 96 MEQ/L (98-107); CREATININE FOR GFR 0.93 MG/DL (0.55-1.30); GLOMERULAR FILTRATION RATE > 60.0 (>39); GLUCOSE, FASTING 195 MG/DL (70-100); SODIUM LEVEL 140 MEQ/L (136-145)
[2018-06-24] MEDS: FORMOTEROL FUMARATE 20 MCG/2 ML INHALATION SOLUTION (PERFOROMIST) INH ×2 (07:21→20:59)
[2018-06-24] MEDS: predniSONE 10 MG TAB PO (08:34)
[2018-06-24] MEDS: ASPIRIN 81 MG ENTERIC TAB PO (08:34)
[2018-06-24] MEDS: BACLOFEN 10 MG TAB PO ×3 (08:35→21:28)
[2018-06-24] MEDS: POTASSIUM CHLORIDE 10 MEQ SR TABLET PO ×2 (08:35→21:29)
[2018-06-24] MEDS: DOCUSATE SODIUM 100 MG CAP PO ×2 (08:36→21:28)
[2018-06-24] MEDS: HumaLOG INSULIN (NovoLOG) PER UNIT SC ×4 (08:41→21:00)
[2018-06-24] MEDS: FONDAPARINUX SODIUM 2.5 MG/0.5 ML SYR (J1652 PER 0.5MG) SC (08:42)
[2018-06-24] MEDS: OFLOXACIN 0.3 % (OCUFLOX) OPTH SOL 5ML OU (08:43)
[2018-06-24] MEDS: IPRATROPIUM 0.5MG/ALBUTEROL 2.5MG INH SOL UD 3ML (DUONEB)(J7620) INH ×2 (11:15→15:30)
[2018-06-24 11:19] LABS: BEDSIDE GLUCOSE 431 MG/DL (83-110)
[2018-06-24 16:46] LABS: BEDSIDE GLUCOSE 300 MG/DL (83-110)
[2018-06-24] MEDS: BISACODYL 5 MG TAB PO (21:28)
[2018-06-24] MEDS: SENOKOT S TAB PO (21:28)
[2018-06-24] MEDS: ACETAMINOPHEN 500 MG TAB PO (21:29)
[2018-06-24] MEDS: ATORVASTATIN 20 MG TAB PO (21:29)
[2018-06-25 00:27] LABS: BEDSIDE GLUCOSE 233 MG/DL (83-110)
[2018-06-25] MEDS: TOBRAMYCIN 0.3% OPHTH SOLN 5 ML OU ×6 (01:00→20:49)
[2018-06-25] MEDS: FUROSEMIDE 40 MG/4 ML VIAL (J1940) IV ×3 (01:00→18:04)
[2018-06-25 06:05] LABS: HEMATOCRIT 31.2 % (36.0-47.0); HEMOGLOBIN 9.5 g/dl (12.0-15.5); MEAN CORPUSCULAR HGB CONC 30.4 g/dl (32.0-36.5); PLATELET COUNT, AUTOMATED 210 10^3/uL (150-450); RED BLOOD COUNT 3.39 10^6/uL (4.00-5.40)
[2018-06-25 06:25] LABS: ANION GAP 6 MEQ/L (8-16); BLOOD UREA NITROGEN 21 MG/DL (7-18); CALCIUM LEVEL 8.8 MG/DL (8.8-10.2); CARBON DIOXIDE LEVEL 36 MEQ/L (21-32); CHLORIDE LEVEL 99 MEQ/L (98-107); CREATININE FOR GFR 0.99 MG/DL (0.55-1.30); GLOMERULAR FILTRATION RATE 58.5 (>39); GLUCOSE, FASTING 214 MG/DL (70-100); POTASSIUM SERUM 3.9 MEQ/L (3.5-5.1); SODIUM LEVEL 141 MEQ/L (136-145)
[2018-06-25] MEDS: FORMOTEROL FUMARATE 20 MCG/2 ML INHALATION SOLUTION (PERFOROMIST) INH ×2 (07:20→20:00)
[2018-06-25] MEDS: BACLOFEN 10 MG TAB PO ×3 (09:38→20:45)
[2018-06-25] MEDS: metOLazone 2.5 MG TAB PO (09:39)
[2018-06-25] MEDS: predniSONE 10 MG TAB PO (09:39)
[2018-06-25] MEDS: POTASSIUM CHLORIDE 10 MEQ SR TABLET PO ×2 (09:39→20:46)
[2018-06-25] MEDS: DOCUSATE SODIUM 100 MG CAP PO ×2 (09:39→20:47)
[2018-06-25] MEDS: ASPIRIN 81 MG ENTERIC TAB PO (09:39)
[2018-06-25] MEDS: FONDAPARINUX SODIUM 2.5 MG/0.5 ML SYR (J1652 PER 0.5MG) SC (09:41)
[2018-06-25] MEDS: OFLOXACIN 0.3 % (OCUFLOX) OPTH SOL 5ML OU (09:42)
[2018-06-25] MEDS: HumaLOG INSULIN (NovoLOG) PER UNIT SC ×5 (09:42→20:48)
[2018-06-25] MEDS: IPRATROPIUM 0.5MG/ALBUTEROL 2.5MG INH SOL UD 3ML (DUONEB)(J7620) INH ×2 (11:17→15:05)
[2018-06-25 11:46] LABS: BEDSIDE GLUCOSE 338 MG/DL (83-110)
[2018-06-25 16:34] LABS: BEDSIDE GLUCOSE 331 MG/DL (83-110)
[2018-06-25 17:07] LABS: HEMATOCRIT 29.4 % (36.0-47.0); HEMOGLOBIN 9.1 g/dl (12.0-15.5)
[2018-06-25 20:24] LABS: BEDSIDE GLUCOSE 327 MG/DL (83-110)
[2018-06-25] MEDS: ATORVASTATIN 20 MG TAB PO (20:46)
[2018-06-25] MEDS: BISACODYL 5 MG TAB PO (20:46)
[2018-06-25] MEDS: SENOKOT S TAB PO (20:48)
[2018-06-25] MEDS: ACETAMINOPHEN 500 MG TAB PO (20:49)
[2018-06-26] MEDS: FUROSEMIDE 40 MG/4 ML VIAL (J1940) IV ×3 (00:27→17:28)
[2018-06-26] MEDS: TOBRAMYCIN 0.3% OPHTH SOLN 5 ML OU ×6 (00:28→20:24)
[2018-06-26] MEDS: IPRATROPIUM 0.5MG/ALBUTEROL 2.5MG INH SOL UD 3ML (DUONEB)(J7620) INH (05:19)
[2018-06-26 06:05] LABS: HEMATOCRIT 30.2 % (36.0-47.0); HEMOGLOBIN 9.1 g/dl (12.0-15.5); MEAN CORPUSCULAR HEMOGLOBIN 27.7 pg (27.0-33.0); MEAN CORPUSCULAR HGB CONC 30.1 g/dl (32.0-36.5); MEAN CORPUSCULAR VOLUME 92.1 fl (80.0-96.0); RED BLOOD COUNT 3.28 10^6/uL (4.00-5.40); WHITE BLOOD COUNT 10.4 10^3/uL (4.0-10.0)
[2018-06-26 06:21] LABS: PLATELET COUNT, AUTOMATED 243 10^3/uL (150-450)
[2018-06-26 06:24] LABS: ANION GAP 6 MEQ/L (8-16); BLOOD UREA NITROGEN 22 MG/DL (7-18); CALCIUM LEVEL 8.7 MG/DL (8.8-10.2); CARBON DIOXIDE LEVEL 38 MEQ/L (21-32); CHLORIDE LEVEL 93 MEQ/L (98-107); CREATININE FOR GFR 1.04 MG/DL (0.55-1.30); GLOMERULAR FILTRATION RATE 55.3 (>39); GLUCOSE, FASTING 226 MG/DL (70-100); POTASSIUM SERUM 3.6 MEQ/L (3.5-5.1); SODIUM LEVEL 137 MEQ/L (136-145)
[2018-06-26] MEDS: FORMOTEROL FUMARATE 20 MCG/2 ML INHALATION SOLUTION (PERFOROMIST) INH ×2 (07:26→20:17)
[2018-06-26] MEDS: FONDAPARINUX SODIUM 2.5 MG/0.5 ML SYR (J1652 PER 0.5MG) SC (08:25)
[2018-06-26] MEDS: ASPIRIN 81 MG ENTERIC TAB PO (08:26)
[2018-06-26] MEDS: HumaLOG INSULIN (NovoLOG) PER UNIT SC ×4 (08:26→20:22)
[2018-06-26] MEDS: POTASSIUM CHLORIDE 10 MEQ SR TABLET PO ×2 (08:27→20:21)
[2018-06-26] MEDS: DOCUSATE SODIUM 100 MG CAP PO ×2 (08:27→20:21)
[2018-06-26] MEDS: BACLOFEN 10 MG TAB PO ×3 (08:28→20:20)
[2018-06-26] MEDS: OFLOXACIN 0.3 % (OCUFLOX) OPTH SOL 5ML OU (08:36)
[2018-06-26 11:23] LABS: BEDSIDE GLUCOSE 262 MG/DL (83-110)
[2018-06-26 16:43] LABS: BEDSIDE GLUCOSE 255 MG/DL (83-110)
[2018-06-26 19:37] LABS: BEDSIDE GLUCOSE 268 MG/DL (83-110)
[2018-06-26] MEDS: ATORVASTATIN 20 MG TAB PO (20:20)
[2018-06-26] MEDS: SENOKOT S TAB PO (20:21)
[2018-06-26] MEDS: BISACODYL 5 MG TAB PO (20:21)
[2018-06-26] MEDS: ACETAMINOPHEN 500 MG TAB PO (20:23)
[2018-06-27] MEDS: TOBRAMYCIN 0.3% OPHTH SOLN 5 ML OU ×4 (00:29→12:36)
[2018-06-27] MEDS: FUROSEMIDE 40 MG/4 ML VIAL (J1940) IV ×3 (00:29→17:05)
[2018-06-27] MEDS: IBUPROFEN 600 MG TAB PO (04:56)
[2018-06-27 06:47] LABS: HEMATOCRIT 32.1 % (36.0-47.0); HEMOGLOBIN 9.7 g/dl (12.0-15.5); MEAN CORPUSCULAR HEMOGLOBIN 27.4 pg (27.0-33.0); MEAN CORPUSCULAR HGB CONC 30.2 g/dl (32.0-36.5); MEAN CORPUSCULAR VOLUME 90.7 fl (80.0-96.0); PLATELET COUNT, AUTOMATED 342 10^3/uL (150-450); RED BLOOD COUNT 3.54 10^6/uL (4.00-5.40); RED CELL DISTRIBUTION WIDTH 18.4 % (11.5-14.5)
[2018-06-27 07:16] LABS: ANION GAP 6 MEQ/L (8-16); BLOOD UREA NITROGEN 27 MG/DL (7-18); CALCIUM LEVEL 9.6 MG/DL (8.8-10.2); CARBON DIOXIDE LEVEL 39 MEQ/L (21-32); CHLORIDE LEVEL 89 MEQ/L (98-107); CREATININE FOR GFR 1.24 MG/DL (0.55-1.30); GLOMERULAR FILTRATION RATE 45.1 (>39); GLUCOSE, FASTING 351 MG/DL (70-100); SODIUM LEVEL 134 MEQ/L (136-145)
[2018-06-27] MEDS: FORMOTEROL FUMARATE 20 MCG/2 ML INHALATION SOLUTION (PERFOROMIST) INH ×2 (07:22→19:41)
[2018-06-27] MEDS: FONDAPARINUX SODIUM 2.5 MG/0.5 ML SYR (J1652 PER 0.5MG) SC (08:42)
[2018-06-27] MEDS: ASPIRIN 81 MG ENTERIC TAB PO (08:43)
[2018-06-27] MEDS: BACLOFEN 10 MG TAB PO ×3 (08:43→20:53)
[2018-06-27] MEDS: HumaLOG INSULIN (NovoLOG) PER UNIT SC ×4 (08:43→20:53)
[2018-06-27] MEDS: POTASSIUM CHLORIDE 10 MEQ SR TABLET PO ×2 (08:45→20:53)
[2018-06-27] MEDS: DOCUSATE SODIUM 100 MG CAP PO ×2 (08:45→20:54)
[2018-06-27] MEDS: OFLOXACIN 0.3 % (OCUFLOX) OPTH SOL 5ML OU (08:46)
[2018-06-27 11:50] LABS: BEDSIDE GLUCOSE 374 MG/DL (83-110)
[2018-06-27] MEDS: IPRATROPIUM 0.5MG/ALBUTEROL 2.5MG INH SOL UD 3ML (DUONEB)(J7620) INH ×2 (12:01→23:40)
[2018-06-27 16:31] LABS: BEDSIDE GLUCOSE 281 MG/DL (83-110)
[2018-06-27 20:40] LABS: BEDSIDE GLUCOSE 317 MG/DL (83-110)
[2018-06-27] MEDS: ATORVASTATIN 20 MG TAB PO (20:53)
[2018-06-27] MEDS: ACETAMINOPHEN 500 MG TAB PO (20:54)
[2018-06-27] MEDS: BISACODYL 5 MG TAB PO (20:54)
[2018-06-27] MEDS: SENOKOT S TAB PO (20:54)
[2018-06-28] MEDS: FUROSEMIDE 40 MG/4 ML VIAL (J1940) IV ×3 (00:30→16:16)
[2018-06-28] MEDS: FORMOTEROL FUMARATE 20 MCG/2 ML INHALATION SOLUTION (PERFOROMIST) INH ×2 (07:17→19:46)
[2018-06-28 07:27] LABS: BEDSIDE GLUCOSE 318 MG/DL (83-110)
[2018-06-28 08:09] LABS: HEMATOCRIT 30.4 % (36.0-47.0); HEMOGLOBIN 9.2 g/dl (12.0-15.5); MEAN CORPUSCULAR HEMOGLOBIN 27.5 pg (27.0-33.0); MEAN CORPUSCULAR HGB CONC 30.3 g/dl (32.0-36.5); PLATELET COUNT, AUTOMATED 341 10^3/uL (150-450); RED BLOOD COUNT 3.34 10^6/uL (4.00-5.40); RED CELL DISTRIBUTION WIDTH 18.2 % (11.5-14.5); WHITE BLOOD COUNT 10.7 10^3/uL (4.0-10.0)
[2018-06-28 08:41] LABS: ANION GAP 6 MEQ/L (8-16); BLOOD UREA NITROGEN 31 MG/DL (7-18); CALCIUM LEVEL 9.2 MG/DL (8.8-10.2); CARBON DIOXIDE LEVEL 40 MEQ/L (21-32); CHLORIDE LEVEL 92 MEQ/L (98-107); CREATININE FOR GFR 1.18 MG/DL (0.55-1.30); GLOMERULAR FILTRATION RATE 47.8 (>39); GLUCOSE, FASTING 314 MG/DL (70-100); POTASSIUM SERUM 4.2 MEQ/L (3.5-5.1); SODIUM LEVEL 138 MEQ/L (136-145)
[2018-06-28] MEDS: HumaLOG INSULIN (NovoLOG) PER UNIT SC ×4 (09:23→21:00)
[2018-06-28] MEDS: DOCUSATE SODIUM 100 MG CAP PO ×2 (09:24→21:07)
[2018-06-28] MEDS: FONDAPARINUX SODIUM 2.5 MG/0.5 ML SYR (J1652 PER 0.5MG) SC (09:24)
[2018-06-28] MEDS: POTASSIUM CHLORIDE 10 MEQ SR TABLET PO ×2 (09:24→21:07)
[2018-06-28] MEDS: ASPIRIN 81 MG ENTERIC TAB PO (09:25)
[2018-06-28] MEDS: BACLOFEN 10 MG TAB PO ×3 (09:26→21:06)
[2018-06-28 11:42] LABS: BEDSIDE GLUCOSE 356 MG/DL (83-110)
[2018-06-28 13:43] LABS: ESTIMATED AVERAGE GLUCOSE 209 MG/DL (60-110); HEMOGLOBIN A1c 8.9 %
[2018-06-28 16:39] LABS: BEDSIDE GLUCOSE 202 MG/DL (83-110)
[2018-06-28 20:47] LABS: BEDSIDE GLUCOSE 235 MG/DL (83-110)
[2018-06-28] MEDS: ACETAMINOPHEN 500 MG TAB PO (21:06)
[2018-06-28] MEDS: ATORVASTATIN 20 MG TAB PO (21:06)
[2018-06-28] MEDS: BISACODYL 5 MG TAB PO (21:07)
[2018-06-28] MEDS: SENOKOT S TAB PO (21:07)
[2018-06-28] MEDS: LEVEMIR (INSULIN DETEMIR) 1 UNITS/0.01ML SC (21:07)
[2018-06-29] MEDS: FUROSEMIDE 40 MG/4 ML VIAL (J1940) IV ×3 (00:10→17:05)
[2018-06-29 06:24] LABS: HEMATOCRIT 32.7 % (36.0-47.0); HEMOGLOBIN 9.5 g/dl (12.0-15.5); MEAN CORPUSCULAR HEMOGLOBIN 27.2 pg (27.0-33.0); MEAN CORPUSCULAR HGB CONC 29.1 g/dl (32.0-36.5); MEAN CORPUSCULAR VOLUME 93.7 fl (80.0-96.0); PLATELET COUNT, AUTOMATED 397 10^3/uL (150-450); RED BLOOD COUNT 3.49 10^6/uL (4.00-5.40); RED CELL DISTRIBUTION WIDTH 18.1 % (11.5-14.5); WHITE BLOOD COUNT 10.4 10^3/uL (4.0-10.0)
[2018-06-29 06:50] LABS: ANION GAP 5 MEQ/L (8-16); BLOOD UREA NITROGEN 31 MG/DL (7-18); CALCIUM LEVEL 9.7 MG/DL (8.8-10.2); CARBON DIOXIDE LEVEL 41 MEQ/L (21-32); CHLORIDE LEVEL 95 MEQ/L (98-107); CREATININE FOR GFR 1.31 MG/DL (0.55-1.30); GLOMERULAR FILTRATION RATE 42.4 (>39); GLUCOSE, FASTING 241 MG/DL (70-100); POTASSIUM SERUM 4.3 MEQ/L (3.5-5.1); SODIUM LEVEL 141 MEQ/L (136-145)
[2018-06-29] MEDS: FORMOTEROL FUMARATE 20 MCG/2 ML INHALATION SOLUTION (PERFOROMIST) INH ×2 (07:15→19:41)
[2018-06-29] MEDS: HumaLOG INSULIN (NovoLOG) PER UNIT SC ×4 (07:47→20:42)
[2018-06-29] MEDS: metOLazone 5 MG TAB PO (07:47)
[2018-06-29] MEDS: BACLOFEN 10 MG TAB PO ×3 (08:19→20:40)
[2018-06-29] MEDS: DOCUSATE SODIUM 100 MG CAP PO ×2 (08:19→20:41)
[2018-06-29] MEDS: ASPIRIN 81 MG ENTERIC TAB PO (08:19)
[2018-06-29] MEDS: POTASSIUM CHLORIDE 10 MEQ SR TABLET PO ×2 (08:20→20:41)
[2018-06-29] MEDS: FONDAPARINUX SODIUM 2.5 MG/0.5 ML SYR (J1652 PER 0.5MG) SC (08:20)
[2018-06-29 11:31] LABS: BEDSIDE GLUCOSE 251 MG/DL (83-110)
[2018-06-29 16:51] LABS: BEDSIDE GLUCOSE 219 MG/DL (83-110)
[2018-06-29] MEDS: IPRATROPIUM 0.5MG/ALBUTEROL 2.5MG INH SOL UD 3ML (DUONEB)(J7620) INH (19:42)
[2018-06-29 20:11] LABS: BEDSIDE GLUCOSE 277 MG/DL (83-110)
[2018-06-29] MEDS: SENOKOT S TAB PO (20:39)
[2018-06-29] MEDS: BISACODYL 5 MG TAB PO (20:40)
[2018-06-29] MEDS: ALPRAZolam 0.25 MG TAB PO (20:40)
[2018-06-29] MEDS: ATORVASTATIN 20 MG TAB PO (20:41)
[2018-06-29] MEDS: LEVEMIR (INSULIN DETEMIR) 1 UNITS/0.01ML SC (20:42)
[2018-06-30 00:07] LABS: BEDSIDE GLUCOSE 198 MG/DL (83-110)
[2018-06-30] MEDS: FUROSEMIDE 40 MG/4 ML VIAL (J1940) IV ×4 (00:43→16:00)
[2018-06-30] MEDS: IPRATROPIUM 0.5MG/ALBUTEROL 2.5MG INH SOL UD 3ML (DUONEB)(J7620) INH ×4 (01:37→23:22)
[2018-06-30 06:13] LABS: HEMATOCRIT 32.7 % (36.0-47.0); HEMOGLOBIN 9.8 g/dl (12.0-15.5); MEAN CORPUSCULAR VOLUME 93.4 fl (80.0-96.0); PLATELET COUNT, AUTOMATED 438 10^3/uL (150-450); RED CELL DISTRIBUTION WIDTH 18.1 % (11.5-14.5); WHITE BLOOD COUNT 13.7 10^3/uL (4.0-10.0)
[2018-06-30 06:43] LABS: ANION GAP 4 MEQ/L (8-16); BLOOD UREA NITROGEN 29 MG/DL (7-18); CALCIUM LEVEL 9.8 MG/DL (8.8-10.2); CARBON DIOXIDE LEVEL 42 MEQ/L (21-32); CHLORIDE LEVEL 94 MEQ/L (98-107); GLOMERULAR FILTRATION RATE 46.9 (>39); GLUCOSE, FASTING 240 MG/DL (70-100); POTASSIUM SERUM 3.9 MEQ/L (3.5-5.1); SODIUM LEVEL 140 MEQ/L (136-145)
[2018-06-30] MEDS: FORMOTEROL FUMARATE 20 MCG/2 ML INHALATION SOLUTION (PERFOROMIST) INH ×2 (07:26→19:28)
[2018-06-30 10:13] LABS: BEDSIDE GLUCOSE 299 MG/DL (83-110)
[2018-06-30 10:43] LABS: ABG BASE EXCESS 13.8 (-2.0-2.0); ABG HCO3 40.6 MEQ/L (22.0-26.0); ABG O2 SATURATION 93.3 % (95.0-99.0); ABG PARTIAL PRESSURE O2 68.6 mmHg (75.0-100.0); ABG STANDARD HCO3 37.5 MEQ/L (22.0-26.0); ABG TOTAL CO2 42.6 MEQ/L (23.0-31.0); ABG pH (ARTERIAL) 7.415 UNITS (7.350-7.450)
[2018-06-30] MEDS: ACETAMINOPHEN 500 MG TAB PO (10:44)
[2018-06-30 10:45] LABS: ABG PARTIAL PRESSURE CO2 64.8 mmHg (35.0-45.0)
[2018-06-30] MEDS: DOCUSATE SODIUM 100 MG CAP PO ×2 (10:45→20:57)
[2018-06-30] MEDS: ASPIRIN 81 MG ENTERIC TAB PO (10:45)
[2018-06-30] MEDS: FONDAPARINUX SODIUM 2.5 MG/0.5 ML SYR (J1652 PER 0.5MG) SC (10:47)
[2018-06-30] MEDS: POTASSIUM CHLORIDE 10 MEQ SR TABLET PO ×2 (10:47→20:57)
[2018-06-30] MEDS: HumaLOG INSULIN (NovoLOG) PER UNIT SC ×4 (10:54→20:59)
[2018-06-30 11:33] LABS: BEDSIDE GLUCOSE 288 MG/DL (83-110)
[2018-06-30] MEDS: FUROSEMIDE 100 MG/10 ML VIAL (J1940) IV (12:06)
[2018-06-30 12:19] LABS: MAGNESIUM LEVEL 1.9 MG/DL (1.8-2.4)
[2018-06-30 16:29] LABS: BEDSIDE GLUCOSE 207 MG/DL (83-110)
[2018-06-30 20:26] LABS: BEDSIDE GLUCOSE 258 MG/DL (83-110)
[2018-06-30] MEDS: SENOKOT S TAB PO (20:57)
[2018-06-30] MEDS: ATORVASTATIN 20 MG TAB PO (20:57)
[2018-06-30] MEDS: BISACODYL 5 MG TAB PO (20:58)
[2018-06-30] MEDS: LEVEMIR (INSULIN DETEMIR) 1 UNITS/0.01ML SC (20:58)
[2018-07-01] MEDS: FUROSEMIDE 40 MG/4 ML VIAL (J1940) IV ×4 (00:22→23:33)
[2018-07-01] MEDS: IPRATROPIUM 0.5MG/ALBUTEROL 2.5MG INH SOL UD 3ML (DUONEB)(J7620) INH ×4 (04:36→21:22)
[2018-07-01 06:02] LABS: HEMATOCRIT 31.8 % (36.0-47.0); HEMOGLOBIN 9.4 g/dl (12.0-15.5); MEAN CORPUSCULAR HEMOGLOBIN 27.6 pg (27.0-33.0); MEAN CORPUSCULAR HGB CONC 29.6 g/dl (32.0-36.5); MEAN CORPUSCULAR VOLUME 93.3 fl (80.0-96.0); PLATELET COUNT, AUTOMATED 421 10^3/uL (150-450); RED BLOOD COUNT 3.41 10^6/uL (4.00-5.40)
[2018-07-01 06:26] LABS: ANION GAP 5 MEQ/L (8-16); BLOOD UREA NITROGEN 35 MG/DL (7-18); CARBON DIOXIDE LEVEL 44 MEQ/L (21-32); CHLORIDE LEVEL 92 MEQ/L (98-107); CREATININE FOR GFR 1.29 MG/DL (0.55-1.30); GLOMERULAR FILTRATION RATE 43.1 (>39); GLUCOSE, FASTING 196 MG/DL (70-100); SODIUM LEVEL 141 MEQ/L (136-145)
[2018-07-01] MEDS: FORMOTEROL FUMARATE 20 MCG/2 ML INHALATION SOLUTION (PERFOROMIST) INH ×2 (07:32→21:22)
[2018-07-01] MEDS: HumaLOG INSULIN (NovoLOG) PER UNIT SC ×4 (09:50→21:58)
[2018-07-01] MEDS: ASPIRIN 81 MG ENTERIC TAB PO (09:50)
[2018-07-01] MEDS: DOCUSATE SODIUM 100 MG CAP PO ×2 (09:50→21:56)
[2018-07-01] MEDS: FONDAPARINUX SODIUM 2.5 MG/0.5 ML SYR (J1652 PER 0.5MG) SC (09:51)
[2018-07-01] MEDS: POTASSIUM CHLORIDE 10 MEQ SR TABLET PO ×2 (09:51→21:57)
[2018-07-01 11:31] LABS: BEDSIDE GLUCOSE 266 MG/DL (83-110)
[2018-07-01 16:34] LABS: BEDSIDE GLUCOSE 224 MG/DL (83-110)
[2018-07-01 20:23] LABS: BEDSIDE GLUCOSE 268 MG/DL (83-110)
[2018-07-01] MEDS: BISACODYL 5 MG TAB PO (21:56)
[2018-07-01] MEDS: SENOKOT S TAB PO (21:57)
[2018-07-01] MEDS: ATORVASTATIN 20 MG TAB PO (21:57)
[2018-07-01] MEDS: LEVEMIR (INSULIN DETEMIR) 1 UNITS/0.01ML SC (21:58)
[2018-07-01] MEDS: ACETAMINOPHEN 500 MG TAB PO (22:04)
[2018-07-02 05:54] LABS: HEMOGLOBIN 9.9 g/dl (12.0-15.5); MEAN CORPUSCULAR HEMOGLOBIN 27.4 pg (27.0-33.0); MEAN CORPUSCULAR HGB CONC 29.1 g/dl (32.0-36.5); MEAN CORPUSCULAR VOLUME 94.2 fl (80.0-96.0); PLATELET COUNT, AUTOMATED 455 10^3/uL (150-450); RED BLOOD COUNT 3.61 10^6/uL (4.00-5.40); RED CELL DISTRIBUTION WIDTH 18.2 % (11.5-14.5); WHITE BLOOD COUNT 12.1 10^3/uL (4.0-10.0)
[2018-07-02 06:09] LABS: ANION GAP 4 MEQ/L (8-16); BLOOD UREA NITROGEN 37 MG/DL (7-18); CALCIUM LEVEL 9.5 MG/DL (8.8-10.2); CARBON DIOXIDE LEVEL 41 MEQ/L (21-32); CHLORIDE LEVEL 93 MEQ/L (98-107); CREATININE FOR GFR 1.47 MG/DL (0.55-1.30); GLOMERULAR FILTRATION RATE 37.1 (>39); GLUCOSE, FASTING 202 MG/DL (70-100); POTASSIUM SERUM 4.2 MEQ/L (3.5-5.1); SODIUM LEVEL 138 MEQ/L (136-145)
[2018-07-02] MEDS: FORMOTEROL FUMARATE 20 MCG/2 ML INHALATION SOLUTION (PERFOROMIST) INH ×2 (07:27→19:49)
[2018-07-02] MEDS: ASPIRIN 81 MG ENTERIC TAB PO (08:39)
[2018-07-02] MEDS: DOCUSATE SODIUM 100 MG CAP PO ×2 (08:39→20:33)
[2018-07-02] MEDS: FONDAPARINUX SODIUM 2.5 MG/0.5 ML SYR (J1652 PER 0.5MG) SC (08:40)
[2018-07-02] MEDS: POTASSIUM CHLORIDE 10 MEQ SR TABLET PO ×2 (08:40→20:33)
[2018-07-02] MEDS: FUROSEMIDE 40 MG/4 ML VIAL (J1940) IV (08:40)
[2018-07-02] MEDS: HumaLOG INSULIN (NovoLOG) PER UNIT SC ×4 (08:41→20:32)
[2018-07-02] MEDS: IPRATROPIUM 0.5MG/ALBUTEROL 2.5MG INH SOL UD 3ML (DUONEB)(J7620) INH ×3 (11:06→19:49)
[2018-07-02 11:38] LABS: BEDSIDE GLUCOSE 132 MG/DL (83-110)
[2018-07-02] MEDS: methylPREDNISolone INJ 125 MG/2 ML VIAL (J2930) IV (13:07)
[2018-07-02] MEDS: ALBUTEROL 90 MCG/ACT 8GM HFA INHALER INH (16:44)
[2018-07-02 16:49] LABS: BEDSIDE GLUCOSE 202 MG/DL (83-110)
[2018-07-02 20:30] LABS: BEDSIDE GLUCOSE 337 MG/DL (83-110)
[2018-07-02] MEDS: LEVEMIR (INSULIN DETEMIR) 1 UNITS/0.01ML SC (20:32)
[2018-07-02] MEDS: BISACODYL 5 MG TAB PO (20:33)
[2018-07-02] MEDS: SENOKOT S TAB PO (20:33)
[2018-07-02] MEDS: ATORVASTATIN 20 MG TAB PO (20:33)
[2018-07-02] MEDS: ACETAMINOPHEN 500 MG TAB PO (20:35)
[2018-07-03] MEDS: IPRATROPIUM 0.5MG/ALBUTEROL 2.5MG INH SOL UD 3ML (DUONEB)(J7620) INH ×3 (00:18→16:12)
[2018-07-03 06:09] LABS: HEMATOCRIT 32.5 % (36.0-47.0); HEMOGLOBIN 9.5 g/dl (12.0-15.5); MEAN CORPUSCULAR HEMOGLOBIN 27.6 pg (27.0-33.0); MEAN CORPUSCULAR HGB CONC 29.2 g/dl (32.0-36.5); MEAN CORPUSCULAR VOLUME 94.5 fl (80.0-96.0); PLATELET COUNT, AUTOMATED 462 10^3/uL (150-450); RED BLOOD COUNT 3.44 10^6/uL (4.00-5.40); WHITE BLOOD COUNT 13.6 10^3/uL (4.0-10.0)
[2018-07-03 06:43] LABS: ANION GAP 3 MEQ/L (8-16); BLOOD UREA NITROGEN 44 MG/DL (7-18); CALCIUM LEVEL 9.6 MG/DL (8.8-10.2); CARBON DIOXIDE LEVEL 39 MEQ/L (21-32); CHLORIDE LEVEL 97 MEQ/L (98-107); CREATININE FOR GFR 1.58 MG/DL (0.55-1.30); GLOMERULAR FILTRATION RATE 34.1 (>39); GLUCOSE, FASTING 183 MG/DL (70-100); POTASSIUM SERUM 5.9 MEQ/L (3.5-5.1); SODIUM LEVEL 139 MEQ/L (136-145)
[2018-07-03] MEDS: FORMOTEROL FUMARATE 20 MCG/2 ML INHALATION SOLUTION (PERFOROMIST) INH ×2 (07:24→20:45)
[2018-07-03] MEDS: DOCUSATE SODIUM 100 MG CAP PO ×2 (08:06→21:00)
[2018-07-03] MEDS: HumaLOG INSULIN (NovoLOG) PER UNIT SC ×4 (08:06→21:00)
[2018-07-03] MEDS: ACETAMINOPHEN 500 MG TAB PO ×2 (08:08→20:58)
[2018-07-03] MEDS: ASPIRIN 81 MG ENTERIC TAB PO (08:08)
[2018-07-03] MEDS: FONDAPARINUX SODIUM 2.5 MG/0.5 ML SYR (J1652 PER 0.5MG) SC (08:08)
[2018-07-03] MEDS: POTASSIUM CHLORIDE 10 MEQ SR TABLET PO (08:14)
[2018-07-03] MEDS: BUDESONIDE 0.5 MG/2 ML INHALATION SUSPENSION INH ×2 (11:14→20:45)
[2018-07-03 11:35] LABS: BEDSIDE GLUCOSE 175 MG/DL (83-110)
[2018-07-03 12:47] LABS: ALBUMIN 2.9 GM/DL (3.2-5.2); ANION GAP 7 MEQ/L (8-16); BLOOD UREA NITROGEN 47 MG/DL (7-18); CALCIUM LEVEL 9.6 MG/DL (8.8-10.2); CARBON DIOXIDE LEVEL 37 MEQ/L (21-32); CHLORIDE LEVEL 94 MEQ/L (98-107); CREATININE FOR GFR 1.76 MG/DL (0.55-1.30); GLOMERULAR FILTRATION RATE 30.1 (>39); GLUCOSE, FASTING 165 MG/DL (70-100); PHOSPHORUS LEVEL 3.6 MG/DL (2.5-4.9); POTASSIUM SERUM 5.3 MEQ/L (3.5-5.1); SODIUM LEVEL 138 MEQ/L (136-145)
[2018-07-03] MEDS ORDERED: NYSTATIN 500,000 U/5 ML SUSP UDC SS (13:00)
[2018-07-03] MEDS: FUROSEMIDE 20 MG TAB PO ×2 (14:54→17:07)
[2018-07-03] MEDS: predniSONE 10 MG TAB PO (14:54)
[2018-07-03 16:29] LABS: BEDSIDE GLUCOSE 206 MG/DL (83-110)
[2018-07-03 19:46] LABS: BEDSIDE GLUCOSE 247 MG/DL (83-110)
[2018-07-03] MEDS: ATORVASTATIN 20 MG TAB PO (20:57)
[2018-07-03] MEDS: LEVEMIR (INSULIN DETEMIR) 1 UNITS/0.01ML SC (20:57)
[2018-07-03] MEDS: BISACODYL 5 MG TAB PO (20:57)
[2018-07-03] MEDS: SENOKOT S TAB PO (20:58)
[2018-07-04 06:13] LABS: HEMATOCRIT 34.6 % (36.0-47.0); HEMOGLOBIN 10.3 g/dl (12.0-15.5); MEAN CORPUSCULAR HEMOGLOBIN 27.6 pg (27.0-33.0); MEAN CORPUSCULAR HGB CONC 29.8 g/dl (32.0-36.5); MEAN CORPUSCULAR VOLUME 92.8 fl (80.0-96.0); PLATELET COUNT, AUTOMATED 514 10^3/uL (150-450); RED BLOOD COUNT 3.73 10^6/uL (4.00-5.40)
[2018-07-04 06:44] LABS: ANION GAP 9 MEQ/L (8-16); BLOOD UREA NITROGEN 45 MG/DL (7-18); CALCIUM LEVEL 9.3 MG/DL (8.8-10.2); CARBON DIOXIDE LEVEL 35 MEQ/L (21-32); CHLORIDE LEVEL 95 MEQ/L (98-107); CREATININE FOR GFR 1.71 MG/DL (0.55-1.30); GLOMERULAR FILTRATION RATE 31.2 (>39); GLUCOSE, FASTING 157 MG/DL (70-100); POTASSIUM SERUM 4.1 MEQ/L (3.5-5.1); SODIUM LEVEL 139 MEQ/L (136-145)
[2018-07-04] MEDS: FORMOTEROL FUMARATE 20 MCG/2 ML INHALATION SOLUTION (PERFOROMIST) INH ×2 (07:13→20:46)
[2018-07-04] MEDS: BUDESONIDE 0.5 MG/2 ML INHALATION SUSPENSION INH ×2 (07:13→20:46)
[2018-07-04] MEDS: DOCUSATE SODIUM 100 MG CAP PO ×2 (07:21→20:29)
[2018-07-04] MEDS: predniSONE 10 MG TAB PO (07:22)
[2018-07-04] MEDS: ASPIRIN 81 MG ENTERIC TAB PO (07:22)
[2018-07-04] MEDS: FONDAPARINUX SODIUM 2.5 MG/0.5 ML SYR (J1652 PER 0.5MG) SC (07:22)
[2018-07-04] MEDS: FUROSEMIDE 20 MG TAB PO (07:22)
[2018-07-04] MEDS: HumaLOG INSULIN (NovoLOG) PER UNIT SC ×4 (07:24→20:29)
[2018-07-04] MEDS: IPRATROPIUM 0.5MG/ALBUTEROL 2.5MG INH SOL UD 3ML (DUONEB)(J7620) INH (11:17)
[2018-07-04 11:25] LABS: BEDSIDE GLUCOSE 123 MG/DL (83-110)
[2018-07-04 16:37] LABS: BEDSIDE GLUCOSE 215 MG/DL (83-110)
[2018-07-04] MEDS: ALPRAZolam 0.25 MG TAB PO (17:58)
[2018-07-04 19:39] LABS: BEDSIDE GLUCOSE 267 MG/DL (83-110)
[2018-07-04] MEDS: BISACODYL 5 MG TAB PO (20:29)
[2018-07-04] MEDS: SENOKOT S TAB PO (20:29)
[2018-07-04] MEDS: ATORVASTATIN 20 MG TAB PO (20:29)
[2018-07-04] MEDS: LEVEMIR (INSULIN DETEMIR) 1 UNITS/0.01ML SC (20:29)
[2018-07-05 06:01] LABS: HEMATOCRIT 32.3 % (36.0-47.0); HEMOGLOBIN 9.5 g/dl (12.0-15.5); MEAN CORPUSCULAR HEMOGLOBIN 27.1 pg (27.0-33.0); MEAN CORPUSCULAR HGB CONC 29.4 g/dl (32.0-36.5); MEAN CORPUSCULAR VOLUME 92.3 fl (80.0-96.0); RED CELL DISTRIBUTION WIDTH 17.7 % (11.5-14.5); WHITE BLOOD COUNT 10.2 10^3/uL (4.0-10.0)
[2018-07-05 06:07] LABS: PLATELET COUNT, AUTOMATED 392 10^3/uL (150-450)
[2018-07-05] MEDS: FORMOTEROL FUMARATE 20 MCG/2 ML INHALATION SOLUTION (PERFOROMIST) INH ×2 (06:23→20:43)
[2018-07-05] MEDS: BUDESONIDE 0.5 MG/2 ML INHALATION SUSPENSION INH ×2 (06:23→20:43)
[2018-07-05] MEDS: ALPRAZolam 0.25 MG TAB PO (06:41)
[2018-07-05 06:45] LABS: ANION GAP 8 MEQ/L (8-16); BLOOD UREA NITROGEN 46 MG/DL (7-18); CALCIUM LEVEL 8.6 MG/DL (8.8-10.2); CARBON DIOXIDE LEVEL 36 MEQ/L (21-32); CHLORIDE LEVEL 97 MEQ/L (98-107); CREATININE FOR GFR 1.33 MG/DL (0.55-1.30); GLOMERULAR FILTRATION RATE 41.6 (>39); GLUCOSE, FASTING 84 MG/DL (70-100); POTASSIUM SERUM 3.2 MEQ/L (3.5-5.1); SODIUM LEVEL 141 MEQ/L (136-145)
[2018-07-05] MEDS: HumaLOG INSULIN (NovoLOG) PER UNIT SC ×4 (07:06→21:00)
[2018-07-05] MEDS: FONDAPARINUX SODIUM 2.5 MG/0.5 ML SYR (J1652 PER 0.5MG) SC (07:39)
[2018-07-05] MEDS: DOCUSATE SODIUM 100 MG CAP PO ×2 (07:39→21:54)
[2018-07-05] MEDS: predniSONE 10 MG TAB PO (07:39)
[2018-07-05] MEDS: ASPIRIN 81 MG ENTERIC TAB PO (07:39)
[2018-07-05] MEDS: POTASSIUM CHLORIDE 10 MEQ SR TABLET PO (09:04)
[2018-07-05] MEDS: FUROSEMIDE 40 MG TAB PO (09:04)
[2018-07-05] MEDS: IPRATROPIUM 0.5MG/ALBUTEROL 2.5MG INH SOL UD 3ML (DUONEB)(J7620) INH ×2 (10:57→16:06)
[2018-07-05 11:37] LABS: BEDSIDE GLUCOSE 207 MG/DL (83-110)
[2018-07-05 16:38] LABS: BEDSIDE GLUCOSE 217 MG/DL (83-110)
[2018-07-05] MEDS ORDERED: ALPRAZolam 0.25 MG TAB PO (18:45)
[2018-07-05 20:30] LABS: BEDSIDE GLUCOSE 245 MG/DL (83-110)
[2018-07-05] MEDS: BISACODYL 5 MG TAB PO (21:54)
[2018-07-05] MEDS: ATORVASTATIN 20 MG TAB PO (21:54)
[2018-07-05] MEDS: SENOKOT S TAB PO (21:54)
[2018-07-05] MEDS: LEVEMIR (INSULIN DETEMIR) 1 UNITS/0.01ML SC (21:54)
[2018-07-05] MEDS: ACETAMINOPHEN 500 MG TAB PO (21:57)
[2018-07-06] MEDS: IPRATROPIUM 0.5MG/ALBUTEROL 2.5MG INH SOL UD 3ML (DUONEB)(J7620) INH ×4 (03:01→23:40)
[2018-07-06 06:02] LABS: HEMATOCRIT 32.6 % (36.0-47.0); HEMOGLOBIN 9.5 g/dl (12.0-15.5); MEAN CORPUSCULAR HEMOGLOBIN 26.8 pg (27.0-33.0); MEAN CORPUSCULAR HGB CONC 29.1 g/dl (32.0-36.5); MEAN CORPUSCULAR VOLUME 91.8 fl (80.0-96.0); PLATELET COUNT, AUTOMATED 348 10^3/uL (150-450); RED BLOOD COUNT 3.55 10^6/uL (4.00-5.40); RED CELL DISTRIBUTION WIDTH 17.4 % (11.5-14.5)
[2018-07-06 06:24] LABS: ANION GAP 7 MEQ/L (8-16); BLOOD UREA NITROGEN 39 MG/DL (7-18); CARBON DIOXIDE LEVEL 36 MEQ/L (21-32); CHLORIDE LEVEL 100 MEQ/L (98-107); CREATININE FOR GFR 1.17 MG/DL (0.55-1.30); GLOMERULAR FILTRATION RATE 48.3 (>39); GLUCOSE, FASTING 90 MG/DL (70-100); POTASSIUM SERUM 3.1 MEQ/L (3.5-5.1); SODIUM LEVEL 143 MEQ/L (136-145)
[2018-07-06] MEDS: HumaLOG INSULIN (NovoLOG) PER UNIT SC ×4 (07:05→20:34)
[2018-07-06] MEDS: BUDESONIDE 0.5 MG/2 ML INHALATION SUSPENSION INH ×2 (07:21→19:46)
[2018-07-06] MEDS: FORMOTEROL FUMARATE 20 MCG/2 ML INHALATION SOLUTION (PERFOROMIST) INH ×2 (07:21→19:46)
[2018-07-06] MEDS: ASPIRIN 81 MG ENTERIC TAB PO (07:25)
[2018-07-06] MEDS: FONDAPARINUX SODIUM 2.5 MG/0.5 ML SYR (J1652 PER 0.5MG) SC (07:25)
[2018-07-06] MEDS: predniSONE 10 MG TAB PO (07:25)
[2018-07-06] MEDS: FUROSEMIDE 40 MG TAB PO (07:25)
[2018-07-06] MEDS: DOCUSATE SODIUM 100 MG CAP PO ×2 (07:25→20:34)
[2018-07-06] MEDS: POTASSIUM CHLORIDE 10 MEQ SR TABLET PO (07:50)
[2018-07-06 11:39] LABS: BEDSIDE GLUCOSE 182 MG/DL (83-110)
[2018-07-06 16:57] LABS: BEDSIDE GLUCOSE 189 MG/DL (83-110)
[2018-07-06] MEDS: ACETAMINOPHEN 500 MG TAB PO (17:21)
[2018-07-06 19:54] LABS: BEDSIDE GLUCOSE 132 MG/DL (83-110)
[2018-07-06] MEDS: ALPRAZolam 0.25 MG TAB PO (20:33)
[2018-07-06] MEDS: ATORVASTATIN 20 MG TAB PO (20:33)
[2018-07-06] MEDS: LEVEMIR (INSULIN DETEMIR) 1 UNITS/0.01ML SC (20:34)
[2018-07-06] MEDS: SENOKOT S TAB PO (20:34)
[2018-07-06] MEDS: BISACODYL 5 MG TAB PO (20:34)
[2018-07-07] MEDS: IPRATROPIUM 0.5MG/ALBUTEROL 2.5MG INH SOL UD 3ML (DUONEB)(J7620) INH ×2 (03:09→11:10)
[2018-07-07 05:59] LABS: HEMATOCRIT 33.1 % (36.0-47.0); HEMOGLOBIN 9.8 g/dl (12.0-15.5); MEAN CORPUSCULAR HEMOGLOBIN 27.4 pg (27.0-33.0); MEAN CORPUSCULAR HGB CONC 29.6 g/dl (32.0-36.5); MEAN CORPUSCULAR VOLUME 92.5 fl (80.0-96.0); PLATELET COUNT, AUTOMATED 327 10^3/uL (150-450); RED BLOOD COUNT 3.58 10^6/uL (4.00-5.40); RED CELL DISTRIBUTION WIDTH 17.3 % (11.5-14.5); WHITE BLOOD COUNT 9.6 10^3/uL (4.0-10.0)
[2018-07-07 06:24] LABS: ANION GAP 4 MEQ/L (8-16); BLOOD UREA NITROGEN 35 MG/DL (7-18); CALCIUM LEVEL 9.2 MG/DL (8.8-10.2); CARBON DIOXIDE LEVEL 38 MEQ/L (21-32); CHLORIDE LEVEL 102 MEQ/L (98-107); CREATININE FOR GFR 1.29 MG/DL (0.55-1.30); GLOMERULAR FILTRATION RATE 43.1 (>39); GLUCOSE, FASTING 87 MG/DL (70-100); POTASSIUM SERUM 3.6 MEQ/L (3.5-5.1); SODIUM LEVEL 144 MEQ/L (136-145)
[2018-07-07] MEDS: HumaLOG INSULIN (NovoLOG) PER UNIT SC ×2 (07:02→12:00)
[2018-07-07] MEDS: BUDESONIDE 0.5 MG/2 ML INHALATION SUSPENSION INH (07:03)
[2018-07-07] MEDS: FORMOTEROL FUMARATE 20 MCG/2 ML INHALATION SOLUTION (PERFOROMIST) INH (07:03)
[2018-07-07] MEDS: DOCUSATE SODIUM 100 MG CAP PO (08:54)
[2018-07-07] MEDS: ACETAMINOPHEN 500 MG TAB PO (08:54)
[2018-07-07] MEDS: ALPRAZolam 0.25 MG TAB PO (08:55)
[2018-07-07] MEDS: FUROSEMIDE 40 MG TAB PO (08:55)
[2018-07-07] MEDS: FONDAPARINUX SODIUM 2.5 MG/0.5 ML SYR (J1652 PER 0.5MG) SC (08:55)
[2018-07-07] MEDS: predniSONE 10 MG TAB PO (08:55)
[2018-07-07] MEDS: ASPIRIN 81 MG ENTERIC TAB PO (08:55)
[2018-07-07 11:22] LABS: BEDSIDE GLUCOSE 177 MG/DL (83-110)
== END 2018-07-07 12:27 | disposition home health service (06) | DRG 291 ==
LOC: M ED 02:47 → M MSPAV 06-21 10:03 → M ED INP 07:36 → M ICU 09:09
DX: I13.0 Hypertensive heart and chronic kidney disease with heart failure and stage 1 through stage 4 chronic kidney disease, or unspecified chronic kidney disease (principal); J96.02 Acute respiratory failure with hypercapnia; J96.21 Acute and chronic respiratory failure with hypoxia; J44.1 Chronic obstructive pulmonary disease with (acute) exacerbation; E78.5 Hyperlipidemia, unspecified; N18.3 Chronic kidney disease, stage 3 (moderate); H10.9 Unspecified conjunctivitis; E11.51 Type 2 diabetes mellitus with diabetic peripheral angiopathy without gangrene; G47.33 Obstructive sleep apnea (adult) (pediatric); F41.9 Anxiety disorder, unspecified; Z79.82 Long term (current) use of aspirin; Z79.899 Other long term (current) drug therapy; Z88.8 Allergy status to other drugs, medicaments and biological substances; I27.20 Pulmonary hypertension, unspecified

== ENCOUNTER 2018-07-17 20:05 | Inpatient (IN) | payer OTHER ==
[2018-07-17] MEDS: dexameTHASONE 20 MG/5 ML VIAL (J1100) IV (21:15)
[2018-07-17] MEDS: FUROSEMIDE 100 MG/10 ML VIAL (J1940) IV (21:21)
[2018-07-17] MEDS: NITROGLYCERIN 2% OINT 1 GM *U/D* PKT TOP (21:22)
[2018-07-17 21:27] LABS: BASO % 0.2 % (0.0-1.0); EOS # 0.2 10^3/uL (0.0-0.50); EOS % 2.1 % (0.0-3.0); HEMATOCRIT 30.4 % (36.0-47.0); HEMOGLOBIN 8.6 g/dl (12.0-15.5); IMMATURE GRANULOCYTE % 1.4 % (0-3.0); LYMPH # 1.2 10^3/uL (1.5-4.5); LYMPH % 12.6 % (24.0-44.0); MEAN CORPUSCULAR HEMOGLOBIN 27.1 pg (27.0-33.0); MEAN CORPUSCULAR HGB CONC 28.3 g/dl (32.0-36.5); MEAN CORPUSCULAR VOLUME 95.9 fl (80.0-96.0); MONO # 0.4 10^3/uL (0.0-0.8); MONO % 4.6 % (0.0-5.0); NEUTROPHILS # 7.5 10^3/uL (1.8-7.7); NEUTROPHILS % 79.1 % (36.0-66.0); PLATELET COUNT, AUTOMATED 152 10^3/uL (150-450); RED BLOOD COUNT 3.17 10^6/uL (4.00-5.40); RED CELL DISTRIBUTION WIDTH 17.5 % (11.5-14.5); WHITE BLOOD COUNT 9.5 10^3/uL (4.0-10.0)
[2018-07-17] MEDS: ALBUTEROL SULFATE 2.5 MG/0.5 ML INH NEB SOLN NEB (21:27)
[2018-07-17 21:41] LABS: ANION GAP 5 MEQ/L (8-16); BLOOD UREA NITROGEN 19 MG/DL (7-18); CALCIUM LEVEL 8.4 MG/DL (8.8-10.2); CARBON DIOXIDE LEVEL 41 MEQ/L (21-32); CHLORIDE LEVEL 100 MEQ/L (98-107); CPK CREATINE PHOSPHOKINASE 38 U/L (26-192); CREATININE FOR GFR 0.95 MG/DL (0.55-1.30); GLOMERULAR FILTRATION RATE > 60.0 (>39); GLUCOSE, FASTING 212 MG/DL (70-100); MB/CK RELATIVE INDEX 8.68 (< OR =4); NT-PRO BNP 276 PG/ML (<125); POTASSIUM SERUM 4.1 MEQ/L (3.5-5.1); SODIUM LEVEL 146 MEQ/L (136-145); TROPONIN I < 0.02 NG/ML (< 0.10)
[2018-07-17 21:50] LABS: INR 0.87; PROTHROMBIN TIME 11.9 SECONDS (12.1-14.4)
[2018-07-17 21:51] LABS: PARTIAL THROMBOPLASTIN TIME 37.2 SECONDS (25.4-37.6)
[2018-07-17 23:03] LABS: ABG BASE EXCESS 12.9 (-2.0-2.0); ABG HCO3 41.7 MEQ/L (22.0-26.0); ABG O2 SATURATION 93.4 % (95.0-99.0); ABG PARTIAL PRESSURE O2 71.4 mmHg (75.0-100.0); ABG STANDARD HCO3 36.6 MEQ/L (22.0-26.0); ABG TOTAL CO2 44.3 MEQ/L (23.0-31.0); ABG pH (ARTERIAL) 7.306 UNITS (7.350-7.450)
[2018-07-17 23:06] LABS: ABG PARTIAL PRESSURE CO2 85.5 mmHg (35.0-45.0)
[2018-07-18] MEDS: IPRATROPIUM 0.5MG/ALBUTEROL 2.5MG INH SOL UD 3ML (DUONEB)(J7620) NEB ×6 (00:11→20:00)
[2018-07-18] MEDS: BACLOFEN 10 MG TAB PO ×4 (01:23→20:05)
[2018-07-18] MEDS: ALPRAZolam 0.25 MG TAB PO ×3 (01:23→20:05)
[2018-07-18] MEDS: ATORVASTATIN 20 MG TAB PO ×2 (01:23→20:04)
[2018-07-18] MEDS: DOCUSATE SODIUM 100 MG CAP PO ×3 (01:23→20:05)
[2018-07-18] MEDS: ACETAMINOPHEN 500 MG TAB PO ×3 (01:26→20:05)
[2018-07-18] MEDS: LEVALBUTEROL 1.25 MG/0.5 ML CONCENTRATE NEB NEB ×4 (01:29→20:00)
[2018-07-18] MEDS: IPRATROPIUM 0.02% SOLN 0.5MG/2.5 ML NEB NEB ×4 (01:29→20:00)
[2018-07-18 03:18] LABS: ABG BASE EXCESS 11.1 (-2.0-2.0); ABG HCO3 38.7 MEQ/L (22.0-26.0); ABG O2 SATURATION 92.8 % (95.0-99.0); ABG PARTIAL PRESSURE CO2 72.8 mmHg (35.0-45.0); ABG PARTIAL PRESSURE O2 67.6 mmHg (75.0-100.0); ABG STANDARD HCO3 34.7 MEQ/L (22.0-26.0); ABG TOTAL CO2 40.9 MEQ/L (23.0-31.0); ABG pH (ARTERIAL) 7.343 UNITS (7.350-7.450)
[2018-07-18 04:52] LABS: HEMATOCRIT 29.6 % (36.0-47.0); HEMOGLOBIN 8.4 g/dl (12.0-15.5); MEAN CORPUSCULAR HEMOGLOBIN 26.8 pg (27.0-33.0); MEAN CORPUSCULAR HGB CONC 28.4 g/dl (32.0-36.5); MEAN CORPUSCULAR VOLUME 94.6 fl (80.0-96.0); PLATELET COUNT, AUTOMATED 140 10^3/uL (150-450); RED BLOOD COUNT 3.13 10^6/uL (4.00-5.40); RED CELL DISTRIBUTION WIDTH 17.4 % (11.5-14.5); WHITE BLOOD COUNT 15.3 10^3/uL (4.0-10.0)
[2018-07-18 05:15] LABS: ANION GAP 6 MEQ/L (8-16); BLOOD UREA NITROGEN 21 MG/DL (7-18); CALCIUM LEVEL 8.5 MG/DL (8.8-10.2); CARBON DIOXIDE LEVEL 39 MEQ/L (21-32); CHLORIDE LEVEL 97 MEQ/L (98-107); CREATININE FOR GFR 1.23 MG/DL (0.55-1.30); GLOMERULAR FILTRATION RATE 45.6 (>39); GLUCOSE, FASTING 390 MG/DL (70-100); POTASSIUM SERUM 4.7 MEQ/L (3.5-5.1); SODIUM LEVEL 142 MEQ/L (136-145)
[2018-07-18] MEDS ORDERED: DEXTROSE 50% 50 ML SYRINGE IV (07:30)
[2018-07-18] MEDS ORDERED: GLUCOSE 4 GM CHEW TABLET PO (07:30)
[2018-07-18] MEDS ORDERED: GLUCAGON FOR INJ 1 MG VIAL (J1610) SC (07:30)
[2018-07-18 07:55] LABS: CPK CREATINE PHOSPHOKINASE 29 U/L (26-192); MB/CK RELATIVE INDEX 8.28 (< OR =4); TROPONIN I < 0.02 NG/ML (< 0.10)
[2018-07-18 08:38] LABS: ABG BASE EXCESS 8.1 (-2.0-2.0); ABG HCO3 35.3 MEQ/L (22.0-26.0); ABG O2 SATURATION 97.8 % (95.0-99.0); ABG STANDARD HCO3 31.9 MEQ/L (22.0-26.0); ABG TOTAL CO2 37.4 MEQ/L (23.0-31.0)
[2018-07-18] MEDS ORDERED: GLIMEPIRIDE 2 MG TAB PO (09:00)
[2018-07-18] MEDS ORDERED: methylPREDNISolone INJ 125 MG/2 ML VIAL (J2930) IV (09:00)
[2018-07-18] MEDS: BUDESONIDE 0.5 MG/2 ML INHALATION SUSPENSION INH ×2 (09:06→20:17)
[2018-07-18] MEDS: FORMOTEROL FUMARATE 20 MCG/2 ML INHALATION SOLUTION (PERFOROMIST) INH ×2 (09:07→20:17)
[2018-07-18] MEDS: AZITHROMYCIN INJ 500 MG, VIAL MATE ADAPTER 1 EACH in D5W 250 ML IV (09:15)
[2018-07-18] MEDS: methylPREDNISolone INJ 40 MG/1 ML VIAL (J2920) IV ×3 (09:16→23:24)
[2018-07-18] MEDS: HumaLOG INSULIN (NovoLOG) PER UNIT SC ×4 (09:16→20:48)
[2018-07-18] MEDS: PANTOPRAZOLE 40MG INJ (PROTONIX) (C9113) IV (09:16)
[2018-07-18] MEDS: OFLOXACIN 0.3 % (OCUFLOX) OPTH SOL 5ML OU (09:16)
[2018-07-18] MEDS: FUROSEMIDE 40 MG TAB PO ×2 (09:17→17:02)
[2018-07-18] MEDS: POTASSIUM CHLORIDE 10 MEQ SR TABLET PO (09:17)
[2018-07-18] MEDS: BISACODYL 5 MG TAB PO (09:17)
[2018-07-18] MEDS: GABAPENTIN 300 MG CAP PO ×2 (09:17→17:02)
[2018-07-18] MEDS: ASPIRIN 81 MG ENTERIC TAB PO (09:17)
[2018-07-18] MEDS: FONDAPARINUX SODIUM 2.5 MG/0.5 ML SYR (J1652 PER 0.5MG) SC (09:18)
[2018-07-18] MEDS: CEFEPIME HCL 1 GM in D5W MINI-BAG PLUS 50 ML IV (09:20)
[2018-07-18 11:45] LABS: BEDSIDE GLUCOSE 474 MG/DL (83-110)
[2018-07-18 16:46] LABS: BEDSIDE GLUCOSE 365 MG/DL (83-110)
[2018-07-18] MEDS: SENOKOT S TAB PO (20:05)
[2018-07-18 20:48] LABS: BEDSIDE GLUCOSE 344 MG/DL (83-110)
[2018-07-19] MEDS: IPRATROPIUM 0.02% SOLN 0.5MG/2.5 ML NEB NEB ×4 (02:00→20:00)
[2018-07-19] MEDS: LEVALBUTEROL 1.25 MG/0.5 ML CONCENTRATE NEB NEB ×4 (02:00→20:00)
[2018-07-19] MEDS: IPRATROPIUM 0.5MG/ALBUTEROL 2.5MG INH SOL UD 3ML (DUONEB)(J7620) NEB ×4 (02:28→20:00)
[2018-07-19 04:49] LABS: HEMATOCRIT 27.3 % (36.0-47.0); HEMOGLOBIN 7.8 g/dl (12.0-15.5); MEAN CORPUSCULAR HGB CONC 28.6 g/dl (32.0-36.5); MEAN CORPUSCULAR VOLUME 94.5 fl (80.0-96.0); PLATELET COUNT, AUTOMATED 145 10^3/uL (150-450); RED BLOOD COUNT 2.89 10^6/uL (4.00-5.40); RED CELL DISTRIBUTION WIDTH 17.2 % (11.5-14.5)
[2018-07-19 05:16] LABS: ANION GAP 4 MEQ/L (8-16); BLOOD UREA NITROGEN 34 MG/DL (7-18); C REACTIVE PROTEIN QUANTITATIV 8.07 MG/DL (0.00-0.30); CALCIUM LEVEL 8.3 MG/DL (8.8-10.2); CARBON DIOXIDE LEVEL 38 MEQ/L (21-32); CHLORIDE LEVEL 99 MEQ/L (98-107); CREATININE FOR GFR 1.26 MG/DL (0.55-1.30); GLOMERULAR FILTRATION RATE 44.3 (>39); GLUCOSE, FASTING 321 MG/DL (70-100); POTASSIUM SERUM 5.3 MEQ/L (3.5-5.1); SODIUM LEVEL 141 MEQ/L (136-145)
[2018-07-19 08:08] LABS: RETIC HEMOGLOBIN EQUIVALENT 25.1 pg (24-36); RETICULOCYTE # 111.8 10^9/L (17-77); RETICULOCYTE % 3.9 % (0.5-1.5)
[2018-07-19 08:22] LABS: BEDSIDE GLUCOSE 317 MG/DL (83-110)
[2018-07-19] MEDS: FONDAPARINUX SODIUM 2.5 MG/0.5 ML SYR (J1652 PER 0.5MG) SC (08:29)
[2018-07-19 08:30] LABS: FERRITIN 62 NG/ML (8-252); IRON (FE) 24 UG/DL (50-170); PERCENT SATURATION 7.9 % (13.2-45.0); TOTAL IRON BINDING CAPACITY 305 UG/DL (250-450)
[2018-07-19] MEDS: BACLOFEN 10 MG TAB PO ×3 (08:30→21:04)
[2018-07-19] MEDS: DOCUSATE SODIUM 100 MG CAP PO ×2 (08:30→21:00)
[2018-07-19] MEDS: FUROSEMIDE 40 MG/4 ML VIAL (J1940) IV ×3 (08:30→17:10)
[2018-07-19] MEDS: HumaLOG INSULIN (NovoLOG) PER UNIT SC ×4 (08:30→21:23)
[2018-07-19] MEDS: AZITHROMYCIN INJ 500 MG, VIAL MATE ADAPTER 1 EACH in D5W 250 ML IV (08:30)
[2018-07-19] MEDS: CEFEPIME HCL 1 GM in D5W MINI-BAG PLUS 50 ML IV (08:30)
[2018-07-19] MEDS: ALPRAZolam 0.25 MG TAB PO ×2 (08:31→21:04)
[2018-07-19] MEDS: GABAPENTIN 300 MG CAP PO ×2 (08:31→17:10)
[2018-07-19] MEDS: BISACODYL 5 MG TAB PO (08:31)
[2018-07-19] MEDS: PANTOPRAZOLE 40MG TAB (PROTONIX) PO (08:31)
[2018-07-19] MEDS: ASPIRIN 81 MG ENTERIC TAB PO (08:31)
[2018-07-19] MEDS: OFLOXACIN 0.3 % (OCUFLOX) OPTH SOL 5ML OU (08:31)
[2018-07-19] MEDS: BUDESONIDE 0.5 MG/2 ML INHALATION SUSPENSION INH ×2 (09:37→20:50)
[2018-07-19] MEDS: FORMOTEROL FUMARATE 20 MCG/2 ML INHALATION SOLUTION (PERFOROMIST) INH ×2 (09:37→20:50)
[2018-07-19 12:24] LABS: BEDSIDE GLUCOSE 340 MG/DL (83-110)
[2018-07-19] MEDS: methylPREDNISolone INJ 40 MG/1 ML VIAL (J2920) IV (12:51)
[2018-07-19 15:22] LABS: IMMEDIATE SPIN CROSSMATCH 1 1
[2018-07-19 18:38] LABS: HEMATOCRIT 31.5 % (36.0-47.0); HEMOGLOBIN 9.3 g/dl (12.0-15.5)
[2018-07-19 18:55] LABS: ANION GAP 5 MEQ/L (8-16); BLOOD UREA NITROGEN 41 MG/DL (7-18); CALCIUM LEVEL 8.6 MG/DL (8.8-10.2); CARBON DIOXIDE LEVEL 38 MEQ/L (21-32); CHLORIDE LEVEL 98 MEQ/L (98-107); CREATININE FOR GFR 1.35 MG/DL (0.55-1.30); GLOMERULAR FILTRATION RATE 40.9 (>39); GLUCOSE, FASTING 394 MG/DL (70-100); MAGNESIUM LEVEL 2.2 MG/DL (1.8-2.4); POTASSIUM SERUM 5.2 MEQ/L (3.5-5.1); SODIUM LEVEL 141 MEQ/L (136-145)
[2018-07-19] MEDS: LABETALOL HCL 100 MG/20 ML VIAL IV ×3 (20:45→21:02)
[2018-07-19] MEDS: ASCORBIC ACID 500 MG TAB PO (21:03)
[2018-07-19] MEDS: ATORVASTATIN 20 MG TAB PO (21:03)
[2018-07-19] MEDS: SENOKOT S TAB PO (21:03)
[2018-07-19] MEDS: ACETAMINOPHEN 500 MG TAB PO (21:03)
[2018-07-19] MEDS: FERROUS SULFATE 325MG TAB PO (21:03)
[2018-07-19] MEDS: LEVEMIR (INSULIN DETEMIR) 1 UNITS/0.01ML SC (21:05)
[2018-07-19 21:56] LABS: BEDSIDE GLUCOSE 467 MG/DL (83-110)
[2018-07-20] MEDS: FUROSEMIDE 40 MG/4 ML VIAL (J1940) IV ×5 (00:08→23:54)
[2018-07-20] MEDS: methylPREDNISolone INJ 40 MG/1 ML VIAL (J2920) IV (00:08)
[2018-07-20] MEDS: LEVALBUTEROL 1.25 MG/0.5 ML CONCENTRATE NEB NEB ×4 (02:00→20:00)
[2018-07-20] MEDS: IPRATROPIUM 0.02% SOLN 0.5MG/2.5 ML NEB NEB ×4 (02:00→20:00)
[2018-07-20] MEDS: IPRATROPIUM 0.5MG/ALBUTEROL 2.5MG INH SOL UD 3ML (DUONEB)(J7620) NEB ×4 (04:01→20:00)
[2018-07-20 05:08] LABS: HEMATOCRIT 30.5 % (36.0-47.0); HEMOGLOBIN 8.9 g/dl (12.0-15.5); MEAN CORPUSCULAR HEMOGLOBIN 27.4 pg (27.0-33.0); MEAN CORPUSCULAR HGB CONC 29.2 g/dl (32.0-36.5); MEAN CORPUSCULAR VOLUME 93.8 fl (80.0-96.0); PLATELET COUNT, AUTOMATED 143 10^3/uL (150-450); RED BLOOD COUNT 3.25 10^6/uL (4.00-5.40); RED CELL DISTRIBUTION WIDTH 17.1 % (11.5-14.5); WHITE BLOOD COUNT 14.5 10^3/uL (4.0-10.0)
[2018-07-20 05:24] LABS: ESTIMATED AVERAGE GLUCOSE 180 MG/DL (60-110); HEMOGLOBIN A1c 7.9 %
[2018-07-20 05:34] LABS: ANION GAP 3 MEQ/L (8-16); BLOOD UREA NITROGEN 46 MG/DL (7-18); C REACTIVE PROTEIN QUANTITATIV 3.59 MG/DL (0.00-0.30); CALCIUM LEVEL 8.8 MG/DL (8.8-10.2); CARBON DIOXIDE LEVEL 42 MEQ/L (21-32); CHLORIDE LEVEL 96 MEQ/L (98-107); CREATININE FOR GFR 1.36 MG/DL (0.55-1.30); GLOMERULAR FILTRATION RATE 40.6 (>39); GLUCOSE, FASTING 270 MG/DL (70-100); MAGNESIUM LEVEL 2.3 MG/DL (1.8-2.4); SODIUM LEVEL 141 MEQ/L (136-145)
[2018-07-20 05:41] LABS: BEDSIDE GLUCOSE 288 MG/DL (83-110)
[2018-07-20] MEDS: HumaLOG INSULIN (NovoLOG) PER UNIT SC ×4 (07:45→21:00)
[2018-07-20] MEDS: FORMOTEROL FUMARATE 20 MCG/2 ML INHALATION SOLUTION (PERFOROMIST) INH ×2 (07:51→20:19)
[2018-07-20] MEDS: BUDESONIDE 0.5 MG/2 ML INHALATION SUSPENSION INH ×2 (07:51→20:19)
[2018-07-20] MEDS: AZITHROMYCIN INJ 500 MG, VIAL MATE ADAPTER 1 EACH in D5W 250 ML IV (08:08)
[2018-07-20] MEDS: ASCORBIC ACID 500 MG TAB PO ×2 (09:50→20:41)
[2018-07-20] MEDS: DOCUSATE SODIUM 100 MG CAP PO ×2 (09:50→20:42)
[2018-07-20] MEDS: FONDAPARINUX SODIUM 2.5 MG/0.5 ML SYR (J1652 PER 0.5MG) SC (09:51)
[2018-07-20] MEDS: GABAPENTIN 300 MG CAP PO ×2 (09:52→17:28)
[2018-07-20] MEDS: BACLOFEN 10 MG TAB PO ×3 (09:52→20:34)
[2018-07-20] MEDS: FERROUS SULFATE 325MG TAB PO ×2 (09:52→20:42)
[2018-07-20] MEDS: PANTOPRAZOLE 40MG TAB (PROTONIX) PO (09:53)
[2018-07-20] MEDS: ALPRAZolam 0.25 MG TAB PO ×2 (09:53→20:41)
[2018-07-20] MEDS: BISACODYL 5 MG TAB PO (09:53)
[2018-07-20] MEDS: predniSONE 50 MG TAB PO (09:54)
[2018-07-20] MEDS: CEFEPIME HCL 1 GM in D5W MINI-BAG PLUS 50 ML IV (09:55)
[2018-07-20] MEDS: SLF 3 ML SYR IV ×5 (09:55→21:25)
[2018-07-20] MEDS: OFLOXACIN 0.3 % (OCUFLOX) OPTH SOL 5ML OU (09:56)
[2018-07-20 09:59] LABS: FOLATE 9.8 NG/ML (>5.4)
[2018-07-20] MEDS: ASPIRIN 81 MG ENTERIC TAB PO (09:59)
[2018-07-20] MEDS: ACETAMINOPHEN 500 MG TAB PO ×2 (10:00→22:00)
[2018-07-20 12:10] LABS: BEDSIDE GLUCOSE 257 MG/DL (83-110)
[2018-07-20] MEDS: FUROSEMIDE 20 MG/2 ML VIAL (J1940) IV (12:21)
[2018-07-20 13:56] LABS: HEMATOCRIT 31.5 % (36.0-47.0); HEMOGLOBIN 9.3 g/dl (12.0-15.5)
[2018-07-20 16:53] LABS: BEDSIDE GLUCOSE 344 MG/DL (83-110)
[2018-07-20] MEDS: SENOKOT S TAB PO (20:33)
[2018-07-20] MEDS: ATORVASTATIN 20 MG TAB PO (20:34)
[2018-07-20] MEDS: MIRALAX *UNIT DOSE* 17GM PACKET PO (20:42)
[2018-07-20] MEDS: LEVEMIR (INSULIN DETEMIR) 1 UNITS/0.01ML SC (21:00)
[2018-07-20 21:15] LABS: BEDSIDE GLUCOSE 389 MG/DL (83-110)
[2018-07-20 21:26] LABS: HEMATOCRIT 31.6 % (36.0-47.0); HEMOGLOBIN 9.2 g/dl (12.0-15.5)
[2018-07-21] MEDS: IPRATROPIUM 0.5MG/ALBUTEROL 2.5MG INH SOL UD 3ML (DUONEB)(J7620) NEB ×5 (00:02→20:00)
[2018-07-21] MEDS: LEVALBUTEROL 1.25 MG/0.5 ML CONCENTRATE NEB NEB ×2 (01:33→07:39)
[2018-07-21] MEDS: IPRATROPIUM 0.02% SOLN 0.5MG/2.5 ML NEB NEB ×2 (01:33→07:39)
[2018-07-21] MEDS: SLF 3 ML SYR IV ×3 (05:17→21:14)
[2018-07-21] MEDS: FUROSEMIDE 40 MG/4 ML VIAL (J1940) IV ×3 (05:23→17:27)
[2018-07-21 06:01] LABS: HEMATOCRIT 31.2 % (36.0-47.0); HEMOGLOBIN 9.2 g/dl (12.0-15.5); MEAN CORPUSCULAR HEMOGLOBIN 27.3 pg (27.0-33.0); MEAN CORPUSCULAR HGB CONC 29.5 g/dl (32.0-36.5); MEAN CORPUSCULAR VOLUME 92.6 fl (80.0-96.0); PLATELET COUNT, AUTOMATED 133 10^3/uL (150-450); RED BLOOD COUNT 3.37 10^6/uL (4.00-5.40); WHITE BLOOD COUNT 11.4 10^3/uL (4.0-10.0)
[2018-07-21 06:38] LABS: ANION GAP 4 MEQ/L (8-16); BLOOD UREA NITROGEN 46 MG/DL (7-18); C REACTIVE PROTEIN QUANTITATIV 1.87 MG/DL (0.00-0.30); CALCIUM LEVEL 8.4 MG/DL (8.8-10.2); CARBON DIOXIDE LEVEL 41 MEQ/L (21-32); CHLORIDE LEVEL 96 MEQ/L (98-107); CREATININE FOR GFR 0.97 MG/DL (0.55-1.30); GLOMERULAR FILTRATION RATE 59.9 (>39); GLUCOSE, FASTING 141 MG/DL (70-100); MAGNESIUM LEVEL 2.2 MG/DL (1.8-2.4); POTASSIUM SERUM 3.9 MEQ/L (3.5-5.1); SODIUM LEVEL 141 MEQ/L (136-145)
[2018-07-21] MEDS: FORMOTEROL FUMARATE 20 MCG/2 ML INHALATION SOLUTION (PERFOROMIST) INH ×2 (07:38→20:31)
[2018-07-21] MEDS: BUDESONIDE 0.5 MG/2 ML INHALATION SUSPENSION INH ×2 (07:39→20:31)
[2018-07-21] MEDS: AZITHROMYCIN INJ 500 MG, VIAL MATE ADAPTER 1 EACH in D5W 250 ML IV (08:12)
[2018-07-21] MEDS: ALPRAZolam 0.25 MG TAB PO ×2 (08:13→21:14)
[2018-07-21] MEDS: HumaLOG INSULIN (NovoLOG) PER UNIT SC ×4 (08:13→21:13)
[2018-07-21] MEDS: GABAPENTIN 300 MG CAP PO ×2 (08:13→17:26)
[2018-07-21] MEDS: PANTOPRAZOLE 40MG TAB (PROTONIX) PO (08:13)
[2018-07-21] MEDS: FERROUS SULFATE 325MG TAB PO ×2 (08:14→21:14)
[2018-07-21] MEDS: ASPIRIN 81 MG ENTERIC TAB PO (08:14)
[2018-07-21] MEDS: BISACODYL 5 MG TAB PO (08:14)
[2018-07-21] MEDS: ASCORBIC ACID 500 MG TAB PO ×2 (08:14→21:14)
[2018-07-21] MEDS: BACLOFEN 10 MG TAB PO ×3 (08:14→21:14)
[2018-07-21] MEDS: DOCUSATE SODIUM 100 MG CAP PO ×2 (08:14→21:14)
[2018-07-21] MEDS: SENOKOT S TAB PO ×2 (12:00→21:13)
[2018-07-21 13:04] LABS: BEDSIDE GLUCOSE 139 MG/DL (83-110)
[2018-07-21] MEDS: MIRALAX *UNIT DOSE* 17GM PACKET PO (13:14)
[2018-07-21] MEDS: predniSONE 50 MG TAB PO (13:15)
[2018-07-21] MEDS: FONDAPARINUX SODIUM 2.5 MG/0.5 ML SYR (J1652 PER 0.5MG) SC (13:15)
[2018-07-21] MEDS: OFLOXACIN 0.3 % (OCUFLOX) OPTH SOL 5ML OU (13:16)
[2018-07-21 13:23] LABS: HEMATOCRIT 33.8 % (36.0-47.0); HEMOGLOBIN 9.8 g/dl (12.0-15.5)
[2018-07-21] MEDS ORDERED: CEFEPIME HCL As Ordered (13:40)
[2018-07-21] MEDS: CEFEPIME HCL 1 GM in D5W MINI-BAG PLUS 50 ML IV (13:42)
[2018-07-21 17:00] LABS: BEDSIDE GLUCOSE 207 MG/DL (83-110)
[2018-07-21] MEDS: ACETAMINOPHEN 500 MG TAB PO (17:27)
[2018-07-21 20:47] LABS: BEDSIDE GLUCOSE 490 MG/DL (83-110)
[2018-07-21] MEDS: LEVEMIR (INSULIN DETEMIR) 1 UNITS/0.01ML SC (21:13)
[2018-07-21] MEDS: ATORVASTATIN 20 MG TAB PO (21:13)
[2018-07-22] MEDS: IPRATROPIUM 0.5MG/ALBUTEROL 2.5MG INH SOL UD 3ML (DUONEB)(J7620) NEB ×4 (01:48→20:00)
[2018-07-22] MEDS: SLF 3 ML SYR IV ×3 (05:43→21:04)
[2018-07-22] MEDS: FUROSEMIDE 40 MG/4 ML VIAL (J1940) IV ×4 (06:00→17:22)
[2018-07-22 06:06] LABS: HEMATOCRIT 32.7 % (36.0-47.0); HEMOGLOBIN 9.4 g/dl (12.0-15.5); MEAN CORPUSCULAR HEMOGLOBIN 26.9 pg (27.0-33.0); MEAN CORPUSCULAR HGB CONC 28.7 g/dl (32.0-36.5); MEAN CORPUSCULAR VOLUME 93.7 fl (80.0-96.0); PLATELET COUNT, AUTOMATED 153 10^3/uL (150-450); RED BLOOD COUNT 3.49 10^6/uL (4.00-5.40); RED CELL DISTRIBUTION WIDTH 16.6 % (11.5-14.5); WHITE BLOOD COUNT 10.2 10^3/uL (4.0-10.0)
[2018-07-22 07:00] LABS: BLOOD UREA NITROGEN 45 MG/DL (7-18); C REACTIVE PROTEIN QUANTITATIV 1.19 MG/DL (0.00-0.30); CALCIUM LEVEL 8.6 MG/DL (8.8-10.2); CHLORIDE LEVEL 96 MEQ/L (98-107); CREATININE FOR GFR 0.91 MG/DL (0.55-1.30); GLOMERULAR FILTRATION RATE > 60.0 (>39); GLUCOSE, FASTING 127 MG/DL (70-100); MAGNESIUM LEVEL 2.4 MG/DL (1.8-2.4); POTASSIUM SERUM 4.3 MEQ/L (3.5-5.1); SODIUM LEVEL 144 MEQ/L (136-145)
[2018-07-22 07:01] LABS: ANION GAP 0 MEQ/L (8-16)
[2018-07-22 07:09] LABS: CARBON DIOXIDE LEVEL 48 MEQ/L (21-32)
[2018-07-22] MEDS: BUDESONIDE 0.5 MG/2 ML INHALATION SUSPENSION INH ×2 (07:49→19:51)
[2018-07-22] MEDS: FORMOTEROL FUMARATE 20 MCG/2 ML INHALATION SOLUTION (PERFOROMIST) INH ×2 (07:49→19:51)
[2018-07-22] MEDS: SENOKOT S TAB PO ×2 (09:09→21:03)
[2018-07-22] MEDS: ASCORBIC ACID 500 MG TAB PO ×2 (09:09→21:04)
[2018-07-22] MEDS: BISACODYL 5 MG TAB PO (09:09)
[2018-07-22] MEDS: PANTOPRAZOLE 40MG TAB (PROTONIX) PO (09:09)
[2018-07-22] MEDS: DOCUSATE SODIUM 100 MG CAP PO ×2 (09:09→21:04)
[2018-07-22] MEDS: predniSONE 20 MG TAB PO (09:09)
[2018-07-22] MEDS: BACLOFEN 10 MG TAB PO ×3 (09:09→21:04)
[2018-07-22] MEDS: ALPRAZolam 0.25 MG TAB PO ×2 (09:09→21:04)
[2018-07-22] MEDS: GABAPENTIN 300 MG CAP PO ×2 (09:10→17:23)
[2018-07-22] MEDS: FONDAPARINUX SODIUM 2.5 MG/0.5 ML SYR (J1652 PER 0.5MG) SC (09:10)
[2018-07-22] MEDS: FERROUS SULFATE 325MG TAB PO ×2 (09:10→21:04)
[2018-07-22] MEDS: OFLOXACIN 0.3 % (OCUFLOX) OPTH SOL 5ML OU (09:10)
[2018-07-22] MEDS: ASPIRIN 81 MG ENTERIC TAB PO (09:10)
[2018-07-22] MEDS: HumaLOG INSULIN (NovoLOG) PER UNIT SC ×4 (09:11→21:03)
[2018-07-22] MEDS: ACETAMINOPHEN 500 MG TAB PO ×2 (09:20→21:03)
[2018-07-22] MEDS: AZITHROMYCIN INJ 500 MG, VIAL MATE ADAPTER 1 EACH in D5W 250 ML IV (09:21)
[2018-07-22 11:43] LABS: BEDSIDE GLUCOSE 203 MG/DL (83-110)
[2018-07-22] MEDS: CEFEPIME HCL 1 GM in D5W MINI-BAG PLUS 50 ML IV (12:15)
[2018-07-22 16:48] LABS: BEDSIDE GLUCOSE 351 MG/DL (83-110)
[2018-07-22 20:39] LABS: BEDSIDE GLUCOSE 334 MG/DL (83-110)
[2018-07-22] MEDS: LEVEMIR (INSULIN DETEMIR) 1 UNITS/0.01ML SC (21:02)
[2018-07-22] MEDS: ATORVASTATIN 20 MG TAB PO (21:03)
[2018-07-23] MEDS: IPRATROPIUM 0.5MG/ALBUTEROL 2.5MG INH SOL UD 3ML (DUONEB)(J7620) NEB ×4 (00:22→20:00)
[2018-07-23] MEDS: SLF 3 ML SYR IV ×3 (05:01→21:18)
[2018-07-23 05:22] LABS: HEMATOCRIT 32.9 % (36.0-47.0); HEMOGLOBIN 9.5 g/dl (12.0-15.5); MEAN CORPUSCULAR HEMOGLOBIN 27.5 pg (27.0-33.0); MEAN CORPUSCULAR HGB CONC 28.9 g/dl (32.0-36.5); MEAN CORPUSCULAR VOLUME 95.4 fl (80.0-96.0); PLATELET COUNT, AUTOMATED 159 10^3/uL (150-450); RED BLOOD COUNT 3.45 10^6/uL (4.00-5.40); RED CELL DISTRIBUTION WIDTH 16.6 % (11.5-14.5)
[2018-07-23] MEDS: FUROSEMIDE 40 MG/4 ML VIAL (J1940) IV ×4 (05:53→17:36)
[2018-07-23 05:54] LABS: BLOOD UREA NITROGEN 40 MG/DL (7-18); C REACTIVE PROTEIN QUANTITATIV 0.81 MG/DL (0.00-0.30); CALCIUM LEVEL 8.5 MG/DL (8.8-10.2); CHLORIDE LEVEL 95 MEQ/L (98-107); CREATININE FOR GFR 0.87 MG/DL (0.55-1.30); GLOMERULAR FILTRATION RATE > 60.0 (>39); GLUCOSE, FASTING 94 MG/DL (70-100); MAGNESIUM LEVEL 2.5 MG/DL (1.8-2.4); POTASSIUM SERUM 3.7 MEQ/L (3.5-5.1); SODIUM LEVEL 144 MEQ/L (136-145)
[2018-07-23 05:55] LABS: ANION GAP 0 MEQ/L (8-16)
[2018-07-23 05:56] LABS: CARBON DIOXIDE LEVEL 49 MEQ/L (21-32)
[2018-07-23] MEDS: HumaLOG INSULIN (NovoLOG) PER UNIT SC ×4 (07:30→21:00)
[2018-07-23] MEDS ORDERED: MIRALAX *UNIT DOSE* 17GM PACKET PO (08:45)
[2018-07-23] MEDS: FORMOTEROL FUMARATE 20 MCG/2 ML INHALATION SOLUTION (PERFOROMIST) INH ×2 (08:45→20:26)
[2018-07-23] MEDS: BUDESONIDE 0.5 MG/2 ML INHALATION SUSPENSION INH ×2 (08:45→20:27)
[2018-07-23] MEDS ORDERED: FLEET OIL RETENTION ENEMA PR (08:45)
[2018-07-23] MEDS: BISACODYL 5 MG TAB PO (09:06)
[2018-07-23] MEDS: ASCORBIC ACID 500 MG TAB PO ×2 (09:06→21:18)
[2018-07-23] MEDS: CEFDINIR 300 MG CAP (OMNICEF) PO ×2 (09:06→21:18)
[2018-07-23] MEDS: ALPRAZolam 0.25 MG TAB PO ×2 (09:06→21:18)
[2018-07-23] MEDS: predniSONE 20 MG TAB PO (09:07)
[2018-07-23] MEDS: PANTOPRAZOLE 40MG TAB (PROTONIX) PO (09:07)
[2018-07-23] MEDS: GABAPENTIN 300 MG CAP PO ×2 (09:07→17:33)
[2018-07-23] MEDS: FERROUS SULFATE 325MG TAB PO ×2 (09:08→21:17)
[2018-07-23] MEDS: DOCUSATE SODIUM 100 MG CAP PO ×2 (09:08→21:17)
[2018-07-23] MEDS: BACLOFEN 10 MG TAB PO ×3 (09:08→21:17)
[2018-07-23] MEDS: SENOKOT S TAB PO ×2 (09:08→21:18)
[2018-07-23] MEDS: OFLOXACIN 0.3 % (OCUFLOX) OPTH SOL 5ML OU (09:10)
[2018-07-23] MEDS: FONDAPARINUX SODIUM 2.5 MG/0.5 ML SYR (J1652 PER 0.5MG) SC (09:10)
[2018-07-23] MEDS: ASPIRIN 81 MG ENTERIC TAB PO (09:13)
[2018-07-23 11:56] LABS: BEDSIDE GLUCOSE 230 MG/DL (83-110)
[2018-07-23 17:47] LABS: BEDSIDE GLUCOSE 332 MG/DL (83-110)
[2018-07-23 21:03] LABS: BEDSIDE GLUCOSE 218 MG/DL (83-110)
[2018-07-23] MEDS: ATORVASTATIN 20 MG TAB PO (21:17)
[2018-07-23] MEDS: LEVEMIR (INSULIN DETEMIR) 1 UNITS/0.01ML SC (21:18)
[2018-07-23] MEDS: ACETAMINOPHEN 500 MG TAB PO (21:19)
[2018-07-24] MEDS: FUROSEMIDE 40 MG/4 ML VIAL (J1940) IV ×2 (00:09→06:10)
[2018-07-24] MEDS: IPRATROPIUM 0.5MG/ALBUTEROL 2.5MG INH SOL UD 3ML (DUONEB)(J7620) NEB ×2 (03:52→07:31)
[2018-07-24 05:12] LABS: HEMATOCRIT 32.9 % (36.0-47.0); HEMOGLOBIN 9.5 g/dl (12.0-15.5); MEAN CORPUSCULAR HEMOGLOBIN 27.5 pg (27.0-33.0); MEAN CORPUSCULAR HGB CONC 28.9 g/dl (32.0-36.5); MEAN CORPUSCULAR VOLUME 95.1 fl (80.0-96.0); PLATELET COUNT, AUTOMATED 163 10^3/uL (150-450); RED BLOOD COUNT 3.46 10^6/uL (4.00-5.40); WHITE BLOOD COUNT 10.1 10^3/uL (4.0-10.0)
[2018-07-24 05:52] LABS: BLOOD UREA NITROGEN 35 MG/DL (7-18); C REACTIVE PROTEIN QUANTITATIV 0.58 MG/DL (0.00-0.30); CALCIUM LEVEL 8.8 MG/DL (8.8-10.2); CHLORIDE LEVEL 94 MEQ/L (98-107); CREATININE FOR GFR 0.93 MG/DL (0.55-1.30); GLOMERULAR FILTRATION RATE > 60.0 (>39); GLUCOSE, FASTING 109 MG/DL (70-100); MAGNESIUM LEVEL 2.4 MG/DL (1.8-2.4); POTASSIUM SERUM 3.6 MEQ/L (3.5-5.1); SODIUM LEVEL 145 MEQ/L (136-145)
[2018-07-24 05:56] LABS: ANION GAP 2 MEQ/L (8-16)
[2018-07-24] MEDS: SLF 3 ML SYR IV (06:00)
[2018-07-24] MEDS: HumaLOG INSULIN (NovoLOG) PER UNIT SC (07:30)
[2018-07-24] MEDS: BUDESONIDE 0.5 MG/2 ML INHALATION SUSPENSION INH (07:30)
[2018-07-24] MEDS: FORMOTEROL FUMARATE 20 MCG/2 ML INHALATION SOLUTION (PERFOROMIST) INH (07:30)
[2018-07-24] MEDS: PANTOPRAZOLE 40MG TAB (PROTONIX) PO (09:00)
[2018-07-24] MEDS: CEFDINIR 300 MG CAP (OMNICEF) PO (09:00)
[2018-07-24] MEDS: predniSONE 20 MG TAB PO (09:00)
[2018-07-24] MEDS: BACLOFEN 10 MG TAB PO (09:00)
[2018-07-24] MEDS: BISACODYL 5 MG TAB PO (09:00)
[2018-07-24] MEDS: GABAPENTIN 300 MG CAP PO (09:00)
[2018-07-24] MEDS: ASCORBIC ACID 500 MG TAB PO (09:00)
[2018-07-24] MEDS: FONDAPARINUX SODIUM 2.5 MG/0.5 ML SYR (J1652 PER 0.5MG) SC (09:00)
[2018-07-24] MEDS: FERROUS SULFATE 325MG TAB PO (09:00)
[2018-07-24] MEDS: OFLOXACIN 0.3 % (OCUFLOX) OPTH SOL 5ML OU (09:00)
[2018-07-24] MEDS: ASPIRIN 81 MG ENTERIC TAB PO (09:00)
[2018-07-24] MEDS: ALPRAZolam 0.25 MG TAB PO (09:00)
[2018-07-24] MEDS: DOCUSATE SODIUM 100 MG CAP PO (09:00)
[2018-07-24] MEDS: SENOKOT S TAB PO (09:00)
[2018-07-24 11:28] LABS: CARBON DIOXIDE LEVEL 49 MEQ/L (21-32)
== END 2018-07-24 12:36 | disposition home health service (06) | DRG 189 ==
LOC: M ED INP 07-18 00:03 → M PCU 07-19 13:26 → M ED 20:05 → M ICU 07-18 01:10
PROC: 30233N1 Transfusion of Nonautologous Red Blood Cells into Peripheral Vein, Percutaneous Approach (ICD-10-PCS; principal; 2018-07-19)
DX: J96.22 Acute and chronic respiratory failure with hypercapnia (principal); I50.33 Acute on chronic diastolic (congestive) heart failure; I13.0 Hypertensive heart and chronic kidney disease with heart failure and stage 1 through stage 4 chronic kidney disease, or unspecified chronic kidney disease; J44.1 Chronic obstructive pulmonary disease with (acute) exacerbation; J96.11 Chronic respiratory failure with hypoxia; N18.3 Chronic kidney disease, stage 3 (moderate); K59.00 Constipation, unspecified; F41.9 Anxiety disorder, unspecified; E78.5 Hyperlipidemia, unspecified; E11.40 Type 2 diabetes mellitus with diabetic neuropathy, unspecified; D64.9 Anemia, unspecified; G47.33 Obstructive sleep apnea (adult) (pediatric); I27.20 Pulmonary hypertension, unspecified; E66.9 Obesity, unspecified; Z79.82 Long term (current) use of aspirin; Z79.899 Other long term (current) drug therapy; Z88.8 Allergy status to other drugs, medicaments and biological substances; M47.892 Other spondylosis, cervical region; M48.061 Spinal stenosis, lumbar region without neurogenic claudication

== ENCOUNTER 2018-08-07 07:12 | Inpatient (IN) | payer OTHER ==
[2018-08-07] MEDS: FUROSEMIDE 40 MG/4 ML VIAL (J1940) IV ×2 (08:02→10:55)
[2018-08-07] MEDS: methylPREDNISolone INJ 125 MG/2 ML VIAL (J2930) IV (08:02)
[2018-08-07 08:17] LABS: BASO % 0.3 % (0.0-1.0); EOS # 0.1 10^3/uL (0.0-0.50); EOS % 1.5 % (0.0-3.0); HEMOGLOBIN 9.7 g/dl (12.0-15.5); IMMATURE GRANULOCYTE % 0.9 % (0-3.0); LYMPH # 0.9 10^3/uL (1.5-4.5); MEAN CORPUSCULAR HGB CONC 27.7 g/dl (32.0-36.5); MEAN CORPUSCULAR VOLUME 97.5 fl (80.0-96.0); MONO # 0.5 10^3/uL (0.0-0.8); MONO % 5.3 % (0.0-5.0); NEUTROPHILS # 7.1 10^3/uL (1.8-7.7); PLATELET COUNT, AUTOMATED 249 10^3/uL (150-450); RED BLOOD COUNT 3.59 10^6/uL (4.00-5.40); RED CELL DISTRIBUTION WIDTH 18.5 % (11.5-14.5); WHITE BLOOD COUNT 8.7 10^3/uL (4.0-10.0)
[2018-08-07 08:29] LABS: ALBUMIN 2.8 GM/DL (3.2-5.2); ALKALINE PHOSPHATASE 121 U/L (45-117); ALT/SGPT 26 U/L (12-78); ANION GAP 3 MEQ/L (8-16); AST/SGOT 17 U/L (7-37); BILIRUBIN,DIRECT < 0.1 MG/DL (0.0-0.2); BILIRUBIN,TOTAL 0.4 MG/DL (0.2-1.0); BLOOD UREA NITROGEN 13 MG/DL (7-18); CALCIUM LEVEL 9.4 MG/DL (8.8-10.2); CARBON DIOXIDE LEVEL 42 MEQ/L (21-32); CHLORIDE LEVEL 100 MEQ/L (98-107); CPK CREATINE PHOSPHOKINASE 203 U/L (26-192); CREATININE FOR GFR 1.16 MG/DL (0.55-1.30); GLOMERULAR FILTRATION RATE 48.8 (>39); GLUCOSE, FASTING 208 MG/DL (70-100); MB/CK RELATIVE INDEX 2.02 (< OR =4); NT-PRO BNP 431 PG/ML (<125); POTASSIUM SERUM 3.9 MEQ/L (3.5-5.1); SODIUM LEVEL 145 MEQ/L (136-145); TOTAL PROTEIN 6.3 GM/DL (6.4-8.2); TROPONIN I < 0.02 NG/ML (< 0.10)
[2018-08-07] MEDS: SENOKOT S TAB PO ×2 (09:00→20:24)
[2018-08-07] MEDS: IPRATROPIUM 0.5MG/ALBUTEROL 2.5MG INH SOL UD 3ML (DUONEB)(J7620) NEB ×4 (09:29→19:55)
[2018-08-07] MEDS ORDERED: ISOVUE-370 76% 100ML VIAL (Q9967) As Ordered (09:32)
[2018-08-07 12:00] LABS: ABG BASE EXCESS 12.3 (-2.0-2.0); ABG HCO3 41.2 MEQ/L (22.0-26.0); ABG STANDARD HCO3 35.7 MEQ/L (22.0-26.0); ABG TOTAL CO2 43.7 MEQ/L (23.0-31.0); ABG pH (ARTERIAL) 7.315 UNITS (7.350-7.450)
[2018-08-07 12:03] LABS: ABG PARTIAL PRESSURE CO2 82.7 mmHg (35.0-45.0); ABG PARTIAL PRESSURE O2 49.5 mmHg (75.0-100.0)
[2018-08-07] MEDS ORDERED: BISACODYL 10 MG SUPP PR (12:30)
[2018-08-07] MEDS ORDERED: ONDANSETRON 4MG/2ML VIAL (J2405) IV (12:30)
[2018-08-07] MEDS ORDERED: ALBUTEROL 90 MCG/ACT 8GM HFA INHALER INH (14:15)
[2018-08-07 14:54] LABS: FREE T4 1.02 NG/DL (0.76-1.46)
[2018-08-07] MEDS: methylPREDNISolone INJ 40 MG/1 ML VIAL (J2920) IV (15:36)
[2018-08-07] MEDS: metOLazone 5 MG TAB PO (15:36)
[2018-08-07] MEDS ORDERED: GLUCOSE 4 GM CHEW TABLET PO (17:15)
[2018-08-07] MEDS ORDERED: DEXTROSE 50% 50 ML SYRINGE IV (17:15)
[2018-08-07] MEDS ORDERED: GLUCAGON FOR INJ 1 MG VIAL (J1610) SC (17:15)
[2018-08-07 17:52] LABS: BEDSIDE GLUCOSE 503 MG/DL (83-110)
[2018-08-07] MEDS: FUROSEMIDE 100 MG/10 ML VIAL (J1940) IV (18:07)
[2018-08-07] MEDS: HumaLOG INSULIN (NovoLOG) PER UNIT SC ×3 (18:07→22:12)
[2018-08-07] MEDS: FORMOTEROL FUMARATE 20 MCG/2 ML INHALATION SOLUTION (PERFOROMIST) INH (19:55)
[2018-08-07] MEDS: ATORVASTATIN 20 MG TAB PO (20:24)
[2018-08-07] MEDS: GABAPENTIN 300 MG CAP PO (20:24)
[2018-08-07 20:30] LABS: BEDSIDE GLUCOSE 555 MG/DL (83-110)
[2018-08-07] MEDS: ACETAMINOPHEN 500 MG TAB PO (20:52)
[2018-08-07 21:50] LABS: BEDSIDE GLUCOSE 501 MG/DL (83-110)
[2018-08-07 23:19] LABS: BEDSIDE GLUCOSE 474 MG/DL (83-110)
[2018-08-07] MEDS ORDERED: LEVEMIR (INSULIN DETEMIR) 1 UNITS/0.01ML SC (23:30)
[2018-08-07] MEDS: LEVEMIR (INSULIN DETEMIR) 1 UNITS/0.01ML SC (23:42)
[2018-08-08 01:44] LABS: BEDSIDE GLUCOSE 359 MG/DL (83-110)
[2018-08-08] MEDS: IPRATROPIUM 0.5MG/ALBUTEROL 2.5MG INH SOL UD 3ML (DUONEB)(J7620) NEB ×4 (02:00→20:00)
[2018-08-08] MEDS: FUROSEMIDE 100 MG/10 ML VIAL (J1940) IV ×3 (02:24→17:08)
[2018-08-08 04:20] LABS: BASO % 0.2 % (0.0-1.0); HEMATOCRIT 31.9 % (36.0-47.0); HEMOGLOBIN 9.1 g/dl (12.0-15.5); IMMATURE GRANULOCYTE % 0.4 % (0-3.0); LYMPH # 0.4 10^3/uL (1.5-4.5); LYMPH % 7.6 % (24.0-44.0); MEAN CORPUSCULAR HEMOGLOBIN 26.8 pg (27.0-33.0); MEAN CORPUSCULAR HGB CONC 28.5 g/dl (32.0-36.5); MEAN CORPUSCULAR VOLUME 94.1 fl (80.0-96.0); MONO # 0.4 10^3/uL (0.0-0.8); MONO % 6.4 % (0.0-5.0); NEUTROPHILS # 4.6 10^3/uL (1.8-7.7); NEUTROPHILS % 85.4 % (36.0-66.0); PLATELET COUNT, AUTOMATED 243 10^3/uL (150-450); RED BLOOD COUNT 3.39 10^6/uL (4.00-5.40); RED CELL DISTRIBUTION WIDTH 18.6 % (11.5-14.5); WHITE BLOOD COUNT 5.4 10^3/uL (4.0-10.0)
[2018-08-08 05:11] LABS: CALCIUM LEVEL 9.6 MG/DL (8.8-10.2); CHLORIDE LEVEL 91 MEQ/L (98-107); GLOMERULAR FILTRATION RATE 39.2 (>39); GLUCOSE, FASTING 361 MG/DL (70-100); POTASSIUM SERUM 3.8 MEQ/L (3.5-5.1); SODIUM LEVEL 141 MEQ/L (136-145)
[2018-08-08 05:12] LABS: BLOOD UREA NITROGEN 23 MG/DL (7-18); CARBON DIOXIDE LEVEL 48 MEQ/L (21-32)
[2018-08-08 05:13] LABS: ANION GAP 2 MEQ/L (8-16)
[2018-08-08 06:16] LABS: ABG BASE EXCESS 19.2 (-2.0-2.0); ABG HCO3 48.2 MEQ/L (22.0-26.0); ABG O2 SATURATION 94.6 % (95.0-99.0); ABG PARTIAL PRESSURE O2 73.6 mmHg (75.0-100.0); ABG STANDARD HCO3 43.2 MEQ/L (22.0-26.0); ABG TOTAL CO2 50.9 MEQ/L (23.0-31.0); ABG pH (ARTERIAL) 7.355 UNITS (7.350-7.450)
[2018-08-08 06:18] LABS: ABG PARTIAL PRESSURE CO2 88.3 mmHg (35.0-45.0)
[2018-08-08 07:30] LABS: BEDSIDE GLUCOSE 264 MG/DL (83-110)
[2018-08-08] MEDS: FORMOTEROL FUMARATE 20 MCG/2 ML INHALATION SOLUTION (PERFOROMIST) INH ×2 (08:00→20:06)
[2018-08-08] MEDS: predniSONE 20 MG TAB PO (08:43)
[2018-08-08] MEDS: GLIMEPIRIDE 2 MG TAB PO (08:43)
[2018-08-08] MEDS: SENOKOT S TAB PO ×2 (08:43→21:06)
[2018-08-08] MEDS: ASPIRIN 81 MG ENTERIC TAB PO (08:44)
[2018-08-08] MEDS: LEVEMIR (INSULIN DETEMIR) 1 UNITS/0.01ML SC ×2 (08:44→21:06)
[2018-08-08] MEDS: GABAPENTIN 300 MG CAP PO ×2 (08:44→21:06)
[2018-08-08] MEDS: metOLazone 5 MG TAB PO (08:44)
[2018-08-08] MEDS: HumaLOG INSULIN (NovoLOG) PER UNIT SC ×4 (08:55→21:13)
[2018-08-08 12:33] LABS: BEDSIDE GLUCOSE 169 MG/DL (83-110)
[2018-08-08 17:01] LABS: BEDSIDE GLUCOSE 283 MG/DL (83-110)
[2018-08-08] MEDS: ATORVASTATIN 20 MG TAB PO (21:06)
[2018-08-08] MEDS: ACETAMINOPHEN 500 MG TAB PO (21:08)
[2018-08-08 21:12] LABS: BEDSIDE GLUCOSE 291 MG/DL (83-110)
[2018-08-09] MEDS: IPRATROPIUM 0.5MG/ALBUTEROL 2.5MG INH SOL UD 3ML (DUONEB)(J7620) NEB ×2 (01:17→14:17)
[2018-08-09 06:40] LABS: BEDSIDE GLUCOSE 56 MG/DL (83-110)
[2018-08-09] MEDS: BUDESONIDE 0.5 MG/2 ML INHALATION SUSPENSION INH ×2 (07:07→20:38)
[2018-08-09] MEDS: HumaLOG INSULIN (NovoLOG) PER UNIT SC ×4 (07:07→19:54)
[2018-08-09] MEDS: FORMOTEROL FUMARATE 20 MCG/2 ML INHALATION SOLUTION (PERFOROMIST) INH ×2 (07:07→20:38)
[2018-08-09 07:43] LABS: BEDSIDE GLUCOSE 121 MG/DL (83-110)
[2018-08-09] MEDS: GLIMEPIRIDE 2 MG TAB PO (07:44)
[2018-08-09] MEDS: metOLazone 5 MG TAB PO (07:45)
[2018-08-09] MEDS: predniSONE 20 MG TAB PO (08:17)
[2018-08-09] MEDS: FUROSEMIDE 80 MG TAB PO ×2 (08:17→17:54)
[2018-08-09] MEDS: LEVEMIR (INSULIN DETEMIR) 1 UNITS/0.01ML SC ×2 (08:17→20:22)
[2018-08-09] MEDS: ASPIRIN 81 MG ENTERIC TAB PO (08:17)
[2018-08-09] MEDS: SENOKOT S TAB PO ×2 (08:17→20:22)
[2018-08-09] MEDS: GABAPENTIN 300 MG CAP PO ×2 (08:17→20:21)
[2018-08-09 11:01] LABS: ABG BASE EXCESS 25.5 (-2.0-2.0); ABG HCO3 53.2 MEQ/L (22.0-26.0); ABG O2 SATURATION 94.7 % (95.0-99.0); ABG PARTIAL PRESSURE O2 72.1 mmHg (75.0-100.0); ABG STANDARD HCO3 50.3 MEQ/L (22.0-26.0); ABG TOTAL CO2 55.6 MEQ/L (23.0-31.0); ABG pH (ARTERIAL) 7.461 UNITS (7.350-7.450)
[2018-08-09 11:06] LABS: ABG PARTIAL PRESSURE CO2 76.4 mmHg (35.0-45.0)
[2018-08-09 11:47] LABS: BEDSIDE GLUCOSE 125 MG/DL (83-110)
[2018-08-09 12:56] LABS: BLOOD UREA NITROGEN 27 MG/DL (7-18); CALCIUM LEVEL 9.9 MG/DL (8.8-10.2); CARBON DIOXIDE LEVEL 55 MEQ/L (21-32); CHLORIDE LEVEL 86 MEQ/L (98-107); CREATININE FOR GFR 1.18 MG/DL (0.55-1.30); GLOMERULAR FILTRATION RATE 47.8 (>39); GLUCOSE, FASTING 125 MG/DL (70-100); POTASSIUM SERUM 3.2 MEQ/L (3.5-5.1); SODIUM LEVEL 141 MEQ/L (136-145)
[2018-08-09 12:57] LABS: ANION GAP 0 MEQ/L (8-16)
[2018-08-09 16:53] LABS: BEDSIDE GLUCOSE 227 MG/DL (83-110)
[2018-08-09] MEDS: OFLOXACIN 0.3 % (OCUFLOX) OPTH SOL 5ML OU ×2 (17:27→20:22)
[2018-08-09] MEDS: POTASSIUM CHLORIDE 10 MEQ SR TABLET PO ×2 (18:01→20:21)
[2018-08-09 19:53] LABS: BEDSIDE GLUCOSE 229 MG/DL (83-110)
[2018-08-09] MEDS: ATORVASTATIN 20 MG TAB PO (20:22)
[2018-08-10 06:04] LABS: BASO % 0.1 % (0.0-1.0); EOS # 0.1 10^3/uL (0.0-0.50); EOS % 1.2 % (0.0-3.0); HEMATOCRIT 33.9 % (36.0-47.0); HEMOGLOBIN 9.7 g/dl (12.0-15.5); IMMATURE GRANULOCYTE % 0.6 % (0-3.0); LYMPH # 1.2 10^3/uL (1.5-4.5); LYMPH % 17.5 % (24.0-44.0); MEAN CORPUSCULAR HEMOGLOBIN 26.4 pg (27.0-33.0); MEAN CORPUSCULAR HGB CONC 28.6 g/dl (32.0-36.5); MEAN CORPUSCULAR VOLUME 92.4 fl (80.0-96.0); MONO # 0.5 10^3/uL (0.0-0.8); MONO % 7.6 % (0.0-5.0); PLATELET COUNT, AUTOMATED 244 10^3/uL (150-450); RED BLOOD COUNT 3.67 10^6/uL (4.00-5.40); RED CELL DISTRIBUTION WIDTH 17.2 % (11.5-14.5); WHITE BLOOD COUNT 6.8 10^3/uL (4.0-10.0)
[2018-08-10 06:44] LABS: BLOOD UREA NITROGEN 28 MG/DL (7-18); CHLORIDE LEVEL 85 MEQ/L (98-107); CREATININE FOR GFR 1.13 MG/DL (0.55-1.30); GLOMERULAR FILTRATION RATE 50.2 (>39); GLUCOSE, FASTING 64 MG/DL (70-100); SODIUM LEVEL 140 MEQ/L (136-145)
[2018-08-10 06:45] LABS: ANION GAP 0 MEQ/L (8-16)
[2018-08-10 06:48] LABS: CARBON DIOXIDE LEVEL 55 MEQ/L (21-32)
[2018-08-10] MEDS: HumaLOG INSULIN (NovoLOG) PER UNIT SC ×4 (07:30→21:18)
[2018-08-10] MEDS: BUDESONIDE 0.5 MG/2 ML INHALATION SUSPENSION INH ×2 (08:18→21:09)
[2018-08-10] MEDS: FORMOTEROL FUMARATE 20 MCG/2 ML INHALATION SOLUTION (PERFOROMIST) INH ×2 (08:18→21:09)
[2018-08-10] MEDS: SENOKOT S TAB PO ×2 (09:09→21:15)
[2018-08-10] MEDS: ASPIRIN 81 MG ENTERIC TAB PO (09:09)
[2018-08-10] MEDS: GABAPENTIN 300 MG CAP PO ×2 (09:09→21:15)
[2018-08-10] MEDS: predniSONE 20 MG TAB PO (09:09)
[2018-08-10] MEDS: POTASSIUM CHLORIDE 10 MEQ SR TABLET PO ×2 (09:10→21:16)
[2018-08-10] MEDS: FUROSEMIDE 80 MG TAB PO (09:10)
[2018-08-10] MEDS: GLIMEPIRIDE 2 MG TAB PO (09:10)
[2018-08-10] MEDS: metOLazone 5 MG TAB PO (09:11)
[2018-08-10] MEDS: OFLOXACIN 0.3 % (OCUFLOX) OPTH SOL 5ML OU ×3 (09:11→21:18)
[2018-08-10 10:06] LABS: ABG BASE EXCESS 27.1 (-2.0-2.0); ABG HCO3 55.2 MEQ/L (22.0-26.0); ABG O2 SATURATION 93.9 % (95.0-99.0); ABG PARTIAL PRESSURE O2 71.4 mmHg (75.0-100.0); ABG STANDARD HCO3 52.2 MEQ/L (22.0-26.0); ABG TOTAL CO2 57.7 MEQ/L (23.0-31.0); ABG pH (ARTERIAL) 7.458 UNITS (7.350-7.450)
[2018-08-10 10:10] LABS: ABG PARTIAL PRESSURE CO2 79.8 mmHg (35.0-45.0)
[2018-08-10 11:47] LABS: BEDSIDE GLUCOSE 129 MG/DL (83-110)
[2018-08-10] MEDS: LEVEMIR (INSULIN DETEMIR) 1 UNITS/0.01ML SC (11:54)
[2018-08-10 14:48] LABS: MAGNESIUM LEVEL 2.1 MG/DL (1.8-2.4)
[2018-08-10] MEDS: IPRATROPIUM 0.5MG/ALBUTEROL 2.5MG INH SOL UD 3ML (DUONEB)(J7620) NEB (15:42)
[2018-08-10 16:42] LABS: BEDSIDE GLUCOSE 278 MG/DL (83-110)
[2018-08-10 20:48] LABS: BEDSIDE GLUCOSE 395 MG/DL (83-110)
[2018-08-10] MEDS: ATORVASTATIN 20 MG TAB PO (21:15)
[2018-08-11] MEDS: IPRATROPIUM 0.5MG/ALBUTEROL 2.5MG INH SOL UD 3ML (DUONEB)(J7620) NEB ×2 (02:15→09:56)
[2018-08-11 06:08] LABS: BASO % 0.2 % (0.0-1.0); EOS # 0.1 10^3/uL (0.0-0.50); EOS % 0.9 % (0.0-3.0); HEMATOCRIT 33.8 % (36.0-47.0); HEMOGLOBIN 9.8 g/dl (12.0-15.5); IMMATURE GRANULOCYTE % 0.5 % (0-3.0); LYMPH # 1.3 10^3/uL (1.5-4.5); LYMPH % 19.7 % (24.0-44.0); MEAN CORPUSCULAR HEMOGLOBIN 26.4 pg (27.0-33.0); MEAN CORPUSCULAR VOLUME 91.1 fl (80.0-96.0); MONO # 0.6 10^3/uL (0.0-0.8); MONO % 9.2 % (0.0-5.0); NEUTROPHILS # 4.6 10^3/uL (1.8-7.7); NEUTROPHILS % 69.5 % (36.0-66.0); PLATELET COUNT, AUTOMATED 245 10^3/uL (150-450); RED BLOOD COUNT 3.71 10^6/uL (4.00-5.40); RED CELL DISTRIBUTION WIDTH 17.1 % (11.5-14.5); WHITE BLOOD COUNT 6.5 10^3/uL (4.0-10.0)
[2018-08-11 06:53] LABS: ANION GAP 0 MEQ/L (8-16); BLOOD UREA NITROGEN 28 MG/DL (7-18); CALCIUM LEVEL 10.2 MG/DL (8.8-10.2); CHLORIDE LEVEL 87 MEQ/L (98-107); GLOMERULAR FILTRATION RATE 51.8 (>39); GLUCOSE, FASTING 60 MG/DL (70-100); POTASSIUM SERUM 3.2 MEQ/L (3.5-5.1); SODIUM LEVEL 141 MEQ/L (136-145)
[2018-08-11 06:54] LABS: CARBON DIOXIDE LEVEL 54 MEQ/L (21-32)
[2018-08-11] MEDS: FORMOTEROL FUMARATE 20 MCG/2 ML INHALATION SOLUTION (PERFOROMIST) INH ×2 (07:20→20:20)
[2018-08-11] MEDS: BUDESONIDE 0.5 MG/2 ML INHALATION SUSPENSION INH ×2 (07:20→20:20)
[2018-08-11] MEDS: HumaLOG INSULIN (NovoLOG) PER UNIT SC ×2 (07:30→17:25)
[2018-08-11] MEDS: predniSONE 20 MG TAB PO (08:10)
[2018-08-11] MEDS: SENOKOT S TAB PO ×2 (08:11→20:12)
[2018-08-11] MEDS: GLIMEPIRIDE 2 MG TAB PO (08:11)
[2018-08-11] MEDS: GABAPENTIN 300 MG CAP PO ×2 (08:12→20:13)
[2018-08-11] MEDS: POTASSIUM CHLORIDE 10 MEQ SR TABLET PO ×2 (08:12→20:12)
[2018-08-11] MEDS: metOLazone 5 MG TAB PO (08:12)
[2018-08-11] MEDS: ASPIRIN 81 MG ENTERIC TAB PO (08:12)
[2018-08-11] MEDS: FUROSEMIDE 80 MG TAB PO (08:13)
[2018-08-11] MEDS: LEVEMIR (INSULIN DETEMIR) 1 UNITS/0.01ML SC ×2 (08:13→12:26)
[2018-08-11] MEDS: OFLOXACIN 0.3 % (OCUFLOX) OPTH SOL 5ML OU ×3 (08:14→20:13)
[2018-08-11 09:29] LABS: ABG BASE EXCESS 24.1 (-2.0-2.0); ABG HCO3 52.5 MEQ/L (22.0-26.0); ABG O2 SATURATION 91.6 % (95.0-99.0); ABG PARTIAL PRESSURE O2 64.6 mmHg (75.0-100.0); ABG STANDARD HCO3 48.7 MEQ/L (22.0-26.0); ABG pH (ARTERIAL) 7.439 UNITS (7.350-7.450)
[2018-08-11 09:34] LABS: ABG PARTIAL PRESSURE CO2 79.3 mmHg (35.0-45.0)
[2018-08-11 11:29] LABS: BEDSIDE GLUCOSE 291 MG/DL (83-110)
[2018-08-11] MEDS: AcetaZOLAMIDE 250 MG TAB PO ×2 (12:25→20:13)
[2018-08-11 16:49] LABS: BEDSIDE GLUCOSE 428 MG/DL (83-110)
[2018-08-11] MEDS: ATORVASTATIN 20 MG TAB PO (20:12)
[2018-08-11 20:56] LABS: BEDSIDE GLUCOSE 40 MG/DL (83-110)
[2018-08-11 21:35] LABS: BEDSIDE GLUCOSE 109 MG/DL (83-110)
[2018-08-12 05:21] LABS: ABG BASE EXCESS 21.6 (-2.0-2.0); ABG HCO3 50.3 MEQ/L (22.0-26.0); ABG O2 SATURATION 97.2 % (95.0-99.0); ABG PARTIAL PRESSURE CO2 84.1 mmHg (35.0-45.0); ABG PARTIAL PRESSURE O2 96.2 mmHg (75.0-100.0); ABG TOTAL CO2 52.9 MEQ/L (23.0-31.0); ABG pH (ARTERIAL) 7.395 UNITS (7.350-7.450)
[2018-08-12 06:13] LABS: BASO % 0.1 % (0.0-1.0); EOS # 0.2 10^3/uL (0.0-0.50); EOS % 1.8 % (0.0-3.0); HEMATOCRIT 36.7 % (36.0-47.0); HEMOGLOBIN 10.2 g/dl (12.0-15.5); IMMATURE GRANULOCYTE % 0.2 % (0-3.0); LYMPH # 1.7 10^3/uL (1.5-4.5); LYMPH % 19.7 % (24.0-44.0); MEAN CORPUSCULAR HGB CONC 27.8 g/dl (32.0-36.5); MEAN CORPUSCULAR VOLUME 93.6 fl (80.0-96.0); MONO # 0.8 10^3/uL (0.0-0.8); NEUTROPHILS # 5.9 10^3/uL (1.8-7.7); NEUTROPHILS % 69.2 % (36.0-66.0); PLATELET COUNT, AUTOMATED 290 10^3/uL (150-450); RED BLOOD COUNT 3.92 10^6/uL (4.00-5.40); RED CELL DISTRIBUTION WIDTH 17.2 % (11.5-14.5); WHITE BLOOD COUNT 8.5 10^3/uL (4.0-10.0)
[2018-08-12 07:08] LABS: ANION GAP 4 MEQ/L (8-16); BLOOD UREA NITROGEN 32 MG/DL (7-18); CALCIUM LEVEL 9.7 MG/DL (8.8-10.2); CARBON DIOXIDE LEVEL 45 MEQ/L (21-32); CHLORIDE LEVEL 92 MEQ/L (98-107); CREATININE FOR GFR 1.15 MG/DL (0.55-1.30); GLOMERULAR FILTRATION RATE 49.2 (>39); GLUCOSE, FASTING 50 MG/DL (70-100); POTASSIUM SERUM 2.8 MEQ/L (3.5-5.1); SODIUM LEVEL 141 MEQ/L (136-145)
[2018-08-12] MEDS: BUDESONIDE 0.5 MG/2 ML INHALATION SUSPENSION INH ×2 (07:15→20:59)
[2018-08-12] MEDS: FORMOTEROL FUMARATE 20 MCG/2 ML INHALATION SOLUTION (PERFOROMIST) INH ×2 (07:15→20:59)
[2018-08-12] MEDS: GLIMEPIRIDE 2 MG TAB PO (07:30)
[2018-08-12 07:56] LABS: BEDSIDE GLUCOSE 110 MG/DL (83-110)
[2018-08-12] MEDS: OFLOXACIN 0.3 % (OCUFLOX) OPTH SOL 5ML OU (08:04)
[2018-08-12] MEDS: ASPIRIN 81 MG ENTERIC TAB PO (08:04)
[2018-08-12] MEDS: POTASSIUM CHLORIDE 10 MEQ SR TABLET PO ×3 (08:06→20:20)
[2018-08-12] MEDS: metOLazone 5 MG TAB PO (08:06)
[2018-08-12] MEDS: predniSONE 20 MG TAB PO (08:07)
[2018-08-12] MEDS: SENOKOT S TAB PO ×2 (08:07→20:20)
[2018-08-12] MEDS: FUROSEMIDE 80 MG TAB PO (08:07)
[2018-08-12] MEDS: GABAPENTIN 300 MG CAP PO ×2 (08:07→20:21)
[2018-08-12] MEDS: AcetaZOLAMIDE 250 MG TAB PO (08:07)
[2018-08-12] MEDS: LEVEMIR (INSULIN DETEMIR) 1 UNITS/0.01ML SC (08:08)
[2018-08-12 11:57] LABS: BEDSIDE GLUCOSE 203 MG/DL (83-110)
[2018-08-12 16:48] LABS: BEDSIDE GLUCOSE 351 MG/DL (83-110)
[2018-08-12] MEDS: ACETAMINOPHEN 500 MG TAB PO (20:18)
[2018-08-12] MEDS: ATORVASTATIN 20 MG TAB PO (20:20)
[2018-08-12 20:24] LABS: BEDSIDE GLUCOSE 276 MG/DL (83-110)
[2018-08-13 06:36] LABS: BASO % 0.1 % (0.0-1.0); EOS # 0.2 10^3/uL (0.0-0.50); EOS % 2.2 % (0.0-3.0); HEMATOCRIT 35.8 % (36.0-47.0); HEMOGLOBIN 10.1 g/dl (12.0-15.5); IMMATURE GRANULOCYTE % 0.5 % (0-3.0); LYMPH # 1.7 10^3/uL (1.5-4.5); LYMPH % 21.8 % (24.0-44.0); MEAN CORPUSCULAR HEMOGLOBIN 26.3 pg (27.0-33.0); MEAN CORPUSCULAR HGB CONC 28.2 g/dl (32.0-36.5); MEAN CORPUSCULAR VOLUME 93.2 fl (80.0-96.0); MONO # 0.6 10^3/uL (0.0-0.8); MONO % 8.2 % (0.0-5.0); NEUTROPHILS # 5.1 10^3/uL (1.8-7.7); NEUTROPHILS % 67.2 % (36.0-66.0); PLATELET COUNT, AUTOMATED 292 10^3/uL (150-450); RED BLOOD COUNT 3.84 10^6/uL (4.00-5.40); RED CELL DISTRIBUTION WIDTH 17.3 % (11.5-14.5); WHITE BLOOD COUNT 7.6 10^3/uL (4.0-10.0)
[2018-08-13] MEDS: FORMOTEROL FUMARATE 20 MCG/2 ML INHALATION SOLUTION (PERFOROMIST) INH ×2 (07:06→21:02)
[2018-08-13] MEDS: BUDESONIDE 0.5 MG/2 ML INHALATION SUSPENSION INH ×2 (07:06→21:03)
[2018-08-13] MEDS: GLIMEPIRIDE 2 MG TAB PO (07:30)
[2018-08-13 07:34] LABS: ANION GAP 0 MEQ/L (8-16); BLOOD UREA NITROGEN 35 MG/DL (7-18); CALCIUM LEVEL 9.3 MG/DL (8.8-10.2); CHLORIDE LEVEL 97 MEQ/L (98-107); GLOMERULAR FILTRATION RATE 42.7 (>39); GLUCOSE, FASTING 93 MG/DL (70-100); SODIUM LEVEL 143 MEQ/L (136-145)
[2018-08-13] MEDS: ASPIRIN 81 MG ENTERIC TAB PO (09:00)
[2018-08-13] MEDS: GABAPENTIN 300 MG CAP PO ×2 (09:12→21:29)
[2018-08-13] MEDS: metOLazone 5 MG TAB PO (09:12)
[2018-08-13] MEDS: SENOKOT S TAB PO ×2 (09:13→21:29)
[2018-08-13] MEDS: predniSONE 20 MG TAB PO (09:14)
[2018-08-13] MEDS: FUROSEMIDE 80 MG TAB PO (09:15)
[2018-08-13 09:45] LABS: ABG HCO3 48.4 MEQ/L (22.0-26.0); ABG O2 SATURATION 96.2 % (95.0-99.0); ABG PARTIAL PRESSURE O2 86.1 mmHg (75.0-100.0); ABG STANDARD HCO3 43.1 MEQ/L (22.0-26.0); ABG TOTAL CO2 51.2 MEQ/L (23.0-31.0)
[2018-08-13 09:47] LABS: ABG PARTIAL PRESSURE CO2 89.7 mmHg (35.0-45.0)
[2018-08-13 11:11] LABS: CARBON DIOXIDE LEVEL 46 MEQ/L (21-32)
[2018-08-13 11:47] LABS: BEDSIDE GLUCOSE 240 MG/DL (83-110)
[2018-08-13] MEDS: POTASSIUM CHLORIDE 10 MEQ SR TABLET PO (12:16)
[2018-08-13 16:37] LABS: BEDSIDE GLUCOSE 247 MG/DL (83-110)
[2018-08-13] MEDS: ATORVASTATIN 20 MG TAB PO (21:29)
[2018-08-13] MEDS: ACETAMINOPHEN 500 MG TAB PO (21:30)
[2018-08-14 01:49] LABS: BEDSIDE GLUCOSE 195 MG/DL (83-110)
[2018-08-14 05:56] LABS: BASO % 0.4 % (0.0-1.0); EOS # 0.2 10^3/uL (0.0-0.50); EOS % 2.3 % (0.0-3.0); HEMOGLOBIN 10.3 g/dl (12.0-15.5); IMMATURE GRANULOCYTE % 0.2 % (0-3.0); LYMPH # 1.7 10^3/uL (1.5-4.5); LYMPH % 20.3 % (24.0-44.0); MEAN CORPUSCULAR HEMOGLOBIN 26.2 pg (27.0-33.0); MEAN CORPUSCULAR HGB CONC 28.6 g/dl (32.0-36.5); MEAN CORPUSCULAR VOLUME 91.6 fl (80.0-96.0); MONO # 0.7 10^3/uL (0.0-0.8); MONO % 8.3 % (0.0-5.0); NEUTROPHILS # 5.9 10^3/uL (1.8-7.7); NEUTROPHILS % 68.5 % (36.0-66.0); PLATELET COUNT, AUTOMATED 293 10^3/uL (150-450); RED BLOOD COUNT 3.93 10^6/uL (4.00-5.40); RED CELL DISTRIBUTION WIDTH 17.2 % (11.5-14.5); WHITE BLOOD COUNT 8.6 10^3/uL (4.0-10.0)
[2018-08-14 07:07] LABS: ANION GAP 1 MEQ/L (8-16); BLOOD UREA NITROGEN 35 MG/DL (7-18); CALCIUM LEVEL 9.3 MG/DL (8.8-10.2); CHLORIDE LEVEL 94 MEQ/L (98-107); CREATININE FOR GFR 1.28 MG/DL (0.55-1.30); GLOMERULAR FILTRATION RATE 43.5 (>39); GLUCOSE, FASTING 113 MG/DL (70-100); POTASSIUM SERUM 3.3 MEQ/L (3.5-5.1); SODIUM LEVEL 142 MEQ/L (136-145)
[2018-08-14 07:11] LABS: CARBON DIOXIDE LEVEL 47 MEQ/L (21-32)
[2018-08-14] MEDS: ASPIRIN 81 MG ENTERIC TAB PO (08:59)
[2018-08-14] MEDS: SENOKOT S TAB PO ×2 (09:00→21:32)
[2018-08-14] MEDS: GLIMEPIRIDE 2 MG TAB PO (09:00)
[2018-08-14] MEDS: FUROSEMIDE 80 MG TAB PO (09:00)
[2018-08-14] MEDS: metOLazone 5 MG TAB PO (09:00)
[2018-08-14] MEDS: POTASSIUM CHLORIDE 10 MEQ SR TABLET PO (09:01)
[2018-08-14] MEDS: GABAPENTIN 300 MG CAP PO ×2 (09:01→21:32)
[2018-08-14] MEDS: BUDESONIDE 0.5 MG/2 ML INHALATION SUSPENSION INH ×2 (09:17→19:56)
[2018-08-14] MEDS: FORMOTEROL FUMARATE 20 MCG/2 ML INHALATION SOLUTION (PERFOROMIST) INH ×2 (09:17→19:56)
[2018-08-14 09:37] LABS: ABG BASE EXCESS 14.5 (-2.0-2.0); ABG HCO3 44.2 MEQ/L (22.0-26.0); ABG O2 SATURATION 97.8 % (95.0-99.0); ABG PARTIAL PRESSURE O2 101.3 mmHg (75.0-100.0); ABG STANDARD HCO3 38.3 MEQ/L (22.0-26.0); ABG TOTAL CO2 46.9 MEQ/L (23.0-31.0); ABG pH (ARTERIAL) 7.316 UNITS (7.350-7.450)
[2018-08-14 09:38] LABS: ABG PARTIAL PRESSURE CO2 88.6 mmHg (35.0-45.0)
[2018-08-14 11:44] LABS: BEDSIDE GLUCOSE 159 MG/DL (83-110)
[2018-08-14] MEDS: IPRATROPIUM 0.5MG/ALBUTEROL 2.5MG INH SOL UD 3ML (DUONEB)(J7620) NEB (13:38)
[2018-08-14 17:19] LABS: BEDSIDE GLUCOSE 177 MG/DL (83-110)
[2018-08-14 20:42] LABS: BEDSIDE GLUCOSE 154 MG/DL (83-110)
[2018-08-14] MEDS: ATORVASTATIN 20 MG TAB PO (21:32)
[2018-08-14] MEDS: ACETAMINOPHEN 500 MG TAB PO (21:36)
[2018-08-15 06:17] LABS: BASO % 0.2 % (0.0-1.0); EOS # 0.2 10^3/uL (0.0-0.50); EOS % 1.7 % (0.0-3.0); HEMOGLOBIN 10.2 g/dl (12.0-15.5); LYMPH % 19.6 % (24.0-44.0); MEAN CORPUSCULAR HEMOGLOBIN 26.4 pg (27.0-33.0); MEAN CORPUSCULAR VOLUME 88.1 fl (80.0-96.0); MONO # 0.8 10^3/uL (0.0-0.8); MONO % 7.6 % (0.0-5.0); NEUTROPHILS # 7.3 10^3/uL (1.8-7.7); NEUTROPHILS % 69.9 % (36.0-66.0); PLATELET COUNT, AUTOMATED 288 10^3/uL (150-450); RED BLOOD COUNT 3.86 10^6/uL (4.00-5.40); RED CELL DISTRIBUTION WIDTH 17.2 % (11.5-14.5); WHITE BLOOD COUNT 10.4 10^3/uL (4.0-10.0)
[2018-08-15 06:46] LABS: ANION GAP 5 MEQ/L (8-16); BLOOD UREA NITROGEN 38 MG/DL (7-18); CALCIUM LEVEL 9.4 MG/DL (8.8-10.2); CARBON DIOXIDE LEVEL 43 MEQ/L (21-32); CHLORIDE LEVEL 90 MEQ/L (98-107); CREATININE FOR GFR 1.22 MG/DL (0.55-1.30); GLUCOSE, FASTING 100 MG/DL (70-100); POTASSIUM SERUM 2.8 MEQ/L (3.5-5.1); SODIUM LEVEL 138 MEQ/L (136-145)
[2018-08-15] MEDS: POTASSIUM CHLORIDE 10 MEQ SR TABLET PO ×3 (07:13→13:15)
[2018-08-15] MEDS: FORMOTEROL FUMARATE 20 MCG/2 ML INHALATION SOLUTION (PERFOROMIST) INH (07:55)
[2018-08-15] MEDS: BUDESONIDE 0.5 MG/2 ML INHALATION SUSPENSION INH (07:55)
[2018-08-15] MEDS: GABAPENTIN 300 MG CAP PO (08:10)
[2018-08-15] MEDS: SENOKOT S TAB PO (08:11)
[2018-08-15] MEDS: GLIMEPIRIDE 2 MG TAB PO (08:11)
[2018-08-15] MEDS: FUROSEMIDE 80 MG TAB PO (08:11)
[2018-08-15] MEDS: ASPIRIN 81 MG ENTERIC TAB PO (08:11)
[2018-08-15 09:21] LABS: ABG BASE EXCESS 12.6 (-2.0-2.0); ABG HCO3 39.4 MEQ/L (22.0-26.0); ABG O2 SATURATION 92.2 % (95.0-99.0); ABG PARTIAL PRESSURE O2 64.5 mmHg (75.0-100.0); ABG STANDARD HCO3 36.2 MEQ/L (22.0-26.0); ABG TOTAL CO2 41.3 MEQ/L (23.0-31.0); ABG pH (ARTERIAL) 7.412 UNITS (7.350-7.450)
[2018-08-15 09:29] LABS: ABG PARTIAL PRESSURE CO2 63.3 mmHg (35.0-45.0)
[2018-08-15 12:32] LABS: POTASSIUM SERUM 3.3 MEQ/L (3.5-5.1)
[2018-08-15] MEDS: IPRATROPIUM 0.5MG/ALBUTEROL 2.5MG INH SOL UD 3ML (DUONEB)(J7620) NEB (13:09)
[2018-08-16] MEDS ORDERED: metOLazone 5 MG TAB PO (08:30)
== END 2018-08-15 15:00 | disposition home health service (06) | DRG 291 ==
LOC: M MSPAV 08-08 16:41 → M ED 07:12 → M ED INP 12:22 → M ICU 14:35
DX: I13.0 Hypertensive heart and chronic kidney disease with heart failure and stage 1 through stage 4 chronic kidney disease, or unspecified chronic kidney disease (principal); J96.22 Acute and chronic respiratory failure with hypercapnia; J96.21 Acute and chronic respiratory failure with hypoxia; G93.41 Metabolic encephalopathy; I50.33 Acute on chronic diastolic (congestive) heart failure; E87.2 Acidosis; J44.9 Chronic obstructive pulmonary disease, unspecified; G47.33 Obstructive sleep apnea (adult) (pediatric); E11.9 Type 2 diabetes mellitus without complications; E66.9 Obesity, unspecified; E87.6 Hypokalemia; K59.00 Constipation, unspecified; R91.1 Solitary pulmonary nodule; I27.20 Pulmonary hypertension, unspecified; I27.81 Cor pulmonale (chronic); E78.5 Hyperlipidemia, unspecified; M43.02 Spondylolysis, cervical region; N18.3 Chronic kidney disease, stage 3 (moderate); Z79.82 Long term (current) use of aspirin; Z79.899 Other long term (current) drug therapy; Z88.8 Allergy status to other drugs, medicaments and biological substances; M48.52XD Collapsed vertebra, not elsewhere classified, cervical region, subsequent encounter for fracture with routine healing

== ENCOUNTER 2018-10-25 07:39 | Inpatient (IN) | payer MEDICARE ==
[~2018-10-25] VITALS: Ht 154.9 cm; Wt 85.0 kg
[~2018-10-25 07:39] MED LIST changes: +ACCU1TAB PO; +ACET-683 PO; +AK-T0.3S OU; +ALBU17IN INH; +ALBU83IN INH; +ALPR0.25 PO; +ALPR0.254 PO; +AMLO10TA5 PO; +ANOR1AER INH; +ANORO; +ASPI1TAB PO; +ASPI325T PO; +ASPI81TAEC PO; +ATOR40TA75 PO; +AZIT-12 PO; +AZIT500T2 PO; +BACL1TAB9 PO; +BUDE0.5S6 INH; +CARD120C3 PO; +CEFP200T PO; +COLA100C5 PO; +DEMA20TA6 PO; +DOC-8.6T3 PO; +DOXY100C PO; +DULC5TAB PO; +FURO40TA2 PO; +GABA-1171; +GABA-1171 PO; +GABA-843 PO; +GLIM1TAB PO; +GLIM2TAB PO; +GLIM4TAB PO; +IPRA0.00 INH; +IPRAT-ALBUT; +ISOS60TA2 PO; +K-TA10TA2 PO; +LASI40TA9 PO; +LEVA1TAB2 PO; +LISI10TA4 PO; +METF500T13 PO; +METO5TA PO; +NYST5000 PO; +OFLO3OPSO OU; +PATIENT COMMENT; +PERF20NE2 INH; +POTA10TA16 PO; +POTA1TAB23 PO; +PRED10PA PO; +PRED10TA2 PO; +PRED20TA PO; +PRED50TA PO; +PROAAER10 INH; +QUIN1TAB3 PO; +QUINAPRIL; +SENN18TA PO; +SENO8.6T5 PO; +SITA50TAB PO; +TOBR0.3S37 OU; +TORS20TA2 PO; +TYLE500T78 PO; +VENTAER INH; +VITA50005; -methylPREDNISolone INJ 40 MG/1 ML VIAL (J2920) IV
[2018-10-25] MEDS ORDERED: methylPREDNISolone INJ 125 MG/2 ML VIAL (J2930) IV ONE (08:00)
[2018-10-25] MEDS: IPRATROPIUM 0.5MG/ALBUTEROL 2.5MG INH SOL UD 3ML (DUONEB)(J7620) NEB SCH ×3 (08:03→08:41)
--- NOTE | 2018-10-25 08:16 | REP ---
Clinical: Cough and dyspnea. Comparison: 08/07/2018. Findings: Mediastinum and cardiac silhouette are within normal limits and stable. Lung hunt demonstrate increased markings which may reflect chronic change. Differential diagnosis may include early vascular congestion and bronchitis. No focal consolidation, effusion, or pneumothorax. Skeletal structures intact. Impression: No focal consolidation. As above. Electronically Signed by Esa Payan MD 10/25/2018 08:08 A
[2018-10-25 08:20] LABS: ABG BASE EXCESS 13.8 (-2.0-2.0); ABG HCO3 40.7 MEQ/L (22.0-26.0); ABG O2 SATURATION 98.2 % (95.0-99.0); ABG PARTIAL PRESSURE O2 109.8 mmHg (75.0-100.0); ABG STANDARD HCO3 37.7 MEQ/L (22.0-26.0); ABG TOTAL CO2 42.6 MEQ/L (23.0-31.0); ABG pH (ARTERIAL) 7.425 UNITS (7.350-7.450)
[2018-10-25 08:24] LABS: ABG PARTIAL PRESSURE CO2 63.4 mmHg (35.0-45.0)
[2018-10-25 09:28] LABS: BASO % 0.3 % (0.0-1.0); EOS # 0.2 10^3/uL (0.0-0.50); EOS % 1.6 % (0.0-3.0); HEMATOCRIT 35.4 % (36.0-47.0); HEMOGLOBIN 10.5 g/dl (12.0-15.5); LYMPH # 1.5 10^3/uL (1.5-4.5); LYMPH % 12.7 % (24.0-44.0); MEAN CORPUSCULAR HEMOGLOBIN 26.5 pg (27.0-33.0); MEAN CORPUSCULAR HGB CONC 29.7 g/dl (32.0-36.5); MEAN CORPUSCULAR VOLUME 89.4 fl (80.0-96.0); MONO # 0.7 10^3/uL (0.0-0.8); MONO % 6.1 % (0.0-5.0); NEUTROPHILS # 9.1 10^3/uL (1.8-7.7); NEUTROPHILS % 78.6 % (36.0-66.0); PLATELET COUNT, AUTOMATED 211 10^3/uL (150-450); RED BLOOD COUNT 3.96 10^6/uL (4.00-5.40); WHITE BLOOD COUNT 11.5 10^3/uL (4.0-10.0)
[2018-10-25 09:40] LABS: INR 0.92; PROTHROMBIN TIME 12.4 SECONDS (12.1-14.4)
[2018-10-25 10:24] LABS: ALBUMIN 3.1 GM/DL (3.2-5.2); ALT/SGPT 24 U/L (12-78); BILIRUBIN,DIRECT < 0.1 MG/DL (0.0-0.2); BILIRUBIN,TOTAL 0.3 MG/DL (0.2-1.0); BLOOD UREA NITROGEN 21 MG/DL (7-18); CALCIUM LEVEL 9.5 MG/DL (8.8-10.2); CARBON DIOXIDE LEVEL 40 MEQ/L (21-32); CHLORIDE LEVEL 91 MEQ/L (98-107); CPK CREATINE PHOSPHOKINASE 56 U/L (26-192); CREATININE FOR GFR 1.32 MG/DL (0.55-1.30); GLUCOSE, FASTING 177 MG/DL (70-100); MB/CK RELATIVE INDEX 3.93 (< OR =4); NT-PRO BNP 115 PG/ML (<125); POTASSIUM SERUM 2.7 MEQ/L (3.5-5.1); SODIUM LEVEL 141 MEQ/L (136-145); THYROXINE (T4) 9.4 UG/DL (4.5-12.0); TOTAL PROTEIN 7.2 GM/DL (6.4-8.2); TROPONIN I < 0.02 NG/ML (< 0.10)
[2018-10-25] MEDS ORDERED: POTASSIUM CHLORIDE 10 MEQ SR TABLET PO ONE (10:30)
[2018-10-25] MEDS ORDERED: NS 500 ML IV ONE (10:45)
[2018-10-25] MEDS ORDERED: PRED20TA PO (10:47)
[2018-10-25] MEDS ORDERED: CEFU50TA PO (10:47)
[2018-10-25 12:01] VITALS: O2SAT 87
[2018-10-25] MEDS ORDERED: POTA10TA67 PO (13:11)
[2018-10-25] MEDS ORDERED: ACETAMINOPHEN 500 MG TAB PO PRN (13:30)
[2018-10-25] MEDS: ALPRAZolam 0.25 MG TAB PO SCH ×2 (15:25→20:58)
[2018-10-25] MEDS: FUROSEMIDE 40 MG TAB PO SCH (15:25)
[2018-10-25] MEDS: POTASSIUM CHLORIDE 10 MEQ SR TABLET PO SCH ×2 (15:26→20:58)
[2018-10-25] MEDS: ASPIRIN 81 MG ENTERIC TAB PO SCH (15:26)
[2018-10-25] MEDS: BISACODYL 5 MG TAB PO SCH (15:26)
[2018-10-25] MEDS: KCL 10MEQ/100ML SWI (KRUN) 10 MEQ in APPROPRIATE DILUENT 1 EA IV SCH ×2 (15:27→17:52)
[2018-10-25] MEDS: DOCUSATE SODIUM 100 MG CAP PO SCH (15:27)
[2018-10-25] MEDS: GABAPENTIN 300 MG CAP PO SCH ×2 (15:27→20:58)
[2018-10-25] MEDS: IPRATROPIUM 0.5MG/ALBUTEROL 2.5MG INH SOL UD 3ML (DUONEB)(J7620) NEB PRN ×2 (16:29→21:10)
[2018-10-25] MEDS ORDERED: MOM 30ML SUSPENSION UDC PO ONE (16:45)
[2018-10-25] MEDS: LevoFLOXacin IV 500 MG in APPROPRIATE DILUENT 1 EA IV SCH (16:46)
[2018-10-25] MEDS: NS 1,000 ML IV SCH (16:47)
[2018-10-25] MEDS: methylPREDNISolone INJ 40 MG/1 ML VIAL (J2920) IV SCH (17:54)
[2018-10-25] MEDS: SENOKOT S TAB PO SCH (20:58)
[2018-10-25] MEDS: ATORVASTATIN 20 MG TAB PO SCH (20:58)
--- NOTE | 2018-10-25 21:49 | HPE ---
DATE OF ADMISSION: 10/25/2018 73-year-old female with a past medical history of chronic obstructive pulmonary disease (COPD) with FEV1 of 19% and requiring 2 liters nasal cannula, history of obstructive sleep apnea on bilevel positive airway pressure (BIPAP), chronic diastolic heart failure with severe pulmonary hypertension with cor pulmonale, chronic kidney disease stage III, diabetes, hypertension, hyperlipidemia, who presents to the emergency room with increasing shortness of breath for the last couple of days regardless of taking her nebulizers. She has been having a dry cough. No subjective feeling of fevers, aches or chills. She came to the emergency room for evaluation. In the emergency room, she was given Solu-Medrol 125 mg IV push and nebulizer treatments and the patient was starting to feel better, but when they ambulated her, even with her 2 liters, she dropped her saturation to 86%. She will be admitted for observation status for further management of her COPD. Chest x-ray did show evidence of bronchitis. PAST MEDICAL HISTORY: 1. COPD with an FEV1 of 19%, requiring oxygen at home at 2 liters. 2. History of obstructive sleep apnea on BiPAP. 3. Diabetes. 4. Hypertension. 5. Hyperlipidemia. 6. Chronic diastolic heart failure. ALLERGIES: Drug allergies to GABAPENTIN, HEPARIN, METFORMIN, PREGABALIN. FAMILY HISTORY: Noncontributory. SOCIAL HISTORY: The patient used to be a heavy smoker and quit many years ago. Denies alcohol or illicit drugs. MEDICATIONS: He takes at home: - Tylenol 1 gram twice a day as needed - albuterol two puffs inhaled every 4 hours as needed - alprazolam 0.25 mg by mouth twice a day - aspirin 81 mg by mouth daily - atorvastatin 40 mg by mouth at bedtime - bisacodyl 5 mg by mouth daily - budesonide one dose inhaled twice a day - Colace 100 mg by mouth daily - formoterol one dose inhaled twice a day - Lasix 80 mg by mouth in the morning - potassium chloride 20 mEq by mouth two to three times a day - Senna 8.6 mg by mouth at night REVIEW OF SYSTEMS: Negative for all ten major systems except what is mentioned in the history of present illness. PHYSICAL EXAMINATION VITAL SIGNS: Blood pressure 122/69, heart rate is 115 and regular, respiratory rate is 20, temperature 97.7, oxygen saturation is 91% on 2 liters nasal cannula. Head is atraumatic, normocephalic. Neck is supple with no jugular venous distention (JVD). Lungs are clear to auscultation. S1, S2 audible. No murmurs appreciated. Abdomen is soft. Positive bowel sounds. No pedal edema. Skin is intact. Neurologic examination, the patient is awake, alert and oriented times three. LABORATORIES: WBC 7.5, hemoglobin 10.5, hematocrit 35.4, platelets are 211,000. Sodium 141, potassium 2.7, chloride 91, CO2 is 40, anion gap 10, BUN 21, creatinine 1.32, lactic acid 2.7, glucose 177. TSH 2.9. Troponin is less than 0.02. Arterial blood gas showed pH of 7.425, IMPRESSION: 1. Chronic obstructive pulmonary disease (COPD) exacerbation. 2. Acute bronchitis. 3. Hypokalemia. PLAN: The patient is to be admitted to the medical/surgical floor. We will start her on IV Levaquin for bronchitis 500 mg daily and then give her DuoNeb every 4 hours as needed and Solu-Medrol 40 mg IV every 8 hours. I feel she will turn around completely by tomorrow and the hypokalemia is likely secondary to high dose Lasix. We will replete potassium as well and followup basic metabolic panel (BMP) in the morning. MTDD
[2018-10-25 22:00] VITALS: BP 143/67
[2018-10-26] MEDS: IPRATROPIUM 0.5MG/ALBUTEROL 2.5MG INH SOL UD 3ML (DUONEB)(J7620) NEB PRN ×4 (02:14→19:29)
[2018-10-26] MEDS: NS 1,000 ML IV SCH ×2 (02:35→09:19)
[2018-10-26] MEDS: methylPREDNISolone INJ 40 MG/1 ML VIAL (J2920) IV SCH ×3 (02:35→17:49)
[2018-10-26 04:58] LABS: BASO % 0.1 % (0.0-1.0); HEMATOCRIT 29.4 % (36.0-47.0); HEMOGLOBIN 8.9 g/dl (12.0-15.5); LYMPH # 0.5 10^3/uL (1.5-4.5); LYMPH % 4.1 % (24.0-44.0); MEAN CORPUSCULAR HEMOGLOBIN 26.6 pg (27.0-33.0); MEAN CORPUSCULAR HGB CONC 30.3 g/dl (32.0-36.5); MEAN CORPUSCULAR VOLUME 87.8 fl (80.0-96.0); MONO # 0.3 10^3/uL (0.0-0.8); MONO % 2.3 % (0.0-5.0); NEUTROPHILS # 10.2 10^3/uL (1.8-7.7); NEUTROPHILS % 91.8 % (36.0-66.0); PLATELET COUNT, AUTOMATED 193 10^3/uL (150-450); RED BLOOD COUNT 3.35 10^6/uL (4.00-5.40); WHITE BLOOD COUNT 11.1 10^3/uL (4.0-10.0)
[2018-10-26 05:25] LABS: CALCIUM LEVEL 7.9 MG/DL (8.8-10.2); CREATININE FOR GFR 1.64 MG/DL (0.55-1.30); GLOMERULAR FILTRATION RATE 32.7 (>39); POTASSIUM SERUM 3.9 MEQ/L (3.5-5.1)
[2018-10-26 06:00] VITALS: BP 139/69
[2018-10-26] MEDS ORDERED: HumaLOG INSULIN (NovoLOG) PER UNIT SC SCH ×2 (06:00→21:00)
[2018-10-26] MEDS ORDERED: GLUCOSE 4 GM CHEW TABLET PO PRN (06:00)
[2018-10-26] MEDS ORDERED: GLUCAGON FOR INJ 1 MG VIAL (J1610) SC PRN (06:00)
[2018-10-26] MEDS ORDERED: DEXTROSE 50% 50 ML SYRINGE IV PRN (06:00)
[2018-10-26] MEDS ORDERED: HumaLOG INSULIN (NovoLOG) PER UNIT SC ONE (06:15)
--- NOTE | 2018-10-26 07:56 | ECGEPIP ---
Stationary ECG Study [facility] - ED Test Date: 2018-10-25 Pat Name: CORY CAMPBELL Department: Room: - Gender: F Ignition Expert: abraham : 1945 Requested By: Liset Rae Order Number: [id number] Reading MD: Jhoan Chapman Measurements Intervals [place] Rate: 96 P: 115 [place]: 131 QRS: 46 QRSD: 93 T: -30 QT: 337 QTc: 426 Interpretive Statements SINUS RHYTHM MODERATE T-WAVE ABNORMALITY, CONSIDER INFERIOR ISCHEMIA SIGNIFICANT BASELINE ARTIFACT AND WANDERING MAY AFFECT READING IN COMPARISON TO 08/07/18 RATE DECREASED TAKING INTO ACCOUNT SIGNIFICNAT ARTIFACT...;NONSPECIFIC ST T WAVE CHANGES Electronically Signed On 10-26-2018 7:56:19 EST by Jhoan Chapman
[2018-10-26 08:58] VITALS: BP 170/81
[2018-10-26] MEDS: BISACODYL 5 MG TAB PO SCH (09:00)
[2018-10-26] MEDS: DOCUSATE SODIUM 100 MG CAP PO SCH (09:00)
[2018-10-26] MEDS: ASPIRIN 81 MG ENTERIC TAB PO SCH (09:19)
[2018-10-26] MEDS: GABAPENTIN 300 MG CAP PO SCH ×2 (09:20→21:43)
[2018-10-26] MEDS: FUROSEMIDE 40 MG TAB PO SCH (09:20)
[2018-10-26] MEDS: ALPRAZolam 0.25 MG TAB PO SCH ×2 (09:20→21:43)
[2018-10-26] MEDS: POTASSIUM CHLORIDE 10 MEQ SR TABLET PO SCH ×3 (09:20→21:46)
[2018-10-26 11:21] VITALS: BP 172/77
--- NOTE | 2018-10-26 12:38 | IPN ---
DATE: 10/26/2018 PRINCIPAL DIAGNOSES: 1. Acute on chronic respiratory failure/chronic obstructive pulmonary disease (COPD) exacerbation due to history of obstructive sleep apnea (ALINE), on BiPAP. 2. Type 2 diabetes. 3. Hyperlipidemia. 4. Hypertensive heart disease. 5. Chronic kidney disease. 6. Severe pulmonary hypertension with cor pulmonale. Ms. Bush was seen on [facility]. She was admitted with shortness of breath. I reviewed her recent hospitalization. She has frequent admissions to [facility] for pulmonary issues, 13 hospitalizations last year primarily for what looks like either COPD or exacerbation of cor pulmonale. She was admitted with shortness of breath and treated this time with some IV Solu-Medrol and supplemental oxygen. She had some bronchitis on her chest x-ray. She was expecting to be home today, but her renal function is down from baseline and lactic acid is elevated. PHYSICAL EXAMINATION: 170/81, pulse 71, respiratory rate 16, 94% oxygen saturation. GENERAL APPEARANCE: She is resting in bed. She has no jugular venous distention (JVD) present. LUNGS: Decreased breath sounds. HEART: Regular rate and rhythm. Distant sounds. No murmur. EXTREMITIES: Trace to 1+ peripheral edema. LABORATORIES: White count is 11.1, hemoglobin 8.9, platelets 193. Sodium 136, potassium 3.9, BUN 28, creatinine 1.64, baseline creatinine is around 1.2. Blood sugar is 400, she keeps getting lactic acid levels drawn and have been 5.3, 4.9, 2.9, and now 5.1 (she does have chronic kidney disease). IMPRESSION: 1. Exacerbation of chronic obstructive pulmonary disease (COPD) from presumed bronchitis. She is on Levaquin, IV Solu-Medrol and nebulized bronchodilator. She will continue this. 2. History of cor pulmonale with pulmonary hypertension and right sided heart failure. She has peripheral edema. She is getting normal saline and is on furosemide. We will stop the IV fluids. She looks like she needs to be diuresed because her legs are more swollen than her baseline and she has signs of volume overload on examination. 3. Chronic anxiety. She is on Xanax as an outpatient, which we will continue. 4. Hyperlipidemia. Continue atorvastatin 40 mg daily. 5. Diabetes. She is on sliding scale insulin based upon fingerstick blood sugars. Reconciliation does not list anything for diabetes, she was discharged on glimepiride in August. Currently on sliding scale insulin with coverage. 6. Obstructive sleep apnea. Continue on bilevel positive airway pressure (BIPAP) nightly. 7. Chronic kidney disease stage III. Her GFR is down from its baseline. I think that she is approaching heart failure from the saline. I stopped the saline and continue her diuretics. Recheck renal function tomorrow. She really wants to go home today, but I do not think that it is safe. I advised her to stay in the hospital for at least another day. Dr. Villarreal will be assuming her care in the morning.
[2018-10-26] MEDS: HumaLOG INSULIN (NovoLOG) PER UNIT SC SCH ×2 (12:41→17:48)
[2018-10-26] MEDS: LevoFLOXacin IV 500 MG in APPROPRIATE DILUENT 1 EA IV SCH (15:28)
[2018-10-26] MEDS: SENOKOT S TAB PO SCH (21:43)
[2018-10-26] MEDS: ATORVASTATIN 20 MG TAB PO SCH (21:43)
[2018-10-26 22:00] VITALS: BP 146/70
[2018-10-27] MEDS: IPRATROPIUM 0.5MG/ALBUTEROL 2.5MG INH SOL UD 3ML (DUONEB)(J7620) NEB PRN ×2 (00:40→07:23)
[2018-10-27] MEDS: methylPREDNISolone INJ 40 MG/1 ML VIAL (J2920) IV SCH ×2 (02:38→08:33)
[2018-10-27 06:00] VITALS: BP 151/73
[2018-10-27 06:54] LABS: BASO % 0.2 % (0.0-1.0); HEMATOCRIT 34.4 % (36.0-47.0); HEMOGLOBIN 10.1 g/dl (12.0-15.5); LYMPH # 0.5 10^3/uL (1.5-4.5); LYMPH % 2.6 % (24.0-44.0); MEAN CORPUSCULAR HEMOGLOBIN 26.2 pg (27.0-33.0); MEAN CORPUSCULAR HGB CONC 29.4 g/dl (32.0-36.5); MEAN CORPUSCULAR VOLUME 89.1 fl (80.0-96.0); MONO # 0.4 10^3/uL (0.0-0.8); MONO % 1.9 % (0.0-5.0); NEUTROPHILS # 18.1 10^3/uL (1.8-7.7); NEUTROPHILS % 92.9 % (36.0-66.0); PLATELET COUNT, AUTOMATED 252 10^3/uL (150-450); RED BLOOD COUNT 3.86 10^6/uL (4.00-5.40); WHITE BLOOD COUNT 19.5 10^3/uL (4.0-10.0)
[2018-10-27 07:13] LABS: CALCIUM LEVEL 8.8 MG/DL (8.8-10.2); CREATININE FOR GFR 1.5 MG/DL (0.55-1.30); GLOMERULAR FILTRATION RATE 36.2 (>39); POTASSIUM SERUM 4.2 MEQ/L (3.5-5.1)
[2018-10-27] MEDS: HumaLOG INSULIN (NovoLOG) PER UNIT SC SCH (08:33)
[2018-10-27] MEDS: FUROSEMIDE 40 MG TAB PO SCH (08:33)
[2018-10-27] MEDS: ALPRAZolam 0.25 MG TAB PO SCH (08:33)
[2018-10-27] MEDS: POTASSIUM CHLORIDE 10 MEQ SR TABLET PO SCH (08:33)
[2018-10-27] MEDS: BISACODYL 5 MG TAB PO SCH (08:34)
[2018-10-27] MEDS: GABAPENTIN 300 MG CAP PO SCH (08:34)
[2018-10-27] MEDS: ASPIRIN 81 MG ENTERIC TAB PO SCH (08:34)
[2018-10-27] MEDS: DOCUSATE SODIUM 100 MG CAP PO SCH (08:34)
[2018-10-27] MEDS ORDERED: PRED10TA2 PO (10:24)
[2018-10-27] MEDS ORDERED: LEVO500T3 PO (10:25)
--- NOTE | 2018-10-28 09:25 | DSES ---
DATE OF ADMISSION: 10/25/2018 DATE OF DISCHARGE: 10/27/2018 DISCHARGE DIAGNOSIS: Shortness of breath SECONDARY DIAGNOSES: 1. Chronic obstructive pulmonary disease. 2. Cor pulmonale. 3. Pulmonary hypertension. 4. Anxiety. 6. Dyslipidemia. 7. Diabetes. 8. Obstructive sleep apnea. 9. Chronic kidney disease. HOSPITAL COURSE: The patient is a 73-year-old female who has known history of chronic hypoxic respiratory failure who presented with shortness of breath. It was thought to be related to decompensated chronic obstructive pulmonary disease. She was provided with steroids and antibiotics. She did improve over the next 48 hours back to her baseline. She was seen and evaluated by physical therapy who felt she was safe for discharge home. Clinically her symptoms improved. At this time, she is ready for discharge home. She is being discharged home. She is being discharged on a steroid taper as well as levofloxacin. She is approaching her baseline. Clinical symptoms have improved. SUBJECTIVE: This morning, the patient relates she is feeling well. She has no complaints. Her breathing is back to normal. OBJECTIVE: Vital Signs: Temperature 97.2, pulse 87, respiratory rate 20, blood pressure 151/73, oxygen saturation 96% on 2 liters. General: She is an obese, elderly, female sitting up in bed. She does not appear to be in any acute distress. HEENT: Cranial nerves II-XII grossly intact. Moist mucous membranes. No elevation of CVP. Cardiovascular: S1 and S2, regular. Respiratory: Actually quite clear today. She has a prolonged expiratory phase, but no audible wheeze. Abdomen: Grossly obese. Extremities: No clubbing or cyanosis. Trace edema. LABORATORY STUDIES: WBC 9.5, hemoglobin 10.1, platelet count 252. Chemistry panel with sodium 138, potassium 4.2, chloride 94, bicarbonate 35, BUN 33, creatinine 1.5, lactic acid yesterday morning was 4.6 secondary to increased work of breathing suspected. Cardiac enzymes were negative. She did have some hypokalemia that resolved. ASSESSMENT AND PLAN: 73-year-old female with shortness of breath. PROBLEMS: 1. Shortness of breath. Likely secondary to decompensated COPD. Improved with steroids. Will discharge her home on a tapering dose and levofloxacin. The patient is continued on ProAir, DuoNeb, budesonide, Perforomist. 2. Diabetes. Resume her home hyperglycemic medications. 3. Hypokalemia, resolved with supplementation. Resume 20 mEq three times a day which is her home dosing. 4. Dyslipidemia. Continue with atorvastatin. 5. Anxiety. Continue with alprazolam. 6. Cor pulmonale. Continue with furosemide. Secondary to obstructive sleep apnea and chronic obstructive pulmonary disease. 7. Obstructive sleep apnea. Continue with home CPAP. 8. Neuropathy. Continue with gabapentin. 9. Chronic constipation. Continue with her home bowel regimen. 10. Disposition. Patient is being discharged home. She is to followup with her primary care provider (PCP) within 7 days. Activity and diet are as prior to admission. She was to return to the emergency room (ER) if symptoms worsened. MEDICATIONS AT TIME OF DISCHARGE: - levofloxacin 500 mg by mouth daily for 5 days - prednisone 10 mg tablets, four tablets for three days, three tablets for three days, two tablets for three days, one tablet for three days, then stop - otherwise medications are as per the time of admission Greater than 30 minutes spent organizing disposition.
== END 2018-10-27 11:45 | disposition home or self-care (01) | DRG 190 ==
LOC: M ED 07:39 → M ED INP 13:31 → M MS5PR 14:56 → OBSVTOIN 10-26 10:57 → INTOOBSV 10-26 10:57
PROVIDERS: ADMIT Internal Medicine; ATTEND Internal Medicine
DX: J44.1 Chronic obstructive pulmonary disease with (acute) exacerbation (principal); J96.21 Acute and chronic respiratory failure with hypoxia; I50.32 Chronic diastolic (congestive) heart failure; I13.0 Hypertensive heart and chronic kidney disease with heart failure and stage 1 through stage 4 chronic kidney disease, or unspecified chronic kidney disease; J44.0 Chronic obstructive pulmonary disease with (acute) lower respiratory infection; N18.3 Chronic kidney disease, stage 3 (moderate); E78.5 Hyperlipidemia, unspecified; F41.9 Anxiety disorder, unspecified; G47.33 Obstructive sleep apnea (adult) (pediatric); I27.20 Pulmonary hypertension, unspecified; E87.6 Hypokalemia; I27.81 Cor pulmonale (chronic); E11.40 Type 2 diabetes mellitus with diabetic neuropathy, unspecified; K59.00 Constipation, unspecified; Z79.899 Other long term (current) drug therapy; Z88.8 Allergy status to other drugs, medicaments and biological substances; J20.9 Acute bronchitis, unspecified

== ENCOUNTER 2018-11-04 18:52 | Inpatient (IN) | payer MEDICARE ==
[~2018-11-04] VITALS: Ht 154.9 cm; Wt 86.4 kg
[~2018-11-04 18:52] MED LIST changes: +CEFU50TA PO; +LEVO500T3 PO; +POTA10TA67 PO
[2018-11-04 19:59] LABS: BASO % 0.2 % (0.0-1.0); HEMATOCRIT 31.7 % (36.0-47.0); HEMOGLOBIN 9.6 g/dl (12.0-15.5); LYMPH # 0.4 10^3/uL (1.5-4.5); LYMPH % 2.8 % (24.0-44.0); MEAN CORPUSCULAR HGB CONC 30.3 g/dl (32.0-36.5); MEAN CORPUSCULAR VOLUME 89.3 fl (80.0-96.0); MONO # 0.5 10^3/uL (0.0-0.8); MONO % 3.4 % (0.0-5.0); NEUTROPHILS # 14.1 10^3/uL (1.8-7.7); PLATELET COUNT, AUTOMATED 213 10^3/uL (150-450); RED BLOOD COUNT 3.55 10^6/uL (4.00-5.40); WHITE BLOOD COUNT 15.3 10^3/uL (4.0-10.0)
[2018-11-04 20:10] LABS: ABG BASE EXCESS 13.3 (-2.0-2.0); ABG HCO3 39.3 MEQ/L (22.0-26.0); ABG O2 SATURATION 96.4 % (95.0-99.0); ABG PARTIAL PRESSURE CO2 58.7 mmHg (35.0-45.0); ABG PARTIAL PRESSURE O2 83.1 mmHg (75.0-100.0); ABG TOTAL CO2 41.1 MEQ/L (23.0-31.0); ABG pH (ARTERIAL) 7.444 UNITS (7.350-7.450)
[2018-11-04 20:20] LABS: BLOOD UREA NITROGEN 76 MG/DL (7-18); CALCIUM LEVEL 8.8 MG/DL (8.8-10.2); CARBON DIOXIDE LEVEL 41 MEQ/L (21-32); CHLORIDE LEVEL 88 MEQ/L (98-107); CPK CREATINE PHOSPHOKINASE 41 U/L (26-192); CREATININE FOR GFR 1.95 MG/DL (0.55-1.30); GLOMERULAR FILTRATION RATE 26.8 (>39); GLUCOSE, FASTING 482 MG/DL (70-100); MB/CK RELATIVE INDEX 3.66 (< OR =4); NT-PRO BNP 209 PG/ML (<125); POTASSIUM SERUM 3.2 MEQ/L (3.5-5.1); SODIUM LEVEL 139 MEQ/L (136-145); TROPONIN I < 0.02 NG/ML (< 0.10)
[2018-11-04] MEDS ORDERED: NS 500 ML IV ONE (20:30)
[2018-11-04] MEDS ORDERED: DEXTROSE 50% 50 ML SYRINGE IV PRN (21:00)
[2018-11-04] MEDS ORDERED: GLUCAGON FOR INJ 1 MG VIAL (J1610) SC PRN (21:00)
[2018-11-04] MEDS ORDERED: GLUCOSE 4 GM CHEW TABLET PO PRN (21:00)
[2018-11-04] MEDS ORDERED: NS 1,000 ML IV SCH (21:00)
[2018-11-04] MEDS ORDERED: MIRA33504 PO (21:14)
[2018-11-04] MEDS ORDERED: METO5TA PO (21:14)
[2018-11-04] MEDS ORDERED: FURO40TA2 PO (21:14)
[2018-11-04] MEDS ORDERED: GLIM4TAB PO (21:14)
[2018-11-04] MEDS ORDERED: PRED10TA2 PO (21:23)
[2018-11-04] MEDS: FORMOTEROL FUMARATE 20 MCG/2 ML INHALATION SOLUTION (PERFOROMIST) INH SCH (21:38)
[2018-11-04] MEDS: BUDESONIDE 0.5 MG/2 ML INHALATION SUSPENSION INH SCH (21:39)
[2018-11-04] MEDS: POTASSIUM CHLORIDE 10 MEQ SR TABLET PO SCH (21:40)
[2018-11-04] MEDS: methylPREDNISolone INJ 40 MG/1 ML VIAL (J2920) IV SCH (21:41)
[2018-11-04] MEDS: IPRATROPIUM 0.5MG/ALBUTEROL 2.5MG INH SOL UD 3ML (DUONEB)(J7620) NEB SCH (23:43)
[2018-11-05] MEDS ORDERED: ACETAMINOPHEN 325 MG TAB As Ordered ONE (00:13)
[2018-11-05] MEDS ORDERED: ACETAMINOPHEN TAB 650MG DOSE (2X325MG) PO ONE (00:15)
[2018-11-05] MEDS: ATORVASTATIN 20 MG TAB PO SCH ×2 (00:16→20:08)
[2018-11-05] MEDS: ALPRAZolam 0.25 MG TAB PO SCH ×3 (00:16→20:08)
[2018-11-05] MEDS: SENOKOT S TAB PO SCH ×2 (00:17→20:09)
[2018-11-05] MEDS: BISACODYL 5 MG TAB PO SCH ×2 (00:17→20:09)
[2018-11-05] MEDS: GABAPENTIN 300 MG CAP PO SCH ×3 (00:17→20:08)
[2018-11-05] MEDS ORDERED: POTASSIUM CHLORIDE 10 MEQ SR TABLET As Ordered ONE (00:19)
[2018-11-05] MEDS: POTASSIUM CHLORIDE 10 MEQ SR TABLET PO SCH (00:21)
[2018-11-05] MEDS: IPRATROPIUM 0.5MG/ALBUTEROL 2.5MG INH SOL UD 3ML (DUONEB)(J7620) NEB SCH ×6 (04:00→23:09)
[2018-11-05 06:21] LABS: HEMATOCRIT 28.2 % (36.0-47.0); HEMOGLOBIN 8.4 g/dl (12.0-15.5); MEAN CORPUSCULAR HEMOGLOBIN 26.8 pg (27.0-33.0); MEAN CORPUSCULAR HGB CONC 29.8 g/dl (32.0-36.5); MEAN CORPUSCULAR VOLUME 90.1 fl (80.0-96.0); PLATELET COUNT, AUTOMATED 187 10^3/uL (150-450); RED BLOOD COUNT 3.13 10^6/uL (4.00-5.40); WHITE BLOOD COUNT 12.6 10^3/uL (4.0-10.0)
[2018-11-05 06:46] LABS: CALCIUM LEVEL 8.4 MG/DL (8.8-10.2); CREATININE FOR GFR 1.58 MG/DL (0.55-1.30); GLOMERULAR FILTRATION RATE 34.1 (>39); POTASSIUM SERUM 4.2 MEQ/L (3.5-5.1)
--- NOTE | 2018-11-05 07:20 | REP ---
Portable chest, 07:59 p.m., single AP view, patient sitting: Comparisons are the PA and lateral chest of 11/25/2016, CT chest of 08/07/2018 and a portable chest of 10/25/2018. There is a large apical epicardial fat pad inferolaterally on the left, unchanged from all prior studies. Lung hunt are clear. Cardiac size normal. Stephanie, mediastinum, skeletal structures are. Impression: Negative portable chest. Electronically Signed by Rolando Paiz MD 11/05/2018 07:12 A
[2018-11-05] MEDS: HumaLOG INSULIN (NovoLOG) PER UNIT SC SCH ×3 (07:32→17:48)
[2018-11-05] MEDS: methylPREDNISolone INJ 40 MG/1 ML VIAL (J2920) IV SCH ×2 (09:22→20:08)
[2018-11-05] MEDS: ASPIRIN 81 MG ENTERIC TAB PO SCH (09:22)
[2018-11-05] MEDS: DOCUSATE SODIUM 100 MG CAP PO SCH (09:22)
[2018-11-05] MEDS: FORMOTEROL FUMARATE 20 MCG/2 ML INHALATION SOLUTION (PERFOROMIST) INH SCH ×2 (10:09→20:30)
[2018-11-05] MEDS: BUDESONIDE 0.5 MG/2 ML INHALATION SUSPENSION INH SCH ×2 (10:09→20:30)
--- NOTE | 2018-11-05 10:57 | HPE ---
DATE OF ADMISSION: 11/04/2018 CHIEF COMPLAINT: Dyspnea on exertion and generalized weakness. HISTORY OF PRESENT ILLNESS: The patient is a 73-year-old female with a significant past medical history of advanced chronic obstructive pulmonary disease (COPD), an forced expiratory volume (FEV1) of 19% as per documentation, chronic respiratory failure on 2 liters of oxygen at home as well as on continuous positive airway pressure (CPAP) at night for obstructive sleep apnea with 4 liters of oxygen bled through. She also has diastolic congestive heart failure (CHF), pulmonary hypertension, cor pulmonale, diabetes, hypertension, hyperlipidemia. The patient was recently admitted to the hospital at [facility] on 10/25/2018, discharged 10/28/2018 for chronic obstructive pulmonary disease (COPD) exacerbation. On followup appointment with her primary care provider she states that she worsening lower extremity edema. Her primary care provider increased her Lasix from 40 to 80. The patient states she had generalized weakness and worsening dyspnea and she fell twice because of feeling weak in general. She fell off her bed. She denies any loss of consciousness. She denies any chest pain. She denies any palpitations. She states her breathing is also progressively worsening. In the emergency room (ER), the patient is moving very little air. She does have acute renal failure with a contraction alkalosis and hypokalemia. She denies any coughing. She denies any fevers or chills. She denies any chest pain. She denies any abdominal pain, constipation, diarrhea or urinary symptoms. PAST MEDICAL HISTORY: See history of the present illness (HPI). PAST SURGICAL HISTORY: She had hysterectomy. HOME MEDICATIONS: As per electronic medical record (EMR): - albuterol - DuoNebs - Xanax - aspirin - Lipitor - Colace - formoterol - Lasix 40 - gabapentin - Levaquin which she recently finished - potassium chloride - Senna - budesonide ALLERGIES: GABAPENTIN, HEPARIN, METFORMIN, NEOMYCIN, LYRICA, and THIMEROSAL. SOCIAL HISTORY: She is a former smoker. Denies alcohol or illicit drug use. FAMILY HISTORY: Family history of heart disease. REVIEW OF SYSTEMS: A 12-point review of systems was completed, all of which were negative except those listed in the history of the present illness. VITAL SIGNS ON ADMISSION: Temperature of 97, pulse of 106, respirations of 22, blood pressure of 164/70, saturating at 93% on room air, 96% on 2 liters nasal cannula. PHYSICAL EXAMINATION: General: She is well nourished, in no apparent distress. Head is normocephalic, atraumatic. Eyes: Extraocular movements are intact. Pupils equal, round, reactive to light. Neck is supple. No jugular venous pressure (JVP). Lungs: Diminished breath sounds. No wheezing. Cardiovascular: Regular rate and rhythm. Normal S1, S2. No murmurs, gallops, or rubs. Abdomen: Soft, nontender, nondistended, positive bowel sounds. No rebound or guarding. Extremities: She has trace edema. She has a hemorrhagic blister on the pretibial area. Neurological: She is alert and oriented (A and O) times three. No focal deficits appreciated on examination. LABORATORIES AND IMAGING COMPLETED IN THE EMERGENCY ROOM: White count of 15.3. The patient recently finished a course of steroids. Hemoglobin and hematocrit (H and H) of 9.6/31, platelet count of 213. Blood gas: 7.44/58/83/39/96. Chemistries: Potassium 3.2, lactate of 4.5, fasting glucose of 42, BUN and creatinine of 76/1.95, baseline creatinine of 1.3, bicarbonate of 41, anion gap of 10. Chest x-ray shows blunting of the left costophrenic angle and scarring, blunting of the left heart border unchanged when compared to prior electrocardiogram (EKG). ASSESSMENT AND PLAN: 1. Acute on chronic renal failure with a contraction alkalosis and hypokalemia likely secondary to diuretic induced. Will hold her diuretics for now. Will also hold her standing potassium supplements when her diuretics are held. Will gently fluid hydrate, trend renal function and will also send urine electrolytes. If no improvement the patient would likely benefit from a renal ultrasound. For worsening dyspnea, this is likely secondary to mild chronic obstructive pulmonary disease (COPD) exacerbation. Will place on standing DuoNebs as well as Solu-Medrol. Insulin sliding scale while on Solu-Medrol. Also likely contributed to by the underlying contraction alkalosis with the acute renal failure. Will continue her continuous positive airway pressure (CPAP) at night with 4 liters of oxygen. The patient is saturating well on room air though she has diminished breath sounds on the examination. For the rest of her chronic medical conditions: 2. Obstructive sleep apnea (ALINE): Continue continuous positive airway pressure (CPAP). 3. Diastolic congestive heart failure (CHF): Diuretics are being held. 4. Diabetes with nephropathy: Continue insulin and gabapentin. 5. Hypertension: Continue home antihypertensive. Lasix held for now. Will also continue her standing inhaler. 6. Hyperlipidemia: We will continue Lipitor. 7. Supportive deep vein thrombosis (DVT) prophylaxis. Sequential compression devices (SCDs) as patient has an allergy to HEPARIN. 8. Gastrointestinal (GI) prophylaxis. Is not indicated. 9. Diet: Cardiac, diabetic, fluid restriction. 10. The patient has a blister on the left lower extremity which can be observed. If it does jamil the patient likely can have daily dressings as per nursing protocol. For now, there appears to be no infection. There is no cellulitis surrounding the hemorrhagic blister on the lower extremity. The patient denies any trauma to that area.
[2018-11-05 14:20] VITALS: BP 160/80
[2018-11-05] MEDS: NS 1,000 ML IV SCH (16:33)
--- NOTE | 2018-11-05 18:18 | REP ---
CHEST, PORTABLE: AP portable view of the chest was performed and compared to prior study of 11/04/2018. Cardiac silhouette is unchanged. There is calcification of the thoracic aorta. There is slight prominence of interstitial markings in the lung bases, stable. There is no acute infiltrate. IMPRESSION: No acute infiltrate. Electronically Signed by Rolando Aguiar MD 11/06/2018 03:56 P
[2018-11-05 22:00] VITALS: BP_SYST 131; BP_SYST 159; BP_DIAS 75; BP_DIAS 76
[2018-11-05] MEDS: ACETAMINOPHEN TAB 650MG DOSE (2X325MG) PO PRN (22:33)
--- NOTE | 2018-11-06 00:42 | ECGEPIP ---
Stationary ECG Study [facility] - ED Test Date: 2018-11-04 Pat Name: CORY CAMPBELL Department: Room: [place] [address] Gender: F Technician Automatic: BRADEN : 1945 Requested By: Arnie Rajput Order Number: [id number] Reading MD: Arnie Charlton Measurements Intervals [place] Rate: 86 P: 70 ND: 145 QRS: 36 QRSD: 101 T: -44 QT: 362 QTc: 435 Interpretive Statements SINUS RHYTHM NONSPECIFIC ST & T-WAVE ABNORMALITY Electronically Signed On 11-06-2018 0:42:26 EST by Arnie Charlton
[2018-11-06] MEDS: IPRATROPIUM 0.5MG/ALBUTEROL 2.5MG INH SOL UD 3ML (DUONEB)(J7620) NEB SCH ×6 (02:58→23:12)
[2018-11-06 06:00] VITALS: BP 154/80
[2018-11-06 06:04] LABS: HEMATOCRIT 29.7 % (36.0-47.0); HEMOGLOBIN 8.6 g/dl (12.0-15.5); MEAN CORPUSCULAR HEMOGLOBIN 26.8 pg (27.0-33.0); MEAN CORPUSCULAR VOLUME 92.5 fl (80.0-96.0); PLATELET COUNT, AUTOMATED 174 10^3/uL (150-450); RED BLOOD COUNT 3.21 10^6/uL (4.00-5.40)
[2018-11-06 06:28] LABS: CALCIUM LEVEL 8.7 MG/DL (8.8-10.2); CREATININE FOR GFR 1.4 MG/DL (0.55-1.30); GLOMERULAR FILTRATION RATE 39.2 (>39); POTASSIUM SERUM 4.3 MEQ/L (3.5-5.1)
[2018-11-06] MEDS: FORMOTEROL FUMARATE 20 MCG/2 ML INHALATION SOLUTION (PERFOROMIST) INH SCH ×2 (08:09→20:00)
[2018-11-06] MEDS: BUDESONIDE 0.5 MG/2 ML INHALATION SUSPENSION INH SCH ×2 (08:09→19:51)
[2018-11-06 08:42] VITALS: BP 136/72
[2018-11-06] MEDS: HumaLOG INSULIN (NovoLOG) PER UNIT SC SCH ×3 (09:02→17:20)
[2018-11-06] MEDS: DOCUSATE SODIUM 100 MG CAP PO SCH (09:03)
[2018-11-06] MEDS: ACETAMINOPHEN TAB 650MG DOSE (2X325MG) PO PRN ×3 (09:03→22:58)
[2018-11-06] MEDS: GABAPENTIN 300 MG CAP PO SCH ×2 (09:03→20:37)
[2018-11-06] MEDS: ASPIRIN 81 MG ENTERIC TAB PO SCH (09:03)
[2018-11-06] MEDS: ALPRAZolam 0.25 MG TAB PO SCH ×2 (09:03→20:37)
[2018-11-06] MEDS: predniSONE 20 MG TAB PO SCH (09:09)
[2018-11-06] MEDS: NS 1,000 ML IV SCH (11:01)
[2018-11-06 14:00] VITALS: BP 153/62
[2018-11-06 15:42] LABS: CALCIUM LEVEL 8.4 MG/DL (8.8-10.2); CREATININE FOR GFR 1.08 MG/DL (0.55-1.30); GLOMERULAR FILTRATION RATE 52.9 (>39); POTASSIUM SERUM 3.9 MEQ/L (3.5-5.1)
--- NOTE | 2018-11-06 17:42 | IPNPDOC ---
Text Note Date of Service The patient was seen on 11/06/18. NOTE Subjective: Patient is a 73-year-old female with a PMHx of COPD (on 2L of O2), ALINE on BIPAP (4L via bleed through), Pulmonary HTN, Diastolic CHF, DLP, DM2, Neuropathy, CKD3, who was admitted from 10/25 to 10/28 for COPD exacerbation. Follow with her primary care provider. Her dose of Lasix was increased from 40 to 80 daily. Upon arrival to the emergency room, patient was complaining of weakness and dyspnea on exertion. In the emergency room, patient was found to have an elevation of her creatinine from her baseline, and had some evidence of wheezing bilaterally. Patient was admitted to the hospital service for acute kidney injury and suspected COPD exacerbation. Patient was seen and examined at the bedside. Currently patient notes that her breathing is doing better. Denies any chest pain, significant short of breath or palpitations. Patient notes that she still experiences a cough, but nothing has changed from her baseline. Denies nausea, vomiting, abdominal pain, constipation, diarrhea or discomfort with urination. Objective: Vitals (See below) General: Lying in bed, no acute distress, comfortable, AAOx3 HEENT: NC, AT CVS: RRR, +S1S2 Lungs: Fair air entry b/l, no significant wheezing can be appreciated on a uscultation. No rhonchi or rales Abdomen: Soft, ND, NT Extremities: - Edema, - Calf tenderness Assessment and plan: CHRIS on CKD3 - likely 2/2 diuresis - Patient baseline creatinine runs around 1.2 - Creatinine on admission of 1.95 - Patient diuretics were discontinued and was given gentle IV fluid hydration - Will likely decrease dose of IV fluids. By this afternoon Shortness of breath - possibly 2/2 acute COPD exacerbation - Patient had described shortness of breath with exertion which is new, with associated cough - however this is unchanged from baseline - Baseline patient uses 2 L of nasal cannula oxygen at nighttime uses 4 L of oxygen via bleed through into her BiPAP - Auscultation and revealed wheezing initially, however, there is been some improvement - Blood cultures 11/04: No growth at 24 hours - CXR 11/04: Negative portable chest. - CXR 11/05: No acute infiltrate. - Will transition to Prednisone today; Will DC Solumedrol - c/w Inhaled therapy as ordered Leukocytosis - likely 2/2 corticosteroids - Remains afebrile - Will continue to follow - Will refrain from starting antibiotics Normocytic anemia - Hemoglobin baseline of 9-10 - Hg this morning appears to be slightly lower, however this can be dilutional in etiology - No reported bleeding - Will repeat hemoglobin after discontinuing IV fluids ALINE on BIPAP (4L via bleed through) Pulmonary HTN / Diastolic CHF DLP - c/w Atorvastatin and ASA 81 DM2 - c/w ISS Neuropathy - c/w Gabapentin Anxiety - c/w Alprazolam DVT prophylaxis - c/w SCDs (re: Heparin allergy) VS,Fishbone, I+O VS, Fishbone, I+O Laboratory Tests 11/06/18 05:47 Red Blood Count 3.21 L, Mean Corpuscular Volume 92.5, Mean Corpuscular Hemoglobin 26.8 L, Mean Corpuscular Hemoglobin Concent 29.0 L, Red Cell Distribution Width 18.2 H, Calcium Level 8.7 L 11/06/18 14:57 Calcium Level 8.4 L Vital Signs Date Time Temp Pulse Resp B/P (MAP) Pulse Ox O2 Delivery O2 Flow Rate FiO2 11/06/18 14:00 97.1 88 19 153/62 (92) 95 2.0 11/05/18 20:22 Nasal Cannula I&O- Last 24 Hours up to 6 AM 11/06/18 06:00 Intake Total 750 ml Output Total 1675 ml Balance -925 ml EL ALBARADO MD Nov 06, 2018 17:42
[2018-11-06] MEDS: ATORVASTATIN 20 MG TAB PO SCH (20:36)
[2018-11-06] MEDS: BISACODYL 5 MG TAB PO SCH (20:37)
[2018-11-06] MEDS: SENOKOT S TAB PO SCH (20:37)
[2018-11-06] MEDS ORDERED: HumaLOG INSULIN (NovoLOG) PER UNIT SC SCH (21:00)
[2018-11-06 22:00] VITALS: BP 133/73
[2018-11-07] MEDS: IPRATROPIUM 0.5MG/ALBUTEROL 2.5MG INH SOL UD 3ML (DUONEB)(J7620) NEB SCH ×2 (03:55→04:34)
[2018-11-07 06:00] VITALS: BP 134/72
[2018-11-07 06:06] LABS: HEMOGLOBIN 8.8 g/dl (12.0-15.5); MEAN CORPUSCULAR HEMOGLOBIN 26.8 pg (27.0-33.0); MEAN CORPUSCULAR HGB CONC 29.3 g/dl (32.0-36.5); MEAN CORPUSCULAR VOLUME 91.5 fl (80.0-96.0); PLATELET COUNT, AUTOMATED 161 10^3/uL (150-450); RED BLOOD COUNT 3.28 10^6/uL (4.00-5.40)
[2018-11-07 06:34] LABS: BLOOD UREA NITROGEN 41 MG/DL (7-18); CALCIUM LEVEL 8.3 MG/DL (8.8-10.2); CARBON DIOXIDE LEVEL 40 MEQ/L (21-32); CHLORIDE LEVEL 99 MEQ/L (98-107); CREATININE FOR GFR 0.88 MG/DL (0.55-1.30); GLOMERULAR FILTRATION RATE > 60.0 (>39); GLUCOSE, FASTING 172 MG/DL (70-100); POTASSIUM SERUM 3.3 MEQ/L (3.5-5.1); SODIUM LEVEL 141 MEQ/L (136-145)
[2018-11-07] MEDS: BUDESONIDE 0.5 MG/2 ML INHALATION SUSPENSION INH SCH (07:24)
[2018-11-07] MEDS: FORMOTEROL FUMARATE 20 MCG/2 ML INHALATION SOLUTION (PERFOROMIST) INH SCH (07:24)
[2018-11-07] MEDS: HumaLOG INSULIN (NovoLOG) PER UNIT SC SCH (07:35)
[2018-11-07] MEDS ORDERED: POTASSIUM CHLORIDE 10 MEQ SR TABLET PO ONE (07:45)
[2018-11-07] MEDS ORDERED: PRED10TA2 PO (07:59)
[2018-11-07] MEDS ORDERED: FURO40TA2 PO (07:59)
[2018-11-07] MEDS: DOCUSATE SODIUM 100 MG CAP PO SCH (08:32)
[2018-11-07] MEDS: predniSONE 20 MG TAB PO SCH (08:32)
[2018-11-07] MEDS: ALPRAZolam 0.25 MG TAB PO SCH (08:32)
[2018-11-07] MEDS: GABAPENTIN 300 MG CAP PO SCH (08:33)
[2018-11-07] MEDS: ASPIRIN 81 MG ENTERIC TAB PO SCH (08:38)
[2018-11-07] MEDS ORDERED: FUROSEMIDE 40 MG TAB PO SCH (09:00)
--- NOTE | 2018-11-07 10:48 | DS.PDOC ---
Discharge Summary General Date of Admission Nov 04, 2018 at 20:54 Date of Discharge 11/07/18 Discharge Summary PROCEDURES PERFORMED DURING STAY: [None]. ADMITTING DIAGNOSES / DISCHARGE DIAGNOSES: s/p CHRIS on CKD3 - likely 2/2 diuresis Shortness of breath - possibly 2/2 acute COPD exacerbation Leukocytosis - likely 2/2 corticosteroids Normocytic anemia ALINE on BIPAP (4L via bleed through) Pulmonary HTN / Diastolic CHF DLP DM2 Neuropathy Anxiety DVT prophylaxis COMPLICATIONS/CHIEF COMPLAINT: Acute On Chronic Renal Failure. HISTORY OF PRESENT ILLNESS: Patient is a 73-year-old female with a PMHx of COPD (on 2L of O2), ALINE on BIPAP (4L via bleed through), Pulmonary HTN, Diastolic CHF, DLP, DM2, Neuropathy, CKD3, who was admitted from 10/25 to 10/28 for COPD exacerbation. Follow with her primary care provider. Her dose of Lasix was increased from 40 to 80 daily. Upon arrival to the emergency room, patient was complaining of weakness and dyspnea on exertion. In the emergency room, patient was found to have an elevation of her creatinine from her baseline, and had some evidence of wheezing bilaterally. Patient was admitted to the hospital service for acute kidney injury and suspected COPD exacerbation. HOSPITAL COURSE: s/p CHRIS on CKD3 - likely 2/2 diuresis - Dose of diuretics were adjusted and outpatient - Patient baseline creatinine runs around 1.2 - Creatinine on admission of 1.95; has improved to better than baseline - s/p IV fluids - We'll resume diuretics at a lower dose today Shortness of breath - possibly 2/2 acute COPD exacerbation - Patient had described shortness of breath with exertion which is new, with associated cough - however this is unchanged from baseline - Baseline patient uses 2 L of nasal cannula oxygen at nighttime uses 4 L of oxygen via bleed through into her BiPAP - Auscultation and revealed wheezing initially, however, there is been some improvement - Blood cultures 11/04: No growth at 24 hours - CXR 11/04: Negative portable chest. - CXR 11/05: No acute infiltrate. - c/w Prednisone - will provide taper; s/p Solumedrol - c/w Inhaled therapy as ordered Leukocytosis - likely 2/2 corticosteroids - Remains afebrile - Will continue to follow - Will refrain from starting antibiotics Normocytic anemia - Hemoglobin baseline of 9-10 - Hg remains stable - No reported bleeding ALINE on BIPAP (4L via bleed through) Pulmonary HTN / Diastolic CHF - No evidence of fluid overload - ECHO 06/2018: G1DD, Preserved EF - Will resume furosemide; continue with 40 twice a day dosing; discontinue metolazone DLP - c/w Atorvastatin and ASA 81 DM2 - c/w ISS Neuropathy - c/w Gabapentin Anxiety - c/w Alprazolam DVT prophylaxis - c/w SCDs (re: Heparin allergy) DISCHARGE MEDICATIONS: Please see below. ALLERGIES: Please see below. PHYSICAL EXAMINATION ON DISCHARGE: Vitals (See below) General: Lying in bed, no acute distress, comfortable, AAOx3 HEENT: NC, AT CVS: RRR, +S1S2 Lungs: Fair air entry b/l, upon auscultation data does not appear to be any evidence of rhonchi, rales or wheezing Abdomen: Abdomen remains soft, nontender and nondistended Extremities: LEd without evidence of edema, - Calf tenderness LABORATORY DATA: Please see below. ACTIVITY: [As tolerated]. DISCHARGE PLAN: Follow-up with Dr. Karishma Santamaria within the next 7 days Remain compliant with treatment plan and medications Outpatient lab work on Friday (11/09) to evaluate renal function; result to be forwarded to PCP Return to the ER if you experience any problems DISPOSITION: Home with services DISCHARGE CONDITION: [Stable]. TIME SPENT ON DISCHARGE: Greater than [35] minutes. Vital Signs/I&Os Vital Signs Date Time Temp Pulse Resp B/P (MAP) Pulse Ox O2 Delivery O2 Flow Rate FiO2 11/07/18 08:30 2.0 11/07/18 06:00 97.4 74 19 134/72 (92) 98 11/05/18 20:22 Nasal Cannula I&O- Last 24 Hours up to 6 AM 11/07/18 06:00 Intake Total 1830 ml Output Total 2150 ml Balance -320 ml Laboratory Data Labs 24H Laboratory Tests 2 11/06/18 11:40: Bedside Glucose (Misc Panel) 210H 11/06/18 12:16: Bedside Glucose (Misc Panel) 193H 11/06/18 14:57: Anion Gap 5L, Glomerular Filtration Rate 52.9, Blood Urea Nitrogen 47H, Creatinine 1.08, Sodium Level 137, Potassium Level 3.9, Chloride Level 97L, Carbon Dioxide Level 35H, Calcium Level 8.4L 11/06/18 16:51: Bedside Glucose (Misc Panel) 274H 11/06/18 21:47: Bedside Glucose (Misc Panel) 303H 11/07/18 05:49: Nucleated Red Blood Cells % (auto) 0.2H, Anion Gap 2L, Glomerular Filtration Rate > 60.0, Blood Urea Nitrogen 41H, Creatinine 0.88, Sodium Level 141, Pot assium Level 3.3L, Chloride Level 99, Carbon Dioxide Level 40H, Calcium Level 8.3L CBC/BMP Laboratory Tests 11/06/18 14:57 Calcium Level 8.4 L 11/07/18 05:49 Calcium Level 8.3 L, Red Blood Count 3.28 L, Mean Corpuscular Volume 91.5, Mean Corpuscular Hemoglobin 26.8 L, Mean Corpuscular Hemoglobin Concent 29.3 L, Red Cell Distribution Width 18.1 H FSBS Laboratory Tests Test 11/06/18 11:40 11/06/18 12:16 11/06/18 16:51 11/06/18 21:47 Range/Units Bedside Glucose (Misc Panel) 210 193 274 303 83-110 MG/DL Microbiology Microbiology 11/04/18 Blood Culture - Preliminary, Resulted No Growth after 48 hours. All Specime... 11/04/18 Blood Culture - Preliminary, Resulted No Growth after 48 hours. All Specime... Discharge Medications Scheduled Acetaminophen (Tylenol Extra Strength) 500 Mg Tab, 1,000 MG PO BID, (Reported) Alprazolam (Alprazolam) 0.25 Mg Tab, 0.25 MG PO BID, (Reported) Aspirin (Aspirin 81) 81 Mg Tab, 81 MG PO DAILY, (Reported) Atorvastatin Calcium (Atorvastatin Calcium) 40 Mg Tab, 40 MG PO QHS, (Reported) Bisacodyl (Dulcolax) 5 Mg Tab, 5 MG PO QHS, (Reported) Budesonide (Budesonide) 0.5 Mg/2 Ml Neb, 1 DOSE INH BID, (Reported) Docusate Sodium (Colace) 100 Mg Cap, 100 MG PO DAILY, (Reported) Formoterol Fumarate Dihydrate (Perforomist) 20 Mcg/2 Ml Neb, 1 DOSE INH BID, (Reported) Furosemide (Furosemide) 40 Mg Tab, 40 MG PO BID Gabapentin (Gabapentin) 300 Mg Cap, 300 MG PO BID, (Reported) Glimepiride (Glimepiride) 4 Mg Tab, 4 MG PO DAILY, (Reported) Potassium Chloride (Potassium Chloride Cr) 10 Meq Tab, 30 MEQ PO TID, (Reported) TAKES BREAKFAST, SUPPER AND QHS Prednisone (Prednisone) 10 Mg Tab, 10 MG PO TAPER Take 4 tabs daily x 3 days, then 3 tabs daily x 3 days, then 2 tabs daily x 3 days, then 1 tab daily x 3 days and stop Senna (Senokot) 8.6 Mg Tab, 8.6 MG PO QHS, (Reported) Scheduled PRN Albuterol Sulfate (Proair Hfa) 108 Mcg/Act Aer, 2 PUFF INH Q4H PRN for SHORTNESS OF BREATH, (Reported) Albuterol/Ipratropium (Ipratropium [place]/Albut 0.5-2.5 (3) mg/3Ml) 1 Lupe Lupe, 1 DOSE INH Q4H PRN for SHORTNESS OF BREATH, (Reported) Polyethylene Glycol (Miralax) 1 Pow Pow, 17 GM PO DAILY PRN for CONSTIPATION, (Reported) Allergies Coded Allergies: Metformin (Verified Allergy, Mild, 11/26/16) Neomycin (Unverified Allergy, Unknown, 04/03/18) PATIENT STATES SHE IS NOT ALLERGIC - ON CURRENT MED LIST Thimerosal (Unverified Allergy, Unknown, 11/26/16) Heparin (Verified Adverse Reaction, Severe, THROMBOCYTOPENIA, 11/26/16) FROM [facility] RECORDS Gabapentin (Verified Adverse Reaction, Mild, WEAKNESS, 03/12/18) Per Patient this is a medication she takes at home Pregabalin (Verified Adverse Reaction, Mild, SHAKY, 05/17/18) EL ALBARADO MD Nov 07, 2018 10:48
== END 2018-11-07 10:30 | disposition home health service (06) | DRG 683 ==
LOC: M ED 18:52 → M ED INP 20:54 → M MS5PR 11-05 14:10
PROVIDERS: ADMIT Internal Medicine; ATTEND Internal Medicine
DX: N17.9 Acute kidney failure, unspecified (principal); I50.32 Chronic diastolic (congestive) heart failure; J44.1 Chronic obstructive pulmonary disease with (acute) exacerbation; J96.10 Chronic respiratory failure, unspecified whether with hypoxia or hypercapnia; E87.3 Alkalosis; I13.0 Hypertensive heart and chronic kidney disease with heart failure and stage 1 through stage 4 chronic kidney disease, or unspecified chronic kidney disease; D72.829 Elevated white blood cell count, unspecified; G47.33 Obstructive sleep apnea (adult) (pediatric); F41.9 Anxiety disorder, unspecified; E11.40 Type 2 diabetes mellitus with diabetic neuropathy, unspecified; I27.20 Pulmonary hypertension, unspecified; D50.9 Iron deficiency anemia, unspecified; N18.3 Chronic kidney disease, stage 3 (moderate); Z79.899 Other long term (current) drug therapy; Z79.82 Long term (current) use of aspirin; Z88.8 Allergy status to other drugs, medicaments and biological substances; I27.81 Cor pulmonale (chronic); Z87.891 Personal history of nicotine dependence; E87.6 Hypokalemia; E87.5 Hyperkalemia

== ENCOUNTER 2019-02-27 09:47 | Emergency (ER) | payer MEDICARE ==
[~2019-02-27] VITALS: Ht 157.5 cm; Wt 85.1 kg
[~2019-02-27 09:47] MED LIST changes: +ASPI-1 PO; -ASPI1TAB PO; -ASPI325T PO; +ASPI81TA26 PO; +MIRA33504 PO
[2019-02-27] MEDS ORDERED: PARO5TAB (10:22)
[2019-02-27] MEDS ORDERED: BACL10TA2 (10:22)
[2019-02-27 10:24] LABS: ABG BASE EXCESS 15.7 (-2.0-2.0); ABG HCO3 42.6 MEQ/L (22.0-26.0); ABG O2 SATURATION 98.5 % (95.0-99.0); ABG PARTIAL PRESSURE O2 118.9 mmHg (75.0-100.0); ABG STANDARD HCO3 39.7 MEQ/L (22.0-26.0); ABG TOTAL CO2 44.6 MEQ/L (23.0-31.0); ABG pH (ARTERIAL) 7.444 UNITS (7.350-7.450)
[2019-02-27 10:27] LABS: ABG PARTIAL PRESSURE CO2 63.6 mmHg (35.0-45.0)
--- NOTE | 2019-02-27 10:28 | REP ---
Chest one-view HISTORY: Cough Comparison: 11/05/2018 The lungs are clear. The heart is normal in size. The pulmonary vasculature is normal in appearance. Impression: No acute disease. Electronically Signed by Dionicio Zapien MD 02/27/2019 10:20 A
[2019-02-27 10:29] LABS: BASO % 0.4 % (0.0-1.0); EOS # 0.1 10^3/uL (0.0-0.50); EOS % 0.8 % (0.0-3.0); HEMATOCRIT 39.8 % (36.0-47.0); HEMOGLOBIN 11.8 g/dl (12.0-15.5); LYMPH # 1.4 10^3/uL (1.5-4.5); LYMPH % 13.1 % (24.0-44.0); MEAN CORPUSCULAR HEMOGLOBIN 27.3 pg (27.0-33.0); MEAN CORPUSCULAR HGB CONC 29.6 g/dl (32.0-36.5); MEAN CORPUSCULAR VOLUME 92.1 fl (80.0-96.0); MONO # 0.7 10^3/uL (0.0-0.8); MONO % 6.7 % (0.0-5.0); NEUTROPHILS # 8.5 10^3/uL (1.8-7.7); NEUTROPHILS % 77.5 % (36.0-66.0); PLATELET COUNT, AUTOMATED 198 10^3/uL (150-450); RED BLOOD COUNT 4.32 10^6/uL (4.00-5.40)
[2019-02-27] MEDS ORDERED: FUROSEMIDE 40 MG TAB PO ONE (10:45)
[2019-02-27] MEDS ORDERED: PARoxetine 10MG TABLET PO ONE (10:45)
[2019-02-27] MEDS ORDERED: GABAPENTIN 300 MG CAP PO ONE (10:45)
[2019-02-27] MEDS ORDERED: predniSONE 20 MG TAB PO ONE (10:45)
[2019-02-27] MEDS ORDERED: ASPIRIN 81 MG CHEW TABLET PO ONE (10:45)
[2019-02-27] MEDS ORDERED: BACLOFEN 10 MG TAB PO ONE (10:45)
[2019-02-27] MEDS ORDERED: ALPRAZolam 0.25 MG TAB PO ONE (10:45)
[2019-02-27] MEDS ORDERED: POTASSIUM CHLORIDE 10 MEQ SR TABLET PO ONE (10:45)
[2019-02-27] MEDS ORDERED: GLIMEPIRIDE 2 MG TAB PO ONE (11:00)
[2019-02-27 11:12] LABS: ALBUMIN 3.2 GM/DL (3.2-5.2); ALT/SGPT 30 U/L (12-78); BILIRUBIN,DIRECT < 0.1 MG/DL (0.0-0.2); BILIRUBIN,TOTAL 0.2 MG/DL (0.2-1.0); BLOOD UREA NITROGEN 25 MG/DL (7-18); CALCIUM LEVEL 9.3 MG/DL (8.8-10.2); CARBON DIOXIDE LEVEL 43 MEQ/L (21-32); CHLORIDE LEVEL 97 MEQ/L (98-107); CPK CREATINE PHOSPHOKINASE 59 U/L (26-192); GLOMERULAR FILTRATION RATE 42.6 (>39); GLUCOSE, FASTING 83 MG/DL (70-100); MB/CK RELATIVE INDEX 3.39 (< OR =4); NT-PRO BNP 150 PG/ML (<125); POTASSIUM SERUM 3.8 MEQ/L (3.5-5.1); SODIUM LEVEL 144 MEQ/L (136-145); THYROXINE (T4) 8.8 UG/DL (4.5-12.0); TOTAL PROTEIN 7.1 GM/DL (6.4-8.2); TROPONIN I < 0.02 NG/ML (< 0.10)
[2019-02-27] MEDS ORDERED: FUROSEMIDE 40 MG/4 ML VIAL (J1940) IV ONE (11:30)
[2019-02-27 12:44] VITALS: BP 161/58
--- NOTE | 2019-02-27 21:55 | ECGEPIP ---
[facility] - ED Test Date: 2019-02-27 Pat Name: CORY CAMPBELL Department: Room: - Gender: Female [facility] Assistant Director: TC : 1945 Requested By: Arnie Rajput Order Number: [id number] Reading MD: Campbell Fields Measurements Intervals [place] Rate: 81 P: 74 [place]: 137 QRS: 50 QRSD: 82 T: 58 QT: 338 QTc: 393 Interpretive Statements SINUS RHYTHM Nonspecific ST-T wave abnormalities Baseline artifact Electronically Signed on 02-27-2019 21:54:43 EDT by Campbell Fields
== END 2019-02-27 12:55 | disposition home or self-care (01) ==
LOC: M ED 09:47
DX: R60.0 Localized edema (principal); Z91.19 Patient's noncompliance with other medical treatment and regimen; I50.9 Heart failure, unspecified; I13.0 Hypertensive heart and chronic kidney disease with heart failure and stage 1 through stage 4 chronic kidney disease, or unspecified chronic kidney disease; J44.9 Chronic obstructive pulmonary disease, unspecified; G47.33 Obstructive sleep apnea (adult) (pediatric); N18.3 Chronic kidney disease, stage 3 (moderate); I27.20 Pulmonary hypertension, unspecified; Z87.891 Personal history of nicotine dependence; Z88.8 Allergy status to other drugs, medicaments and biological substances; Z88.7 Allergy status to serum and vaccine; Z79.899 Other long term (current) drug therapy; Z79.52 Long term (current) use of systemic steroids; Z79.82 Long term (current) use of aspirin; Z99.81 Dependence on supplemental oxygen

== ENCOUNTER 2019-03-02 03:18 | Inpatient (IN) | payer MEDICARE ==
[~2019-03-02] VITALS: Ht 154.9 cm; Wt 84.1 kg
[~2019-03-02 03:18] MED LIST changes: +BACL10TA2; +PARO5TAB
[2019-03-02] MEDS ORDERED: PRED20TA PO (03:29)
[2019-03-02 04:13] LABS: BASO % 0.4 % (0.0-1.0); EOS # 0.1 10^3/uL (0.0-0.50); EOS % 0.5 % (0.0-3.0); HEMATOCRIT 39.3 % (36.0-47.0); HEMOGLOBIN 11.4 g/dl (12.0-15.5); LYMPH # 1.6 10^3/uL (1.5-4.5); LYMPH % 13.9 % (24.0-44.0); MEAN CORPUSCULAR HEMOGLOBIN 27.2 pg (27.0-33.0); MEAN CORPUSCULAR VOLUME 93.8 fl (80.0-96.0); MONO # 0.6 10^3/uL (0.0-0.8); MONO % 5.4 % (0.0-5.0); NEUTROPHILS # 8.9 10^3/uL (1.8-7.7); NEUTROPHILS % 78.4 % (36.0-66.0); PLATELET COUNT, AUTOMATED 183 10^3/uL (150-450); RED BLOOD COUNT 4.19 10^6/uL (4.00-5.40); VENOUS BASE EXCESS 8.6 (-2.0-2.0); VENOUS HCO3 36.5 MEQ/L (23.0-27.0); VENOUS O2 SATURATION 87.8 % (60.0-80.0); VENOUS PARTIAL PRESSURE CO2 67.8 mmHg (38.0-50.0); VENOUS PARTIAL PRESSURE O2 56.4 mmHg (30.0-50.0); VENOUS PH 7.349 UNITS (7.330-7.430); VENOUS STANDARD HCO3 32.2 MEQ/L; VENOUS TOTAL CO2 38.6 MEQ/L (24.0-28.0); WHITE BLOOD COUNT 11.4 10^3/uL (4.0-10.0)
[2019-03-02] MEDS ORDERED: dexameTHASONE 20 MG/5 ML VIAL (J1100) IV ONE (04:30)
[2019-03-02] MEDS ORDERED: NITROGLYCERIN 2% OINT 1 GM *U/D* PKT TOP ONE (04:30)
[2019-03-02] MEDS ORDERED: FUROSEMIDE 100 MG/10 ML VIAL (J1940) IV ONE (04:30)
[2019-03-02] MEDS: IPRATROPIUM 0.5MG/ALBUTEROL 2.5MG INH SOL UD 3ML (DUONEB)(J7620) NEB SCH ×6 (04:33→19:34)
[2019-03-02 04:42] VITALS: BP 183/84
[2019-03-02 05:03] LABS: ALBUMIN 3.2 GM/DL (3.2-5.2); ALT/SGPT 32 U/L (12-78); BILIRUBIN,DIRECT < 0.1 MG/DL (0.0-0.2); BILIRUBIN,TOTAL 0.1 MG/DL (0.2-1.0); BLOOD UREA NITROGEN 31 MG/DL (7-18); CALCIUM LEVEL 8.6 MG/DL (8.8-10.2); CARBON DIOXIDE LEVEL 39 MEQ/L (21-32); CHLORIDE LEVEL 102 MEQ/L (98-107); CPK CREATINE PHOSPHOKINASE 170 U/L (26-192); CREATININE FOR GFR 1.23 MG/DL (0.55-1.30); GLOMERULAR FILTRATION RATE 45.4 (>39); GLUCOSE, FASTING 68 MG/DL (70-100); MB/CK RELATIVE INDEX 2.35 (< OR =4); NT-PRO BNP 112 PG/ML (<125); POTASSIUM SERUM 3.9 MEQ/L (3.5-5.1); SODIUM LEVEL 145 MEQ/L (136-145); THYROXINE (T4) 6.7 UG/DL (4.5-12.0); TOTAL PROTEIN 6.5 GM/DL (6.4-8.2); TROPONIN I < 0.02 NG/ML (< 0.10)
[2019-03-02] MEDS ORDERED: ACET-897 PO (05:33)
[2019-03-02] MEDS ORDERED: BACL10TA2 PO (05:33)
[2019-03-02] MEDS ORDERED: BUDE0.5S6 INH (05:33)
[2019-03-02] MEDS ORDERED: D-20TAB PO (05:33)
[2019-03-02] MEDS ORDERED: PARO10TA3 PO (05:33)
[2019-03-02] MEDS ORDERED: MIRA1POW3 PO (05:33)
[2019-03-02] MEDS ORDERED: FURO40TA2 PO (05:33)
[2019-03-02] MEDS ORDERED: PRED10TA2 PO (05:33)
[2019-03-02] MEDS ORDERED: PERF20NE2 INH (05:33)
[2019-03-02] MEDS ORDERED: BACLOFEN 10 MG TAB PO PRN (07:30)
[2019-03-02] MEDS ORDERED: methylPREDNISolone INJ 125 MG/2 ML VIAL (J2930) IV SCH (08:00)
--- NOTE | 2019-03-02 08:19 | ECGEPIP ---
[facility] - ED Test Date: 2019-03-02 Pat Name: CORY CAMPBELL Department: Room: - Gender: Female Coverage Analyst: : 1945 Requested By: KELIN MCKINLEY Order Number: [id number] Reading MD: Arnie Charlton Measurements Intervals [place] Rate: 79 P: 93 [place]: 136 QRS: 46 QRSD: 81 T: 60 QT: 352 QTc: 404 Interpretive Statements SINUS RHYTHM BENIGN EARLY REPOLARIZATION Electronically Signed on 03-02-2019 8:18:59 EDT by Arnie Charlton
--- NOTE | 2019-03-02 08:47 | REP ---
Portable chest x-ray: Single view. History: Dyspnea and cough. Comparison study: February 27, 2019. Findings: EKG monitoring electrodes overlie the chest. Heart size is normal. There is some pleuroparenchymal fibrosis in the left base which is unchanged from November 05, 2018. No new infiltrate is seen. Pulmonary vasculature is not increased. Pleural angles are otherwise sharp. Impression: No acute disease. The left base pleuroparenchymal fibrosis. Electronically Signed by Tony Mccoy MD 03/02/2019 08:39 A
[2019-03-02] MEDS ORDERED: FUROSEMIDE 40 MG TAB PO SCH (09:00)
[2019-03-02] MEDS ORDERED: GLUCAGON FOR INJ 1 MG VIAL (J1610) SC PRN (09:00)
[2019-03-02] MEDS ORDERED: DEXTROSE 50% 50 ML SYRINGE IV PRN (09:00)
[2019-03-02] MEDS ORDERED: GLUCOSE 4 GM CHEW TABLET PO PRN (09:00)
[2019-03-02] MEDS: FORMOTEROL FUMARATE 20 MCG/2 ML INHALATION SOLUTION (PERFOROMIST) INH SCH ×2 (09:42→19:34)
[2019-03-02 10:15] VITALS: BP 143/68
[2019-03-02] MEDS: ASPIRIN 81 MG ENTERIC TAB PO SCH (10:51)
[2019-03-02] MEDS: DOCUSATE SODIUM 100 MG CAP PO SCH ×2 (10:51→20:08)
[2019-03-02] MEDS: ALPRAZolam 0.25 MG TAB PO SCH ×3 (10:51→20:08)
[2019-03-02] MEDS: GABAPENTIN 300 MG CAP PO SCH ×2 (10:51→20:08)
[2019-03-02] MEDS: VITAMIN D 1,000 INTERNATIONAL UNITS TABLET PO SCH (10:51)
[2019-03-02] MEDS: HumaLOG INSULIN (NovoLOG) PER UNIT SC SCH ×3 (11:47→20:09)
[2019-03-02] MEDS: methylPREDNISolone INJ 125 MG/2 ML VIAL (J2930) IV SCH ×2 (11:48→20:09)
[2019-03-02 14:00] VITALS: BP 139/62
--- NOTE | 2019-03-02 15:09 | HPEPDOC ---
General Date of Admission Mar 02, 2019 at 08:58 Date of Service: Mar 02, 2019 Chief Complaint The patient is a 74-year-old female who presented to the ER with complaints of shortness of breath History of Present Illness Patient is a 74-year-old female with a PMHx of COPD on 2L O2, ALINE on CPAP, Diastolic CHF, Pulmonary HTN, DLP, DM2, CKD3, Neuropathy, Anxiety , who presented to the ER with complaint of short of breath. Patient has reported that shes been short of breath with exertion. She denies any significant cough. She denies chest pain or palpitations. Reports that she does feel weak and lightheaded. Denies any fevers but does report an episode of significant sweating overnight. Patient does report chills. Reports that her lower extremities do appear tighter than usual. Patient denies nausea, vomiting, abdominal pain, constipation, diarrhea, or urinary discomfort. Patient reports that her weight has been fairly consistent and reports that her appetite is decent. Home Medications Scheduled Acetaminophen (Tylenol Extra Strength) 500 Mg Tablet, 1,000 MG PO BID, (Reported) Alprazolam (Alprazolam) 0.25 Mg Tab, 0.25 MG PO TID, (Reported) MORNING, DINNER, QHS Aspirin (Aspirin EC) 81 Mg Tab, 81 MG PO DAILY, (Reported) Atorvastatin Calcium (Atorvastatin Calcium) 40 Mg Tab, 40 MG PO QHS, (Reported) Bisacodyl (Dulcolax) 5 Mg Tab, 5 MG PO QHS, (Reported) Budesonide (Budesonide) 0.5 Mg/2 Ml Ampul.neb, 0.5 MG INH BID, (Reported) Cholecalciferol (Vitamin D3) (Vitamin D3) 2,000 Unit Tablet, 2,000 UNIT PO DAILY, (Reported) Docusate Sodium (Colace) 100 Mg Cap, 100 MG PO BID, (Reported) Formoterol Fumarate (Perforomist) 20 Mcg/2 Ml Vial.neb, 20 MCG INH BID, (Reported) Furosemide (Furosemide) 40 Mg Tablet, 40 MG PO BID, (Reported) Gabapentin (Gabapentin) 300 Mg Cap, 300 MG PO BID, (Reported) BREAKFAST AND DINNER Glimepiride (Glimepiride) 4 Mg Tab, 4 MG PO DAILY, (Reported) Paroxetine HCl (Paroxetine) 10 Mg Tablet, 20 MG PO DAILY, (Reported) Potassium Chloride (Potassium Chloride) 10 Meq Tab, 30 MEQ PO TID, (Reported) TAKES BREAKFAST, SUPPER AND QHS Prednisone (Prednisone) 10 Mg Tablet, 20 MG PO DAILY, (Reported) Sennosides (Senokot) 8.6 Mg Tab, 8.6 MG PO QHS, (Reported) Scheduled PRN Albuterol Sulfate (Proair Hfa) 108 Mcg/Act Aer, 2 PUFF INH Q4H PRN for SHORTNESS OF BREATH, (Reported) Baclofen (Baclofen) 10 Mg Tablet, 10 MG PO TID PRN for MUSCLE SPASMS, (Reported) Ipratropium/Albuterol Sulfate (Iprat-Albut 0.5-3(2.5) mg/3 ml) 1 Lupe Lupe, 1 DOSE INH Q4H PRN for SHORTNESS OF BREATH, (Reported) Polyethylene Glycol 3350 (Miralax) 17 Gm Powd.pack, 17 GM PO DAILY PRN for CONSTIPATION, (Reported) Allergies Coded Allergies: influenza virus vaccine ts [id number] (5 yr, up) (Verified Allergy, Unknown, 02/27/19) metformin (Verified Allergy, Unknown, 02/27/19) gabapentin (Verified Adverse Reaction, Intermediate, WEAKNESS, 03/02/19) heparin (Verified Adverse Reaction, Intermediate, BLEEDING, 03/02/19) pregabalin (Verified Adverse Reaction, Intermediate, WEAKNESS, 03/02/19) Past Medical History Medical History COPD on 2L O2, ALINE on CPAP, Diastolic CHF, Pulmonary HTN, DLP, DM2, CKD3, Neuropathy, Anxiety Surgical History Patient only reports a hysterectomy Family History - Mother and father with history of heart disease Social History - Denies the use of alcohol or illicit drugs; patient reports that she quit smoking 1 year ago but was a smoker of greater than 40 years prior - Denies recent travel or sick contacts - Lives with son and his girlfriend; noted her boyfriend <1 year ago - Occupation; patient reports that she worked at [employer] Review of Systems Other systems 10 point review of systems complete, all negative otherwise stated in HPI Vital Signs - Vitals: BP 139/62, HR 89, RR 20, Sat 96%NC2.5L, Temp 98.1F - General: Lying in bed, does not appear to be in any acute distress, is able to speak in full sentences, AAOx3 - HEENT: NC, AT, PERRLA, EOMI - CVS: RRR, +S1S2, - Murmurs / rubs / gallops - Lungs: Poor inspiratory effort bilaterally with diminished breath sounds throughout, however, there does not appear to be any auscultated rhonchi, rales or wheezing - Abdomen: Soft, Non-distended, Non-tender - Extremities: Trace pitting edema, No calf tenderness - Neuro: No focal motor or sensory deficit - Skin: No visible rashes Laboratory Data Labs 24H Laboratory Tests 2 03/02/19 04:04: Immature Granulocyte % (Auto) 1.4, White Blood Count 11.4H, Red Blood Count 4.19, Hemoglobin 11.4L, Hematocrit 39.3, Mean Corpuscular Volume 93.8, Mean Corpuscular Hemoglobin 27.2, Mean Corpuscular Hemoglobin Concent 29.0L, Red Cell Distribution Width 17.3H, Platelet Count 183, Neutrophils (%) (Auto) 78.4H, Lymphocytes (%) (Auto) 13.9L, Monocytes (%) (Auto) 5.4H, Eosinophils (%) (Auto) 0.5, Basophils (%) (Auto) 0.4, Neutrophils # (Auto) 8.9H, Lymphocytes # (Auto) 1.6, Monocytes # (Auto) 0.6, Eosinophils # (Auto) 0.1, Basophils # (Auto) 0.0, Nucleated Red Blood Cells % (auto) 0.0, Blood Gas Bicarbonate Standard 32.2, Venous Blood pH 7.349, Venous Blood Partial Pressure CO2 67.8H, Venous Blood Partial Pressure O2 56.4H, Venous Blood Total Carbon Dioxide 38.6H, Venous Blood HCO3 36.5H, Venous Blood Oxygen Saturation 87.8H, Venous Blood Base Excess 8.6H, Anion Gap 4L, Glomerular Filtration Rate 45.4, Lactic Acid Level 0.8, Calcium Level 8.6L, Aspartate Amino Transf (AST/SGOT) 20, Alanine Aminotransferase (ALT/SGPT) 32, Alkaline Phosphatase 102, Total Bilirubin 0.1L, Direct Bilirubin < 0.1, Total Creatine Kinase 170#, Creatine Kinase MB 4.0H, Creatine Kinase MB Relative Index 2.35, Troponin I < 0.02, AZ-Ifx-F-Type Natriuretic Peptide 112, Total Protein 6.5, Albumin 3.2, Albumin/Globulin Ratio 0.97L, Procalcitonin 0.09, Thyroid Stimulating Hormone (TSH) 1.160, Thyroxine (T4) 6.7 CBC/BMP Laboratory Tests 03/02/19 04:04 Red Blood Count 4.19, Mean Corpuscular Volume 93.8, Mean Corpuscular Hemoglobin 27.2, Mean Corpuscular Hemoglobin Concent 29.0 L, Red Cell Distribution Width 17.3 H, Neutrophils (%) (Auto) 78.4 H, Lymphocytes (%) (Auto) 13.9 L, Monocytes (%) (Auto) 5.4 H, Eosinophils (%) (Auto) 0.5, Basophils (%) (Auto) 0.4, Neutrophils # (Auto) 8.9 H, Lymphocytes # (Auto) 1.6, Monocytes # (Auto) 0.6, Eosinophils # (Auto) 0.1, Basophils # (Auto) 0.0 Microbiology Microbiology 03/02/19 Blood Culture, Received Pending 03/02/19 Blood Culture, Received Pending Plan / VTE VTE Prophylaxis Ordered?: Yes Plan Plan Assessment and Plan: Shortness of breath - likely 2/2 exacerbation of underlying obstructive lung disease; possibly 2/2 component of fluid overload - 2/2 diastolic CHF - Patient presented to the ER with physicians of breath associated with wheezing - Physical reveals dementia, but sounds bilaterally - CXR 03/02: No acute disease. The left base pleuroparenchymal fibrosis. - s/p Furosemide 100mg IV in ER - We will continue the patient with Solu-Medrol and inhaled therapy Chronic hypoxic respiratory failure - likely 2/2 COPD - Patient uses 2 L of oxygen at baseline; and uses 4 L at nighttime ALINE on CPAP - Patient uses 4 L of oxygen while on CPAP - May use own CPAP device while inpatient Diastolic CHF / Pulmonary HTN - Possible signs of overload - s/p Furosemide IV in ER - Will monitor In/Out balance, daily weights - Will hold off on additional diuresis at this time DLP - c/w Atorvastatin and ASA 81 DM2 - Will start ISS CKD3 - Cr appears to be at baseline - Will continue to monitor Neuropathy - c/w Gabapentin Anxiety - c/w Alprazolam PRN DVT prophylaxis - Will start PREETI/EL Torre MD Mar 02, 2019 15:09
[2019-03-02] MEDS: ATORVASTATIN 20 MG TAB PO SCH (20:08)
[2019-03-02] MEDS: BISACODYL 5 MG TAB PO SCH (20:08)
[2019-03-02] MEDS: SENOKOT S TAB PO SCH (20:08)
[2019-03-02] MEDS: ACETAMINOPHEN TAB 650MG DOSE (2X325MG) PO PRN (20:12)
[2019-03-02 22:00] VITALS: BP 143/78
[2019-03-03] MEDS: IPRATROPIUM 0.5MG/ALBUTEROL 2.5MG INH SOL UD 3ML (DUONEB)(J7620) NEB PRN ×2 (00:33→23:39)
[2019-03-03] MEDS: IPRATROPIUM 0.5MG/ALBUTEROL 2.5MG INH SOL UD 3ML (DUONEB)(J7620) NEB SCH ×4 (02:00→20:00)
[2019-03-03] MEDS: methylPREDNISolone INJ 125 MG/2 ML VIAL (J2930) IV SCH ×2 (04:44→15:27)
[2019-03-03 06:00] VITALS: BP 147/80
[2019-03-03 06:08] LABS: BASO % 0.2 % (0.0-1.0); HEMATOCRIT 34.7 % (36.0-47.0); HEMOGLOBIN 10.4 g/dl (12.0-15.5); LYMPH # 0.5 10^3/uL (1.5-4.5); LYMPH % 3.3 % (24.0-44.0); MEAN CORPUSCULAR VOLUME 90.1 fl (80.0-96.0); MONO # 0.3 10^3/uL (0.0-0.8); MONO % 2.2 % (0.0-5.0); NEUTROPHILS # 12.6 10^3/uL (1.8-7.7); NEUTROPHILS % 92.4 % (36.0-66.0); PLATELET COUNT, AUTOMATED 188 10^3/uL (150-450); RED BLOOD COUNT 3.85 10^6/uL (4.00-5.40); WHITE BLOOD COUNT 13.6 10^3/uL (4.0-10.0)
[2019-03-03 06:34] LABS: CALCIUM LEVEL 8.9 MG/DL (8.8-10.2); CREATININE FOR GFR 1.28 MG/DL (0.55-1.30); GLOMERULAR FILTRATION RATE 43.4 (>39); MAGNESIUM LEVEL 2.5 MG/DL (1.8-2.4); POTASSIUM SERUM 4.2 MEQ/L (3.5-5.1)
[2019-03-03] MEDS: HumaLOG INSULIN (NovoLOG) PER UNIT SC SCH ×4 (07:41→20:52)
[2019-03-03] MEDS ORDERED: FUROSEMIDE 40 MG/4 ML VIAL (J1940) IV ONE (08:00)
[2019-03-03] MEDS: FORMOTEROL FUMARATE 20 MCG/2 ML INHALATION SOLUTION (PERFOROMIST) INH SCH ×2 (08:15→19:37)
[2019-03-03] MEDS: VITAMIN D 1,000 INTERNATIONAL UNITS TABLET PO SCH (08:33)
[2019-03-03] MEDS: ASPIRIN 81 MG ENTERIC TAB PO SCH (08:33)
[2019-03-03] MEDS: DOCUSATE SODIUM 100 MG CAP PO SCH ×2 (08:33→20:51)
[2019-03-03] MEDS: ALPRAZolam 0.25 MG TAB PO SCH ×3 (08:33→20:51)
[2019-03-03] MEDS: GABAPENTIN 300 MG CAP PO SCH ×2 (08:33→20:51)
--- NOTE | 2019-03-03 11:05 | IPNPDOC ---
Text Note Date of Service The patient was seen on 03/03/19. NOTE Subjective: Patient is a 74-year-old female with a PMHx of COPD on 2L O2, ALINE on CPAP, Diastolic CHF, Pulmonary HTN, DLP, DM2, CKD3, Neuropathy, Anxiety , who presented to the ER with complaint of short of breath. Patient was admitted to the hospitalist service for further evaluation and treatment Patient was seen and examined at the bedside. . Currently, patient reports that her breathing is doing better. Denies chest pain or palpitations. Reports no significant cough. Denies nausea, vomiting, abdominal pain, constipation, diarrhea, or urinary discomfort. Objective: Vitals (See below) General: Lying in bed, no acute distress, comfortable, AAOx3 HEENT: NC, AT CVS: RRR, +S1S2 Lungs: Air entry is diminished bilaterally, however, improved from yesterday. No auscultated rhonchi, rales or wheezing Abdomen: Soft, ND, nontender, obese Extremities: Trace edema noted, - Calf tenderness Assessment and plan: Shortness of breath - likely 2/2 exacerbation of underlying obstructive lung disease; possibly 2/2 component of fluid overload - 2/2 diastolic CHF - Clinically has reported improvement in her breathing - Physical again with diminished lung sounds bilaterally. No auscultated wheezing - CXR 03/02: No acute disease. The left base pleuroparenchymal fibrosis. - s/p Furosemide 100mg IV in ER; will give additional dose of Furosemide 40 IV - c/w Solu-Medrol - c/w inhaled therapy as ordered Chronic hypoxic respiratory failure - likely 2/2 COPD - Patient uses 2 L of oxygen at baseline; and uses 4 L at nighttime ALINE on CPAP - Patient uses 4 L of oxygen while on CPAP - May use own CPAP device while inpatient Diastolic CHF / Pulmonary HTN - Possible signs of overload - Will give additional Furosemide IV today; will consider resuming Furosemide PO tomorrow - c/w strict In/Out balance, daily weights DLP - c/w Atorvastatin and ASA 81 DM2 - Will start ISS CKD3 - Cr appears to be at baseline - Will continue to monitor Neuropathy - c/w Gabapentin Anxiety - c/w Alprazolam PRN DVT prophylaxis - c/w PREETI/Sequentials VS,Fishbone, I+O VS, Fishbone, I+O Laboratory Tests 03/03/19 05:56 Red Blood Count 3.85 L, Mean Corpuscular Volume 90.1, Mean Corpuscular Hemoglobin 27.0, Mean Corpuscular Hemoglobin Concent 30.0 L, Red Cell Dis tribution Width 17.0 H, Neutrophils (%) (Auto) 92.4 H, Lymphocytes (%) (Auto) 3.3 L, Monocytes (%) (Auto) 2.2, Eosinophils (%) (Auto) 0.0, Basophils (%) (Auto) 0.2, Neutrophils # (Auto) 12.6 H, Lymphocytes # (Auto) 0.5 L, Monocytes # (Auto) 0.3, Eosinophils # (Auto) 0.0, Basophils # (Auto) 0.0, Calcium Level 8.9 Vital Signs Date Time Temp Pulse Resp B/P (MAP) Pulse Ox O2 Delivery O2 Flow Rate FiO2 03/03/19 06:00 97.4 78 19 147/80 (102) 94 2.0 03/02/19 10:00 Nasal Cannula I&O- Last 24 Hours up to 6 AM 03/03/19 05:59 Intake Total 2790 ml Output Total 1500 ml Balance 1290 ml EL ALBARADO MD Mar 03, 2019 11:05
[2019-03-03 14:00] VITALS: BP 159/74
[2019-03-03] MEDS: ATORVASTATIN 20 MG TAB PO SCH (20:51)
[2019-03-03] MEDS: SENOKOT S TAB PO SCH (20:51)
[2019-03-03] MEDS: BISACODYL 5 MG TAB PO SCH (20:51)
[2019-03-03] MEDS: ACETAMINOPHEN TAB 650MG DOSE (2X325MG) PO PRN (20:54)
[2019-03-03 22:00] VITALS: BP 158/85
[2019-03-04] MEDS: IPRATROPIUM 0.5MG/ALBUTEROL 2.5MG INH SOL UD 3ML (DUONEB)(J7620) NEB SCH ×2 (02:00→07:22)
[2019-03-04] MEDS: methylPREDNISolone INJ 125 MG/2 ML VIAL (J2930) IV SCH (04:22)
[2019-03-04 05:45] LABS: BASO % 0.2 % (0.0-1.0); HEMATOCRIT 35.2 % (36.0-47.0); HEMOGLOBIN 10.7 g/dl (12.0-15.5); LYMPH # 0.7 10^3/uL (1.5-4.5); LYMPH % 5.5 % (24.0-44.0); MEAN CORPUSCULAR HEMOGLOBIN 27.6 pg (27.0-33.0); MEAN CORPUSCULAR HGB CONC 30.4 g/dl (32.0-36.5); MEAN CORPUSCULAR VOLUME 90.7 fl (80.0-96.0); MONO # 0.6 10^3/uL (0.0-0.8); MONO % 4.4 % (0.0-5.0); NEUTROPHILS # 11.7 10^3/uL (1.8-7.7); NEUTROPHILS % 88.5 % (36.0-66.0); PLATELET COUNT, AUTOMATED 185 10^3/uL (150-450); RED BLOOD COUNT 3.88 10^6/uL (4.00-5.40); WHITE BLOOD COUNT 13.2 10^3/uL (4.0-10.0)
[2019-03-04 06:00] VITALS: BP 151/82
[2019-03-04 06:11] LABS: CALCIUM LEVEL 8.8 MG/DL (8.8-10.2); CREATININE FOR GFR 1.23 MG/DL (0.55-1.30); GLOMERULAR FILTRATION RATE 45.4 (>39); MAGNESIUM LEVEL 2.5 MG/DL (1.8-2.4); POTASSIUM SERUM 3.8 MEQ/L (3.5-5.1)
[2019-03-04] MEDS: FORMOTEROL FUMARATE 20 MCG/2 ML INHALATION SOLUTION (PERFOROMIST) INH SCH (07:21)
[2019-03-04] MEDS: ASPIRIN 81 MG ENTERIC TAB PO SCH (08:01)
[2019-03-04] MEDS: HumaLOG INSULIN (NovoLOG) PER UNIT SC SCH (08:01)
[2019-03-04] MEDS: ALPRAZolam 0.25 MG TAB PO SCH (08:01)
[2019-03-04] MEDS: GABAPENTIN 300 MG CAP PO SCH (08:01)
[2019-03-04] MEDS: DOCUSATE SODIUM 100 MG CAP PO SCH (08:01)
[2019-03-04] MEDS: VITAMIN D 1,000 INTERNATIONAL UNITS TABLET PO SCH (08:01)
[2019-03-04] MEDS ORDERED: PRED20TA PO (10:08)
[2019-03-04] MEDS ORDERED: METO5TA PO (13:04)
--- NOTE | 2019-03-04 13:06 | DS.PDOC ---
Discharge Summary General Date of Admission Mar 02, 2019 at 08:58 Date of Discharge 03/04/19 Discharge Summary PROCEDURES PERFORMED DURING STAY: [None]. DISCHARGE DIAGNOSES: Diastolic CHF exacerbation COPD exacerbation SECONDARY DIAGNOSIS: Acute on chronic respiratory failure with hypercarbia and hypoxia uses 2.5 liters during day. End stage COPD ALINE on BIPAP 06/09 with 4 little oxygen bleed through Diabetes with neuropathy Obesity Hyperlipidemia Chronic T12 vertebral compression fracture spinal canal stenosis cervical spondylosis Pulmonary nodules chronic constipation Hypertension with hypertensive heart disease CKD stage 3 Severe pulmonary hypertension with Corpulmonale. Metabolic alkalosis after aggressive diuresis. Hypokalemia with diuresis replaced. COMPLICATIONS/CHIEF COMPLAINT: Chronic Respiratory Failure. HISTORY OF PRESENT ILLNESS: Please see history and physical HOSPITAL COURSE: Patient is a 74-year-old female with a PMHx of COPD on 2L O2, ALINE on CPAP, Diastolic CHF, Pulmonary HTN, DLP, DM2, CKD3, Neuropathy, Anxiety , who presented to the ER with complaint of short of breath. Patient was admitted to the hospitalist service for further evaluation and treatment Diastolic CHF exacerbation On the background of end stage COPD / Pulmonary HTN continue with po lasix bid, will add metolazone 5 mg twice a week. continue fluid restriction at home. continue chronic steroids at home Chronic hypoxic and hypercarbic respiratory failure - likely 2/2 COPD - Patient uses 2 L of oxygen at baseline; and uses 4 L at nighttime ALINE on BIPAP - Patient uses 4 L of oxygen while on BIPAP DLP - c/w Atorvastatin and ASA 81 DM2 - Will start ISS CKD3 - Cr appears to be at baseline - Will continue to monitor Neuropathy - c/w Gabapentin Anxiety - c/w Alprazolam PRN DISCHARGE MEDICATIONS: Please see below. ALLERGIES: Please see below. PHYSICAL EXAMINATION ON DISCHARGE: VITAL SIGNS: Please see below. General: Sitting in chair , no acute distress, comfortable, AAOx3 HEENT: NC, AT, moist mucous membranes, anicteric eyes. Neck: supples, no JVD. CVS: RRR, +S1S2 Lungs: Air entry is diminished bilaterally, No ronchi or wheezing. Abdomen: Soft, ND, nontender, obese Extremities: Trace edema noted, LABORATORY DATA: Please see below. ACTIVITY: [As tolerated]. DIET: Carb consistent, 1.5 liter fluid restriction DISPOSITION: 01 Home, Self-Care. DISCHARGE INSTRUCTIONS: PMD in 1 week DISCHARGE CONDITION: [Stable]. TIME SPENT ON DISCHARGE: 40 minutes. Vital Signs/I&Os Vital Signs Date Time Temp Pulse Resp B/P (MAP) Pulse Ox O2 Delivery O2 Flow Rate FiO2 03/04/19 09:00 2.0 03/04/19 06:00 96.9 77 20 151/82 (105) 97 03/02/19 10:00 Nasal Cannula I&O- Last 24 Hours up to 6 AM 03/04/19 06:00 Intake Total 1700 ml Output Total 950 ml Balance 750 ml Laboratory Data Labs 24H Laboratory Tests 2 03/03/19 16:19: Bedside Glucose (Misc Panel) 237H 03/03/19 20:36: Bedside Glucose (Misc Panel) 277H 03/04/19 05:34: Immature Granulocyte % (Auto) 1.4, White Blood Count 13.2H, Red Blood Count 3.88L, Hemoglobin 10.7L, Hematocrit 35.2L, Mean Corpuscular Volume 90.7, Mean Corpuscular Hemoglobin 27.6, Mean Corpuscular Hemoglobin Concent 30.4L, Red Cell Distribution Width 17.2H, Platelet Count 185, Neutrophils (%) (Auto) 88.5H, Lymphocytes (%) (Auto) 5.5L, Monocytes (%) (Auto) 4.4, Eosinophils (%) (Auto) 0.0, Basophils (%) (Auto) 0.2, Neutrophils # (Auto) 11.7H, Lymphocytes # (Auto) 0.7L, Monocytes # (Auto) 0.6, Eosinophils # (Auto) 0.0, Basophils # (Auto) 0.0, Nucleated Red Blood Cells % (auto) 0.0, Anion Gap 5L, Glomerular Filtration Rate 45.4, Blood Urea Nitrogen 35H, Creatinine 1.23, Sodium Level 141, Potassium Level 3.8, Chloride Level 98, Carbon Dioxide Level 38H, Calcium Level 8.8, Magnesium Level 2.5H CBC/BMP Laboratory Tests 03/04/19 05:34 Red Blood Count 3.88 L, Mean Corpuscular Volume 90.7, Mean Corpuscular Hemoglobin 27.6, Mean Corpuscular Hemoglobin Concent 30.4 L, Red Cell Distr ibution Width 17.2 H, Neutrophils (%) (Auto) 88.5 H, Lymphocytes (%) (Auto) 5.5 L, Monocytes (%) (Auto) 4.4, Eosinophils (%) (Auto) 0.0, Basophils (%) (Auto) 0.2, Neutrophils # (Auto) 11.7 H, Lymphocytes # (Auto) 0.7 L, Monocytes # (Auto) 0.6, Eosinophils # (Auto) 0.0, Basophils # (Auto) 0.0, Calcium Level 8.8 FSBS Laboratory Tests Test 03/03/19 16:19 03/03/19 20:36 Range/Units Bedside Glucose (Misc Panel) 237 277 83-110 MG/DL Microbiology Microbiology 03/02/19 Blood Culture - Preliminary, Resulted No Growth after 48 hours. All Specime... 03/02/19 Blood Culture - Preliminary, Resulted No Growth after 48 hours. All Specime... Discharge Medications Scheduled Acetaminophen (Tylenol Extra Strength) 500 Mg Tablet, 1,000 MG PO BID, (Reported) Alprazolam (Alprazolam) 0.25 Mg Tab, 0.25 MG PO TID, (Reported) MORNING, DINNER, QHS Aspirin (Aspirin EC) 81 Mg Tab, 81 MG PO DAILY, (Reported) Atorvastatin Calcium (Atorvastatin Calcium) 40 Mg Tab, 40 MG PO QHS, (Reported) Bisacodyl (Dulcolax) 5 Mg Tab, 5 MG PO QHS, (Reported) Budesonide (Budesonide) 0.5 Mg/2 Ml Ampul.neb, 0.5 MG INH BID, (Reported) Cholecalciferol (Vitamin D3) (Vitamin D3) 2,000 Unit Tablet, 2,000 UNIT PO DAILY, (Reported) Docusate Sodium (Colace) 100 Mg Cap, 100 MG PO BID, (Reported) Formoterol Fumarate (Perforomist) 20 Mcg/2 Ml Vial.neb, 20 MCG INH BID, (Reported) Furosemide (Furosemide) 40 Mg Tablet, 40 MG PO BID, (Reported) Gabapentin (Gabapentin) 300 Mg Cap, 300 MG PO BID, (Reported) BREAKFAST AND DINNER Glimepiride (Glimepiride) 4 Mg Tab, 4 MG PO DAILY, (Reported) Paroxetine HCl (Paroxetine) 10 Mg Tablet, 20 MG PO DAILY, (Reported) Potassium Chloride (Potassium Chloride) 10 Meq Tab, 30 MEQ PO TID, (Reported) TAKES BREAKFAST, SUPPER AND QHS Prednisone (Prednisone) 10 Mg Tablet, 20 MG PO DAILY, (Reported) Prednisone (Prednisone) 20 Mg Tablet, 20 MG PO ASDIRECTED 2 tabs on 03/05 and 03/06 then take own prednisone medicataion 20 mg daily Sennosides (Senokot) 8.6 Mg Tab, 8.6 MG PO QHS, (Reported) Scheduled PRN Albuterol Sulfate (Proair Hfa) 108 Mcg/Act Aer, 2 PUFF INH Q4H PRN for SHORTNESS OF BREATH, (Reported) Baclofen (Baclofen) 10 Mg Tablet, 10 MG PO TID PRN for MUSCLE SPASMS, (Reported) Ipratropium/Albuterol Sulfate (Iprat-Albut 0.5-3(2.5) mg/3 ml) 1 Lupe Lupe, 1 DOSE INH Q4H PRN for SHORTNESS OF BREATH, (Reported) Polyethylene Glycol 3350 (Miralax) 17 Gm Powd.pack, 17 GM PO DAILY PRN for CONSTIPATION, (Reported) Allergies Coded Allergies: influenza virus vaccine ts [id number] (5 yr, up) (Verified Allergy, Unknown, 02/27/19) metformin (Verified Allergy, Unknown, 02/27/19) gabapentin (Verified Adverse Reaction, Intermediate, WEAKNESS, 03/02/19) heparin (Verified Adverse Reaction, Intermediate, BLEEDING, 03/02/19) pregabalin (Verified Adverse Reaction, Intermediate, WEAKNESS, 03/02/19) ANNMARIE BARRIOS MD Mar 04, 2019 13:06
== END 2019-03-04 11:30 | disposition home or self-care (01) | DRG 291 ==
LOC: M ED 03:18 → M ED INP 08:58 → M MSPAV 10:14
PROVIDERS: ADMIT Internal Medicine; ATTEND Internal Medicine Nephrology
DX: I13.0 Hypertensive heart and chronic kidney disease with heart failure and stage 1 through stage 4 chronic kidney disease, or unspecified chronic kidney disease (principal); J96.21 Acute and chronic respiratory failure with hypoxia; J96.22 Acute and chronic respiratory failure with hypercapnia; I50.33 Acute on chronic diastolic (congestive) heart failure; J44.1 Chronic obstructive pulmonary disease with (acute) exacerbation; E87.2 Acidosis; N18.3 Chronic kidney disease, stage 3 (moderate); E11.40 Type 2 diabetes mellitus with diabetic neuropathy, unspecified; G47.33 Obstructive sleep apnea (adult) (pediatric); E66.9 Obesity, unspecified; E78.5 Hyperlipidemia, unspecified; R91.8 Other nonspecific abnormal finding of lung field; I27.20 Pulmonary hypertension, unspecified; I27.81 Cor pulmonale (chronic); E87.6 Hypokalemia; F41.9 Anxiety disorder, unspecified; Z79.82 Long term (current) use of aspirin; Z79.899 Other long term (current) drug therapy; Z88.8 Allergy status to other drugs, medicaments and biological substances; Z88.7 Allergy status to serum and vaccine

== ENCOUNTER 2019-09-01 16:31 | Inpatient (IN) | payer MEDICARE ==
[~2019-09-01] VITALS: Ht 157.5 cm; Wt 77.6 kg
[~2019-09-01 16:31] MED LIST changes: +ACET-897 PO; -AZIT500T2 PO; +AZIT500T5 PO; +BACL10TA2 PO; +D-20TAB PO; -GLIM1TAB PO; +GLIM1TAB2 PO; -GLIM2TAB PO; +GLIM2TAB2 PO; -GLIM4TAB PO; +GLIM4TAB3 PO; +MIRA1POW3 PO; +PARO10TA3 PO
[2019-09-01] MEDS ORDERED: TRAD5TAB PO (16:57)
[2019-09-01 17:09] LABS: BASO % 0.4 % (0.0-1.0); EOS # 0.1 10^3/uL (0.0-0.5); EOS % 0.6 % (0.0-3.0); HEMATOCRIT 39.9 % (36.0-47.0); HEMOGLOBIN 12.3 g/dl (12.0-15.5); LYMPH % 9.8 % (24.0-44.0); MEAN CORPUSCULAR HEMOGLOBIN 27.7 pg (27.0-33.0); MEAN CORPUSCULAR HGB CONC 30.8 g/dl (32.0-36.5); MEAN CORPUSCULAR VOLUME 89.9 fl (80.0-96.0); MONO # 0.6 10^3/uL (0.0-0.8); MONO % 6.1 % (0.0-5.0); NEUTROPHILS # 8.4 10^3/uL (1.5-8.5); NEUTROPHILS % 81.9 % (36.0-66.0); PLATELET COUNT, AUTOMATED 229 10^3/uL (150-450); RED BLOOD COUNT 4.44 10^6/uL (4.00-5.40); WHITE BLOOD COUNT 10.2 10^3/uL (4.0-10.0)
[2019-09-01] MEDS ORDERED: methylPREDNISolone INJ 125 MG/2 ML VIAL (J2930) IV ONE (17:15)
[2019-09-01] MEDS: IPRATROPIUM 0.5MG/ALBUTEROL 2.5MG INH SOL UD 3ML (DUONEB)(J7620) NEB SCH ×4 (17:19→20:56)
[2019-09-01 17:34] LABS: ABG BASE EXCESS 15.4 (-2.0-2.0); ABG HCO3 44.8 MEQ/L (22.0-26.0); ABG O2 SATURATION 96.7 % (95.0-99.0); ABG PARTIAL PRESSURE O2 87.4 mmHg (75.0-100.0); ABG STANDARD HCO3 39.3 MEQ/L (22.0-26.0); ABG TOTAL CO2 47.4 MEQ/L (23.0-31.0); ABG pH (ARTERIAL) 7.352 UNITS (7.350-7.450)
[2019-09-01 17:37] LABS: ABG PARTIAL PRESSURE CO2 82.7 mmHg (35.0-45.0)
[2019-09-01 17:55] LABS: ALT/SGPT 34 U/L (12-78); BLOOD UREA NITROGEN 46 MG/DL (7-18); CARBON DIOXIDE LEVEL 42 MEQ/L (21-32); CHLORIDE LEVEL 82 MEQ/L (98-107); CREATININE FOR GFR 1.72 MG/DL (0.55-1.30); GLOMERULAR FILTRATION RATE 30.9 (>39); GLUCOSE, FASTING 667 MG/DL (70-100); POTASSIUM SERUM 3.3 MEQ/L (3.5-5.1); SODIUM LEVEL 130 MEQ/L (136-145)
[2019-09-01 17:56] LABS: ALBUMIN 3.1 GM/DL (3.2-5.2); BILIRUBIN,DIRECT < 0.1 MG/DL (0.0-0.2); BILIRUBIN,TOTAL 0.3 MG/DL (0.2-1.0); CK-MB VALUE MASS 5.1 NG/ML (<3.6); CPK CREATINE PHOSPHOKINASE 91 U/L (26-192); TOTAL PROTEIN 6.9 GM/DL (6.4-8.2); TROPONIN I < 0.02 NG/ML (< 0.10)
[2019-09-01 17:57] LABS: NT-PRO BNP 303 PG/ML (<125)
[2019-09-01 17:58] LABS: THYROID STIMULATING HORMONE 0.651 uIU/ML (0.358-3.740); THYROXINE (T4) 8.6 UG/DL (4.5-12.0)
[2019-09-01] MEDS ORDERED: HumuLIN R (REGULAR) INSULIN (NovoLIN R) **100U/ML** PER UNIT SC ONE (18:15)
[2019-09-01 18:21] LABS: INFLUENZA A AMPLIFICATION NEGATIVE (NEGATIVE); INFLUENZA B AMPLIFICATION NEGATIVE (NEGATIVE)
[2019-09-01] MEDS ORDERED: OFLO3OPSO OU (18:48)
[2019-09-01] MEDS ORDERED: PRED10TA2 PO (18:48)
[2019-09-01] MEDS ORDERED: METO5TA PO (18:48)
[2019-09-01] MEDS ORDERED: FLUO20CA20 PO (18:48)
--- NOTE | 2019-09-01 18:51 | REP ---
CHEST, SINGLE VIEW: Single view of the chest is performed and compared to multiple prior exams, most recently 03/02/2019. Chronic bibasilar fibroatelectasis appears stable. No new infiltrate is seen. Cardiomegaly is unchanged. There is calcification of the thoracic aorta. IMPRESSION: Stable chronic changes with no new infiltrate. Electronically Signed by Rolando Aguiar MD 09/06/2019 09:57 A
--- NOTE | 2019-09-01 19:14 | HPEPDOC ---
[facility] Medical History & Physical Date of Admission Sep 01, 2019 Date of Service: Sep 01, 2019 Primary Care Physician: Ade Sabillon DO [facility] Attending Physician: JOSE MARTIN HESS MD History and Physical TIME OF SERVICE: 8:30 PM CHIEF COMPLAINT: Soreness of breath HISTORY OF PRESENT ILLNESS: This is of 74 old female who presents with complaints of shortness of breath "fo r a few days." The shortness of breath is worse when she walks and improves when she lies still. She came in to the hospital today because she thinks her "carbon was high"; according to the patient patient, she can see her carbon dioxide when she breathes. She admits to smoking and thinks this is what caused her COPD exacerbation. She denies having a cough, congestion, fever, chills, nausea, vomiting, and diarrhea, or sick contacts. Prior to arrival in the ER, she had a fall and hit her face; at the time she did had her supplemental oxygen on, but she did have her walker. REVIEW OF SYSTEMS: 12 point review of systems negative except as listed in HPI PAST MEDICAL/ SURGICAL HISTORY: COPD/chronic oxygen-dependent respiratory failure (3 L). ALINE/CPAP. Chronic diastolic CHF / Pulmonary hypertension CKD 3 Dyslipidemia. NIDDM / Neuropathy. Anxiety. Status post hysterectomy SOCIAL HISTORY: Quit smoking (>40pack-year habit) FAMILY HISTORY: Coronary artery disease ALLERGIES: Please see below. HOME MEDICATIONS: Please see below. PHYSICAL EXAMINATION: VITAL SIGNS: Please see below. GEN: well nourished / well developed/ NAD INTEGUMENT: She does not have facial plethora HEENT: normocephalic / ecchymosis her face/ lips acyanotic /she does not have pursed lip breathing / trachea midline / NC in place / maximal laryngeal height is <4cm / mucus membranes moist and pink / sclera anicteric CVS: RRR/unable to appreciate P-pulmonale / her neck is short therefore, I'm unable to appreciate JVP / heart sounds are not distant/ radial and dorsalis pedis pulses intact / no lower extremity edema LUNGS: She does not have nasal flaring /she is able to speak full sentences without stopping to take a breath / he is not accessory muscles / there is decreased respiratory expansion/ lungs are resonant on percussion / is decreased breath sounds bilaterally ABDOMEN: bowel sounds are present / the abdomen is soft & not tender with palpation MSK/EXTREMITIES: range of motion intact in all 4 extremities NEURO: CN 2-12 are grossly intact / speech is not dysarthric PSYCH: alert and oriented / able to understand and follow all commands LABORATORY DATA: See below. IMAGING: Chest x-ray " IMPRESSION: Stable chronic changes with no new infiltrate." MICROBIOLOGY: Influenza A and B- / Please see below. ASSESSMENT: Ms. Bush is a 74 old with a past history of COPD, chronic oxygen dependence, ALINE, CKD 3, chronic HEFpEF, NIDDM, neuropathy, and anxiety that will be admitted for management of acute COPD secondary to smoking. PLAN: 1. Acute on chronic hypercarbic respiratory failure secondary to Acute COPD According to the patient, this was triggered by smoking. Chest x-ray respiratory panel and ABG are been reviewed. She received Solu-Medrol in the ER Plan: admit to medical floor/ supplemental O2 / continuous pulse oximetry / aspiration precautions / COPD diet / f/u ABG in the morning/ Dunebs Q6H, Albuterol Q4HP, Prednisone + PPI, Levofloxacin, Tessalon Pearls / refer to Pul spinner fixer for repeat PFTs and Pulmonary Rehab when ready for d/c 2. Hyperosmolar hyperglycemic state / NIDDM w Neuropathy. Her A1c was 7.9 in June 2018. Her glucose was over 600 and her osmolality was 315; Her serum glucoses remained in the 500s despite receiving 10 units of insulin Plan: 500 ml bols of IV fluids/ diabetic diet / f/u accuchecks & A1C / hypoglycemia protocol / sliding scale insulin / hold oral anti-glycemics and start detemir 12 units daily at bedtime with lispro 3 units with meals / resume gabapentin 3. SIRS, likely reactive due to acute COPD Criteria include HR >90 / > RR 20 The lactic acid is 0.6 Plan: Monitor vitals 4. Acute Renal Failure on CKD 3 Baseline Cr 1.23--> current Cr 1.72 CK wnl Plan: IV fluids// f/u ulytes for FEUrea & BMP / if her renal function does not improve in the morning, the daytime may consider ordering a renal ultrasound 5. ALINE. Plan: May use own CPAP 6. HFpEF (Chronic diastolic CHF) Plan: Resume furosemide and metolazone 7. Dyslipidemia. Plan: Resume atorvastatin 8. Anxiety. Plan: Resume fluoxetine DVT prophylaxis with Lovenox. Disposition likely home after more than 2 midnight's stay Vital Signs Vital Signs Date Time Temp Pulse Resp B/P (MAP) Pulse Ox O2 Delivery O2 Flow Rate FiO2 09/01/19 18:31 98.1 103 94 Nasal Cannula 3.0 09/01/19 18:25 20 09/01/19 18:15 142/67 (92) Laboratory Data Labs 24H Laboratory Tests 2 09/01/19 17:00: Immature Granulocyte % (Auto) 1.2, Neutrophils (%) (Auto) 81.9H, Lymphocytes (%) (Auto) 9.8L, Monocytes (%) (Auto) 6.1H, Eosinophils (%) (Auto) 0.6, Basophils (%) (Auto) 0.4, Neutrophils # (Auto) 8.4, Lymphocytes # (Auto) 1.0L, Monocytes # (Auto) 0.6, Eosinophils # (Auto) 0.1, Basophils # (Auto) 0.0, Nucleated Red Blood Cells % (auto) 0.0, Anion Gap 6L, Glomerular Filtration Rate 30.9L, Calcium Level 10.0, Total Bilirubin 0.3, Direct Bilirubin < 0.1, Aspartate Amino Transf (AST/SGOT) 18, Alanine Aminotransferase (ALT/SGPT) 34, Alkaline Phosphatase 179H, Total Creatine Kinase 91, Creatine Kinase MB 5.1H, Creatine Kinase MB Relative Index 5.60H, Troponin I < 0.02, GF-Ruf-R-Type Natriuretic Peptide 303H, Total Protein 6.9, Albumin 3.1L, Albumin/Globulin Ratio 0.82L, Thyroid Stimulating Hormone (TSH) 0.651, Thyroxine (T4) 8.6, Influenza Type A (RT-PCR) NEGATIVE, Influenza Type B (RT-PCR) NEGATIVE 09/01/19 17:18: Blood Gas Bicarbonate Standard 39.3H, Arterial Blood pH 7.352, Arterial Blood Partial Pressure CO2 82.7*H, Arterial Blood Partial Pressure O2 87.4, Arterial Blood Total CO2 47.4H, Arterial Blood HCO3 44.8H, Arterial Blood Base Excess 15.4H, Arterial Blood Oxygen Saturation 96.7 CBC/BMP Laboratory Tests 09/01/19 17:00 Home Medications Scheduled Acetaminophen (Tylenol Extra Strength) 500 Mg Tablet, 1,000 MG PO BID Aspirin (Aspirin EC) 81 Mg Tab, 81 MG PO DAILY Atorvastatin Calcium (Atorvastatin Calcium) 40 Mg Tab, 40 MG PO QHS Bisacodyl (Dulcolax) 5 Mg Tab, 5 MG PO QHS Budesonide (Budesonide) 0.5 Mg/2 Ml Ampul.neb, 0.5 MG INH BID Docusate Sodium (Colace) 100 Mg Cap, 100 MG PO BID Fluoxetine Hcl (Fluoxetine HCl) 20 Mg Capsule, 20 MG PO QHS Formoterol Fumarate (Perforomist) 20 Mcg/2 Ml Vial.neb, 20 MCG INH BID Furosemide (Furosemide) 40 Mg Tablet, 40 MG PO BID Gabapentin (Gabapentin) 300 Mg Cap, 300 MG PO BID BREAKFAST AND DINNER Glimepiride (Glimepiride) 4 Mg Tab, 4 MG PO DAILY ON HOLD - PATIENT UNSURE WHEN IT WAS PLACED ON HOLD Linagliptin (Tradjenta) 5 Mg Tablet, 5 MG PO DAILY Metolazone (Metolazone) 5 Mg Tablet, 5 MG PO 2XW FRIDAY AND FRIDAY Ofloxacin (Ofloxacin) 0.3% 5ML Drops, 2 DROP OU DAILY Potassium Chloride (Potassium Chloride) 10 Meq Tab, 30 MEQ PO TID TAKES BREAKFAST, SUPPER AND QHS Prednisone (Prednisone) 10 Mg Tablet, 10 MG PO DAILY Prednisone (Prednisone) 20 Mg Tablet, 40 MG PO DAILY Sennosides (Senokot) 8.6 Mg Tab, 8.6 MG PO QHS Scheduled PRN Albuterol Sulfate (Proair Hfa) 108 Mcg/Act Aer, 2 PUFF INH Q4H PRN for SHORTNESS OF BREATH Ipratropium/Albuterol Sulfate (Iprat-Albut 0.5-3(2.5) mg/3 ml) 1 Lupe Lupe, 1 DOSE INH Q4H PRN for SHORTNESS OF BREATH Polyethylene Glycol 3350 (Miralax) 17 Gm Powd.pack, 17 GM PO DAILY PRN for CON STIPATION Allergies Coded Allergies: metformin (Verified Allergy, Unknown, 02/27/19) gabapentin (Verified Adverse Reaction, Intermediate, WEAKNESS, 03/02/19) heparin (Verified Adverse Reaction, Intermediate, BLEEDING, 03/02/19) pregabalin (Verified Adverse Reaction, Intermediate, WEAKNESS, 03/02/19) influenza virus vaccine [id number] (5 yr, up) (Verified Adverse Reaction, Mild, 09/02/19) Patient states when she received the Influenza vaccine many years ago the site became swollen and red A-FIB/CHADSVASC A-FIB History Current/History of A-Fib/PAF?: No Current PO Anticoag Therapy: JOSE MARTIN Judge MD Sep 01, 2019 19:14
[2019-09-01] MEDS ORDERED: ALBUTEROL SULFATE 2.5 MG/0.5 ML INH NEB SOLN NEB PRN (19:30)
[2019-09-01] MEDS ORDERED: DEXTROSE 50% 50 ML SYRINGE IV PRN (19:45)
[2019-09-01] MEDS ORDERED: GLUCOSE 4 GM CHEW TABLET PO PRN (19:45)
[2019-09-01] MEDS ORDERED: GLUCAGON FOR INJ 1 MG VIAL (J1610) SC PRN (19:45)
[2019-09-01] MEDS: DOCUSATE SODIUM 100 MG CAP PO SCH (21:00)
[2019-09-01] MEDS ORDERED: LEVEMIR (INSULIN DETEMIR) 1 UNITS/0.01ML SC SCH (21:00)
[2019-09-01] MEDS: FLUoxetine 20 MG CAP PO SCH (21:00)
[2019-09-01] MEDS: ATORVASTATIN 20 MG TAB PO SCH (21:00)
[2019-09-01] MEDS: POTASSIUM CHLORIDE 10 MEQ SR TABLET PO SCH (21:00)
[2019-09-01] MEDS ORDERED: DOXYCYCLINE HYCLATE 100 MG TAB PO SCH (21:00)
[2019-09-02] MEDS ORDERED: MIRALAX *UNIT DOSE* 17GM PACKET PO PRN (00:15)
[2019-09-02] MEDS ORDERED: LEVEMIR (INSULIN DETEMIR) 1 UNITS/0.01ML SC SCH ×3 (00:15→21:00)
[2019-09-02] MEDS: IPRATROPIUM 0.5MG/ALBUTEROL 2.5MG INH SOL UD 3ML (DUONEB)(J7620) NEB SCH ×5 (00:26→23:57)
[2019-09-02] MEDS: HumaLOG INSULIN (NovoLOG) PER UNIT SC SCH ×5 (00:55→22:09)
[2019-09-02] MEDS ORDERED: HumaLOG INSULIN (NovoLOG) PER UNIT SC ONE ×2 (01:00→06:00)
[2019-09-02] MEDS ORDERED: NS 500 ML IV ONE (01:00)
[2019-09-02 03:50] LABS: APPEARANCE, URINE CLEAR (CLEAR); BACTERIA, URINE AUTO NEGATIVE (NEGATIVE); BILIRUBIN, URINE AUTO NEGATIVE (NEGATIVE); BLOOD, URINE BLOOD 1+ (NEGATIVE); COLOR, URINE STRAW (YELLOW); GLUCOSE, URINE (UA) AUTO 3+ mg/dL (NEGATIVE); KETONE, URINE AUTO NEGATIVE (NEGATIVE); LEUKOCYTE ESTERASE, URINE AUTO TRACE (NEGATIVE); NITRITE, URINE AUTO NEGATIVE (NEGATIVE); PROTEIN, URINE AUTO NEGATIVE (NEGATIVE); RBC, URINE AUTO 5 /HPF (0-3); SPECIFIC GRAVITY URINE AUTO 1.018 (1.002-1.035); SQUAMOUS EPITHELIAL CELL UR AU 1 /HPF (0-6); UROBILINOGEN, URINE AUTO 0.2 mg/dL (0.0-2.0); WBC, URINE AUTO 6 /HPF (0-3)
[2019-09-02 04:09] LABS: CREATININE,RANDOM URINE 20.7 MG/DL; SODIUM,RANDOM URINE 19 MEQ/L; UREA NITROGEN RANDOM URINE 270 MG/DL
[2019-09-02 06:37] LABS: ABG BASE EXCESS 7.3 (-2.0-2.0); ABG HCO3 34.1 MEQ/L (22.0-26.0); ABG O2 SATURATION 97.5 % (95.0-99.0); ABG PARTIAL PRESSURE CO2 59.6 mmHg (35.0-45.0); ABG PARTIAL PRESSURE O2 100.1 mmHg (75.0-100.0); ABG STANDARD HCO3 31.1 MEQ/L (22.0-26.0); ABG TOTAL CO2 35.9 MEQ/L (23.0-31.0); ABG pH (ARTERIAL) 7.375 UNITS (7.350-7.450)
[2019-09-02 07:29] LABS: HEMATOCRIT 35.1 % (36.0-47.0); HEMOGLOBIN 10.8 g/dl (12.0-15.5); MEAN CORPUSCULAR HEMOGLOBIN 27.2 pg (27.0-33.0); MEAN CORPUSCULAR HGB CONC 30.8 g/dl (32.0-36.5); MEAN CORPUSCULAR VOLUME 88.4 fl (80.0-96.0); PLATELET COUNT, AUTOMATED 206 10^3/uL (150-450); RED BLOOD COUNT 3.97 10^6/uL (4.00-5.40); WHITE BLOOD COUNT 10.5 10^3/uL (4.0-10.0)
[2019-09-02 07:50] LABS: CALCIUM LEVEL 9.5 MG/DL (8.8-10.2); CREATININE FOR GFR 1.59 MG/DL (0.55-1.30); GLOMERULAR FILTRATION RATE 33.8 (>39); MAGNESIUM LEVEL 2.2 MG/DL (1.8-2.4); POTASSIUM SERUM 3.7 MEQ/L (3.5-5.1)
[2019-09-02] MEDS ORDERED: HumaLOG INSULIN (NovoLOG) PER UNIT SC SCH (08:00)
[2019-09-02] MEDS ORDERED: FORMOTEROL FUMARATE 20 MCG/2 ML INHALATION SOLUTION (PERFOROMIST) INH SCH (08:00)
[2019-09-02] MEDS ORDERED: HumuLIN R (REGULAR) INSULIN (NovoLIN R) **100U/ML** PER UNIT SC ONE (09:00)
[2019-09-02] MEDS ORDERED: DOCUSATE SODIUM 100 MG CAP PO SCH (09:00)
[2019-09-02] MEDS: ASPIRIN 81 MG ENTERIC TAB PO SCH (09:04)
[2019-09-02] MEDS: DOCUSATE SODIUM 100 MG CAP PO SCH ×2 (09:04→22:11)
[2019-09-02] MEDS: PANTOPRAZOLE 40MG TAB (PROTONIX) PO SCH (09:05)
[2019-09-02] MEDS: FUROSEMIDE 40 MG TAB PO SCH ×2 (09:05→17:43)
[2019-09-02] MEDS: POTASSIUM CHLORIDE 10 MEQ SR TABLET PO SCH ×3 (09:05→22:11)
[2019-09-02] MEDS: GABAPENTIN 300 MG CAP PO SCH ×2 (09:05→22:12)
[2019-09-02] MEDS: ENOXAPARIN 40 MG/0.4 ML SYRINGE (J1650) SC SCH (09:06)
[2019-09-02] MEDS: predniSONE 20 MG TAB PO SCH (09:06)
[2019-09-02] MEDS: OFLOXACIN 0.3 % (OCUFLOX) OPTH SOL 5ML OU SCH (10:42)
[2019-09-02 14:44] VITALS: BP 134/63
--- NOTE | 2019-09-02 17:19 | IPNPDOC ---
Text Note Date of Service The patient was seen on 09/02/19. NOTE Subjective: -Doing fairly well this morning, no complaints, feels much better than she did yesterday, anxious to get to a real room and exasperated by being in the ED. Objective:VITAL SIGNS: Please see below. GEN: well nourished, well developed, NAD HEENT: NCAT, PERRLA, EOMI, MMM CVS: RRR, no mrg, no LE edema and no JVD LUNGS: CTAB with fair air movement without clark crackles or wheezing, speaking in full sentences ABDOMEN: Normoactive, soft & not tender with palpation MSK/EXTREMITIES: range of motion intact in all 4 extremities, WWP, no LE edema NEURO: CN 2-12 are grossly intact, speech is not dysarthric PSYCH: alert and oriented x 3 LABORATORY DATA: See below. IMAGING: CXR: Stable chronic changes with no new infiltrate. MICROBIOLOGY: Influenza A and B- ASSESSMENT: Ms. Bush is a 74 old with a past history of COPD, chronic oxygen dependence, ALINE, CKD 3, chronic HEFpEF, NIDDM, neuropathy, and anxiety that will be admitted for management of acute COPD secondary likely viral URI and active smoking. PLAN: 1. Acute on chronic hypercarbic respiratory failure secondary to Acute COPD According to the patient, this was triggered by smoking and possible cold Chest x-ray and ABG were unrevealing -s/p solumedrol 125 IV x 1, now on pred 40, doing well -supplemental O2 -aspiration precautions -Duonebs Q6H, Albuterol Q4HP, -Empiric Levofloxacin PO -Marielos Gupta -To refer to Grain Mill Worker for repeat PFTs and Pulmonary Rehab when ready for d/c 2. Hyperosmolar hyperglycemic state / NIDDM w Neuropathy. Her A1c was 7.9 in June 2018. Her glucoseon presentation was 600 and her osmolality was 315; Her serum glucoses remained in the 500s despite receiving 10 units of insulin -Hyperglycemic this AM --> got 10u regular insulin with improvement, then started on SSI, and to receive home levemir at 15u QHS tonight -may need to uptitrate insulin while on steroids -consistent carb diet -FSBG AC/HS 3. SIRS, likely reactive due to acute COPD Criteria include HR >90 / > RR 20 - Had normal lactic acid is 0.6 - monitor, is on empiric levaquin 4. Acute Renal Failure on CKD 3: Prerenal and improved with hydration -baseline Cr 1.23--> current Cr 1.72, now downtrending, currently 1.59 -CK wnl -improved with hydration 5. ALINE. - continue home CPAP 6. Chronic diastolic CHF- well compensated at this time -continue home furosemide and metolazone 7. Dyslipidemia. -continue atorvastatin 8. Anxiety. -continue fluoxetine DVT prophylaxis with Lovenox. Disposition likely home tomorrow if she continues to feel better VS,Fishbone, I+O VS, Fishbone, I+O Laboratory Tests 09/02/19 07:02 Vital Signs Date Time Temp Pulse Resp B/P (MAP) Pulse Ox O2 Delivery O2 Flow Rate FiO2 09/02/19 14:44 97.8 90 20 134/63 (86) 96 09/02/19 12:00 Nasal Cannula 09/01/19 18:31 3.0 THEO JUAREZ MD Sep 02, 2019 17:19
--- NOTE | 2019-09-02 17:55 | ECGEPIP ---
[facility] - ED Test Date: 2019-09-01 Pat Name: CORY CAMPBELL Department: Room: - Gender: Female Ladler: heidy : 1945 Requested By: Arnie Rajput Order Number: [id number] Reading MD: Liset Rae Measurements Intervals [place] Rate: 102 P: 81 CT: 152 QRS: 53 QRSD: 89 T: 51 QT: 314 QTc: 410 Interpretive Statements SINUS TACHYCARDIA NONSPECIFIC T-WAVE ABNORMALITY COMPARED 03/02/19 ABNORMAL RHYTHM ECG Electronically Signed on 09-02-2019 17:55:05 EST by Liset Rae
[2019-09-02 18:00] VITALS: BP 160/72
[2019-09-02] MEDS ORDERED: FLUBLOK(EGG FREE)(QUAD)INFLUENZA VACC 0.5ML SYRINGE (90682)18YRS&OLDER IM ONE (18:00)
[2019-09-02 22:00] VITALS: BP 127/59
[2019-09-02] MEDS: ACETAMINOPHEN TAB 650MG DOSE (2X325MG) PO PRN (22:10)
[2019-09-02] MEDS: FLUoxetine 20 MG CAP PO SCH (22:11)
[2019-09-02] MEDS: BISACODYL 5 MG TAB PO SCH (22:11)
[2019-09-02] MEDS: ATORVASTATIN 20 MG TAB PO SCH (22:11)
[2019-09-03 02:00] VITALS: BP 122/58
[2019-09-03 06:00] VITALS: BP 133/69
[2019-09-03 06:14] LABS: HEMATOCRIT 35.5 % (36.0-47.0); HEMOGLOBIN 10.8 g/dl (12.0-15.5); MEAN CORPUSCULAR HEMOGLOBIN 27.6 pg (27.0-33.0); MEAN CORPUSCULAR HGB CONC 30.4 g/dl (32.0-36.5); MEAN CORPUSCULAR VOLUME 90.6 fl (80.0-96.0); PLATELET COUNT, AUTOMATED 200 10^3/uL (150-450); RED BLOOD COUNT 3.92 10^6/uL (4.00-5.40); WHITE BLOOD COUNT 8.5 10^3/uL (4.0-10.0)
[2019-09-03 06:38] LABS: CALCIUM LEVEL 9.1 MG/DL (8.8-10.2); CREATININE FOR GFR 1.53 MG/DL (0.55-1.30); GLOMERULAR FILTRATION RATE 35.3 (>39); POTASSIUM SERUM 3.6 MEQ/L (3.5-5.1)
[2019-09-03] MEDS: IPRATROPIUM 0.5MG/ALBUTEROL 2.5MG INH SOL UD 3ML (DUONEB)(J7620) NEB SCH ×3 (07:26→18:02)
--- NOTE | 2019-09-03 07:43 | DS.PDOC ---
Discharge Summary General Date of Admission Sep 01, 2019 at 19:12 Date of Discharge 09/03/2019 Attending Physician: THEO JUAREZ MD Discharge Summary PROCEDURES PERFORMED DURING STAY: None ADMITTING DIAGNOSES: 1. COPD exacerbation DISCHARGE DIAGNOSES: 1. COPD exacerbation, with chronic oxygen-dependent respiratory failure (3 L). 2. ALINE 3. Chronic diastolic CHF with pulmonary hypertension 4. Prerenal CHRIS on CKD 3 5. Dyslipidemia. 6. NIDDM c/b peripheral neuropathy. 7. Anxiety 8. Smoking COMPLICATIONS/CHIEF COMPLAINT: COPD exacerbation HISTORY OF PRESENT ILLNESS: 74 old W who presented with shortness of breath "for a few days." The shortness of breath was worse with exertion and was concerned may have been due to her smoking. She otherwise denied having a cough, congestion, fever, chills, nausea, vomiting, and diarrhea, or sick contacts. Prior to arrival in the ER, she had a fall and hit her face; at the time she did have her supplemental oxygen on, but she didn't have her walker. HOSPITAL COURSE: She was noted to have an acute COPD exacerbation in the setting of smoking and possible viral URI though she had no symptoms of a URI, ABG was within normal limits, but with initial respiratory distress that she got solumedrol 125 IV x 1 in the ED and started on pred 40 daily for a plan for 5d course. Her work up revealed a normal WBC, an unrevealing chest x-ray, normal ABG and she was placed on empiric levaquin with blood cultures that were negative. She quickly improved and returned to her home 3L with supportive duonebs and albuterol and is now being discharged home to complete a 5 day course of pred without antibiotics. Of note, her course was c/b hyperosmolar hyperglycemic state with her initial FSBG of 600 and her osmolality was 315 requiring aggressive insulin for correction without ever being started on an insulin drip. She was ultimately corrected and now continued on her home regimen and will be discharged on it. Her course was also c/b +SIRS due to tachycardia and tachypnea with a normal lactate and WBC with no focal findings and she was placed on empiric levaquin but ultimately found to not have clark pneumonia. On presentation, she had an acute prerenal CHRIS on CKD3 in the setting of poor PO and her Cr improved with hydration. She is now being discharged home to follow up with her PCP with recommendation to have repeat PFTs with a supervisor boat outfitting for optimization of her COPD management as well as further discuss smoking cessation, as we started the discussion inpatient. DISCHARGE MEDICATIONS: Please see below. ALLERGIES: Please see below. PHYSICAL EXAMINATION ON DISCHARGE: VITAL SIGNS: Please see below. GEN: well nourished, well developed, NAD HEENT: NCAT, PERRLA, EOMI, MMM CVS: RRR, no mrg, no LE edema and no JVD LUNGS: CTAB with fair air movement without clark crackles or wheezing, speaking in full sentences ABDOMEN: Normoactive, soft & not tender with palpation MSK/EXTREMITIES: range of motion intact in all 4 extremities, WWP, no LE edema NEURO: CN 2-12 are grossly intact, speech is not dysarthric PSYCH: alert and oriented x 3 LABORATORY DATA: Please see below. IMAGING: CXR: Chronic bibasilar fibroatelectasis appears stable. No new infiltrate is seen. Cardiomegaly is unchanged. There is calcification of the thoracic aorta. PROGNOSIS: Fair, good if efforts are made to stop smoking ACTIVITY: As tolerated DIET: consistent carb DISCHARGE PLAN: Home with 3d of prednisone 40. DISPOSITION: Home DISCHARGE INSTRUCTIONS: 1. Please complete the prednisone course and see your PCP within 1 week of discharge ITEMS TO FOLLOWUP ON ON OUTPATIENT: 1. COPD management with repeat PFTs 2. Smoking cessation DISCHARGE CONDITION: Stable TIME SPENT ON DISCHARGE: 36 minutes. Vital Signs/I&Os Vital Signs Date Time Temp Pulse Resp B/P (MAP) Pulse Ox O2 Delivery O2 Flow Rate FiO2 09/03/19 02:00 98.0 94 20 122/58 (79) 94 Nasal Cannula 4.0 I&O- Last 24 Hours up to 6 AM 09/03/19 06:00 Intake Total 660 ml Output Total 675 ml Balance -15 ml Laboratory Data Labs 24H Laboratory Tests 2 09/02/19 10:14: Bedside Glucose (Misc Panel) 382H 09/02/19 13:12: Bedside Glucose (Misc Panel) 344H 09/02/19 16:32: Bedside Glucose (Misc Panel) 292H 09/02/19 20:25: Bedside Glucose (Misc Panel) 306H 09/03/19 05:34: Nucleated Red Blood Cells % (auto) 0.0, Anion Gap 5L, Glomerular Filtration Rate 35.3L, Calcium Level 9.1 CBC/BMP Laboratory Tests 09/03/19 05:34 FSBS Laboratory Tests Test 09/02/19 10:14 09/02/19 13:12 09/02/19 16:32 09/02/19 20:25 Range/Units Bedside Glucose (Misc Panel) 382 344 292 306 83-110 MG/DL Microbiology Microbiology 09/01/19 Blood Culture - Preliminary, Resulted No growth after 24 hours . All specim... Discharge Medications Scheduled Acetaminophen (Tylenol Extra Strength) 500 Mg Tablet, 1,000 MG PO BID, (Rep orted) Aspirin (Aspirin EC) 81 Mg Tab, 81 MG PO DAILY, (Reported) Atorvastatin Calcium (Atorvastatin Calcium) 40 Mg Tab, 40 MG PO QHS, (Reported) Bisacodyl (Dulcolax) 5 Mg Tab, 5 MG PO QHS, (Reported) Budesonide (Budesonide) 0.5 Mg/2 Ml Ampul.neb, 0.5 MG INH BID, (Reported) Docusate Sodium (Colace) 100 Mg Cap, 100 MG PO BID, (Reported) Fluoxetine Hcl (Fluoxetine HCl) 20 Mg Capsule, 20 MG PO QHS, (Reported) Formoterol Fumarate (Perforomist) 20 Mcg/2 Ml Vial.neb, 20 MCG INH BID, (Reported) Furosemide (Furosemide) 40 Mg Tablet, 40 MG PO BID, (Reported) Gabapentin (Gabapentin) 300 Mg Cap, 300 MG PO BID, (Reported) BREAKFAST AND DINNER Glimepiride (Glimepiride) 4 Mg Tab, 4 MG PO DAILY, (Reported) ON HOLD - PATIENT UNSURE WHEN IT WAS PLACED ON HOLD Linagliptin (Tradjenta) 5 Mg Tablet, 5 MG PO DAILY, (Reported) Metolazone (Metolazone) 5 Mg Tablet, 5 MG PO 2XW, (Reported) FRIDAY AND FRIDAY Ofloxacin (Ofloxacin) 0.3% 5ML Drops, 2 DROP OU DAILY, (Reported) Potassium Chloride (Potassium Chloride) 10 Meq Tab, 30 MEQ PO TID, (Reported) TAKES BREAKFAST, SUPPER AND QHS Prednisone (Prednisone) 10 Mg Tablet, 10 MG PO DAILY, (Reported) Sennosides (Senokot) 8.6 Mg Tab, 8.6 MG PO QHS, (Reported) Scheduled PRN Albuterol Sulfate (Proair Hfa) 108 Mcg/Act Aer, 2 PUFF INH Q4H PRN for SHORTNESS OF BREATH, (Reported) Ipratropium/Albuterol Sulfate (Iprat-Albut 0.5-3(2.5) mg/3 ml) 1 Lupe Lupe, 1 DOSE INH Q4H PRN for SHORTNESS OF BREATH, (Reported) Polyethylene Glycol 3350 (Miralax) 17 Gm Powd.pack, 17 GM PO DAILY PRN for CONSTIPATION, (Reported) Allergies Coded Allergies: metformin (Verified Allergy, Unknown, 02/27/19) gabapentin (Verified Adverse Reaction, Intermediate, WEAKNESS, 03/02/19) heparin (Verified Adverse Reaction, Intermediate, BLEEDING, 03/02/19) pregabalin (Verified Adverse Reaction, Intermediate, WEAKNESS, 03/02/19) influenza virus vaccine [id number] (5 yr, up) (Verified Adverse Reacti on, Mild, 09/02/19) Patient states when she received the Influenza vaccine many years ago the site became swollen and red THEO JUAREZ MD Sep 03, 2019 07:43
[2019-09-03] MEDS ORDERED: PRED20TA PO (07:44)
[2019-09-03] MEDS: ASPIRIN 81 MG ENTERIC TAB PO SCH (08:19)
[2019-09-03] MEDS: HumaLOG INSULIN (NovoLOG) PER UNIT SC SCH ×4 (08:19→20:40)
[2019-09-03] MEDS: predniSONE 20 MG TAB PO SCH (08:19)
[2019-09-03] MEDS: DOCUSATE SODIUM 100 MG CAP PO SCH ×2 (08:19→20:41)
[2019-09-03] MEDS: FUROSEMIDE 40 MG TAB PO SCH ×2 (08:20→17:08)
[2019-09-03] MEDS: PANTOPRAZOLE 40MG TAB (PROTONIX) PO SCH (08:20)
[2019-09-03] MEDS: POTASSIUM CHLORIDE 10 MEQ SR TABLET PO SCH ×3 (08:20→20:39)
[2019-09-03] MEDS: GABAPENTIN 300 MG CAP PO SCH ×2 (08:20→20:39)
[2019-09-03] MEDS: OFLOXACIN 0.3 % (OCUFLOX) OPTH SOL 5ML OU SCH (08:21)
[2019-09-03] MEDS: ENOXAPARIN 40 MG/0.4 ML SYRINGE (J1650) SC SCH (08:21)
[2019-09-03 09:00] VITALS: O2SAT 95
[2019-09-03] MEDS ORDERED: metOLazone 5 MG TAB PO SCH (09:00)
--- NOTE | 2019-09-03 13:43 | IPNPDOC ---
Text Note Date of Service The patient was seen on 09/03/19. NOTE Subjective: -Doing fairly well but does not feel ready to go home yet. Objective:VITAL SIGNS: Please see below. GEN: well nourished, well developed, NAD HEENT: NCAT, PERRLA, EOMI, MMM CVS: RRR, no mrg, no LE edema and no JVD LUNGS: CTAB with fair air movement without clark crackles or wheezing, speaking in full sentences ABDOMEN: Normoactive, soft & not tender with palpation MSK/EXTREMITIES: range of motion intact in all 4 extremities, WWP, no LE edema NEURO: CN 2-12 are grossly intact, speech is not dysarthric PSYCH: alert and oriented x 3 LABORATORY DATA: See below. Reviewed. IMAGING: CXR: Stable chronic changes with no new infiltrate. MICROBIOLOGY: Influenza A and B- ASSESSMENT: Ms. Bush is a 74 old with a past history of COPD, chronic oxygen dependence, ALINE, CKD 3, chronic HEFpEF, NIDDM, neuropathy, and anxiety that will be admitted for management of acute COPD secondary likely viral URI and active smoking. PLAN: 1. Acute on chronic hypercarbic respiratory failure secondary to Acute COPD According to the patient, this was triggered by smoking and possible cold Chest x-ray and ABG were unrevealing -s/p solumedrol 125 IV x 1, now on pred 40 -supplemental O2 -aspiration precautions -Duonebs Q6H, Albuterol Q4HP, -Empiric Levofloxacin PO, day 3 -Mairelos Gupta -To refer to Merchandising Team Lead for repeat PFTs and Pulmonary Rehab when ready for d/c 2. Hyperosmolar hyperglycemic state / NIDDM w Neuropathy. Her A1c was 7.9 in June 2018. Her glucose on presentation was 600 and her osmolality was 315; required 2 doses of regular insulin 10u -Hyperglycemia improving -Levemir 15u QHS -consistent carb diet -FSBG AC/HS -SSI 3. SIRS, likely reactive due to acute COPD Criteria include HR >90 / > RR 20 - Had normal lactic acid is 0.6 - monitor, is on empiric levaquin day 3 4. Acute Renal Failure on CKD 3: Prerenal and improved with hydration -baseline Cr 1.23--> current Cr 1.72, now downtrending, currently 1.59 -CK wnl -improved with hydration 5. ALINE. - continue home CPAP 6. Chronic diastolic CHF- well compensated at this time -continue home furosemide and metolazone 7. Dyslipidemia. -continue atorvastatin 8. Anxiety. -continue fluoxetine DVT prophylaxis with Lovenox. Disposition likely home tomorrow, was going to discharge home today but reports that she does not feel ready to go home yet, will plan for early AM discharge tomorrow. VS,Fishbone, I+O VS, Fishbone, I+O Laboratory Tests 09/03/19 05:34 Vital Signs Date Time Temp Pulse Resp B/P (MAP) Pulse Ox O2 Delivery O2 Flow Rate FiO2 09/03/19 06:00 96.6 82 20 133/69 (90) 91 NIPPV (BIPAP/CPAP) 4.0 I&O- Last 24 Hours up to 6 AM 09/03/19 06:00 Intake Total 660 ml Output Total 875 ml Balance -215 ml THEO JUAREZ MD Sep 03, 2019 08:23
[2019-09-03 14:00] VITALS: BP 133/62
[2019-09-03 18:00] VITALS: BP 140/66
[2019-09-03] MEDS ORDERED: HumaLOG INSULIN (NovoLOG) PER UNIT SC STA (20:16)
[2019-09-03] MEDS: FLUoxetine 20 MG CAP PO SCH (20:39)
[2019-09-03] MEDS: ATORVASTATIN 20 MG TAB PO SCH (20:39)
[2019-09-03] MEDS: BISACODYL 5 MG TAB PO SCH (20:41)
[2019-09-03] MEDS ORDERED: LEVEMIR (INSULIN DETEMIR) 1 UNITS/0.01ML SC SCH (21:00)
[2019-09-03 22:00] VITALS: BP 135/64
[2019-09-04] MEDS: IPRATROPIUM 0.5MG/ALBUTEROL 2.5MG INH SOL UD 3ML (DUONEB)(J7620) NEB SCH ×2 (02:35→07:28)
[2019-09-04 06:00] VITALS: BP 150/71
[2019-09-04 06:26] LABS: HEMATOCRIT 34.7 % (36.0-47.0); HEMOGLOBIN 10.5 g/dl (12.0-15.5); MEAN CORPUSCULAR HEMOGLOBIN 27.5 pg (27.0-33.0); MEAN CORPUSCULAR HGB CONC 30.3 g/dl (32.0-36.5); MEAN CORPUSCULAR VOLUME 90.8 fl (80.0-96.0); PLATELET COUNT, AUTOMATED 196 10^3/uL (150-450); RED BLOOD COUNT 3.82 10^6/uL (4.00-5.40); WHITE BLOOD COUNT 8.4 10^3/uL (4.0-10.0)
[2019-09-04] MEDS: ACETAMINOPHEN TAB 650MG DOSE (2X325MG) PO PRN (06:44)
[2019-09-04 06:51] LABS: CALCIUM LEVEL 8.8 MG/DL (8.8-10.2); CREATININE FOR GFR 1.3 MG/DL (0.55-1.30); GLOMERULAR FILTRATION RATE 42.6 (>39); POTASSIUM SERUM 3.3 MEQ/L (3.5-5.1)
[2019-09-04] MEDS: HumaLOG INSULIN (NovoLOG) PER UNIT SC SCH ×2 (07:30→11:54)
[2019-09-04] MEDS: DOCUSATE SODIUM 100 MG CAP PO SCH (09:00)
[2019-09-04] MEDS: GABAPENTIN 300 MG CAP PO SCH (09:39)
[2019-09-04] MEDS: predniSONE 20 MG TAB PO SCH (09:39)
[2019-09-04] MEDS: PANTOPRAZOLE 40MG TAB (PROTONIX) PO SCH (09:39)
[2019-09-04] MEDS: POTASSIUM CHLORIDE 10 MEQ SR TABLET PO SCH (09:39)
[2019-09-04] MEDS: FUROSEMIDE 40 MG TAB PO SCH (09:40)
[2019-09-04] MEDS: ENOXAPARIN 40 MG/0.4 ML SYRINGE (J1650) SC SCH (09:40)
[2019-09-04] MEDS: ASPIRIN 81 MG ENTERIC TAB PO SCH (09:40)
[2019-09-04] MEDS: OFLOXACIN 0.3 % (OCUFLOX) OPTH SOL 5ML OU SCH (09:41)
[2019-09-04 10:00] VITALS: BP 125/76
--- NOTE | 2019-09-04 11:33 | IPNPDOC ---
Text Note Date of Service The patient was seen on 09/04/19. NOTE Subjective: -Doing well, home this AM Objective:VITAL SIGNS: Please see below. GEN: well nourished, well developed, NAD HEENT: NCAT, PERRLA, EOMI, MMM CVS: RRR, no mrg, no LE edema and no JVD LUNGS: CTAB, speaking in full sentences ABDOMEN: Normoactive, soft & not tender with palpation MSK/EXTREMITIES: range of motion intact in all 4 extremities, WWP, no LE edema NEURO: CN 2-12 are grossly intact, speech is not dysarthric PSYCH: alert and oriented x 3 LABORATORY DATA: See below. Reviewed, stable IMAGING: CXR: Stable chronic changes with no new infiltrate. MICROBIOLOGY: Influenza A and B- ASSESSMENT: Ms. Bush is a 74 old with a past history of COPD, chronic oxygen dependence, ALINE, CKD 3, chronic HEFpEF, NIDDM, neuropathy, and anxiety that was admitted for management of acute COPD secondary likely viral URI and active smoking who is now being discharged home. PLAN: 1. Acute on chronic hypercarbic respiratory failure secondary to Acute COPD According to the patient, this was triggered by smoking and possible cold Chest x-ray and ABG were unrevealing -s/p solumedrol 125 IV x 1, now on pred 40 to complete a total 5 day course -supplemental O2 -aspiration precautions -Duonebs Q6H, Albuterol Q4HP, -Empiric Levofloxacin PO, day 4, discontinuing today. -Marielos Gupta -To refer to Director Economic for repeat PFTs and Pulmonary Rehab when ready for d/c 2. Hyperosmolar hyperglycemic state / NIDDM w Neuropathy. Her A1c was 7.9 in June 2018. Her glucose on presentation was 600 and her osmolality was 315; required 2 doses of regular insulin 10u -Hyperglycemia improving -Levemir 15u QHS -consistent carb diet -FSBG AC/HS -SSI 3. SIRS, likely reactive due to acute COPD Criteria include HR >90 / > RR 20 - Had normal lactic acid is 0.6 - monitor, is on empiric levaquin day 4, discontinuing today. 4. Acute Renal Failure on CKD 3: Prerenal, and now resolved -back at baseline, resolved. 5. ALINE. - continue home CPAP 6. Chronic diastolic CHF- well compensated at this time -continue home furosemide and metolazone per home script 7. Dyslipidemia. -continue atorvastatin 8. Anxiety. -continue fluoxetine DVT prophylaxis with Lovenox. Disposition: home today VS,Evelina, I+O VS, Evelina, I+O Laboratory Tests 09/04/19 05:59 Vital Signs Date Time Temp Pulse Resp B/P (MAP) Pulse Ox O2 Delivery O2 Flow Rate FiO2 09/04/19 06:00 96.7 90 18 150/71 (97) 94 NIPPV (BIPAP/CPAP) 09/03/19 22:00 3.0 I&O- Last 24 Hours up to 6 AM 09/04/19 06:00 Intake Total 1800 ml Balance 1800 ml THEO JUAREZ MD Sep 04, 2019 08:55
== END 2019-09-04 12:10 | disposition home or self-care (01) | DRG 189 ==
LOC: M ED 16:31 → M ED INP 19:12 → M MSPAV 09-02 15:07
PROVIDERS: ADMIT Internal Medicine; ATTEND Internal Medicine
DX: J96.22 Acute and chronic respiratory failure with hypercapnia (principal); E11.00 Type 2 diabetes mellitus with hyperosmolarity without nonketotic hyperglycemic-hyperosmolar coma (NKHHC); J44.1 Chronic obstructive pulmonary disease with (acute) exacerbation; R65.10 Systemic inflammatory response syndrome (SIRS) of non-infectious origin without acute organ dysfunction; I50.32 Chronic diastolic (congestive) heart failure; N17.9 Acute kidney failure, unspecified; N18.3 Chronic kidney disease, stage 3 (moderate); E78.5 Hyperlipidemia, unspecified; F41.9 Anxiety disorder, unspecified; E11.51 Type 2 diabetes mellitus with diabetic peripheral angiopathy without gangrene; I27.20 Pulmonary hypertension, unspecified; F17.200 Nicotine dependence, unspecified, uncomplicated; G47.33 Obstructive sleep apnea (adult) (pediatric); Z99.81 Dependence on supplemental oxygen; Z79.899 Other long term (current) drug therapy; Z79.82 Long term (current) use of aspirin; Z88.7 Allergy status to serum and vaccine; Z79.52 Long term (current) use of systemic steroids